=== PATIENT | female | born 1950 | race Caucasian/White ===

== ENCOUNTER 2020-10-10 10:11 | Outpatient (REF) | payer OTHER, SELFPAY ==
[2020-10-10 11:56] LABS: Glucose Urine UA NEG (NEG); Leukocyte Esterase Urine 2+ (NEG); Nitrite Urine NEG (NEG); PH 5.5 (5.0-8.0); Specific Gravity - Urine >= 1.030 (1.005-1.025); Urine Blood 3+ (NEG); Urine Ketones NEG (NEG); Urine Protein NEG (NEG-TRACE)
[2020-10-10 12:00] LABS: Appearance Urine CLOUDY; Color Urine YELLOW
[2020-10-10 12:15] LABS: Bacteria Urine 1+ /LPF; Squamous Epithelial Cell Urine 3+ /LPF; WBC Urine 30-49 /HPF (0-4)
== END 2020-10-10 10:12 | disposition home or self-care (01) ==
LOC: HO.LAB 10:11
PROVIDERS: PCP Internal Medicine; Visit Provider Internal Medicine
DX: R30.0 Dysuria (principal)
CPT/HCPCS: 81001; 87086

== ENCOUNTER 2020-11-06 07:54 | Outpatient (REF) | payer OTHER, SELFPAY ==
--- NOTE | 2020-11-06 07:58 | MM_ITS ---
EXAMINATION: MM SCREENING DIGITAL BREAST TOMOSYNTHESIS, BILATERAL CLINICAL INFORMATION: Screening. Asymptomatic. The lifetime risk of breast cancer based on the Tyrer-Cuzick Model is 6%. COMPARISON: Mammography: 05/07/2020, 11/07/2019, 10/27/2019, 09/08/2018 TECHNIQUE: Digital breast tomosynthesis is performed in both the craniocaudal and mediolateral oblique views along with computer-aided detection (CAD). Synthesized 2D images are generated from the tomosynthesis. Additional exaggerated right CC and right MLO views are provided. FINDINGS: The breasts are almost entirely fatty (ACR BI-RADS breast composition Category a). There are no significant masses, abnormal calcifications, or other abnormalities. Background stromal and fibroglandular densities are stable. The asymmetric density noted previously mid 9:00 right breast is no longer demonstrated. No significant changes from prior exams. MM/MM tomosynthesis screening BI IMPRESSION: No mammographic evidence of malignancy. ASSESSMENT: BI-RADS 1: Negative RECOMMENDATION: Routine annual mammography screening. This patient's information was entered into a reminder system with a target due date for their next mammogram.
== END 2020-11-06 07:55 | disposition home or self-care (01) ==
LOC: HO.MAMMO 07:54
PROVIDERS: PCP Internal Medicine; Visit Provider Internal Medicine
DX: Z12.31 Encounter for screening mammogram for malignant neoplasm of breast (principal)
CPT/HCPCS: 77063; 77067

== ENCOUNTER 2020-11-18 08:05 | Inpatient (IN) | payer OTHER, SELFPAY ==
[2020-11-18] VITALS (10 sets, daily range): BP systolic 138–155; BP diastolic 69–88; PULSE 89–112; RESP 16–22; TEMP 36.9–37.1; O2SAT 2–100; BMI 45.4
--- NOTE | 2020-11-18 08:15 | ED.ASTHMA ---
HPI - Asthma General Chief Complaint: Dyspnea Stated Complaint: ASTHMA Time Seen by Provider: 11/18/20 08:15 Source: patient Mode of arrival: ambulatory Limitations: no limitations History of Present Illness HPI Narrative: This is a 70-year-old female who reports history of hypertension, hyperlipidemia, hypothyroidism as well as history of asthma she is a nonsmoker she does have history of obesity who presents ambulatory via triage with complaint of states on 3 days ago she started with some nasal congestion had a episode of mild nose bleed in the setting of congestion that resolved spontaneously and since then has had a cough with worsening wheezing and unable to lay down flat. States she feels shortness of breath and she has had cough intensifying and with cough she gets spasm like pain in the right-sided chest. She denies recent travel or sick contacts. She does use Advair for her asthma. MD complaint: asthma attack and wheezing Onset (ago): day(s) (3) Severity: moderate Context: recent URI Associated symptoms: productive cough Asthma History: childhood onset Treatments Prior to Arrival: other (Advair) Related Data Allergies Allergy/AdvReac Type Severity Reaction Status Date / Time cephalexin [Keflex] Allergy Unknown CRAMPS Verified 11/18/20 08:48 erythromycin base AdvReac Severe NAUSEA & Verified 11/18/20 08:48 [Erythromycin Base] VOMITING Erythromycin Allergy Unknown CRAMPS Uncoded 11/18/20 08:48 From Keflex AdvReac Severe NAUSEA & Uncoded 07/19/20 15:17 VOMITING Review of Systems Review of Systems: Constitutional: No Weight loss, No Fever, No Chills, No Night Sweats, No Fatigue, No Malaise ENT/Mouth: No Hearing loss, No Ear Pain, + Nasal Congestion, No Sinus Pain, No Hoarseness, No sore throat, , No Swallowing Difficulty Eyes: No Eye Pain, No Swelling, No Redness, No Foreign Body, No Discharge, No Vision Changes Cardiovascular: No Edema, No Palpitations Respiratory: Positive shortness of breath, positive cough as noted HPI Gastrointestinal: No Nausea, No Vomiting, No Diarrhea, No Constipation, No abdominal Pain, No Hematochezia, No Melena Genitourinary: no irregular bleeding, No Dysuria, No Urinary Frequency, No Hematuria, No Urinary Incontinence, No Urgency, No Flank Pain, No Urinary Flow Changes, No Hesitancy Musculoskeletal: No joint pain, No Myalgias, No Joint Swelling Skin: No Skin Lesions, No rash Neuro: No Weakness, No Numbness, No Paresthesias, No Loss of Consciousness, No Dizziness, No Headache Psych: No Social Issues Heme/Lymph: No Bruising, No Bleeding,No Lymphadenopathy Endocrine: No Polyuria, No Polydipsia, No Temperature Intolerance Yes all other systems are reviewed and are negative [facility] Past Medical History Medical History (Updated 11/18/20 @ 08:20 by Ewa George) Asthma Eczema HTN (hypertension) Hypothyroid Rosacea Social History Social History Alcohol intake: never Smoking Status: Never smoker Use of substances other than those prescribed or required for medical reasons: No Advance Directives: No Advance Directives Information Provided: Yes Physical Exam Vital Signs: Vital Signs: Last Vital Signs Temp 98.8 F 11/18/20 08:18 Pulse 109 H 11/18/20 12:12 Resp 22 H 11/18/20 12:12 BP 149/74 H 11/18/20 12:12 Pulse Ox 97 11/18/20 12:12 Body Mass Index 45.4 Reviewed Const: General: cooperative and in distress mild and respiratory; No intoxicated appearing Nutritional Appearance: average body habitus Orientation/consciousness: patient oriented x3 HENMT: Head: Yes normal to inspection Ears: hearing grossly normal bilaterally Eyes: General: appearance normal, both eyes and all related structures Visual Yin: normal visual yin by confrontation Neck: Neck: Yes normal visual inspection, No positive Brudzinski's sign, No positive Kernig's sign and No tender Thyroid: Thyroid normal Chest: Chest palpation & inspection: normal inspection of the chest Resp: Effort & Inspection: normal respiratory effort Auscultation: wheezes scattered wheezes Cardio: Jugular venous distension: no JVD Rate: regular rate Rhythm: abnormal rhythm (Tachycardic) Heart sounds: S1 normal heart sound present and S2 normal heart sound present GI: Inspection: Yes normal to inspection Percussion: Yes normal to percussion Auscultation: normal bowel sounds : General: Yes no CVA tenderness Back/Spine/Pelvis: Back: no CVA tenderness Skin: General skin exam: no rashes or lesions noted Neuro: General: patient oriented x3 Extrem: General: Yes normal to inspection Course Course Course Narrative: No significant improvement with albuterol inhaler. COVID positive. Moved to room 7 RT at bedside for our long neb. feels short of breath with ambulation. Her O2 did drop to 89% with ambulation. Labs otherwise overall stable. No leukocytosis. D-dimer negative. BMP negative. Troponin negative. X-ray without acute disease. Plan for our long neb and re-evaluation. Reevaluation(s) Reevaluation #1: Wheezing has improved significantly after our long neb at rest 95-97% on 2 L of nasal cannula supplemental oxygen. Without supplemental oxygen she is down to 91 and drops to 88-89% ra. COVID positive, requiring oxygen with desaturation case discussed with hospitalist for admission. Consultations Consultation #1: [id number] Case discussed with hospitalist Millie, accepted to service. MDM - Asthma MDM Narrative Medical decision making narrative: 830 In review of 70-year-old female with history hypertension, hyperlipidemia, hypothyroidism as well as history of asthma nonsmoker on Advair has had cough with worsening weakness with associated wheezing and right-sided chest wall pain with cough only in the setting of recent URI feeling worse over the past 3 days upon arrival scattered wheezing pulse ox 91% on room air placed on 2 L improved to 95% at rest she reports she feels okay. Labs including COVID stratification labs, EKG chest x-ray and will treat with p.r.n. neb, steroids and gradual fluids. Differential Diagnosis Differential diagnosis: Likely Acute exacerbation, Acute asthmatic bronchitis and Pneumonia; Unlikely Status asthmaticus, PE, COPD exacerbation, Pulmonary edema systolic, Pulmonary edema dystolic, ARDS, Pneumothorax and Foreign body in trachea Medical Records Attestation: I reviewed the patient's medical records. Lab Data Attestation: I reviewed the patient's lab results. Result diagrams: 11/18/20 08:36 11/18/20 08:36 Labs: Lab Results 11/18/20 11/18/20 11/18/20 Range/Units 08:36 08:36 08:36 WBC 4.5 L (4.8-10.8) X10*3/uL RBC 4.32 (4.20-5.50) X10*6/uL Hgb 13.4 (12.0-16.0) g/dl Hct 41.7 (37-47) % MCV 96.5 (80-98) fL MCH 31.0 (27.0-33.0) pg MCHC 32.1 (31.0-35.0) g/dl RDW 13.5 (11.0-16.0) % Plt Count 260 (160-400) X10*3/uL MPV 9.0 L (9.4-12.3) fL Immature Gran % (Auto) 0.7 H (0.0-0.4) % Neut % (Auto) 67.9 (45-73) % Lymph % (Auto) 23.5 (20-40) % [place] % (Auto) 6.6 (2-11) % Eos % (Auto) 0.9 (0-4) % Baso % (Auto) 0.4 (0-2) % Lymph # (Auto) 1.1 L (1.2-4.9) X10*3/uL [place] # (Auto) 0.3 (0.1-1.2) X10*3/uL Eos # (Auto) 0.0 (0.0-0.4) X10*3/uL Baso # (Auto) 0.0 (0.0-0.2) X10*3/uL Abs Immat Gran (auto) 0.03 (0.00-0.03) X10*3/uL Absolute Neuts (auto) 3.1 (2.0-8.3) X10*3/uL Absolute Nucleated RBC 0.000 (0.0-0.012) X10*3/uL Nucleated RBC % (auto) 0.0 (0.0-0.2) /100WBC PT 13.1 H (10.8-13.0) SEC INR 1.1 (0.9-1.1) APTT 34.1 (24.1-38.0) SEC D-Dimer < 200 NG/ML Sodium 141 (135-145) mmol/L Potassium 4.1 (3.3-5.1) mmol/l Chloride 106 (96-108) mmol/L Carbon Dioxide 22 (22-29) mmol/L Anion Gap 17 (12-20) BUN 13 (9-16) mg/dL Creatinine 0.78 (0.5-1.4) mg/dL Estim Creat Clear Calc 97.6 Estimated GFR > 60 Random Glucose 218 H (60-115) mg/dL Lactic Acid (0.5-2.0) mmol/L Calcium 8.4 (8.4-10.2) mg/dL Ferritin 229 (10-250) ng/mL Total Bilirubin 0.3 (0.0-1.0) mg/dL AST 55 H (5-31) U/L ALT 56 H (0-31) U/L Alkaline Phosphatase 82 (39-117) U/L Lactate Dehydrogenase 257 H (122-220) U/L Troponin I High Sens (<3.5-17.0) ng/L C-Reactive Protein 0.88 H (< or = 0.50) mg/dL B-Natriuretic Peptide (<100) pg/mL Total Protein 6.8 (6.5-8.0) g/dL Albumin 4.0 (3.5-5.0) g/dL Procalcitonin ng/mL Urine Color Urine Appearance Urine pH (5.0-8.0) Ur Specific [place] (1.005-1.025) Urine Protein (NEG-TRACE) MG/DL Urine Glucose (UA) (NEG) MG/DL Urine Ketones (NEG) MG/DL Urine Blood (NEG) Urine Nitrite (NEG) Ur Leukocyte Esterase (NEG) Urine RBC (0) /HPF Urine WBC (0-4) /HPF Ur Squamous Epith Cells /LPF Urine Bacteria /LPF COVID-19 (FRANCA) (Negative) COVID-19 Clin Com 11/18/20 11/18/20 11/18/20 Range/Units 08:36 08:36 08:36 WBC (4.8-10.8) X10*3/uL RBC (4.20-5.50) X10*6/uL Hgb (12.0-16.0) g/dl Hct (37-47) % MCV (80-98) fL MCH (27.0-33.0) pg MCHC (31.0-35.0) g/dl RDW (11.0-16.0) % Plt Count (160-400) X10*3/uL MPV (9.4-12.3) fL Immature Gran % (Auto) (0.0-0.4) % Neut % (Auto) (45-73) % Lymph % (Auto) (20-40) % [place] % (Auto) (2-11) % Eos % (Auto) (0-4) % Baso % (Auto) (0-2) % Lymph # (Auto) (1.2-4.9) X10*3/uL [place] # (Auto) (0.1-1.2) X10*3/uL Eos # (Auto) (0.0-0.4) X10*3/uL Baso # (Auto) (0.0-0.2) X10*3/uL Abs Immat Gran (auto) (0.00-0.03) X10*3/uL Absolute Neuts (auto) (2.0-8.3) X10*3/uL Absolute Nucleated RBC (0.0-0.012) X10*3/uL Nucleated RBC % (auto) (0.0-0.2) /100WBC PT (10.8-13.0) SEC INR (0.9-1.1) APTT (24.1-38.0) SEC D-Dimer NG/ML Sodium (135-145) mmol/L Potassium (3.3-5.1) mmol/l Chloride (96-108) mmol/L Carbon Dioxide (22-29) mmol/L Anion Gap (12-20) BUN (9-16) mg/dL Creatinine (0.5-1.4) mg/dL Estim Creat Clear Calc Estimated GFR Random Glucose (60-115) mg/dL Lactic Acid 1.2 (0.5-2.0) mmol/L Calcium (8.4-10.2) mg/dL Ferritin (10-250) ng/mL Total Bilirubin (0.0-1.0) mg/dL AST (5-31) U/L ALT (0-31) U/L Alkaline Phosphatase (39-117) U/L Lactate Dehydrogenase (122-220) U/L Troponin I High Sens < 3.5 (<3.5-17.0) ng/L C-Reactive Protein (< or = 0.50) mg/dL B-Natriuretic Peptide < 10 (<100) pg/mL Total Protein (6.5-8.0) g/dL Albumin (3.5-5.0) g/dL Procalcitonin 0.07 ng/mL Urine Color Urine Appearance Urine pH (5.0-8.0) Ur Specific [place] (1.005-1.025) Urine Protein (NEG-TRACE) MG/DL Urine Glucose (UA) (NEG) MG/DL Urine Ketones (NEG) MG/DL Urine Blood (NEG) Urine Nitrite (NEG) Ur Leukocyte Esterase (NEG) Urine RBC (0) /HPF Urine WBC (0-4) /HPF Ur Squamous Epith Cells /LPF Urine Bacteria /LPF COVID-19 (FRANCA) (Negative) COVID-19 Clin Com 11/18/20 11/18/20 Range/Units 08:37 12:11 WBC (4.8-10.8) X10*3/uL RBC (4.20-5.50) X10*6/uL Hgb (12.0-16.0) g/dl Hct (37-47) % MCV (80-98) fL MCH (27.0-33.0) pg MCHC (31.0-35.0) g/dl RDW (11.0-16.0) % Plt Count (160-400) X10*3/uL MPV (9.4-12.3) fL Immature Gran % (Auto) (0.0-0.4) % Neut % (Auto) (45-73) % Lymph % (Auto) (20-40) % [place] % (Auto) (2-11) % Eos % (Auto) (0-4) % Baso % (Auto) (0-2) % Lymph # (Auto) (1.2-4.9) X10*3/uL [place] # (Auto) (0.1-1.2) X10*3/uL Eos # (Auto) (0.0-0.4) X10*3/uL Baso # (Auto) (0.0-0.2) X10*3/uL Abs Immat Gran (auto) (0.00-0.03) X10*3/uL Absolute Neuts (auto) (2.0-8.3) X10*3/uL Absolute Nucleated RBC (0.0-0.012) X10*3/uL Nucleated RBC % (auto) (0.0-0.2) /100WBC PT (10.8-13.0) SEC INR (0.9-1.1) APTT (24.1-38.0) SEC D-Dimer NG/ML Sodium (135-145) mmol/L Potassium (3.3-5.1) mmol/l Chloride (96-108) mmol/L Carbon Dioxide (22-29) mmol/L Anion Gap (12-20) BUN (9-16) mg/dL Creatinine (0.5-1.4) mg/dL Estim Creat Clear Calc Estimated GFR Random Glucose (60-115) mg/dL Lactic Acid (0.5-2.0) mmol/L Calcium (8.4-10.2) mg/dL Ferritin (10-250) ng/mL Total Bilirubin (0.0-1.0) mg/dL AST (5-31) U/L ALT (0-31) U/L Alkaline Phosphatase (39-117) U/L Lactate Dehydrogenase (122-220) U/L Troponin I High Sens (<3.5-17.0) ng/L C-Reactive Protein (< or = 0.50) mg/dL B-Natriuretic Peptide (<100) pg/mL Total Protein (6.5-8.0) g/dL Albumin (3.5-5.0) g/dL Procalcitonin ng/mL Urine Color YELLOW Urine Appearance CLEAR Urine pH 5.5 (5.0-8.0) Ur Specific [place] 1.020 (1.005-1.025) Urine Protein NEG (NEG-TRACE) MG/DL Urine Glucose (UA) 500 H (NEG) MG/DL Urine Ketones 15 (NEG) MG/DL Urine Blood 2+ H (NEG) Urine Nitrite NEG (NEG) Ur Leukocyte Esterase TRACE H (NEG) Urine RBC 5-9 H (0) /HPF Urine WBC 1-4 (0-4) /HPF Ur Squamous Epith Cells 1+ /LPF Urine Bacteria 1+ /LPF COVID-19 (FRANCA) Positive A (Negative) COVID-19 Clin Com See Note Imaging Data Chest x-ray: Radiologist's impression: [address] [address] XRay Report Signed Patient: Flores Agrawal#: [id number] : 2Acct:[id number] Age/Sex: 70 / FADM Date: 11/18/20 Loc: HO.ED Attending Dr: Ordering Physician: Franky Bautista NP Date of Service: 11/18/20 Procedure(s): XR chest 1V Accession Number(s): [id number] cc: Franky Bautista ROCK DUST SPRAYER~ EXAMINATION: XR CHEST CLINICAL INFORMATION: Shortness of breath COMPARISON: Previous chest x-ray December 2018 TECHNIQUE: Frontal view of the chest was obtained. FINDINGS: The cardiac and mediastinal contours are stable. The lungs are clear. There is no pleural effusion or pneumothorax. There are degenerative changes of the spine. XR/XR chest 1V IMPRESSION: No evidence for acute disease in the chest. Dictated By:FREDA PATEL MD Signed By:<Electronically signed by FREDA PATEL MD in OV>11/18/20832 DD/ 6 TD/TT: Toy Department Manager: MARTITA ECG Data Interpretation: Sinus tachycardia Otherwise normal ECG When compared with ECG of 08-MAR-2012 09:07, No significant change was found
--- NOTE | 2020-11-18 08:17 | ECG_ITS ---
Test Reason : SOB Blood Pressure : / mmHG Vent. Rate : 109 BPM Atrial Rate : 109 BPM P-R Int : 164 ms QRS Dur : 090 ms QT Int : 352 ms P-R-T Axes : 079 015 033 degrees QTc Int : 474 ms Sinus tachycardia Otherwise normal ECG When compared with ECG of 08-MAR-2012 09:07, No significant change was found Referred By: Franky Bautista Electronically Signed By:MARI FERNANDEZ
[2020-11-18 08:44] LABS: MANUAL DIFF FLAG NO
[2020-11-18 08:46] LABS: Basophils Percent Auto 0.4 % (0-2); Eosinophils Percent Auto 0.9 % (0-4); Hematocrit 41.7 % (37-47); Hemoglobin 13.4 g/dl (12.0-16.0); Imm Gran Abs Auto 0.03 X10*3/uL (0.00-0.03); Imm Gran Pct Auto 0.7 % (0.0-0.4); Lymphocytes Absolute Auto 1.1 X10*3/uL (1.2-4.9); Lymphocytes Percent Auto 23.5 % (20-40); Mean Corpuscular HGB Conc 32.1 g/dl (31.0-35.0); Mean Corpuscular Volume 96.5 fL (80-98); Monocytes Absolute Auto 0.3 X10*3/uL (0.1-1.2); Monocytes Percent Auto 6.6 % (2-11); Neutrophils Absolute Auto 3.1 X10*3/uL (2.0-8.3); Neutrophils Percent Auto 67.9 % (45-73); Platelet Count 260 X10*3/uL (160-400); Red Blood Count 4.32 X10*6/uL (4.20-5.50); Red Cell Distribution Width 13.5 % (11.0-16.0); White Blood Count 4.5 X10*3/uL (4.8-10.8)
[2020-11-18] MEDS: predniSONE 20 MG TABLET 60 MG PO (08:49)
[2020-11-18] MEDS: 0.9 % Sodium Chloride 500 ML IV (08:50)
[2020-11-18 08:52] LABS: INTERNATIONAL NORM RATIO 1.1 (0.9-1.1); Prothrombin Time 13.1 SEC (10.8-13.0)
[2020-11-18 08:55] LABS: Partial Thromboplastin Time 34.1 SEC (24.1-38.0)
[2020-11-18 08:56] LABS: IDNOW Serial# 9DD0AD1C
[2020-11-18 08:58] LABS: COVID-19 Test Positive (Negative)
[2020-11-18 08:58] LABS: D Dimer < 200 NG/ML
[2020-11-18 09:03] LABS: Lactic Acid 1.2 mmol/L (0.5-2.0)
[2020-11-18 09:10] LABS: Alanine Aminotransferase 56 U/L (0-31); Alkaline Phosphatase 82 U/L (39-117); Anion Gap 17 (12-20); Aspartate Amino Transferase 55 U/L (5-31); Bilirubin Total 0.3 mg/dL (0.0-1.0); Blood Urea Nitrogen 13 mg/dL (9-16); C Reactive Protein 0.88 mg/dL (< or = 0.50); Calcium 8.4 mg/dL (8.4-10.2); Carbon Dioxide 22 mmol/L (22-29); Chloride 106 mmol/L (96-108); Creatinine Clr Calc Pharmacy 97.6; Estimated Glomerular Filt Rate > 60; Glucose Random 218 mg/dL (60-115); Lactate Dehydrogenase 257 U/L (122-220); Potassium 4.1 mmol/l (3.3-5.1); Sodium 141 mmol/L (135-145); Total Protein 6.8 g/dL (6.5-8.0)
[2020-11-18 09:13] LABS: Troponin-I High Sensitivity < 3.5 ng/L (<3.5-17.0)
[2020-11-18 09:29] LABS: Procalcitonin 0.07 ng/mL
[2020-11-18] MEDS: Albuterol Sulfate (0.083%) 2.5 MG/3 ML VIAL.NEB 10 MG INHALE (09:52)
[2020-11-18 10:49] LABS: B Type Natriuretic Peptide < 10 pg/mL (<100)
[2020-11-18 11:04] LABS: Ferritin 229 ng/mL (10-250)
[2020-11-18 12:19] LABS: Glucose Urine UA 500 MG/DL (NEG); Leukocyte Esterase Urine TRACE (NEG); Nitrite Urine NEG (NEG); PH 5.5 (5.0-8.0); Urine Blood 2+ (NEG); Urine Ketones 15 MG/DL (NEG); Urine Protein NEG (NEG-TRACE)
[2020-11-18 12:20] LABS: Appearance Urine CLEAR; Color Urine YELLOW
[2020-11-18 12:37] LABS: Bacteria Urine 1+ /LPF; Squamous Epithelial Cell Urine 1+ /LPF
--- NOTE | 2020-11-18 12:40 | PC.NURSE ---
Pt ambulatory to bathroom in room, sat 89% on room air upon return to bed with increased work of breathing, Franky Bautista WIRELESS RETAIL MANAGER aware
--- NOTE | 2020-11-18 14:03 | P.HPHOSP_ITS ---
History of Present Illness Date of Service: 11/18/20 Chief Complaint: SOB and cough 70 year old women [facility] Medical History (Updated 11/18/20 @ 08:20 by Ewa George) Asthma Eczema HTN (hypertension) Hypothyroid Rosacea Social History Alcohol intake: never Smoking Status: Never smoker Use of substances other than those prescribed or required for medical reasons: No Advance Directives: No Advance Directives Information Provided: Yes Meds Allergies Allergy/AdvReac Type Severity Reaction Status Date / Time cephalexin [Keflex] Allergy Unknown CRAMPS Verified 11/18/20 08:48 erythromycin base AdvReac Severe NAUSEA & Verified 11/18/20 08:48 [Erythromycin Base] VOMITING Erythromycin Allergy Unknown CRAMPS Uncoded 11/18/20 08:48 From Keflex AdvReac Severe NAUSEA & Uncoded 07/19/20 15:17 VOMITING Physical Exam Vital Signs and Narrative: Vital Signs: Last Vital Signs Temp 98.8 F 11/18/20 08:18 Pulse 109 H 11/18/20 12:12 Resp 22 H 11/18/20 12:12 BP 149/74 H 11/18/20 12:12 Pulse Ox 97 11/18/20 12:12 Body Mass Index 45.4 Results Labs CBC and Chem 7: 11/18/20 08:36 11/18/20 08:36 Labs: Laboratory Results - last 24 hr 11/18/20 11/18/20 11/18/20 08:36 08:36 08:36 MCV 96.5 MCH 31.0 MCHC 32.1 RDW 13.5 Plt Count 260 MPV 9.0 L Immature Gran % (Auto) 0.7 H Neut % (Auto) 67.9 Lymph % (Auto) 23.5 [place] % (Auto) 6.6 Eos % (Auto) 0.9 Baso % (Auto) 0.4 Lymph # (Auto) 1.1 L [place] # (Auto) 0.3 Eos # (Auto) 0.0 Baso # (Auto) 0.0 Abs Immat Gran (auto) 0.03 Absolute Neuts (auto) 3.1 Absolute Nucleated RBC 0.000 Nucleated RBC % (auto) 0.0 PT 13.1 H INR 1.1 APTT 34.1 D-Dimer < 200 Anion Gap 17 Estim Creat Clear Calc 97.6 Estimated GFR > 60 Random Glucose 218 H Lactic Acid Calcium 8.4 Ferritin 229 Total Bilirubin 0.3 AST 55 H ALT 56 H Alkaline Phosphatase 82 Lactate Dehydrogenase 257 H Troponin I High Sens C-Reactive Protein 0.88 H B-Natriuretic Peptide Total Protein 6.8 Albumin 4.0 Procalcitonin Urine Color Urine Appearance Urine pH Ur Specific [place] Urine Protein Urine Glucose (UA) Urine Ketones Urine Blood Urine Nitrite Ur Leukocyte Esterase Urine RBC Urine WBC Ur Squamous Epith Cells Urine Bacteria COVID-19 (FRANCA) COVID-19 Clin Com 11/18/20 11/18/20 11/18/20 08:36 08:36 08:36 MCV MCH MCHC RDW Plt Count MPV Immature Gran % (Auto) Neut % (Auto) Lymph % (Auto) [place] % (Auto) Eos % (Auto) Baso % (Auto) Lymph # (Auto) [place] # (Auto) Eos # (Auto) Baso # (Auto) Abs Immat Gran (auto) Absolute Neuts (auto) Absolute Nucleated RBC Nucleated RBC % (auto) PT INR APTT D-Dimer Anion Gap Estim Creat Clear Calc Estimated GFR Random Glucose Lactic Acid 1.2 Calcium Ferritin Total Bilirubin AST ALT Alkaline Phosphatase Lactate Dehydrogenase Troponin I High Sens < 3.5 C-Reactive Protein B-Natriuretic Peptide < 10 Total Protein Albumin Procalcitonin 0.07 Urine Color Urine Appearance Urine pH Ur Specific [place] Urine Protein Urine Glucose (UA) Urine Ketones Urine Blood Urine Nitrite Ur Leukocyte Esterase Urine RBC Urine WBC Ur Squamous Epith Cells Urine Bacteria COVID-19 (FRANCA) COVID-19 Clin Com 11/18/20 11/18/20 08:37 12:11 MCV MCH MCHC RDW Plt Count MPV Immature Gran % (Auto) Neut % (Auto) Lymph % (Auto) [place] % (Auto) Eos % (Auto) Baso % (Auto) Lymph # (Auto) [place] # (Auto) Eos # (Auto) Baso # (Auto) Abs Immat Gran (auto) Absolute Neuts (auto) Absolute Nucleated RBC Nucleated RBC % (auto) PT INR APTT D-Dimer Anion Gap Estim Creat Clear Calc Estimated GFR Random Glucose Lactic Acid Calcium Ferritin Total Bilirubin AST ALT Alkaline Phosphatase Lactate Dehydrogenase Troponin I High Sens C-Reactive Protein B-Natriuretic Peptide Total Protein Albumin Procalcitonin Urine Color YELLOW Urine Appearance CLEAR Urine pH 5.5 Ur Specific [place] 1.020 Urine Protein NEG Urine Glucose (UA) 500 H Urine Ketones 15 Urine Blood 2+ H Urine Nitrite NEG Ur Leukocyte Esterase TRACE H Urine RBC 5-9 H Urine WBC 1-4 Ur Squamous Epith Cells 1+ Urine Bacteria 1+ COVID-19 (FRANCA) Positive A COVID-19 Clin Com See Note Imaging Radiologist's Impressions: Impressions Chest X-Ray 11/18/20 08:17 IMPRESSION: No evidence for acute disease in the chest.
[2020-11-18 15:45] LABS: Estimated Average Glucose 206 mg/dL; Hemoglobin A1c % 8.8 %
--- NOTE | 2020-11-18 15:51 | P.EN_ITS ---
Event Note Date of Service: 11/18/20 Event Note: Admission note the patient was seen and evaluated with Millie Qureshi NP. I agree with her note, assessment and plan with the following. In summary, a 70 years old lady with history of HTN, HLD, obesity who presents to the hospital complaining of 3 days history of nasal congestion, cough and shortness of breath. She denies any fever but reports some chest with right- sided chest pain and result of coughing. She was tested positive for COVID-19 in the emergency. COVID-19 infection CXR as reported Start dexamethasone IV for total of 10 days Oxygen supplement as needed Cough medication To get ID evaluation for possible remdesivir Rest of evaluations by MULLING MACHINE OPERATOR note.
[2020-11-18 16:30] LABS: Glucose, Whole Blood 261 mg/dL (60-115)
[2020-11-18] MEDS: Enoxaparin Sodium 40 MG/0.4 ML SYRINGE SUBCUT (16:42)
[2020-11-18] MEDS: 0.9 % Sodium Chloride Flush 3 ML SYRINGE IVFLUSH (16:43)
[2020-11-18] MEDS: Insulin Lispro 100 UNIT/ML 3 ML VIAL SUBCUT ×2 (16:43→23:06)
[2020-11-18] MEDS: Albuterol Sulfate (0.083%) 2.5 MG/3 ML VIAL.NEB INHALE (16:48)
[2020-11-18] MEDS: guaiFEN/Codeine SF 200/20/10ML 10 ML LIQUID 5 ML PO ×2 (18:02→22:54)
--- NOTE | 2020-11-18 18:31 | HP_ITS ---
DATE OF SERVICE: 11/18/2020 CHIEF COMPLAINT: Cough. HISTORY OF PRESENT ILLNESS: A 70-year-old woman presenting with complaints of worsening cough since Thursday. She reports that she has had a dry cough which has kept her up at night. She does have a history of asthma and reported some wheezing. She denies fever, chills, nausea, vomiting, diarrhea at home. No sputum production. She also mentioned that she did have some nasal congestion and pain to her right upper quadrant with coughing. In the ER, she was noted to be COVID positive. Chest x-ray showed no consolidation or effusion. She was not noted to be hypoxic in the ER or have a fever. She was given albuterol, prednisone and 500 mL of IV fluid in the ER. She will be admitted for further management and treatment of COVID-19 and asthma exacerbation. PAST MEDICAL HISTORY: 1. Hysterectomy. 2. Hypothyroidism. 3. Hypertension. 4. Obesity. 5. Arthritis. 6. Asthma. 7. Venous stasis. 8. Hiatal hernia. SOCIAL HISTORY: Denies any alcohol, tobacco, or illicit drugs. Lives with her brother. FAMILY HISTORY: Mother had hypertension. Father had hypertension. ALLERGIES: KEFLEX, ERYTHROMYCIN. MEDCATIONS: 1. Aspirin 81 mg p.o. daily . 2. Cholecalciferol 125 mcg daily. 3. Advair 1 inhalation b.i.d. 4. Soolantra topical. 5. Levothyroxine 50 mcg daily. 6. Lisinopril 20 mg p.o. daily. REVIEW OF SYSTEMS: CONSTITUTIONAL: Denies recent fever, chills, or decrease in appetite. RESPIRATORY: See HPI. CARDIOVASCULAR: Denies any chest pain, orthopnea, PND, or edema. GASTROINTESTINAL: Denies any abdominal pain, diarrhea, nausea, vomiting. GENITOURINARY: Denies any dysuria, frequency, or hematuria. MUSCULOSKELETAL: Denies any joint pain or swelling. NEUROPSYCH: Denies any weakness or seizures. All other systems are reviewed and are negative. PHYSICAL EXAMINATION: CONSTITUTIONAL: Resting in bed, appearing in no acute distress. VITAL SIGNS: 98.8, 109, 22, 149/74, 97% on room air. SKIN: Intact without rashes or open sores. HEENT: Head is normocephalic, atraumatic. Eyes, PERRLA. Sclerae anicteric. Mouth and throat: Mucous membranes are intact and moist. NECK: Supple. No lymphadenopathy. No JVD noted. CHEST: Expiratory wheezes with scattered rhonchi. HEART: Regular rate and rhythm. Clear S1, S2. No murmurs, rubs, or gallops. ABDOMEN: Obese. Positive bowel sounds. Soft, nontender. No hepatomegaly or splenomegaly noted. NEURO: The patient is alert and oriented x3. Cranial nerves II through XII grossly intact without focal deficits. LABORATORY DATA: WBC 4.5, hemoglobin 13.4, hematocrit 41.7, platelets 260. Sodium is 141, potassium is 4.1, chloride is 106, BUN is 13, creatinine is 0.78, glucose is 218. AST is 55, ALT is 56, LDH is 257. CRP is 0.88. ASSESSMENT AND PLAN: A 70-year-old woman who is being admitted with asthma exacerbation and new diagnosis of COVID-19. Symptoms seem more related to asthma as patient has not been hypoxic. 1. Asthma exacerbation. We will treat with albuterol inhaler, steroids, supplemental oxygen as needed. Continue Advair. 2. COVID-19. Steroids, hold off on antibiotics for now, ID consult, isolation. 3. Hypothyroidism. Continue levothyroxine. 4. Obesity. Discussed the importance of weight management and risk of worsening chronic medical problems. 5. Diabetes mellitus. Not on any home medications. Will use sliding scale, ADA diet. Add A1c for the morning. 6. Deep vein thrombosis prophylaxis with Lovenox. 7. Case discussed with Dr. Bourne. 8. Full code. ALEJANDRA Koo MD JR/KOLTON / [phone]
--- NOTE | 2020-11-18 19:41 | PC.NURSE ---
PT AWAKE AND ALERT, WATCHING TV IN ROOM. REPORT FROM ELISABET MADDOX.
[2020-11-18] MEDS: Albuterol Sulfate 90 MCG 8 GM INHALER 2 PUFF INHALE (22:17)
[2020-11-18 22:19] LABS: Glucose, Whole Blood 239 mg/dL (60-115)
[2020-11-19 06:18] VITALS: BP 150/80; PULSE 97; RESP 35; O2SAT 99
[2020-11-19] MEDS: guaiFEN/Codeine SF 200/20/10ML 10 ML LIQUID 5 ML PO ×3 (06:25→17:07)
[2020-11-19] MEDS: Albuterol Sulfate 90 MCG 8 GM INHALER 2 PUFF INHALE ×3 (06:26→12:36)
--- NOTE | 2020-11-19 06:44 | PC.NURSE ---
pt requested replacement pads, incontinent when coughing. pt able to stand, pads replaced.
[2020-11-19 06:46] LABS: MANUAL DIFF FLAG NO
[2020-11-19 06:52] LABS: Basophils Percent Auto 0.1 % (0-2); Eosinophils Percent Auto 0.1 % (0-4); Hemoglobin 13.2 g/dl (12.0-16.0); Imm Gran Abs Auto 0.06 X10*3/uL (0.00-0.03); Imm Gran Pct Auto 0.7 % (0.0-0.4); Lymphocytes Absolute Auto 1.6 X10*3/uL (1.2-4.9); Lymphocytes Percent Auto 18.9 % (20-40); Mean Corpuscular HGB Conc 32.2 g/dl (31.0-35.0); Mean Corpuscular Hemoglobin 30.9 pg (27.0-33.0); Mean Platelet Volume 9.2 fL (9.4-12.3); Monocytes Absolute Auto 0.5 X10*3/uL (0.1-1.2); Monocytes Percent Auto 5.4 % (2-11); Neutrophils Absolute Auto 6.2 X10*3/uL (2.0-8.3); Neutrophils Percent Auto 74.8 % (45-73); Platelet Count 260 X10*3/uL (160-400); Red Blood Count 4.27 X10*6/uL (4.20-5.50); Red Cell Distribution Width 13.4 % (11.0-16.0); White Blood Count 8.3 X10*3/uL (4.8-10.8)
[2020-11-19 07:21] LABS: Anion Gap 15 (12-20); Blood Urea Nitrogen 14 mg/dL (9-16); Calcium 8.8 mg/dL (8.4-10.2); Carbon Dioxide 23 mmol/L (22-29); Chloride 106 mmol/L (96-108); Creatinine Clr Calc Pharmacy 102.9; Estimated Glomerular Filt Rate > 60; Glucose Random 170 mg/dL (60-115); Sodium 140 mmol/L (135-145)
[2020-11-19 08:34] LABS: Glucose, Whole Blood 180 mg/dL (60-115)
[2020-11-19] MEDS: dexAMETHasone sod phosphate 4 MG/ML VIAL 6 MG IVPUSH (08:37)
[2020-11-19] MEDS: Levothyroxine Sodium 50 MCG TABLET PO (08:38)
[2020-11-19] MEDS: Cholecalciferol (Vitamin D3) 25 MCG TABLET 125 MCG PO (08:38)
[2020-11-19 08:39] VITALS: BP 152/82; PULSE 94
[2020-11-19] MEDS: Insulin Lispro 100 UNIT/ML 3 ML VIAL SUBCUT ×4 (08:47→22:36)
[2020-11-19] MEDS: 0.9 % Sodium Chloride Flush 3 ML SYRINGE IVFLUSH ×3 (08:48→17:08)
[2020-11-19] MEDS: Fluticasone/Vilanterol 100/25 BLST.W.DEV 1 PUFF INHALE (09:25)
[2020-11-19] MEDS: Aspirin 81 MG TAB.CHEW PO (10:32)
--- NOTE | 2020-11-19 11:00 | HO.PM.IMPN ---
Subjective Subjective Date of Service: 11/19/20 Interval History: the patient was seen and evaluated this morning Laying in bed, feels better overall but still complaining of significant bouts of cough Denies any fever, chills but has exertion and shortness of breath No reported other overnight events. Systemic review: No fever, chills or weakness No chest pain, palpitation Exertion shortness of breath with worse coughing episodes No abdominal pain, nausea or vomiting No urinary symptoms No any rash or wounds Physical Exam Vital Signs: Vital Signs: Last Vital Signs Temp 98.7 F 11/18/20 22:08 Pulse 94 11/19/20 08:39 Resp 35 H 11/19/20 06:18 BP 152/82 H 11/19/20 08:39 Pulse Ox 99 11/19/20 06:18 Body Mass Index 45.4 Const: Other: Constitutional : Alert, oriented, obese, not in distress Neck : Normal inspection, Supple Cardiovascular : RRR, S1 S2, no lower extremity edema Respiratory : Good bilateral air wall movement, not in respiratory distress, on nasal cannula Gastrointestinal: soft, lax, Normal bowel sounds, Non tender Skin : Warm/Dry, No rash Neurological : Alert & oriented x3, No focal deficit Objective Data Current Medications Generic Name Dose Route Start Last Admin Trade Name Freq PRN Reason Stop Dose Admin Acetaminophen 650 mg 11/18/20 15:07 Acetaminophen 325 Mg Tablet PO Q6H PRN Pain, Mild (Pain Scale 1-3) Albuterol Sulfate 2 puff 11/18/20 21:43 11/19/20 09:25 Albuterol Sulfate 90 Mcg 8 Gm Inhaler INHALE 2 puff RQ4H PRN Administration Wheezing Aspirin 81 mg 11/19/20 09:00 11/19/20 10:32 Aspirin 81 Mg Tab.Chew PO 81 mg DAILY ROLANDO Administration Benzonatate 200 mg 11/19/20 11:00 Benzonatate 100 Mg Capsule PO TID ROLANDO Dexamethasone Sodium Phosphate 6 mg 11/19/20 09:00 11/19/20 08:37 Dexamethasone Sod Phosphate 4 Mg/Ml Vial IVPUSH 11/28/20 09:01 6 mg DAILY ROLANDO Administration Enoxaparin Sodium 40 mg 11/18/20 15:15 11/18/20 16:42 Enoxaparin Sodium 40 Mg/0.4 Ml Syringe SUBCUT 40 mg Q24H ROLANDO Administration Fluticasone/Vilanterol 1 puff 11/19/20 08:00 11/19/20 09:25 Fluticasone/Vilanterol 100/25 Blst.W.Dev INHALE 1 puff RDAILY [facility] Administration Guaifenesin 600 mg 11/19/20 11:00 Guaifenesin La 600 Mg Tab.Er.12h PO BID ROLANDO Guaifenesin/Codeine Phosphate 5 ml 11/18/20 17:00 11/19/20 06:25 Guaifen/Codeine Sf 200/20/10ml 10 Ml Liquid PO 5 ml Q6H [facility] Administration Insulin Human Lispro 0 unit 11/18/20 16:30 11/19/20 08:47 Insulin Lispro 100 Unit/Ml 3 Ml Vial SUBCUT 2 unit QIDACHS [facility] Administration Protocol Levothyroxine Sodium 50 mcg 11/19/20 09:00 11/19/20 08:38 Levothyroxine Sodium 50 Mcg Tablet PO 50 mcg DAILY [facility] Administration Lisinopril 20 mg 11/19/20 09:00 11/19/20 08:39 Lisinopril 20 Mg Tablet PO 20 mg DAILY [facility] Administration Protocol Ondansetron HCl 4 mg 11/18/20 15:07 Ondansetron Hcl 4 Mg/2 Ml Vial IVPUSH Q8H PRN Nausea and Vomiting Sodium Chloride 3 ml 11/18/20 16:00 11/19/20 10:32 0.9 % Sodium Chloride Flush 3 Ml Syringe IVFLUSH 3 ml QSHIFT [facility] Administration Vitamin D 125 mcg 11/19/20 09:00 11/19/20 08:38 Cholecalciferol (Vitamin D3) 25 Mcg Tablet PO 125 mcg DAILY [facility] Administration Labs CBC & Chem 7: 11/19/20 06:38 11/19/20 06:38 Microbiology Microbiology Results: Microbiology 11/18/20 08:35 Blood - Venous Blood Culture - Preliminary No growth after 24 hours. Assessment and Plan (1) COVID-19 virus infection: Status: Acute (2) Asthma exacerbation: Status: Acute (3) Morbid obesity: Status: Acute (4) Hyperglycemia due to diabetes mellitus: Status: Acute Assessment and Plan: a 70 years old lady with history of HTN, HLD, obesity who presents to the hospital complaining of 3 days history of nasal congestion, cough and shortness of breath. COVID-19 infection Reports bouts of coughing, breathing better today IV dexamethasone hold off on antibiotics for now Wean oxygen down as tolerated ID consult Cough syrup with codeine Add Tessalon and Mucinex Asthma exacerbation Continue albuterol inhaler, IV steroids. supplemental oxygen as needed. Continue Advair Hypothyroidism Continue levothyroxine Morbid Obesity BMI of 45 Advised to lose weight as it does increase her risk of having more complications with current disease Hyperglycemia secondary to Diabetes mellitus Blood sugar elevated secondary to steroid usage Continue SSI ADA diet. HbA1c of 8.8 Deep vein thrombosis prophylaxis Lovenox.
[2020-11-19] MEDS: guaiFENesin LA 600 MG TAB.ER.12H PO ×2 (12:34→22:35)
[2020-11-19] MEDS: Benzonatate 100 MG CAPSULE 200 MG PO ×3 (12:34→22:34)
[2020-11-19 12:43] VITALS: PULSE 92; RESP 20; TEMP 37.1; O2SAT 99
[2020-11-19 12:50] LABS: Glucose, Whole Blood 208 mg/dL (60-115)
[2020-11-19 14:00] VITALS: BP 161/79; PULSE 101; RESP 18; TEMP 37.3; O2SAT 94
[2020-11-19 16:55] VITALS: BP 167/82; PULSE 89; RESP 18; TEMP 36.9; O2SAT 97
[2020-11-19 16:59] LABS: Glucose, Whole Blood 201 mg/dL (60-115)
[2020-11-19] MEDS: Enoxaparin Sodium 40 MG/0.4 ML SYRINGE SUBCUT (17:07)
[2020-11-19 19:28] VITALS: BP 128/59; PULSE 98; RESP 18; TEMP 36.8; O2SAT 86
[2020-11-19 22:06] LABS: Glucose, Whole Blood 157 mg/dL (60-115)
[2020-11-20] VITALS (12 sets, daily range): BP systolic 142–166; BP diastolic 70–78; PULSE 82–114; RESP 18–24; TEMP 36.7–37.3; O2SAT 94–99; BMI 45.4
[2020-11-20] MEDS: 0.9 % Sodium Chloride Flush 3 ML SYRINGE IVFLUSH ×3 (00:08→16:06)
[2020-11-20] MEDS: guaiFEN/Codeine SF 200/20/10ML 10 ML LIQUID 5 ML PO ×4 (00:08→22:27)
[2020-11-20 06:46] LABS: Anion Gap 16 (12-20); Blood Urea Nitrogen 20 mg/dL (9-16); C Reactive Protein 3.32 mg/dL (< or = 0.50); Calcium 8.5 mg/dL (8.4-10.2); Carbon Dioxide 21 mmol/L (22-29); Chloride 106 mmol/L (96-108); Creatinine Clr Calc Pharmacy 105.7; Estimated Glomerular Filt Rate > 60; Glucose Random 137 mg/dL (60-115); Lactate Dehydrogenase 276 U/L (122-220); Potassium 4.4 mmol/l (3.3-5.1); Sodium 139 mmol/L (135-145)
[2020-11-20] MEDS: Fluticasone/Vilanterol 100/25 BLST.W.DEV 1 PUFF INHALE (07:31)
[2020-11-20 08:17] LABS: Glucose, Whole Blood 156 mg/dL (60-115)
[2020-11-20] MEDS: Insulin Lispro 100 UNIT/ML 3 ML VIAL SUBCUT ×4 (08:43→21:04)
[2020-11-20] MEDS: Cholecalciferol (Vitamin D3) 25 MCG TABLET 125 MCG PO (08:44)
[2020-11-20] MEDS: dexAMETHasone sod phosphate 4 MG/ML VIAL 6 MG IVPUSH (08:44)
[2020-11-20] MEDS: guaiFENesin LA 600 MG TAB.ER.12H PO ×2 (08:44→21:05)
[2020-11-20] MEDS: Benzonatate 100 MG CAPSULE 200 MG PO ×3 (08:44→21:04)
[2020-11-20] MEDS: Levothyroxine Sodium 50 MCG TABLET PO (08:44)
[2020-11-20] MEDS: Aspirin 81 MG TAB.CHEW PO (08:44)
--- NOTE | 2020-11-20 11:35 | PC.NURSE ---
Pt O2 sats 88%-90% with ambulation on R/A . MD made aware.
--- NOTE | 2020-11-20 11:53 | MHC.CM.PN ---
CM spoke with patient by phone since she is COVID +. Patient reports she is independent and her brother lives with her. Patient does have a HCP/friend Marj [phone], copy requested. Discussed discharge plan, home no services. patient's brother will provide transportation. CM will continue to follow patient for discharge needs.
[2020-11-20 12:16] LABS: Glucose, Whole Blood 204 mg/dL (60-115)
--- NOTE | 2020-11-20 13:13 | P.PNIM_ITS ---
Subjective Subjective Date of Service: 11/20/20 Interval History: Patient being followed for COVID-19 infection, feels cough is better slept well last night, walks unassisted at home noted to have drop in oxygenation to 88% with ambulation. Review of Systems General no headache , no dizziness, no fever chills. CVS no chest pain, no palpitation. Respiratory dry cough, no shortness of breath . Gastrointestinal no nausea, no vomiting, no abdominal pain Physical Exam Vital Signs: Vital Signs: Last Vital Signs Temp 98.8 F 11/20/20 12:00 Pulse 99 11/20/20 12:00 Resp 20 11/20/20 12:00 BP 147/74 H 11/20/20 12:00 Pulse Ox 98 11/20/20 12:00 Body Mass Index 45.4 Const: Other: General patient resting comfortably in no acute distress. Neck supple no JVD. CVS regular rate rhythm, Respiratory bilateral expiratory wheeze, no respiratory distress, Gastrointestinal abdomen soft, nontender, bowel sounds audible Extremities no clubbing, cyanosis or edema. Neuro nonfocal Skin no rash Objective Data Current Medications Generic Name Dose Route Start Last Admin Trade Name Freq PRN Reason Stop Dose Admin Acetaminophen 650 mg 11/18/20 15:07 Acetaminophen 325 Mg Tablet PO Q6H PRN Pain, Mild (Pain Scale 1-3) Albuterol Sulfate 2 puff 11/18/20 21:43 11/19/20 12:36 Albuterol Sulfate 90 Mcg 8 Gm Inhaler INHALE 2 puff RQ4H PRN Administration Wheezing Aspirin 81 mg 11/19/20 09:00 11/20/20 08:44 Aspirin 81 Mg Tab.Chew PO 81 mg DAILY ROLANDO Administration Benzonatate 200 mg 11/19/20 11:00 11/20/20 08:44 Benzonatate 100 Mg Capsule PO 200 mg TID ROLANDO Administration Dexamethasone Sodium Phosphate 6 mg 11/19/20 09:00 11/20/20 08:44 Dexamethasone Sod Phosphate 4 Mg/Ml Vial IVPUSH 11/28/20 09:01 6 mg DAILY ROLANDO Administration Enoxaparin Sodium 40 mg 11/18/20 15:15 11/19/20 17:07 Enoxaparin Sodium 40 Mg/0.4 Ml Syringe SUBCUT 40 mg Q24H [facility]OL[facility]O Administration Fluticasone/Vilanterol 1 puff 11/19/20 08:00 11/20/20 07:31 Fluticasone/Vilanterol 100/25 Blst.W.Dev INHALE 1 puff RDAILY [facility] Administration Guaifenesin 600 mg 11/19/20 11:00 11/20/20 08:44 Guaifenesin La 600 Mg Tab.Er.12h PO 600 mg BID ROLANDO Administration Guaifenesin/Codeine Phosphate 5 ml 11/18/20 17:00 11/20/20 12:48 Guaifen/Codeine Sf 200/20/10ml 10 Ml Liquid PO 5 ml Q6H [facility]OL[facility] Administration Insulin Human Lispro 0 unit 11/18/20 16:30 11/20/20 12:48 Insulin Lispro 100 Unit/Ml 3 Ml Vial SUBCUT 4 unit QIDACHS [facility] Administration Protocol Levothyroxine Sodium 50 mcg 11/19/20 09:00 11/20/20 08:44 Levothyroxine Sodium 50 Mcg Tablet PO 50 mcg DAILY [facility] Administration Lisinopril 20 mg 11/19/20 09:00 11/20/20 08:45 Lisinopril 20 Mg Tablet PO 20 mg DAILY [facility] Administration Protocol Ondansetron HCl 4 mg 11/18/20 15:07 Ondansetron Hcl 4 Mg/2 Ml Vial IVPUSH Q8H PRN Nausea and Vomiting Sodium Chloride 3 ml 11/18/20 16:00 11/20/20 08:45 0.9 % Sodium Chloride Flush 3 Ml Syringe IVFLUSH 3 ml QSHIFT [facility] Administration Vitamin D 125 mcg 11/19/20 09:00 11/20/20 08:44 Cholecalciferol (Vitamin D3) 25 Mcg Tablet PO 125 mcg DAILY [facility] Administration Labs CBC & Chem 7: 11/19/20 06:38 11/20/20 05:25 Microbiology Microbiology Results: Microbiology 11/18/20 08:51 Blood - Venous Blood Culture - Preliminary No growth after 48 hours. 11/18/20 08:35 Blood - Venous Blood Culture - Preliminary No growth after 48 hours. 11/18/20 00:00 Urine clean catch - Clean Catch Midstream Urine Culture - Final Assessment and Plan (1) COVID-19 virus infection: Status: Acute (2) Asthma exacerbation: Status: Acute (3) Morbid obesity: Status: Acute (4) Hyperglycemia due to diabetes mellitus: Status: Acute Assessment and Plan: a 70 years old lady with history of HTN, HLD, obesity who presents to the hospital complaining of 3 days history of nasal congestion, cough and shortness of breath. COVID-19 infection with underlying history of asthma, with acute hypoxic respiratory failure Cough is improving, mild hypoxia with ambulation Continue IV dexamethasone day 2/10, no antibiotics with normal chest x-ray Continue Cough syrup with codeine, Tessalon and Mucinex, will encourage out of bed and incentive spirometery, will obtain home O2 eval prior to discharge if oxygenation continued to drop with ambulation. Asthma exacerbation Bilateral expiratory wheeze will schedule albuterol inhaler, continue Breo and IV steroids. At home patient only use Advair. Hypothyroidism Continue levothyroxine Morbid Obesity BMI of 45 Advised to lose weight as it does increase her risk of having more complications with current disease Hyperglycemia secondary to Diabetes mellitus Blood sugar elevated around 200, secondary to steroid usage, patient not on home medication Continue SSI, ADA diet,HbA1c of 8.8 Deep vein thrombosis prophylaxis Lovenox.
[2020-11-20] MEDS: Albuterol Sulfate 90 MCG 8 GM INHALER 4 PUFF INHALE ×2 (15:43→19:52)
[2020-11-20] MEDS: Enoxaparin Sodium 40 MG/0.4 ML SYRINGE SUBCUT (16:06)
[2020-11-20 16:48] LABS: Glucose, Whole Blood 215 mg/dL (60-115)
[2020-11-20 20:34] LABS: Glucose, Whole Blood 211 mg/dL (60-115)
[2020-11-21] VITALS: PULSE 82
[2020-11-21] MEDS: 0.9 % Sodium Chloride Flush 3 ML SYRINGE IVFLUSH ×2 (00:04→07:45)
[2020-11-21 03:36] VITALS: BP 122/76; PULSE 76; RESP 18; TEMP 36.8; O2SAT 98
[2020-11-21] MEDS: Albuterol Sulfate 90 MCG 8 GM INHALER 4 PUFF INHALE ×2 (07:46→14:58)
[2020-11-21] MEDS: Fluticasone/Vilanterol 100/25 BLST.W.DEV 1 PUFF INHALE (07:47)
[2020-11-21 07:55] VITALS: BP 141/82; PULSE 92; RESP 18; TEMP 37.1; O2SAT 94
[2020-11-21 08:02] LABS: Glucose, Whole Blood 132 mg/dL (60-115)
[2020-11-21] MEDS: Benzonatate 100 MG CAPSULE 200 MG PO ×2 (09:42→15:11)
[2020-11-21] MEDS: Cholecalciferol (Vitamin D3) 25 MCG TABLET 125 MCG PO (09:42)
[2020-11-21 09:43] VITALS: BP 141/82; PULSE 92
[2020-11-21] MEDS: dexAMETHasone sod phosphate 4 MG/ML VIAL 6 MG IVPUSH (09:43)
[2020-11-21] MEDS: Levothyroxine Sodium 50 MCG TABLET PO (09:43)
[2020-11-21] MEDS: Aspirin 81 MG TAB.CHEW PO (09:43)
[2020-11-21] MEDS: guaiFENesin LA 600 MG TAB.ER.12H PO (09:43)
[2020-11-21] MEDS: guaiFEN/Codeine SF 200/20/10ML 10 ML LIQUID 5 ML PO (11:07)
[2020-11-21 11:17] LABS: Glucose, Whole Blood 156 mg/dL (60-115)
[2020-11-21] MEDS: Insulin Lispro 100 UNIT/ML 3 ML VIAL SUBCUT (11:23)
[2020-11-21 11:24] VITALS: BP 146/70; PULSE 86; RESP 18; TEMP 36.8; O2SAT 97
--- NOTE | 2020-11-21 13:19 | MHC.CM.PN ---
Patient is COVID + on room air. Also on IV Dexamethasone day 01/09. Discharge plan is home no services. patient's brother will provide transport. CM will continue to follow for discharge needs.
--- NOTE | 2020-11-21 15:04 | MHC.CM.PN ---
Patient will be discharged home today no services. patient's brother will provide transport. Patient and nurse aware.
[2020-11-21] MEDS: Enoxaparin Sodium 40 MG/0.4 ML SYRINGE SUBCUT (15:10)
--- NOTE | 2020-11-21 15:21 | PC.NURSE ---
ambulated pt in hallway, she maintained oxygen saturation of 96-97% while ambulating. HR increased to 1100-110, pt states she is not short of breath. MD aware and pt ready for discharge per
--- NOTE | 2020-11-21 16:44 | P.DS_ITS ---
DS: Providers Provider Date of Service: 11/21/20 Date of admission: 11/18/20 15:07 Primary care physician: Milton Webb MD Consults: 11/18/20 09:18 Consult Respiratory Therapy Routine Reason for consultation: Exertional pulse ox Has provider been notified: No 11/18/20 17:02 Consult to Infectious Diseases Routine Consulting Provider: Jennifer Cat Reason for consultation: COVID-19 infection for evaluation DS: Diagnosis Discharge Diagnosis (1) COVID-19 virus infection: Status: Acute (2) Asthma exacerbation: Status: Acute (3) Morbid obesity: Status: Acute (4) Hyperglycemia due to diabetes mellitus: Status: Acute DS: Medications Discharge Medications Home Medications: Home Medications Medication Instructions Recorded Confirmed aspirin 81 mg PO DAILY 11/18/20 11/18/20 cholecalciferol (vitamin D3) 125 mcg PO DAILY 11/18/20 11/18/20 [Vitamin D3] fluticasone propion-salmeterol 1 inh INHALATION BID 11/18/20 11/18/20 [Advair Diskus] ivermectin [Soolantra] appl TOPICAL 11/18/20 levothyroxine 50 mcg PO DAILY 11/18/20 11/18/20 lisinopril 20 mg PO DAILY 11/18/20 11/18/20 Previous Rx's Medication Instructions Recorded albuterol sulfate [Ventolin HFA] 2 puff INHALATION RQ4H PRN #8.5 g 11/21/20 albuterol sulfate [Ventolin HFA] 2 puff INHALATION RQ6H WHILE AWAKE 11/21/20 #8.5 g benzonatate 200 mg PO TID #30 cap 11/21/20 dexamethasone 6 mg PO DAILY #7 tab 11/21/20 DS: Summary Hospital Course Hospital Course: History of presenting illness CHIEF COMPLAINT: Cough. HISTORY OF PRESENT ILLNESS: A 70-year-old woman presenting with complaints of worsening cough since Thursday. She reports that she has had a dry cough which has kept her up at night. She does have a history of asthma and reported some wheezing. She denies fever, chills, nausea, vomiting, diarrhea at home. No sputum production. She also mentioned that she did have some nasal congestion and pain to her right upper quadrant with coughing. In the ER, she was noted to be COVID positive. Chest x-ray showed no consolidation or effusion. She was not noted to be hypoxic in the ER or have a fever. She was given albuterol, prednisone and 500 mL of IV fluid in the ER. She will be admitted for further management and treatment of COVID-19 and asthma exacerbation. Hospital course COVID-19 infection with underlying history of asthma, with acute hypoxic respiratory failure Patient feels better, Cough is improving, hypoxia resolved patient received IV dexamethasone now being discharged home on 5 more days of dexamethasone chest x- ray showed no acute abnormality, patient has been recommended to wear mask in public to use cough medication, Advair and albuterol MDI is scheduled and as needed Asthma exacerbation Lungs clear to auscultation patient is being discharged home on albuterol inhaler, Advair and by mouth Decadron Hypothyroidism Continue levothyroxine Morbid Obesity strongly recommend to follow low-calorie diet Hyperglycemia secondary to Diabetes mellitus Blood sugar elevated around 200 likely due to steroid usage, patient not on home medication, recommend diabetic diet and outpatient follow-up with PCP HbA1c of 8.8 will need oral hypoglycemic as per PCP. Time Spent with Patient Time attestation: Total time spent providing and/or coordinating discharge services: Discharge coordination time: Greater than 30 minutes Physical Exam Vital Signs: Vital Signs: Last Vital Signs Temp 98.2 F 11/21/20 11:24 Pulse 86 11/21/20 11:24 Resp 18 11/21/20 11:24 BP 146/70 H 11/21/20 11:24 Pulse Ox 97 11/21/20 11:24 Body Mass Index 45.4 General patient resting comfortably in no acute distress. Neck supple no JVD. CVS regular rate rhythm, Respiratory lungs clear to auscultation, no respiratory distress Gastrointestinal abdomen soft, nontender, bowel sounds audible Extremities no clubbing, cyanosis or edema. Neuro nonfocal Skin no rash DS: Data Data Completed and Pending Labs on day of discharge: Laboratory Tests 11/18/20 11/18/20 11/18/20 08:36 08:36 08:36 WBC 4.5 L RBC 4.32 Hgb 13.4 Hct 41.7 MCV 96.5 MCH 31.0 MCHC 32.1 RDW 13.5 Plt Count 260 MPV 9.0 L Immature Gran % (Auto) 0.7 H Neut % (Auto) 67.9 Lymph % (Auto) 23.5 [place] % (Auto) 6.6 Eos % (Auto) 0.9 Baso % (Auto) 0.4 Lymph # (Auto) 1.1 L [place] # (Auto) 0.3 Eos # (Auto) 0.0 Baso # (Auto) 0.0 Abs Immat Gran (auto) 0.03 Absolute Neuts (auto) 3.1 Absolute Nucleated RBC 0.000 Nucleated RBC % (auto) 0.0 PT 13.1 H INR 1.1 APTT 34.1 D-Dimer < 200 Sodium 141 Potassium 4.1 Chloride 106 Carbon Dioxide 22 Anion Gap 17 BUN 13 Creatinine 0.78 Estim Creat Clear Calc 97.6 Estimated GFR > 60 POC Glucose Random Glucose 218 H Estimat Average Glucose Hemoglobin A1c % Lactic Acid Calcium 8.4 Ferritin 229 Total Bilirubin 0.3 AST 55 H ALT 56 H Alkaline Phosphatase 82 Lactate Dehydrogenase 257 H Troponin I High Sens C-Reactive Protein 0.88 H B-Natriuretic Peptide Total Protein 6.8 Albumin 4.0 Procalcitonin Urine Color Urine Appearance Urine pH Ur Specific Williams Urine Protein Urine Glucose (UA) Urine Ketones Urine Blood Urine Nitrite Ur Leukocyte Esterase Urine RBC Urine WBC Ur Squamous Epith Cells Urine Bacteria COVID-19 ([facility]) COVID-19 [employer] 11/18/20 11/18/20 11/18/20 08:36 08:36 08:36 WBC RBC Hgb Hct MCV MCH MCHC RDW Plt Count MPV Immature Gran % (Auto) Neut % (Auto) Lymph % (Auto) [place] % (Auto) Eos % (Auto) Baso % (Auto) Lymph # (Auto) [place] # (Auto) Eos # (Auto) Baso # (Auto) Abs Immat Gran (auto) Absolute Neuts (auto) Absolute Nucleated RBC Nucleated RBC % (auto) PT INR APTT D-Dimer Sodium Potassium Chloride Carbon Dioxide Anion Gap BUN Creatinine Estim Creat Clear Calc Estimated GFR POC Glucose Random Glucose Estimat Average Glucose Hemoglobin A1c % Lactic Acid 1.2 Calcium Ferritin Total Bilirubin AST ALT Alkaline Phosphatase Lactate Dehydrogenase Troponin I High Sens < 3.5 C-Reactive Protein B-Natriuretic Peptide < 10 Total Protein Albumin Procalcitonin 0.07 Urine Color Urine Appearance Urine pH Ur Specific [place] Urine Protein Urine Glucose (UA) Urine Ketones Urine Blood Urine Nitrite Ur Leukocyte Esterase Urine RBC Urine WBC Ur Squamous Epith Cells Urine Bacteria COVID-19 ([facility]) COVID-19 [employer] 11/18/20 11/18/20 11/18/20 08:36 08:37 12:11 WBC RBC Hgb Hct MCV MCH MCHC RDW Plt Count MPV Immature Gran % (Auto) Neut % (Auto) Lymph % (Auto) [place] % (Auto) Eos % (Auto) Baso % (Auto) Lymph # (Auto) [place] # (Auto) Eos # (Auto) Baso # (Auto) Abs Immat Gran (auto) Absolute Neuts (auto) Absolute Nucleated RBC Nucleated RBC % (auto) PT INR APTT D-Dimer Sodium Potassium Chloride Carbon Dioxide Anion Gap BUN Creatinine Estim Creat Clear Calc Estimated GFR POC Glucose Random Glucose Estimat Average Glucose 206 Hemoglobin A1c % 8.8 Lactic Acid Calcium Ferritin Total Bilirubin AST ALT Alkaline Phosphatase Lactate Dehydrogenase Troponin I High Sens C-Reactive Protein B-Natriuretic Peptide Total Protein Albumin Procalcitonin Urine Color YELLOW Urine Appearance CLEAR Urine pH 5.5 Ur Specific [place] 1.020 Urine Protein NEG Urine Glucose (UA) 500 H Urine Ketones 15 Urine Blood 2+ H Urine Nitrite NEG Ur Leukocyte Esterase TRACE H Urine RBC 5-9 H Urine WBC 1-4 Ur Squamous Epith Cells 1+ Urine Bacteria 1+ COVID-19 ([facility]) Positive A COVID-19 [employer] See Note 11/18/20 11/18/20 11/19/20 16:23 22:04 06:38 WBC 8.3 RBC 4.27 Hgb 13.2 Hct 41.0 MCV 96.0 MCH 30.9 MCHC 32.2 RDW 13.4 Plt Count 260 MPV 9.2 L Immature Gran % (Auto) 0.7 H Neut % (Auto) 74.8 H Lymph % (Auto) 18.9 L [place] % (Auto) 5.4 Eos % (Auto) 0.1 Baso % (Auto) 0.1 Lymph # (Auto) 1.6 [place] # (Auto) 0.5 Eos # (Auto) 0.0 Baso # (Auto) 0.0 Abs Immat Gran (auto) 0.06 H Absolute Neuts (auto) 6.2 Absolute Nucleated RBC 0.000 Nucleated RBC % (auto) 0.0 PT INR APTT D-Dimer Sodium Potassium Chloride Carbon Dioxide Anion Gap BUN Creatinine Estim Creat Clear Calc Estimated GFR POC Glucose 261 H 239 H Random Glucose Estimat Average Glucose Hemoglobin A1c % Lactic Acid Calcium Ferritin Total Bilirubin AST ALT Alkaline Phosphatase Lactate Dehydrogenase Troponin I High Sens C-Reactive Protein B-Natriuretic Peptide Total Protein Albumin Procalcitonin Urine Color Urine Appearance Urine pH Ur Specific Williams Urine Protein Urine Glucose (UA) Urine Ketones Urine Blood Urine Nitrite Ur Leukocyte Esterase Urine RBC Urine WBC Ur Squamous Epith Cells Urine Bacteria COVID-19 ([facility]) COVID-19 Clin Com 11/19/20 11/19/20 11/19/20 06:38 08:30 12:32 WBC RBC Hgb Hct MCV MCH MCHC RDW Plt Count MPV Immature Gran % (Auto) Neut % (Auto) Lymph % (Auto) [place] % (Auto) Eos % (Auto) Baso % (Auto) Lymph # (Auto) [place] # (Auto) Eos # (Auto) Baso # (Auto) Abs Immat Gran (auto) Absolute Neuts (auto) Absolute Nucleated RBC Nucleated RBC % (auto) PT INR APTT D-Dimer Sodium 140 Potassium 4.0 Chloride 106 Carbon Dioxide 23 Anion Gap 15 BUN 14 Creatinine 0.74 Estim Creat Clear Calc 102.9 Estimated GFR > 60 POC Glucose 180 H 208 H Random Glucose 170 H Estimat Average Glucose Hemoglobin A1c % Lactic Acid Calcium 8.8 Ferritin Total Bilirubin AST ALT Alkaline Phosphatase Lactate Dehydrogenase Troponin I High Sens C-Reactive Protein B-Natriuretic Peptide Total Protein Albumin Procalcitonin Urine Color Urine Appearance Urine pH Ur Specific [place] Urine Protein Urine Glucose (UA) Urine Ketones Urine Blood Urine Nitrite Ur Leukocyte Esterase Urine RBC Urine WBC Ur Squamous Epith Cells Urine Bacteria COVID-19 ([facility]) COVID-19 Clin Com 11/19/20 11/19/20 11/20/20 16:55 21:48 05:25 WBC RBC Hgb Hct MCV MCH MCHC RDW Plt Count MPV Immature Gran % (Auto) Neut % (Auto) Lymph % (Auto) [place] % (Auto) Eos % (Auto) Baso % (Auto) Lymph # (Auto) [place] # (Auto) Eos # (Auto) Baso # (Auto) Abs Immat Gran (auto) Absolute Neuts (auto) Absolute Nucleated RBC Nucleated RBC % (auto) PT INR APTT D-Dimer Sodium 139 Potassium 4.4 Chloride 106 Carbon Dioxide 21 L Anion Gap 16 BUN 20 H Creatinine 0.72 Estim Creat Clear Calc 105.7 Estimated GFR > 60 POC Glucose 201 H 157 H Random Glucose 137 H Estimat Average Glucose Hemoglobin A1c % Lactic Acid Calcium 8.5 Ferritin Total Bilirubin AST ALT Alkaline Phosphatase Lactate Dehydrogenase 276 H Troponin I High Sens C-Reactive Protein 3.32 H B-Natriuretic Peptide Total Protein Albumin Procalcitonin Urine Color Urine Appearance Urine pH Ur Specific [place] Urine Protein Urine Glucose (UA) Urine Ketones Urine Blood Urine Nitrite Ur Leukocyte Esterase Urine RBC Urine WBC Ur Squamous Epith Cells Urine Bacteria COVID-19 ([facility]) COVID-19 Clin Com 11/20/20 11/20/20 11/20/20 08:11 12:13 16:36 WBC RBC Hgb Hct MCV MCH MCHC RDW Plt Count MPV Immature Gran % (Auto) Neut % (Auto) Lymph % (Auto) [place] % (Auto) Eos % (Auto) Baso % (Auto) Lymph # (Auto) [place] # (Auto) Eos # (Auto) Baso # (Auto) Abs Immat Gran (auto) Absolute Neuts (auto) Absolute Nucleated RBC Nucleated RBC % (auto) PT INR APTT D-Dimer Sodium Potassium Chloride Carbon Dioxide Anion Gap BUN Creatinine Estim Creat Clear Calc Estimated GFR POC Glucose 156 H 204 H 215 H Random Glucose Estimat Average Glucose Hemoglobin A1c % Lactic Acid Calcium Ferritin Total Bilirubin AST ALT Alkaline Phosphatase Lactate Dehydrogenase Troponin I High Sens C-Reactive Protein B-Natriuretic Peptide Total Protein Albumin Procalcitonin Urine Color Urine Appearance Urine pH Ur Specific [place] Urine Protein Urine Glucose (UA) Urine Ketones Urine Blood Urine Nitrite Ur Leukocyte Esterase Urine RBC Urine WBC Ur Squamous Epith Cells Urine Bacteria COVID-19 ([facility]) COVID-19 Clin Com 11/20/20 11/21/20 11/21/20 20:27 07:53 11:07 WBC RBC Hgb Hct MCV MCH MCHC RDW Plt Count MPV Immature Gran % (Auto) Neut % (Auto) Lymph % (Auto) [place] % (Auto) Eos % (Auto) Baso % (Auto) Lymph # (Auto) [place] # (Auto) Eos # (Auto) Baso # (Auto) Abs Immat Gran (auto) Absolute Neuts (auto) Absolute Nucleated RBC Nucleated RBC % (auto) PT INR APTT D-Dimer Sodium Potassium Chloride Carbon Dioxide Anion Gap BUN Creatinine Estim Creat Clear Calc Estimated GFR POC Glucose 211 H 132 H 156 H Random Glucose Estimat Average Glucose Hemoglobin A1c % Lactic Acid Calcium Ferritin Total Bilirubin AST ALT Alkaline Phosphatase Lactate Dehydrogenase Troponin I High Sens C-Reactive Protein B-Natriuretic Peptide Total Protein Albumin Procalcitonin Urine Color Urine Appearance Urine pH Ur Specific [place] Urine Protein Urine Glucose (UA) Urine Ketones Urine Blood Urine Nitrite Ur Leukocyte Esterase Urine RBC Urine WBC Ur Squamous Epith Cells Urine Bacteria COVID-19 ([facility]) COVID-19 Clin Com Preliminary micro results at discharge 11/18/20 08:51 Blood Culture - Preliminary Blood - Venous No growth after 48 hours. 11/18/20 08:35 Blood Culture - Preliminary Blood - Venous No growth after 48 hours. Discharge Plan Discharge Patient Disposition: Home, Self-Care Referrals: Milton Webb MD [Primary Care Provider] - Discharge Medications: New benzonatate 100 mg Capsule 200 mg PO TID Qty: 30 RF: 0 albuterol sulfate [Ventolin HFA] 90 mcg/actuation Hfa Aerosol Inhaler 2 puff inhalation RQ4H PRN (Reason: Wheezing) Qty: 8.5 RF: 0 albuterol sulfate [Ventolin HFA] 90 mcg/actuation Hfa Aerosol Inhaler 2 puff inhalation RQ6H WHILE AWAKE Qty: 8.5 RF: 0 dexamethasone 6 mg tablet 6 mg PO DAILY Qty: 7 RF: 0 Continued lisinopril 20 mg Tablet 20 mg PO DAILY RF: 0 levothyroxine 50 mcg Tablet 50 mcg PO DAILY RF: 0 fluticasone propion-salmeterol [Advair Diskus] 100-50 mcg/dose Blister With Device 1 inh INHALATION BID RF: 0 cholecalciferol (vitamin D3) [Vitamin D3] 125 mcg (5,000 unit) Tablet 125 mcg PO DAILY RF: 0 ivermectin [Soolantra] 1 % Cream TOPICAL RF: 0 aspirin 81 mg Tablet,Delayed Release (Dr/Ec) 81 mg PO DAILY RF: 0 Discharge Orders: Discharge Order (Routine); Ordered 11/21/20 Ordered By: Jesus Floyd Diet: diabetic diet Activity on Discharge: As tolerated Stand Alone Forms: Patient Portal Discharge page Discharge Date/Time: 11/21/20 16:04 Visit Report Forms: Patient Portal Discharge page Care Plan Goals: TAKE ALBUTEROL MDI 4 TIMES A DAY SCHEDULED FOR NEXT FEW DAYS AND Q.4 HOURS NEEDED FOR SHORTNESS OF BREATH Health Concerns: CONTINUE ISOLATION FOR 7 MORE DAYS AND USE MASK IN PUBLIC Plan of Treatment: CLOSE OUTPATIENT FOLLOW-UP WITH PCP IN 1 WEEK
== END 2020-11-21 16:04 | disposition home or self-care (01) | DRG 178 ==
LOC: HO.ED 14:14 → HO.EDOVER 15:15 → HO.IMC 11-19 11:40
PROVIDERS: Nurse Practitioner Acute Care; Nurse Practitioner Primary Care; Admitting Provider Student in an Organized Health Care Education/Training Program; Emergency Provider Emergency Medicine Emergency Medical Services; PCP Internal Medicine; Visit Provider Hospitalist
DX: U07.1 COVID-19 (principal); Z68.42 Body mass index [BMI] 45.0-49.9, adult; J45.901 Unspecified asthma with (acute) exacerbation; E03.9 Hypothyroidism, unspecified; E66.01 Morbid (severe) obesity due to excess calories; E11.65 Type 2 diabetes mellitus with hyperglycemia; E78.5 Hyperlipidemia, unspecified; I10 Essential (primary) hypertension; Z79.51 Long term (current) use of inhaled steroids; Z79.82 Long term (current) use of aspirin; Z79.890 Hormone replacement therapy; Z79.899 Other long term (current) drug therapy
CPT/HCPCS: 36415; 71045; 80048; 80053; 81001; 82728; 82947; 83036; 83605; 83615; 83880; 84145; 84484; 85025; 85379; 85610; 85730; 86140; 87040; 87086; 87635; 93005; 94640; 94644; 94645; 96360; 99285; J1100; J1650

== ENCOUNTER 2020-11-30 18:50 | Inpatient (IN) | payer OTHER, SELFPAY ==
[2020-11-30 18:54] VITALS: BP 142/70; PULSE 56; RESP 18; TEMP 36.9; O2SAT 100; BMI 45.4
[2020-11-30 21:32] LABS: Glucose Urine UA NEG (NEG); Leukocyte Esterase Urine 1+ (NEG); Nitrite Urine NEG (NEG); Specific Gravity - Urine >= 1.030 (1.005-1.025); UACC Culture Trigger YES; Urine Blood 3+ (NEG); Urine Ketones 15 MG/DL (NEG); Urine Protein NEG (NEG-TRACE)
[2020-11-30 21:38] LABS: Appearance Urine HAZY; Color Urine YELLOW
[2020-11-30 21:40] VITALS: BP 182/76; PULSE 61; RESP 18; TEMP 36.8; O2SAT 98
--- NOTE | 2020-11-30 21:42 | ED_ITS ---
HPI - Abdominal Pain General Chief Complaint: Abdominal Pain Stated Complaint: back and abdominal pain Time Seen by Provider: 11/30/20 23:34 Source: patient Mode of arrival: ambulatory Limitations: no limitations History of Present Illness HPI narrative: 70-year-old female with past medical history of asthma, eczema, hypertension, hypothyroidism, positive COVID-19, and diabetes presents with sudden onset of right flank pain radiating to the umbilicus and epigastric area. She has had this pain for approximately 1 day and reports loss of appetite, subjective fevers and chills, and fatigue. She does not report any chest pain or pressure, palpitations, shortness of breath, abdominal distention, edema, or weakness. Related Data Home Medications Medication Instructions Recorded Confirmed aspirin 81 mg PO DAILY 11/18/20 12/01/20 cholecalciferol (vitamin D3) 125 mcg PO DAILY 11/18/20 12/01/20 [Vitamin D3] fluticasone propion-salmeterol 1 inh INHALATION BID 11/18/20 12/01/20 [Advair Diskus] ivermectin [Soolantra] 1 appl TOPICAL DAILY 11/18/20 12/01/20 levothyroxine 50 mcg PO DAILY 11/18/20 12/01/20 lisinopril 20 mg PO DAILY 11/18/20 12/01/20 Previous Rx's Medication Instructions Recorded albuterol sulfate [Ventolin HFA] 2 puff INHALATION RQ4H PRN #8.5 g 11/21/20 albuterol sulfate [Ventolin HFA] 2 puff INHALATION RQ6H WHILE AWAKE 11/21/20 #8.5 g benzonatate 200 mg PO TID #30 cap 11/21/20 dexamethasone 6 mg PO DAILY #7 tab 11/21/20 Allergies Allergy/AdvReac Type Severity Reaction Status Date / Time cephalexin [Keflex] Allergy Unknown CRAMPS Verified 11/30/20 18:53 erythromycin base AdvReac Severe NAUSEA & Verified 11/30/20 18:53 [Erythromycin Base] VOMITING Erythromycin Allergy Unknown CRAMPS Uncoded 11/30/20 18:53 From Keflex AdvReac Severe NAUSEA & Uncoded 11/30/20 18:53 VOMITING Review of Systems Review of Systems Constitutional: No Weight loss, positive Fever, positive Chills, No Night Sweats, positive Fatigue, No Malaise ENT/Mouth: No Hearing loss, No Ear Pain, No Nasal Congestion, No Sinus Pain, No Hoarseness, No sore throat, No Rhinorrhea, No Swallowing Difficulty Eyes: No Eye Pain, No Swelling, No Redness, No Foreign Body, No Discharge, No Vision Changes Cardiovascular: No Chest Pain, No SOB, No Dyspnea on Exertion, No Orthopnea, No Edema, No Palpitations Respiratory: No Cough, No Sputum, No Wheezing, No Smoke Exposure, No Dyspnea Gastrointestinal: Positive Nausea, no Vomiting, no Diarrhea, positive abdominal Pain, No Hematochezia, No Melena Genitourinary: no irregular bleeding, No Dysuria, No Urinary Frequency, No Hematuria, No Urinary Incontinence, No Urgency, No Flank Pain, No Urinary Flow Changes, No Hesitancy Musculoskeletal: No joint pain, No Myalgias, No Joint Swelling Skin: No Skin Lesions, No rash Neuro: No Weakness, No Numbness, No Paresthesias, No Loss of Consciousness, No Dizziness, No Headache Psych: No Anxiety/Panic, No Depression, No SI/HI/AH/VH, No Social Issues Heme/Lymph: No Bruising, No Bleeding,No Lymphadenopathy Endocrine: No Polyuria, No Polydipsia, No Temperature Intolerance Yes all other systems are reviewed and are negative Physical Exam Vital Signs: Vital Signs: Last Vital Signs Temp 98.2 F 12/01/20 01:49 Pulse 60 12/01/20 01:49 Resp 18 12/01/20 01:49 BP 115/73 12/01/20 01:49 Pulse Ox 97 12/01/20 01:49 Body Mass Index 45.4 Appearance: Alert. Oriented X3. Moderate distress. Eyes: Pupils equal, round and reactive to light. EOMI ENT: Pharynx normal. Cranial nerves 2-12 intact Neck: Normal inspection. Neck supple. CVS: Normal heart rate and rhythm. Pulses normal. Respiratory: No respiratory distress. Breath sounds normal. Abdomen: Soft and tender to palpation at the epigastric and right lower quadrant, positive CVA tenderness Skin: Skin warm and dry. Normal skin color. Normal skin turgor. Extremities: No lower extremity edema. Neuro: No motor deficit. No sensory deficit. Course Course Course Narrative: 70-year-old female past medical history of asthma, eczema, hypertension, hypothyroidism, morbid obesity, diabetes and positive COVID-19 presents with right flank pain radiating to the umbilicus and epigastric area with subjective fevers, chills, and malaise. Plan of care is for CBC, Chem 7, lactic, cultures, urinalysis and CT scan of the abdomen. White count is 16, BUN 20, troponin negative, EKG sinus Geovanni. Patient given 2 L normal saline, order for Levaquin [address] scan is positive for multiple renal calculi with hydroureteronephrosis and stranding consistent with pyelo, urine positive for UTI, chest x-ray positive for distant with COVID-19. Discussion with hospitalist regarding admission. Consultations Consultation #1: David Matute Time: 23:52 MDM - Abdominal Pain Differential Diagnosis Differential diagnosis: Likely abdominal pain, acute appendicitis, bowel perforation, calculus of kidney, constipation, diverticulitis, gastritis, ovarian cyst, pancreatitis, renal colic and small bowel obstruction Medical Records Attestation: I reviewed the patient's medical records. Lab Data Attestation: I reviewed the patient's lab results. Result diagrams: 11/30/20 22:23 11/30/20 23:24 Labs: Lab Results 11/30/20 11/30/20 11/30/20 Range/Units 20:32 22:23 22:23 WBC 16.4 H (4.8-10.8) X10*3/uL RBC 4.63 (4.20-5.50) X10*6/uL Hgb 14.2 (12.0-16.0) g/dl Hct 43.6 (37-47) % MCV 94.2 (80-98) fL MCH 30.7 (27.0-33.0) pg MCHC 32.6 (31.0-35.0) g/dl RDW 13.1 (11.0-16.0) % Plt Count 462 H D (160-400) X10*3/uL MPV 9.4 (9.4-12.3) fL Immature Gran % (Auto) 2.2 H (0.0-0.4) % Neut % (Auto) 81.3 H (45-73) % Lymph % (Auto) 10.6 L (20-40) % [place] % (Auto) 5.0 (2-11) % Eos % (Auto) 0.5 (0-4) % Baso % (Auto) 0.4 (0-2) % Lymph # (Auto) 1.7 (1.2-4.9) X10*3/uL [place] # (Auto) 0.8 (0.1-1.2) X10*3/uL Eos # (Auto) 0.1 (0.0-0.4) X10*3/uL Baso # (Auto) 0.1 (0.0-0.2) X10*3/uL Abs Immat Gran (auto) 0.36 H (0.00-0.03) X10*3/uL Absolute Neuts (auto) 13.3 H (2.0-8.3) X10*3/uL Absolute Nucleated RBC 0.000 (0.0-0.012) X10*3/uL Nucleated RBC % (auto) 0.0 (0.0-0.2) /100WBC PT (10.8-13.0) SEC INR (0.9-1.1) APTT (24.1-38.0) SEC Sodium (135-145) mmol/L Potassium (3.3-5.1) mmol/L Chloride (96-108) mmol/L Carbon Dioxide (22-29) mmol/L Anion Gap (12-20) BUN (9-16) mg/dL Creatinine (0.5-1.4) mg/dL Estim Creat Clear Calc Estimated GFR Random Glucose (60-115) mg/dL Lactic Acid (0.5-2.0) mmol/L Calcium (8.4-10.2) mg/dL Magnesium (1.6-2.6) mg/dL Total Bilirubin (0.0-1.0) mg/dL Direct Bilirubin (0.0-0.5) mg/dL AST (5-31) U/L ALT (0-31) U/L Alkaline Phosphatase (39-117) U/L Troponin I High Sens 3.7 (<3.5-17.0) ng/L Total Protein (6.5-8.0) g/dL Albumin (3.5-5.0) g/dL Lipase (8-78) U/L Urine Color YELLOW Urine Appearance HAZY Urine pH 6.0 (5.0-8.0) Ur Specific [place] >= 1.030 H (1.005-1.025) Urine Protein NEG (NEG-TRACE) MG/DL Urine Glucose (UA) NEG (NEG) MG/DL Urine Ketones 15 (NEG) MG/DL Urine Blood 3+ H (NEG) Urine Nitrite NEG (NEG) Ur Leukocyte Esterase 1+ H (NEG) Urine RBC 0-2 (0) /HPF Urine WBC 5-9 H (0-4) /HPF Ur Squamous Epith Cells TRACE /LPF Urine Bacteria 1+ /LPF Urine Test NEGATIVE (NEGATIVE) COVID-19 (FRANCA) (Negative) COVID-19 Clin Com 11/30/20 11/30/20 12/01/20 Range/Units 23:24 23:24 00:17 WBC (4.8-10.8) X10*3/uL RBC (4.20-5.50) X10*6/uL Hgb (12.0-16.0) g/dl Hct (37-47) % MCV (80-98) fL MCH (27.0-33.0) pg MCHC (31.0-35.0) g/dl RDW (11.0-16.0) % Plt Count (160-400) X10*3/uL MPV (9.4-12.3) fL Immature Gran % (Auto) (0.0-0.4) % Neut % (Auto) (45-73) % Lymph % (Auto) (20-40) % [place] % (Auto) (2-11) % Eos % (Auto) (0-4) % Baso % (Auto) (0-2) % Lymph # (Auto) (1.2-4.9) X10*3/uL [place] # (Auto) (0.1-1.2) X10*3/uL Eos # (Auto) (0.0-0.4) X10*3/uL Baso # (Auto) (0.0-0.2) X10*3/uL Abs Immat Gran (auto) (0.00-0.03) X10*3/uL Absolute Neuts (auto) (2.0-8.3) X10*3/uL Absolute Nucleated RBC (0.0-0.012) X10*3/uL Nucleated RBC % (auto) (0.0-0.2) /100WBC PT 14.2 H (10.8-13.0) SEC INR 1.2 H (0.9-1.1) APTT 31.6 (24.1-38.0) SEC Sodium 139 (135-145) mmol/L Potassium 4.6 (3.3-5.1) mmol/L Chloride 107 (96-108) mmol/L Carbon Dioxide 22 (22-29) mmol/L Anion Gap 15 (12-20) BUN 20 H (9-16) mg/dL Creatinine 1.00 (0.5-1.4) mg/dL Estim Creat Clear Calc 76.1 Estimated GFR 55 Random Glucose 179 H (60-115) mg/dL Lactic Acid 1.3 (0.5-2.0) mmol/L Calcium 8.4 (8.4-10.2) mg/dL Magnesium 1.9 (1.6-2.6) mg/dL Total Bilirubin 1.0 (0.0-1.0) mg/dL Direct Bilirubin 0.4 (0.0-0.5) mg/dL AST 40 H (5-31) U/L ALT 58 H (0-31) U/L Alkaline Phosphatase 67 (39-117) U/L Troponin I High Sens (<3.5-17.0) ng/L Total Protein 5.6 L (6.5-8.0) g/dL Albumin 3.5 (3.5-5.0) g/dL Lipase 26 (8-78) U/L Urine Color Urine Appearance Urine pH (5.0-8.0) Ur Specific [place] (1.005-1.025) Urine Protein (NEG-TRACE) MG/DL Urine Glucose (UA) (NEG) MG/DL Urine Ketones (NEG) MG/DL Urine Blood (NEG) Urine Nitrite (NEG) Ur Leukocyte Esterase (NEG) Urine RBC (0) /HPF Urine WBC (0-4) /HPF Ur Squamous Epith Cells /LPF Urine Bacteria /LPF Urine Test (NEGATIVE) COVID-19 (FRANCA) (Negative) COVID-19 Clin Com 12/01/20 Range/Units 00:53 WBC (4.8-10.8) X10*3/uL RBC (4.20-5.50) X10*6/uL Hgb (12.0-16.0) g/dl Hct (37-47) % MCV (80-98) fL MCH (27.0-33.0) pg MCHC (31.0-35.0) g/dl RDW (11.0-16.0) % Plt Count (160-400) X10*3/uL MPV (9.4-12.3) fL Immature Gran % (Auto) (0.0-0.4) % Neut % (Auto) (45-73) % Lymph % (Auto) (20-40) % [place] % (Auto) (2-11) % Eos % (Auto) (0-4) % Baso % (Auto) (0-2) % Lymph # (Auto) (1.2-4.9) X10*3/uL [place] # (Auto) (0.1-1.2) X10*3/uL Eos # (Auto) (0.0-0.4) X10*3/uL Baso # (Auto) (0.0-0.2) X10*3/uL Abs Immat Gran (auto) (0.00-0.03) X10*3/uL Absolute Neuts (auto) (2.0-8.3) X10*3/uL Absolute Nucleated RBC (0.0-0.012) X10*3/uL Nucleated RBC % (auto) (0.0-0.2) /100WBC PT (10.8-13.0) SEC INR (0.9-1.1) APTT (24.1-38.0) SEC Sodium (135-145) mmol/L Potassium (3.3-5.1) mmol/L Chloride (96-108) mmol/L Carbon Dioxide (22-29) mmol/L Anion Gap (12-20) BUN (9-16) mg/dL Creatinine (0.5-1.4) mg/dL Estim Creat Clear Calc Estimated GFR Random Glucose (60-115) mg/dL Lactic Acid (0.5-2.0) mmol/L Calcium (8.4-10.2) mg/dL Magnesium (1.6-2.6) mg/dL Total Bilirubin (0.0-1.0) mg/dL Direct Bilirubin (0.0-0.5) mg/dL AST (5-31) U/L ALT (0-31) U/L Alkaline Phosphatase (39-117) U/L Troponin I High Sens (<3.5-17.0) ng/L Total Protein (6.5-8.0) g/dL Albumin (3.5-5.0) g/dL Lipase (8-78) U/L Urine Color Urine Appearance Urine pH (5.0-8.0) Ur Specific [place] (1.005-1.025) Urine Protein (NEG-TRACE) MG/DL Urine Glucose (UA) (NEG) MG/DL Urine Ketones (NEG) MG/DL Urine Blood (NEG) Urine Nitrite (NEG) Ur Leukocyte Esterase (NEG) Urine RBC (0) /HPF Urine WBC (0-4) /HPF Ur Squamous Epith Cells /LPF Urine Bacteria /LPF Urine Test (NEGATIVE) COVID-19 (FRANCA) Positive A (Negative) COVID-19 Clin Com See Note Imaging Data Chest x-ray: Attestation: I personally reviewed and interpreted this imaging study as follows: Radiologist's impression: EXAMINATION: XR CHEST CLINICAL INFORMATION: Abdominal pain. COMPARISON: 11/18/2020 TECHNIQUE: Frontal view of the chest was obtained. FINDINGS: The lungs are well expanded. Patchy opacities are seen bilaterally at the mid to lower lungs. No pleural effusion or pneumothorax. The cardiomediastinal silhouette is within normal limits. Degenerative changes in the spine. XR/XR chest 1V IMPRESSION: Patchy opacities of the bilateral mid to lower lungs. This could be infectious or inflammatory. Consider viral pneumonia. CT scan - abdomen: Attestation: I personally reviewed and interpreted this imaging study as follows: Radiologist's impression: EXAMINATION: CT ABDOMEN AND PELVIS WITHOUT CONTRAST CLINICAL INFORMATION: Right flank and abdominal pain COMPARISON: 01/02/2012 TECHNIQUE: Multidetector volumetric imaging was performed from the superior aspect of the liver through the pubic symphysis. Sagittal and coronal reformatted images were obtained on the technologist's workstation. This CT examination was performed using dose optimization techniques as appropriate, variously including the following: *Automated exposure control *Adjustment of mA and/or kV according to patient size (this includes techniques or standardized protocols for targeted exams where dose is matched to indication/reason for exam; i.e. extremities or head) *Use of iterative reconstruction technique DLP: 1296 mGy-cm FINDINGS: LUNG BASES: The visualized lung bases are unremarkable. LIVER, GALLBLADDER, AND BILIARY TREE: The liver is normal in size, shape, and attenuation. No focal hepatic lesion or biliary ductal dilatation is present. Cholecystectomy. PANCREAS: Unremarkable. SPLEEN: Unremarkable. ADRENAL GLANDS: Unremarkable. KIDNEYS AND URETERS: There is a 4 mm stone within the distal right ureter at the ureterovesical junction, and tiny dependent calculi within the distal right ureter. The former results in mild hydroureter and hydronephrosis with perinephric stranding. In addition, there are multiple nonobstructive calculi within the right kidney which measure up to 1.3 cm and approximately 1000 Hounsfield units. No urinary calculi within the left kidney. 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 There are couple subcentimeter angiomyolipomas within the right kidney as well. There is a 1.4 cm mildly hyperdense lesion within the upper pole of the right kidney. BLADDER: Unremarkable. GASTROINTESTINAL TRACT: The small and large bowel are unremarkable. The appendix is unremarkable. ABDOMINAL WALL: Prior ventral herniorrhaphy. Omental fat-containing left paraumbilical/infraumbilical hernia without inflammation. LYMPH NODES: Normal. VASCULAR: Unremarkable. PELVIC VISCERA: Hysterectomy and bilateral oophorectomy. OSSEOUS STRUCTURES: No acute or suspicious osseous abnormalities. CT/CT abdomen pelvis wo con IMPRESSION: * There is a 4 mm calculus within the distal RIGHT ureter with upstream tiny ureteral calculi. The former results in mild hydroureteronephrosis. * Multiple nonobstructive RIGHT intrarenal calculi. 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 * There are couple subcentimeter angiomyolipomata within the RIGHT kidney, and a 1.4 cm hyperdense lesion within the upper pole of the RIGHT kidney, likely a hyperdense cyst, however technically indeterminate based on its attenuation of 50 Hounsfield units. ECG Data Attestation: I personally reviewed and interpreted this ECG as follows: ECG interpretation date: 11/30/20 ECG interpretation time: 22:00 Interpretation: Ventricular rate 56, [place] 120, QRS 86, QTC 416, QTC 401, sinus Geovanni otherwise normal EKG Critical Care Time Critical Care Time Critical Care Time: Yes Total Critical Care Time: 45 Attestation: I have personally provided critical care time exclusive of time spent on separately billable procedures. Time includes review of laboratory data, radiology results, discussion with consultants, and monitoring for potential decompensation. Interventions were performed as documented. Discharge Plan Discharge Clinical Impression: Pyelonephritis, Acute UTI, Kidney stone, COVID-19 Patient Disposition: Admitted As Inpatient [facility] Past Medical History Attestation statement: The following information was validated with the patient. Source: old records reviewed Medical History (Updated 12/01/20 @ 02:35 by Paulette Arango NP) Asthma Eczema HTN (hypertension) Hypothyroid Rosacea Social History Social History Household Members: Family Housing: House Alcohol intake: never Smoking Status: Never smoker Use of substances other than those prescribed or required for medical reasons: No Advance Directives: No Advance Directives Information Provided: Yes service: No Current occupational status: retired
--- NOTE | 2020-11-30 21:42 | ECG_ITS ---
Test Reason : ABDOMNIAL PAIN Blood Pressure : / mmHG Vent. Rate : 056 BPM Atrial Rate : 056 BPM P-R Int : 120 ms QRS Dur : 086 ms QT Int : 416 ms P-R-T Axes : 017 012 016 degrees QTc Int : 401 ms Sinus bradycardia Otherwise normal ECG When compared with ECG of 18-NOV-2020 11:15, Vent. rate has decreased BY 53 BPM QT has shortened Referred By: Paulette Arango Electronically Signed By:Chase Alexander
[2020-11-30 21:45] LABS: Bacteria Urine 1+ /LPF; RBC Urine 0-2 /HPF (0); Squamous Epithelial Cell Urine TRACE /LPF; UPreg QC Valid YES; Urine Pregnancy NEGATIVE (NEGATIVE)
[2020-11-30 22:34] LABS: MANUAL DIFF FLAG NO
[2020-11-30] MEDS: ondansetron HCL 4 MG/2 ML VIAL IVPUSH (22:36)
[2020-11-30] MEDS: Morphine Sulfate 4 MG/ML CARTRIDGE IVPUSH (22:36)
[2020-11-30] MEDS: Ketorolac Tromethamine 30 MG/ML VIAL IVPUSH (22:36)
[2020-11-30 22:37] LABS: Basophils Absolute Auto 0.1 X10*3/uL (0.0-0.2); Basophils Percent Auto 0.4 % (0-2); Eosinophils Absolute Auto 0.1 X10*3/uL (0.0-0.4); Eosinophils Percent Auto 0.5 % (0-4); Hematocrit 43.6 % (37-47); Hemoglobin 14.2 g/dl (12.0-16.0); Imm Gran Abs Auto 0.36 X10*3/uL (0.00-0.03); Imm Gran Pct Auto 2.2 % (0.0-0.4); Lymphocytes Absolute Auto 1.7 X10*3/uL (1.2-4.9); Lymphocytes Percent Auto 10.6 % (20-40); Mean Corpuscular HGB Conc 32.6 g/dl (31.0-35.0); Mean Corpuscular Hemoglobin 30.7 pg (27.0-33.0); Mean Corpuscular Volume 94.2 fL (80-98); Mean Platelet Volume 9.4 fL (9.4-12.3); Monocytes Absolute Auto 0.8 X10*3/uL (0.1-1.2); Neutrophils Absolute Auto 13.3 X10*3/uL (2.0-8.3); Neutrophils Percent Auto 81.3 % (45-73); Platelet Count 462 X10*3/uL (160-400); Red Blood Count 4.63 X10*6/uL (4.20-5.50); Red Cell Distribution Width 13.1 % (11.0-16.0); White Blood Count 16.4 X10*3/uL (4.8-10.8)
[2020-11-30] MEDS: 0.9 % Sodium Chloride 1,000 ML 999 ML IVCONT (22:37)
[2020-11-30 23:03] LABS: Troponin-I High Sensitivity 3.7 ng/L (<3.5-17.0)
[2020-11-30 23:40] LABS: INTERNATIONAL NORM RATIO 1.2 (0.9-1.1); Prothrombin Time 14.2 SEC (10.8-13.0)
[2020-11-30 23:43] LABS: Partial Thromboplastin Time 31.6 SEC (24.1-38.0)
[2020-12-01] VITALS (10 sets, daily range): BP systolic 115–170; BP diastolic 64–79; PULSE 60–118; RESP 16–20; TEMP 36.7–37.2; O2SAT 95–100
[2020-12-01 00:10] LABS: Alanine Aminotransferase 58 U/L (0-31); Albumin Level 3.5 g/dL (3.5-5.0); Alkaline Phosphatase 67 U/L (39-117); Anion Gap 15 (12-20); Aspartate Amino Transferase 40 U/L (5-31); Bilirubin Direct 0.4 mg/dL (0.0-0.5); Blood Urea Nitrogen 20 mg/dL (9-16); Calcium 8.4 mg/dL (8.4-10.2); Carbon Dioxide 22 mmol/L (22-29); Chloride 107 mmol/L (96-108); Creatinine Clr Calc Pharmacy 76.1; Estimated Glomerular Filt Rate 55; Glucose Random 179 mg/dL (60-115); Lipase 26 U/L (8-78); Magnesium 1.9 mg/dL (1.6-2.6); Potassium 4.6 mmol/L (3.3-5.1); Sodium 139 mmol/L (135-145); Total Protein 5.6 g/dL (6.5-8.0)
[2020-12-01 00:49] LABS: Lactic Acid 1.3 mmol/L (0.5-2.0)
[2020-12-01] MEDS: 0.9 % Sodium Chloride 1,000 ML 999 ML IVCONT (00:50)
[2020-12-01] MEDS: levoFLOXacin/D5W 750 MG/150 ML PIGGYBACK 100 MG IV (00:50)
[2020-12-01] MEDS: Morphine Sulfate 4 MG/ML CARTRIDGE IVPUSH (01:15)
[2020-12-01 01:18] LABS: COVID-19 Test Positive (Negative)
--- NOTE | 2020-12-01 04:18 | PC.NURSE ---
per hospitalist: Plan for am hospitalist to do admission due to workload.
--- NOTE | 2020-12-01 07:43 | PC.NURSE ---
pt alert and oriented, skin pwd, respirations even and unlabored, pt reports that the pain is slowly starting to come on her right flank area pain at 2/10 denies nausea at this time. pt awaiting hospitalist admission
--- NOTE | 2020-12-01 11:38 | PM.IMHP ---
History of Present Illness Date of Service: 12/01/20 <JANET Moser - Last Filed: 12/01/20 11:50> Chief Complaint: Abdominal pain <JANET Moser - Last Filed: 12/01/20 11:50> This is a 70-year-old female with recent admission for COVID-19 pneumonia who presents to the emergency department with abdominal pain. Patient was admitted from November 18 to November 21 a for management pneumonia secondary to COVID-19. She was discharged with dexamethasone which she completed. Last evening she began having right sided flank pain which radiated around her side to the front of her abdomen. This was associated with nausea, vomiting, chills. She has history of kidney stones in the past however this pain was more severe than previous. In the emergency department lab work revealed leukocytosis of 16.4, no other evidence of sepsis. CT scan of the abdomen showed right-sided 4 mm stone with mild hydroureteronephrosis and perinephric stranding. She was started on IV antibiotics and required multiple doses of IV narcotics for adequate pain control. She again test positive for coronavirus although her respiratory symptoms have improved. <JANET Moser - Last Filed: 12/01/20 11:50> Review of Systems Review of Systems: Yes all other systems are reviewed and are negative <JANET Moser - Last Filed: 12/01/20 11:50> Constitutional: Constitutional: Reports chills and Denies fever(s) <JANET Moser - Last Filed: 12/01/20 11:50> Cardiovascular: Cardiovascular: Denies chest pain <JANET Moser Last Filed: 12/01/20 11:50> Respiratory: Respiratory: Denies cough <JANET Moser Last Filed: 12/01/20 11:50> Gastrointestinal: Gastrointestinal: Reports abdominal pain, Reports nausea and Reports vomiting <JANTE Moser Last Filed: 12/01/20 11:50> [facility] Medical History: Medical History (Updated 12/01/20 @ 11:45 by JANET Moser) Asthma Eczema HTN (hypertension) Hyperglycemia due to diabetes mellitus Hypothyroid Rosacea <JANET Moser - Last Filed: 12/01/20 11:50> Functional capacity: independent ambulation <JANET Moser - Last Filed: 12/01/20 11:50> Pertinent family history: no history of CAD, CVA, cancer <JANET Moser - Last Filed: 12/01/20 11:50> Family history: reviewed and not pertinent <JANET Moser - Last Filed: 12/01/20 11:50> Social History: Social History Household Members: Family Housing: House Do you presently have visiting nurse or other home services: No Alcohol intake: never Smoking Status: Never smoker Use of substances other than those prescribed or required for medical reasons: No Currently Displaying Signs/Symptoms of Drug Intoxication Withdrawal: No Have you been hit, kicked, punched, or otherwise hurt by someone within the past year? If so, by whom?: No Do you feel safe in your current relationship?: No Current Relationship Is there a partner from a previous relationship who is making you feel unsafe now?: No Are you made to feel afraid or neglected: No Spiritual Healthcare Practices: jainism Advance Directives: No Advance Directives Information Provided: Yes Do you have thoughts of harming others: None Do you have a plan to hurt others: No Plan Recently lost weight without trying: No service: No Current occupational status: retired <JANET Moser - Last Filed: 12/01/20 11:50> Meds Allergies/Adverse reactions: Allergies Allergy/AdvReac Type Severity Reaction Status Date / Time cephalexin [Keflex] Allergy Unknown CRAMPS Verified 11/30/20 18:53 erythromycin base AdvReac Severe NAUSEA & Verified 11/30/20 18:53 [Erythromycin Base] VOMITING Erythromycin Allergy Unknown CRAMPS Uncoded 11/30/20 18:53 From Keflex AdvReac Severe NAUSEA & Uncoded 11/30/20 18:53 VOMITING <JANET Moser - Last Filed: 12/01/20 11:50> Home medications: Home Medications Medication Instructions Recorded Confirmed Type aspirin 81 mg PO DAILY 11/18/20 12/01/20 History cholecalciferol (vitamin D3) 125 mcg PO DAILY 11/18/20 12/01/20 History [Vitamin D3] fluticasone propion-salmeterol 1 inh INHALATION BID 11/18/20 12/01/20 History [Advair Diskus] ivermectin [Soolantra] 1 appl TOPICAL DAILY 11/18/20 12/01/20 History levothyroxine 50 mcg PO DAILY 11/18/20 12/01/20 History lisinopril 20 mg PO DAILY 11/18/20 12/01/20 History <JANET Moser - Last Filed: 12/01/20 11:50> Physical Exam Vital Signs and Narrative: Vital Signs: Last Vital Signs Temp 98.1 F 12/01/20 07:51 Pulse 83 12/01/20 07:51 Resp 20 12/01/20 07:51 BP 165/76 H 12/01/20 07:51 Pulse Ox 100 12/01/20 07:51 Body Mass Index 45.4 <JANET Moser - Last Filed: 12/01/20 11:50> Const: General: no acute distress, alert and awake <JANET Moser - Last Filed: 12/01/20 11:50> Nutritional Appearance: obese <JANET Moser - Last Filed: 12/01/20 11:50> Orientation/consciousness: patient oriented x3 <JANET Moser - Last Filed: 12/01/20 11:50> HENMT: Head: Yes normocephalic and Yes atraumatic <JANET Moser - Last Filed: 12/01/20 11:50> Eyes: Sclerae: sclerae normal <JANET Moser - Last Filed: 12/01/20 11:50> Chest: Chest palpation & inspection: normal inspection of the chest <JANET Moser Last Filed: 12/01/20 11:50> Resp: Effort & Inspection: normal respiratory effort and no respiratory distress <JANET Moser Last Filed: 12/01/20 11:50> Auscultation: clear to auscultation bilaterally <JANET Moser Last Filed: 12/01/20 11:50> Cardio: Rate: regular rate <JANET Moser - Last Filed: 12/01/20 11:50> Rhythm: regular rhythm <JANET Moser - Last Filed: 12/01/20 11:50> GI: Palpation (GI): Soft to palpation and nontender <JANET Moser - Last Filed: 12/01/20 11:50> : General: Yes CVA tenderness on the right <JANET Moser - Last Filed: 12/01/20 11:50> Skin: General skin exam: no rashes or lesions noted <JANET Moser - Last Filed: 12/01/20 11:50> Neuro: General: patient oriented x3 <JANET Moser - Last Filed: 12/01/20 11:50> Cranial nerves: Yes CN's II-XII intact bilaterally and Yes Bilaterally intact EOM present <JANET Moser - Last Filed: 12/01/20 11:50> Extrem: General: Yes normal to inspection <JANET Moser - Last Filed: 12/01/20 11:50> Results Labs CBC and Chem 7: : 12/02/20 05:40 12/02/20 05:40 <JANET Moser - Last Filed: 12/01/20 11:50> Labs: Laboratory Results - last 24 hr 11/30/20 11/30/20 11/30/20 20:32 22:23 22:23 MCV 94.2 MCH 30.7 MCHC 32.6 RDW 13.1 Plt Count 462 H D MPV 9.4 Immature Gran % (Auto) 2.2 H Neut % (Auto) 81.3 H Lymph % (Auto) 10.6 L [place] % (Auto) 5.0 Eos % (Auto) 0.5 Baso % (Auto) 0.4 Lymph # (Auto) 1.7 [place] # (Auto) 0.8 Eos # (Auto) 0.1 Baso # (Auto) 0.1 Abs Immat Gran (auto) 0.36 H Absolute Neuts (auto) 13.3 H Absolute Nucleated RBC 0.000 Nucleated RBC % (auto) 0.0 PT INR APTT Anion Gap Estim Creat Clear Calc Estimated GFR Random Glucose Lactic Acid Calcium Magnesium Total Bilirubin Direct Bilirubin AST ALT Alkaline Phosphatase Troponin I High Sens 3.7 Total Protein Albumin Lipase Urine Color YELLOW Urine Appearance HAZY Urine pH 6.0 Ur Specific [place] >= 1.030 H Urine Protein NEG Urine Glucose (UA) NEG Urine Ketones 15 Urine Blood 3+ H Urine Nitrite NEG Ur Leukocyte Esterase 1+ H Urine RBC 0-2 Urine WBC 5-9 H Ur Squamous Epith Cells TRACE Urine Bacteria 1+ Urine Test NEGATIVE COVID-19 ([facility]ANCA) COVID-19 Clin Com 11/30/20 11/30/20 12/01/20 23:24 23:24 00:17 MCV MCH MCHC RDW Plt Count MPV Immature Gran % (Auto) Neut % (Auto) Lymph % (Auto) [place] % (Auto) Eos % (Auto) Baso % (Auto) Lymph # (Auto) [place] # (Auto) Eos # (Auto) Baso # (Auto) Abs Immat Gran (auto) Absolute Neuts (auto) Absolute Nucleated RBC Nucleated RBC % (auto) PT 14.2 H INR 1.2 H APTT 31.6 Anion Gap 15 Estim Creat Clear Calc 76.1 Estimated GFR 55 Random Glucose 179 H Lactic Acid 1.3 Calcium 8.4 Magnesium 1.9 Total Bilirubin 1.0 Direct Bilirubin 0.4 AST 40 H ALT 58 H Alkaline Phosphatase 67 Troponin I High Sens Total Protein 5.6 L Albumin 3.5 Lipase 26 Urine Color Urine Appearance Urine pH Ur Specific [place] Urine Protein Urine Glucose (UA) Urine Ketones Urine Blood Urine Nitrite Ur Leukocyte Esterase Urine RBC Urine WBC Ur Squamous Epith Cells Urine Bacteria Urine Test COVID-19 (FRANCA) COVID-19 Clin Com 12/01/20 00:53 MCV MCH MCHC RDW Plt Count MPV Immature Gran % (Auto) Neut % (Auto) Lymph % (Auto) [place] % (Auto) Eos % (Auto) Baso % (Auto) Lymph # (Auto) [place] # (Auto) Eos # (Auto) Baso # (Auto) Abs Immat Gran (auto) Absolute Neuts (auto) Absolute Nucleated RBC Nucleated RBC % (auto) PT INR APTT Anion Gap Estim Creat Clear Calc Estimated GFR Random Glucose Lactic Acid Calcium Magnesium Total Bilirubin Direct Bilirubin AST ALT Alkaline Phosphatase Troponin I High Sens Total Protein Albumin Lipase Urine Color Urine Appearance Urine pH Ur Specific [place] Urine Protein Urine Glucose (UA) Urine Ketones Urine Blood Urine Nitrite Ur Leukocyte Esterase Urine RBC Urine WBC Ur Squamous Epith Cells Urine Bacteria Urine Test COVID-19 (FRANCA) Positive A COVID-19 Clin Com See Note <JANET Moser - Last Filed: 12/01/20 11:50> Imaging Radiologist's Impressions: Impressions Abdomen/Pelvis CT 11/30/20 21:42 IMPRESSION: * There is a 4 mm calculus within the distal RIGHT ureter with upstream tiny ureteral calculi. The former results in mild hydroureteronephrosis. * Multiple nonobstructive RIGHT intrarenal calculi. 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 * There are couple subcentimeter angiomyolipomata within the RIGHT kidney, and a 1.4 cm hyperdense lesion within the upper pole of the RIGHT kidney, likely a hyperdense cyst, however technically indeterminate based on its attenuation of 50 Hounsfield units. Chest X-Ray 11/30/20 21:42 IMPRESSION: Patchy opacities of the bilateral mid to lower lungs. This could be infectious or inflammatory. Consider viral pneumonia. <JANET Moser - Last Filed: 12/01/20 11:50> Assessment and Plan (1) COVID-19 virus infection: Status: Acute <JANET Moser Last Filed: 12/01/20 11:50> (2) Morbid obesity: Status: Acute <JANET Moser - Last Filed: 12/01/20 11:50> (3) Pyelonephritis: Status: Acute <JANET Moser Last Filed: 12/01/20 11:50> (4) Kidney stone: Status: Acute <JANET Moser - Last Filed: 12/01/20 11:50> This is a 70-year-old female with history hypothyroidism, morbid obesity, recent admission for COVID-19 pneumonia and hyperglycemia who presents to the emergency department with abdominal pain found to have kidney stone Acute pyelonephritis In the setting of right-sided ureteral stone No sepsis Leukocytosis likely in part related to recent steroids -IV ceftriaxone -FU Ucx, Bcx -Flomax, 4mm stone does will not likely require urology intervention -pain control Hypothyroidism Continue levothyroxine Asthma No acute exacerbation Continue inhalers Elevated blood sugars Noted on last admission, HGB A1c of 8.8 But to be related at least in part to steroid use -SSI, POC, ADA diet Morbid obesity BMI 42.4 REcent covid19 infection s/p treatment with dexamethasone no respiratory sx at this time, not requiring supplemental o2 contact precautions DVT prophylaxis-Lovenox Code status-full code This case was discussed with Dr. Elias <JANET Moser - Last Filed: 12/01/20 11:50>
[2020-12-01] MEDS: cefTRIAXone sodium 1 GM in 0.9 % Sodium Chloride 50 ML IV (13:38)
[2020-12-01] MEDS: Tamsulosin HCL 0.4 MG CAPSULE PO (13:39)
[2020-12-01] MEDS: Levothyroxine Sodium 50 MCG TABLET PO (13:39)
[2020-12-01 13:46] LABS: Glucose, Whole Blood 117 mg/dL (60-115)
--- NOTE | 2020-12-01 14:46 | PM.EVENT ---
Event Note Date of Service: 12/02/20 Event Note: This patient is seen and examined with APC. 70-year-old female with history hypothyroidism, morbid obesity, recent admission for COVID-19 pneumonia and hyperglycemia who presents to the emergency department with abdominal pain found to have kidney stone. Patient's was recently discharged because of COVID infection on dexamethasone at home was doing relatively fine denies any acute respiratory symptoms are she says that she was having some right-sided lower back pain iron nausea and came to the hospital -was told by ED that she has renal stone and question of infection subsequently getting admitted for that. Currently saying that pain is significantly better denies any nausea or or urinary complaints. Lab imaging, EKG reviewed. On imaging patient has multiple right-sided renal calculi and also a 4 mm calculi in the distal right ureter -probably the cause of the pain. Physical exam: constitutional:not in acute distress. Cvs: rrr, [id number] , no murmur res: Fair air entry ,no rhonchii or wheezing abd: no rebound or guarding ,nt, bs present. ext pulses present , no cyanosis neuro: axo3 , nonfocal. assessment and plan coordinated in APCs note, Agree with the plan in addition: renal colic ,? pyelo Continue pain management with morphine, added tamsulosin, given IV antibiotic Await cultures-in testing her urine culture preliminary seems negative. blood cultures pending Her chest x-ray abnormal/; probably related to her recent COVID infection, did not endorse any respiratory symptoms Most likely post COVID sequela-may need to repeat imaging in 3-4 weeks to see resolution of the findings.
[2020-12-01] MEDS: Albuterol Sulfate 90 MCG 8 GM INHALER 2 PUFF INHALE ×2 (15:43→19:52)
[2020-12-01] MEDS: Benzonatate 100 MG CAPSULE 200 MG PO ×2 (16:20→20:49)
[2020-12-01] MEDS: 0.9 % Sodium Chloride Flush 3 ML SYRINGE IVFLUSH ×2 (16:21→20:53)
[2020-12-01] MEDS: Enoxaparin Sodium 40 MG/0.4 ML SYRINGE SUBCUT (18:43)
--- NOTE | 2020-12-01 18:46 | PC.NURSE ---
pt ate about 50% of her dinner pt ambulated to the bathroom got a little sob after ambulating
[2020-12-01 20:49] LABS: Glucose, Whole Blood 159 mg/dL (60-115)
[2020-12-01] MEDS: Insulin Lispro 100 UNIT/ML 3 ML VIAL SUBCUT (20:49)
[2020-12-02] VITALS (7 sets, daily range): BP systolic 136–159; BP diastolic 68–84; PULSE 69–104; RESP 18; TEMP 35.9–36.9; O2SAT 94–99
[2020-12-02 05:19] LABS: Glucose, Whole Blood 134 mg/dL (60-115)
[2020-12-02 06:42] LABS: MANUAL DIFF FLAG NO
[2020-12-02 07:03] LABS: Basophils Percent Auto 0.4 % (0-2); Eosinophils Absolute Auto 0.2 X10*3/uL (0.0-0.4); Eosinophils Percent Auto 2.7 % (0-4); Hematocrit 39.5 % (37-47); Hemoglobin 12.2 g/dl (12.0-16.0); Imm Gran Abs Auto 0.12 X10*3/uL (0.00-0.03); Imm Gran Pct Auto 1.5 % (0.0-0.4); Lymphocytes Absolute Auto 1.9 X10*3/uL (1.2-4.9); Lymphocytes Percent Auto 23.7 % (20-40); Mean Corpuscular HGB Conc 30.9 g/dl (31.0-35.0); Mean Corpuscular Volume 97.3 fL (80-98); Mean Platelet Volume 9.7 fL (9.4-12.3); Monocytes Absolute Auto 0.6 X10*3/uL (0.1-1.2); Monocytes Percent Auto 7.7 % (2-11); Neutrophils Absolute Auto 5.1 X10*3/uL (2.0-8.3); Platelet Count 375 X10*3/uL (160-400); Red Blood Count 4.06 X10*6/uL (4.20-5.50); Red Cell Distribution Width 13.2 % (11.0-16.0)
[2020-12-02 07:14] LABS: Anion Gap 15 (12-20); Blood Urea Nitrogen 18 mg/dL (9-16); Calcium 8.4 mg/dL (8.4-10.2); Carbon Dioxide 23 mmol/L (22-29); Chloride 108 mmol/L (96-108); Creatinine Clr Calc Pharmacy 75.3; Estimated Glomerular Filt Rate 55; Glucose Random 133 mg/dL (60-115); Potassium 4.4 mmol/L (3.3-5.1); Sodium 142 mmol/L (135-145)
[2020-12-02 07:17] LABS: Glucose, Whole Blood 120 mg/dL (60-115)
[2020-12-02] MEDS: Albuterol Sulfate 90 MCG 8 GM INHALER 2 PUFF INHALE ×2 (07:29→14:53)
[2020-12-02] MEDS: Fluticasone/Vilanterol 100/25 BLST.W.DEV 1 PUFF INHALE (07:29)
[2020-12-02] MEDS: Cholecalciferol (Vitamin D3) 25 MCG TABLET 125 MCG PO (10:30)
[2020-12-02] MEDS: Tamsulosin HCL 0.4 MG CAPSULE PO (10:31)
[2020-12-02] MEDS: cefTRIAXone sodium 1 GM in 0.9 % Sodium Chloride 50 ML IV (10:31)
[2020-12-02] MEDS: Benzonatate 100 MG CAPSULE 200 MG PO ×3 (10:31→20:33)
[2020-12-02] MEDS: Aspirin Enteric Coated 81 MG TABLET.DR PO (10:31)
[2020-12-02] MEDS: 0.9 % Sodium Chloride Flush 3 ML SYRINGE IVFLUSH ×2 (10:32→16:00)
[2020-12-02] MEDS: Levothyroxine Sodium 50 MCG TABLET PO (10:32)
[2020-12-02 11:06] LABS: Glucose, Whole Blood 144 mg/dL (60-115)
--- NOTE | 2020-12-02 15:06 | MHC.CM.PN ---
pt on isolation unit, BARBARA contacted her on her cell phone [phone]. Pt reports sharing her home with her brother and being independent with all care and mobility. Pt denies the use of any DME or having any in home services. Pt reports she has a HCP naming her friend Marj ([phone]) as her agent and confirms Milton Webb as her primary care physician. Pt is being discharged home today with no services pts brother will provide transportation
[2020-12-02 15:57] LABS: Glucose, Whole Blood 137 mg/dL (60-115)
--- NOTE | 2020-12-02 17:45 | P.DS_ITS ---
DS: Providers Provider Date of Service: 12/02/20 Date of admission: 12/01/20 11:37 Primary care physician: Milton Webb MD Consults: 12/02/20 11:49 Consult to Urology Routine Consulting Provider: Elia Handley Reason for consultation: renal stone ?uti Has provider been notified: No DS: Diagnosis Discharge Diagnosis (1) COVID-19 virus infection: Status: Acute (2) Morbid obesity: Status: Acute (3) Pyelonephritis: Status: Acute (4) Kidney stone: Status: Acute DS: Medications Discharge Medications Home Medications: Home Medications Medication Instructions Recorded Confirmed aspirin 81 mg PO DAILY 11/18/20 12/01/20 cholecalciferol (vitamin D3) 125 mcg PO DAILY 11/18/20 12/01/20 [Vitamin D3] fluticasone propion-salmeterol 1 inh INHALATION BID 11/18/20 12/01/20 [Advair Diskus] ivermectin [Soolantra] 1 appl TOPICAL DAILY 11/18/20 12/01/20 levothyroxine 50 mcg PO DAILY 11/18/20 12/01/20 lisinopril 20 mg PO DAILY 11/18/20 12/01/20 Previous Rx's Medication Instructions Recorded albuterol sulfate [Ventolin HFA] 2 puff INHALATION RQ4H PRN #8.5 g 11/21/20 albuterol sulfate [Ventolin HFA] 2 puff INHALATION RQ6H WHILE AWAKE 11/21/20 #8.5 g benzonatate 200 mg PO TID #30 cap 11/21/20 DS: Summary Hospital Course Hospital Course: 70-year-old female with recent admission for COVID-19 pneumonia who presents to the emergency department with abdominal pain. Patient was admitted from November 18 to November 21 a for management pneumonia secondary to COVID-19. She was discharged with dexamethasone which she completed. Last evening she began having right sided flank pain which radiated around her side to the front of her abdomen. This was associated with nausea, vomiting, chills. She has history of kidney stones in the past however this pain was more severe than previous. In the emergency department lab work revealed leukocytosis of 16.4, no other evidence of sepsis. CT scan of the abdomen showed right-sided 4 mm stone with mild hydroureteronephrosis and perinephric stranding. She was started on IV antibiotics and required multiple doses of IV narcotics for adequate pain control. She again test positive for coronavirus although her respiratory symptoms have improved. Hospital Course problem [place] section: Patient came right-sided abdominal pain found to have renal stone ureter area: Subsequently patient was started on Flomax, also received pre questioning antibiotics initially. Subsequently her pain is improved any urine culture <100.000 calonies. Patient passed 2 stones as per the patient, right-sided pain improved. Time Spent with Patient Time attestation: Total time spent providing and/or coordinating discharge services: Physical Exam Vital Signs: Vital Signs: Last Vital Signs Temp 98.5 F 12/02/20 15:51 Pulse 104 H 12/02/20 15:51 Resp 104 H 12/02/20 15:51 BP 144/83 H 12/02/20 15:51 Pulse Ox 99 12/02/20 15:51 Body Mass Index 45.4 DS: Data Data Completed and Pending Labs on day of discharge: Laboratory Tests 11/30/20 11/30/20 11/30/20 20:32 22:23 22:23 WBC 16.4 H RBC 4.63 Hgb 14.2 Hct 43.6 MCV 94.2 MCH 30.7 MCHC 32.6 RDW 13.1 Plt Count 462 H D MPV 9.4 Immature Gran % (Auto) 2.2 H Neut % (Auto) 81.3 H Lymph % (Auto) 10.6 L [place] % (Auto) 5.0 Eos % (Auto) 0.5 Baso % (Auto) 0.4 Lymph # (Auto) 1.7 [place] # (Auto) 0.8 Eos # (Auto) 0.1 Baso # (Auto) 0.1 Abs Immat Gran (auto) 0.36 H Absolute Neuts (auto) 13.3 H Absolute Nucleated RBC 0.000 Nucleated RBC % (auto) 0.0 PT INR APTT Sodium Potassium Chloride Carbon Dioxide Anion Gap BUN Creatinine Estim Creat Clear Calc Estimated GFR POC Glucose Random Glucose Lactic Acid Calcium Magnesium Total Bilirubin Direct Bilirubin AST ALT Alkaline Phosphatase Troponin I High Sens 3.7 Total Protein Albumin Lipase Urine Color YELLOW Urine Appearance HAZY Urine pH 6.0 Ur Specific [place] >= 1.030 H Urine Protein NEG Urine Glucose (UA) NEG Urine Ketones 15 Urine Blood 3+ H Urine Nitrite NEG Ur Leukocyte Esterase 1+ H Urine RBC 0-2 Urine WBC 5-9 H Ur Squamous Epith Cells TRACE Urine Bacteria 1+ Urine Test NEGATIVE COVID-19 ([facility]) COVID-19 Clin Com 11/30/20 11/30/20 12/01/20 23:24 23:24 00:17 WBC RBC Hgb Hct MCV MCH MCHC RDW Plt Count MPV Immature Gran % (Auto) Neut % (Auto) Lymph % (Auto) [place] % (Auto) Eos % (Auto) Baso % (Auto) Lymph # (Auto) [place] # (Auto) Eos # (Auto) Baso # (Auto) Abs Immat Gran (auto) Absolute Neuts (auto) Absolute Nucleated RBC Nucleated RBC % (auto) PT 14.2 H INR 1.2 H APTT 31.6 Sodium 139 Potassium 4.6 Chloride 107 Carbon Dioxide 22 Anion Gap 15 BUN 20 H Creatinine 1.00 Estim Creat Clear Calc 76.1 Estimated GFR 55 POC Glucose Random Glucose 179 H Lactic Acid 1.3 Calcium 8.4 Magnesium 1.9 Total Bilirubin 1.0 Direct Bilirubin 0.4 AST 40 H ALT 58 H Alkaline Phosphatase 67 Troponin I High Sens Total Protein 5.6 L Albumin 3.5 Lipase 26 Urine Color Urine Appearance Urine pH Ur Specific [place] Urine Protein Urine Glucose (UA) Urine Ketones Urine Blood Urine Nitrite Ur Leukocyte Esterase Urine RBC Urine WBC Ur Squamous Epith Cells Urine Bacteria Urine Test COVID-19 ([facility]) COVID-19 Clin Com 12/01/20 12/01/20 12/01/20 00:53 13:42 16:26 WBC RBC Hgb Hct MCV MCH MCHC RDW Plt Count MPV Immature Gran % (Auto) Neut % (Auto) Lymph % (Auto) [place] % (Auto) Eos % (Auto) Baso % (Auto) Lymph # (Auto) [place] # (Auto) Eos # (Auto) Baso # (Auto) Abs Immat Gran (auto) Absolute Neuts (auto) Absolute Nucleated RBC Nucleated RBC % (auto) PT INR APTT Sodium Potassium Chloride Carbon Dioxide Anion Gap BUN Creatinine Estim Creat Clear Calc Estimated GFR POC Glucose 117 H 134 H Random Glucose Lactic Acid Calcium Magnesium Total Bilirubin Direct Bilirubin AST ALT Alkaline Phosphatase Troponin I High Sens Total Protein Albumin Lipase Urine Color Urine Appearance Urine pH Ur Specific [place] Urine Protein Urine Glucose (UA) Urine Ketones Urine Blood Urine Nitrite Ur Leukocyte Esterase Urine RBC Urine WBC Ur Squamous Epith Cells Urine Bacteria Urine Test COVID-19 ([facility]) Positive A COVID-19 Clin Com See Note 12/01/20 12/02/20 12/02/20 20:33 05:40 05:40 WBC 8.0 RBC 4.06 L Hgb 12.2 Hct 39.5 MCV 97.3 MCH 30.0 MCHC 30.9 L RDW 13.2 Plt Count 375 MPV 9.7 Immature Gran % (Auto) 1.5 H Neut % (Auto) 64.0 Lymph % (Auto) 23.7 [place] % (Auto) 7.7 Eos % (Auto) 2.7 Baso % (Auto) 0.4 Lymph # (Auto) 1.9 [place] # (Auto) 0.6 Eos # (Auto) 0.2 Baso # (Auto) 0.0 Abs Immat Gran (auto) 0.12 H Absolute Neuts (auto) 5.1 Absolute Nucleated RBC 0.000 Nucleated RBC % (auto) 0.0 PT INR APTT Sodium 142 Potassium 4.4 Chloride 108 Carbon Dioxide 23 Anion Gap 15 BUN 18 H Creatinine 1.01 Estim Creat Clear Calc 75.3 Estimated GFR 55 POC Glucose 159 H Random Glucose 133 H Lactic Acid Calcium 8.4 Magnesium Total Bilirubin Direct Bilirubin AST ALT Alkaline Phosphatase Troponin I High Sens Total Protein Albumin Lipase Urine Color Urine Appearance Urine pH Ur Specific [place] Urine Protein Urine Glucose (UA) Urine Ketones Urine Blood Urine Nitrite Ur Leukocyte Esterase Urine RBC Urine WBC Ur Squamous Epith Cells Urine Bacteria Urine Test COVID-19 ([facility]) COVID-19 Clin Com 12/02/20 12/02/20 12/02/20 07:12 11:01 15:52 WBC RBC Hgb Hct MCV MCH MCHC RDW Plt Count MPV Immature Gran % (Auto) Neut % (Auto) Lymph % (Auto) [place] % (Auto) Eos % (Auto) Baso % (Auto) Lymph # (Auto) [place] # (Auto) Eos # (Auto) Baso # (Auto) Abs Immat Gran (auto) Absolute Neuts (auto) Absolute Nucleated RBC Nucleated RBC % (auto) PT INR APTT Sodium Potassium Chloride Carbon Dioxide Anion Gap BUN Creatinine Estim Creat Clear Calc Estimated GFR POC Glucose 120 H 144 H 137 H Random Glucose Lactic Acid Calcium Magnesium Total Bilirubin Direct Bilirubin AST ALT Alkaline Phosphatase Troponin I High Sens Total Protein Albumin Lipase Urine Color Urine Appearance Urine pH Ur Specific [place] Urine Protein Urine Glucose (UA) Urine Ketones Urine Blood Urine Nitrite Ur Leukocyte Esterase Urine RBC Urine WBC Ur Squamous Epith Cells Urine Bacteria Urine Test COVID-19 ([facility]) COVID-19 Clin Com Preliminary micro results at discharge 12/01/20 00:16 Blood Culture - Preliminary Blood - Venous No growth after 24 hours. 12/01/20 00:17 Blood Culture - Preliminary Blood - Venous No growth after 24 hours. Discharge Plan Discharge Patient Disposition: Home, Self-Care Referrals: Elia Handley MD [Physician] - (follow up 2 weeks ) Milton Webb MD [Primary Care Provider] - Discharge Medications: New tamsulosin [Flomax] 0.4 mg capsule 0.4 mg PO BEDTIME Qty: 7 RF: 0 cefuroxime axetil 250 mg tablet 250 mg PO Q12H Qty: 10 RF: 0 Continued lisinopril 20 mg Tablet 20 mg PO DAILY RF: 0 levothyroxine 50 mcg Tablet 50 mcg PO DAILY RF: 0 fluticasone propion-salmeterol [Advair Diskus] 100-50 mcg/dose Blister With Device 1 inh INHALATION BID RF: 0 cholecalciferol (vitamin D3) [Vitamin D3] 125 mcg (5,000 unit) Tablet 125 mcg PO DAILY RF: 0 ivermectin [Soolantra] 1 % Cream 1 appl TOPICAL DAILY RF: 0 aspirin 81 mg Tablet,Delayed Release (Dr/Ec) 81 mg PO DAILY RF: 0 benzonatate 100 mg Capsule 200 mg PO TID Qty: 30 RF: 0 albuterol sulfate [Ventolin HFA] 90 mcg/actuation Hfa Aerosol Inhaler 2 puff inhalation RQ4H PRN (Reason: Wheezing) Qty: 8.5 RF: 0 albuterol sulfate [Ventolin HFA] 90 mcg/actuation Hfa Aerosol Inhaler 2 puff inhalation RQ6H WHILE AWAKE Qty: 8.5 RF: 0 Discharge Orders: Discharge Order (Routine); Ordered 12/02/20 Ordered By: Catrachita Elias Diet: advance to usual diet, diabetic diet and low fat, low cholesterol Activity on Discharge: As tolerated Stand Alone Forms: Patient Portal Discharge page Visit Report Forms: Patient Portal Discharge page Care Plan Goals: Patient came right-sided abdominal pain found to have renal stone ureter area: Subsequently patient was started on Flomax, also received pre questioning antibiotics initially. Subsequently her pain is improved any urine culture <100.000 calonies. Patient passed 2 stones as per the patient, right-sided pain improved. Health Concerns: As above. Plan of Treatment: As above..
[2020-12-02] MEDS: Enoxaparin Sodium 40 MG/0.4 ML SYRINGE SUBCUT (17:49)
--- NOTE | 2020-12-02 17:52 | P.PNIM_ITS ---
Subjective Subjective Date of Service: 12/02/20 Interval History: Renal colic, question of UTI Review of Systems Patient said abdominal pain and right flank pain is improved Denies any nausea vomiting or any fever or chills. Physical Exam Vital Signs: Vital Signs: Last Vital Signs Temp 98.5 F 12/02/20 15:51 Pulse 104 H 12/02/20 15:51 Resp 104 H 12/02/20 15:51 BP 144/83 H 12/02/20 15:51 Pulse Ox 99 12/02/20 15:51 Body Mass Index 45.4 Physical exam: Cvs: rrr, [id number] , no murmur res: clear to auscultation ,no rhonchii or wheezing abd: no rebound or guarding ,nt, bs present. ext pulses present , no cyanosis neuro: axo3 , nonfocal. Objective Data Current Medications Generic Name Dose Route Start Last Admin Trade Name Freq PRN Reason Stop Dose Admin Acetaminophen 650 mg 12/01/20 11:37 Acetaminophen 325 Mg Tablet PO Q6H PRN Pain, Mild (Pain Scale 1-3) Albuterol Sulfate 2 puff 12/01/20 15:31 Albuterol Sulfate 90 Mcg 8 Gm Inhaler INHALE RQ4H PRN Wheezing Albuterol Sulfate 2 puff 12/01/20 15:31 12/02/20 14:53 Albuterol Sulfate 90 Mcg 8 Gm Inhaler INHALE 2 puff RQ6H WHILE AWAKE ROLANDO Administration Aspirin 81 mg 12/02/20 09:00 12/02/20 10:31 Aspirin Enteric Coated 81 Mg Tablet.Dr PO 81 mg DAILY ROLANDO Administration Benzonatate 200 mg 12/01/20 15:31 12/02/20 15:56 Benzonatate 100 Mg Capsule PO 200 mg TID ROLANDO Administration Docusate Sodium 100 mg 12/01/20 11:37 Docusate Sodium 100 Mg Capsule PO DAILY PRN Constipation Enoxaparin Sodium 40 mg 12/01/20 18:00 12/02/20 17:49 Enoxaparin Sodium 40 Mg/0.4 Ml Syringe SUBCUT 40 mg Q24H ROLANDO Administration Fluticasone/Vilanterol 1 puff 12/02/20 08:00 12/02/20 07:29 Fluticasone/Vilanterol 100/25 Blst.W.Dev INHALE 1 puff RDAILY ROLANDO Administration Hydromorphone HCl 0.5 mg 12/01/20 05:00 Hydromorphone Hcl 0.5 Mg/0.5 Ml Syringe IVPUSH ONCE PRN pain Ceftriaxone Sodium 1 gm/ 50 mls @ 100 mls/hr 12/01/20 11:45 12/02/20 11:26 Sodium Chloride IV Infused Q24H [facility] Infusion Insulin Human Lispro 0 unit 12/01/20 16:30 12/02/20 16:00 Insulin Lispro 100 Unit/Ml 3 Ml Vial SUBCUT Not Given QIDACHS [facility] Protocol Levothyroxine Sodium 50 mcg 12/01/20 11:45 12/02/20 10:32 Levothyroxine Sodium 50 Mcg Tablet PO 50 mcg DAILY [facility] Administration Lisinopril 20 mg 12/01/20 12:00 12/02/20 10:31 Lisinopril 20 Mg Tablet PO 20 mg DAILY [facility] Administration Protocol Morphine Sulfate 4 mg 12/01/20 11:37 Morphine Sulfate 4 Mg/Ml Cartridge IVPUSH Q4H PRN Pain, Severe (Pain Scale 7-10) Ondansetron HCl 4 mg 12/01/20 11:37 Ondansetron Hcl 4 Mg/2 Ml Vial IVPUSH Q8H PRN Nausea and Vomiting Sodium Chloride 3 ml 12/01/20 16:00 12/02/20 16:00 0.9 % Sodium Chloride Flush 3 Ml Syringe IVFLUSH 3 ml QSHIFT [facility] Administration Tamsulosin HCl 0.4 mg 12/01/20 11:40 12/02/20 10:31 Tamsulosin Hcl 0.4 Mg Capsule PO 0.4 mg DAILY [facility] Administration Vitamin D 125 mcg 12/02/20 09:00 12/02/20 10:30 Cholecalciferol (Vitamin D3) 25 Mcg Tablet PO 125 mcg DAILY [facility] Administration Labs CBC & Chem 7: 12/02/20 05:40 12/02/20 05:40 Microbiology Microbiology Results: Microbiology 11/30/20 21:45 Urine clean catch - Clean Catch Midstream Urine Culture - Final 12/01/20 00:16 Blood - Venous Blood Culture - Preliminary No growth after 24 hours. 12/01/20 00:17 Blood - Venous Blood Culture - Preliminary No growth after 24 hours. Assessment and Plan (1) Acute UTI: Status: Acute (2) Kidney stone: Status: Acute (3) COVID-19 virus infection: Status: Acute (4) Asthma exacerbation: Status: Acute (5) Morbid obesity: Status: Acute (6) Hyperglycemia due to diabetes mellitus: Status: Inactive Assessment and Plan: 70-year-old female with history hypothyroidism, morbid obesity, recent admission for COVID-19 pneumonia and hyperglycemia who presents to the emergency department with abdominal pain found to have kidney stone 1.proabale Acute pyelonephritis In the setting of right-sided ureteral stone No sepsis Leukocytosis likely in part related to recent steroids -IV ceftriax day 2one FU Ucx<100,000 calonies,Bcxneg@24hrs Flomax, 4mm stone , mild hydronephrosis pain control urology eval-npo for possible urological intervention in the morning. 2.Hypothyroidism Continue levothyroxine 3.Asthma No acute exacerbation Continue inhalers 4.Elevated blood sugars Noted on last admission, HGB A1c of 8.8 But to be related at least in part to steroid use -SSI, POC, ADA diet 5.Morbid obesity BMI 42.4 6.REcent covid19 infection s/p treatment with dexamethasone no respiratory sx at this time, not requiring supplemental o2 contact precautions
[2020-12-02 19:46] LABS: Glucose, Whole Blood 141 mg/dL (60-115)
[2020-12-03] VITALS (13 sets, daily range): BP systolic 118–163; BP diastolic 60–82; PULSE 68–92; RESP 16–20; TEMP 36.2–36.9; O2SAT 91–98; BMI 45.4
[2020-12-03] MEDS: 0.9 % Sodium Chloride Flush 3 ML SYRINGE IVFLUSH ×3 (00:25→16:35)
[2020-12-03 06:44] LABS: Anion Gap 11 (12-20); Blood Urea Nitrogen 16 mg/dL (9-16); Carbon Dioxide 29 mmol/L (22-29); Chloride 107 mmol/L (96-108); Creatinine Clr Calc Pharmacy 93.9; Estimated Glomerular Filt Rate > 60; Glucose Random 115 mg/dL (60-115); Sodium 143 mmol/L (135-145)
[2020-12-03 07:14] LABS: Glucose, Whole Blood 122 mg/dL (60-115)
[2020-12-03] MEDS: Fluticasone/Vilanterol 100/25 BLST.W.DEV 1 PUFF INHALE (07:51)
[2020-12-03] MEDS: Albuterol Sulfate 90 MCG 8 GM INHALER 2 PUFF INHALE ×2 (07:51→19:40)
[2020-12-03] MEDS: Cholecalciferol (Vitamin D3) 25 MCG TABLET 125 MCG PO (07:59)
[2020-12-03] MEDS: Benzonatate 100 MG CAPSULE 200 MG PO ×3 (07:59→22:38)
[2020-12-03] MEDS: Tamsulosin HCL 0.4 MG CAPSULE PO (08:00)
[2020-12-03] MEDS: Aspirin Enteric Coated 81 MG TABLET.DR PO (08:00)
[2020-12-03] MEDS: Levothyroxine Sodium 50 MCG TABLET PO (08:00)
[2020-12-03] MEDS: cefTRIAXone sodium 1 GM in 0.9 % Sodium Chloride 50 ML IV (10:25)
--- NOTE | 2020-12-03 10:28 | P.CNUR_ITS ---
History of Present Illness Consult details Consult date: 12/03/20 Narrative: 70 yr female admit from distal left ureteric stone had uti given IV abx passed distal stones has stones in right kidney recommend ureteroscopy and laser lithotripsy with stent placement Review of Systems Review of Systems: Yes all other systems are reviewed and are negative [facility] Past Medical History Medical History (Updated 12/03/20 @ 10:30 by Elia Handley MD) Asthma Eczema HTN (hypertension) Hyperglycemia due to diabetes mellitus Hypothyroid Rosacea Functional capacity: independent ambulation Family History Family history: reviewed and not pertinent Social History Social History Household Members: Family Housing: House Do you presently have visiting nurse or other home services: No Alcohol intake: never Smoking Status: Never smoker Use of substances other than those prescribed or required for medical reasons: No Currently Displaying Signs/Symptoms of Drug Intoxication Withdrawal: No Have you been hit, kicked, punched, or otherwise hurt by someone within the past year? If so, by whom?: No Do you feel safe in your current relationship?: No Current Relationship Is there a partner from a previous relationship who is making you feel unsafe now?: No Are you made to feel afraid or neglected: No Spiritual Healthcare Practices: mandaeism Advance Directives: No Advance Directives Information Provided: Yes Do you have thoughts of harming others: None Do you have a plan to hurt others: No Plan Recently lost weight without trying: No service: No Current occupational status: retired Meds Allergies Allergy/AdvReac Type Severity Reaction Status Date / Time cephalexin [Keflex] Allergy Unknown CRAMPS Verified 11/30/20 18:53 erythromycin base AdvReac Severe NAUSEA & Verified 11/30/20 18:53 [Erythromycin Base] VOMITING Erythromycin Allergy Unknown CRAMPS Uncoded 11/30/20 18:53 From Keflex AdvReac Severe NAUSEA & Uncoded 11/30/20 18:53 VOMITING Home Medications Medication Instructions Recorded Confirmed Type aspirin 81 mg PO DAILY 11/18/20 12/01/20 History cholecalciferol (vitamin D3) 125 mcg PO DAILY 11/18/20 12/01/20 History [Vitamin D3] fluticasone propion-salmeterol 1 inh INHALATION BID 11/18/20 12/01/20 History [Advair Diskus] ivermectin [Soolantra] 1 appl TOPICAL DAILY 11/18/20 12/01/20 History levothyroxine 50 mcg PO DAILY 11/18/20 12/01/20 History lisinopril 20 mg PO DAILY 11/18/20 12/01/20 History Physical Exam Vital Signs: Vital Signs: Last Vital Signs Temp 97.8 F 12/03/20 07:49 Pulse 82 12/03/20 07:54 Resp 18 12/03/20 07:49 BP 144/74 H 12/03/20 07:49 Pulse Ox 97 12/03/20 07:49 Body Mass Index 45.4 Const: General: cooperative, healthy appearing, comfortable and no acute distress Nutritional Appearance: average body habitus Orientation/consciousness: oriented to person, oriented to place and oriented to time Eyes: General: appearance normal, both eyes and all related structures Chest: Chest palpation & inspection: normal inspection of the chest Resp: Effort & Inspection: normal respiratory effort Cardio: Rate: regular rate GI: Inspection: Yes normal to inspection Skin: Hair: normal Neuro: General: oriented to person, oriented to place and oriented to time Extrem: General: Yes normal to inspection Results Labs Result diagrams: 12/02/20 05:40 12/03/20 05:24 Labs: Abnormal lab results 12/02/20 12/02/20 12/02/20 Range/Units 11:01 15:52 19:39 Anion Gap (12-20) POC Glucose 144 H 137 H 141 H (60-115) mg/dL 12/03/20 12/03/20 Range/Units 05:24 07:02 Anion Gap 11 L (12-20) POC Glucose 122 H (60-115) mg/dL BMP 12/03/20 05:24 Sodium 143 Potassium 4.0 Chloride 107 Carbon Dioxide 29 BUN 16 Creatinine 0.81 Calcium 9.0 D Urine 11/30/20 Range/Units 20:32 Urine Color YELLOW Urine Appearance HAZY Urine pH 6.0 (5.0-8.0) Ur Specific [place] >= 1.030 H (1.005-1.025) Urine Protein NEG (NEG-TRACE) MG/DL Urine Glucose (UA) NEG (NEG) MG/DL Urine Test NEGATIVE (NEGATIVE) All other labs normal. KIDNEYS AND URETERS: There is a 4 mm stone within the distal right ureter at the ureterovesical junction, and tiny dependent calculi within the distal right ureter. The former results in mild hydroureter and hydronephrosis with perinephric stranding. In addition, there are multiple nonobstructive calculi within the right kidney which measure up to 1.3 cm and approximately 1000 Hounsfield units. No urinary calculi within the left kidney. 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 There are couple subcentimeter angiomyolipomas within the right kidney as well. There is a 1.4 cm mildly hyperdense lesion within the upper pole of the right kidney. Assessment and Plan (1) Renal and ureteric calculus: Status: Acute (2) Acute UTI: Status: Acute Right retrograde, ureteroscopy, laser lithotripsy Ureteroscopy We discussed the nature of the decision and reasonable alternatives for performing the above surgery. Interventions include chemical dissolution, ESWL, ureteroscopy with laser lithotripsy and stent placement, PCNL. Options such as medical therapy were discussed. The relative uncertainties and benefits related to each alternate procedure were adequately discussed. General surgical risks including, but not limited to, pain, bleeding, infection, myocardial infarction, pulmonary embolus, deep vein thrombosis and cerebrovascular accident which may result in further hospitalization were discussed. Full disclosure of the procedure as well as all major risks, benefits and complications were discussed including but not limited to damage to the urethra, bladder and kidney infection, damage to the ureter, stent migration or malposition, scarring to the renal pelvis, remnant stone fragments, subsequent stone passage with need for secondary procedures. The overall secondary procedu re rate is approximately 10-15%. The success rate of the procedure was discussed. Success of the procedure in the short-term does not necessarily guarantee that long-term success will be maintained. Suitable follow up will need to be maintained. The patient showed understanding of discussion and wishes to proceed with - cystoscopy, retrograde, ureteroscopy, possible lithotripsy/stone basketing and stent on the right left side
--- NOTE | 2020-12-03 10:49 | HO.ANESPROP2 ---
FORM[facility]LY [facility], [facility] Past Medical History Medical History (Updated 12/03/20 @ 10:30 by Elia Handley MD) Asthma Eczema HTN (hypertension) Hyperglycemia due to diabetes mellitus Hypothyroid Rosacea Functional capacity: independent ambulation Social History Social History Household Members: Family Housing: House Do you presently have visiting nurse or other home services: No Alcohol intake: never Smoking Status: Never smoker Use of substances other than those prescribed or required for medical reasons: No Currently Displaying Signs/Symptoms of Drug Intoxication Withdrawal: No Have you been hit, kicked, punched, or otherwise hurt by someone within the past year? If so, by whom?: No Do you feel safe in your current relationship?: No Current Relationship Is there a partner from a previous relationship who is making you feel unsafe now?: No Are you made to feel afraid or neglected: No Spiritual Healthcare Practices: samaritan Advance Directives: No Advance Directives Information Provided: Yes Do you have thoughts of harming others: None Do you have a plan to hurt others: No Plan Recently lost weight without trying: No service: No Current occupational status: retired [employer] Allergies Allergy/AdvReac Type Severity Reaction Status Date / Time cephalexin [Keflex] Allergy Unknown CRAMPS Verified 11/30/20 18:53 erythromycin base AdvReac Severe NAUSEA & Verified 11/30/20 18:53 [Erythromycin Base] VOMITING Erythromycin Allergy Unknown CRAMPS Uncoded 11/30/20 18:53 From Keflex AdvReac Severe NAUSEA & Uncoded 11/30/20 18:53 VOMITING Home Medications Medication Instructions Recorded Confirmed Type aspirin 81 mg PO DAILY 11/18/20 12/01/20 History cholecalciferol (vitamin D3) 125 mcg PO DAILY 11/18/20 12/01/20 History [Vitamin D3] fluticasone propion-salmeterol 1 inh INHALATION BID 11/18/20 12/01/20 History [Advair Diskus] ivermectin [Soolantra] 1 appl TOPICAL DAILY 11/18/20 12/01/20 History levothyroxine 50 mcg PO DAILY 11/18/20 12/01/20 History lisinopril 20 mg PO DAILY 11/18/20 12/01/20 History Exam Exam Date and Time: December 03, 2020 1049 Height,Weight and Vital Signs: Height 5 ft 7 in Weight 131.542 kg Last Vital Signs Temp 97.8 F 12/03/20 07:49 Pulse 82 12/03/20 07:54 Resp 18 12/03/20 07:49 BP 144/74 H 12/03/20 07:49 Pulse Ox 97 12/03/20 07:49 Pertinent Lab Results Pertinent Lab Results: Laboratory Tests 11/30/20 11/30/20 11/30/20 20:32 22:23 22:23 WBC 16.4 H RBC 4.63 Hgb 14.2 Hct 43.6 MCV 94.2 MCH 30.7 MCHC 32.6 RDW 13.1 Plt Count 462 H D MPV 9.4 Immature Gran % (Auto) 2.2 H Neut % (Auto) 81.3 H Lymph % (Auto) 10.6 L Stevens % (Auto) 5.0 Eos % (Auto) 0.5 Baso % (Auto) 0.4 Lymph # (Auto) 1.7 Stevens # (Auto) 0.8 Eos # (Auto) 0.1 Baso # (Auto) 0.1 Abs Immat Gran (auto) 0.36 H Absolute Neuts (auto) 13.3 H Absolute Nucleated RBC 0.000 Nucleated RBC % (auto) 0.0 PT INR APTT Sodium Potassium Chloride Carbon Dioxide Anion Gap BUN Creatinine Estim Creat Clear Calc Estimated GFR POC Glucose Random Glucose Lactic Acid Calcium Magnesium Total Bilirubin Direct Bilirubin AST ALT Alkaline Phosphatase Troponin I High Sens 3.7 Total Protein Albumin Lipase Urine Color YELLOW Urine Appearance HAZY Urine pH 6.0 Ur Specific [place] >= 1.030 H Urine Protein NEG Urine Glucose (UA) NEG Urine Ketones 15 Urine Blood 3+ H Urine Nitrite NEG Ur Leukocyte Esterase 1+ H Urine RBC 0-2 Urine WBC 5-9 H Ur Squamous Epith Cells TRACE Urine Bacteria 1+ Urine Test NEGATIVE COVID-19 ([facility]) COVID-19 Clin Com 11/30/20 11/30/20 12/01/20 23:24 23:24 00:17 WBC RBC Hgb Hct MCV MCH MCHC RDW Plt Count MPV Immature Gran % (Auto) Neut % (Auto) Lymph % (Auto) Stevens % (Auto) Eos % (Auto) Baso % (Auto) Lymph # (Auto) Stevens # (Auto) Eos # (Auto) Baso # (Auto) Abs Immat Gran (auto) Absolute Neuts (auto) Absolute Nucleated RBC Nucleated RBC % (auto) PT 14.2 H INR 1.2 H APTT 31.6 Sodium 139 Potassium 4.6 Chloride 107 Carbon Dioxide 22 Anion Gap 15 BUN 20 H Creatinine 1.00 Estim Creat Clear Calc 76.1 Estimated GFR 55 POC Glucose Random Glucose 179 H Lactic Acid 1.3 Calcium 8.4 Magnesium 1.9 Total Bilirubin 1.0 Direct Bilirubin 0.4 AST 40 H ALT 58 H Alkaline Phosphatase 67 Troponin I High Sens Total Protein 5.6 L Albumin 3.5 Lipase 26 Urine Color Urine Appearance Urine pH Ur Specific [place] Urine Protein Urine Glucose (UA) Urine Ketones Urine Blood Urine Nitrite Ur Leukocyte Esterase Urine RBC Urine WBC Ur Squamous Epith Cells Urine Bacteria Urine Test COVID-19 ([facility]) COVID-[employer] 12/01/20 12/01/20 12/01/20 00:53 13:42 16:26 WBC RBC Hgb Hct MCV MCH MCHC RDW Plt Count MPV Immature Gran % (Auto) Neut % (Auto) Lymph % (Auto) Stevens % (Auto) Eos % (Auto) Baso % (Auto) Lymph # (Auto) Stevens # (Auto) Eos # (Auto) Baso # (Auto) Abs Immat Gran (auto) Absolute Neuts (auto) Absolute Nucleated RBC Nucleated RBC % (auto) PT INR APTT Sodium Potassium Chloride Carbon Dioxide Anion Gap BUN Creatinine Estim Creat Clear Calc Estimated GFR POC Glucose 117 H 134 H Random Glucose Lactic Acid Calcium Magnesium Total Bilirubin Direct Bilirubin AST ALT Alkaline Phosphatase Troponin I High Sens Total Protein Albumin Lipase Urine Color Urine Appearance Urine pH Ur Specific [place] Urine Protein Urine Glucose (UA) Urine Ketones Urine Blood Urine Nitrite Ur Leukocyte Esterase Urine RBC Urine WBC Ur Squamous Epith Cells Urine Bacteria Urine Test COVID-19 ([facility]) Positive A COVID-19 [facility] See Note 12/01/20 12/02/20 12/02/20 20:33 05:40 05:40 WBC 8.0 RBC 4.06 L Hgb 12.2 Hct 39.5 MCV 97.3 MCH 30.0 MCHC 30.9 L RDW 13.2 Plt Count 375 MPV 9.7 Immature Gran % (Auto) 1.5 H Neut % (Auto) 64.0 Lymph % (Auto) 23.7 Stevens % (Auto) 7.7 Eos % (Auto) 2.7 Baso % (Auto) 0.4 Lymph # (Auto) 1.9 Stevens # (Auto) 0.6 Eos # (Auto) 0.2 Baso # (Auto) 0.0 Abs Immat Gran (auto) 0.12 H Absolute Neuts (auto) 5.1 Absolute Nucleated RBC 0.000 Nucleated RBC % (auto) 0.0 PT INR APTT Sodium 142 Potassium 4.4 Chloride 108 Carbon Dioxide 23 Anion Gap 15 BUN 18 H Creatinine 1.01 Estim Creat Clear Calc 75.3 Estimated GFR 55 POC Glucose 159 H Random Glucose 133 H Lactic Acid Calcium 8.4 Magnesium Total Bilirubin Direct Bilirubin AST ALT Alkaline Phosphatase Troponin I High Sens Total Protein Albumin Lipase Urine Color Urine Appearance Urine pH Ur Specific [place] Urine Protein Urine Glucose (UA) Urine Ketones Urine Blood Urine Nitrite Ur Leukocyte Esterase Urine RBC Urine WBC Ur Squamous Epith Cells Urine Bacteria Urine Test COVID-19 ([facility]) COVID-19 [facility] 12/02/20 12/02/20 12/02/20 07:12 11:01 15:52 WBC RBC Hgb Hct MCV MCH MCHC RDW Plt Count MPV Immature Gran % (Auto) Neut % (Auto) Lymph % (Auto) Stevens % (Auto) Eos % (Auto) Baso % (Auto) Lymph # (Auto) [place] # (Auto) Eos # (Auto) Baso # (Auto) Abs Immat Gran (auto) Absolute Neuts (auto) Absolute Nucleated RBC Nucleated RBC % (auto) PT INR APTT Sodium Potassium Chloride Carbon Dioxide Anion Gap BUN Creatinine Estim Creat Clear Calc Estimated GFR POC Glucose 120 H 144 H 137 H Random Glucose Lactic Acid Calcium Magnesium Total Bilirubin Direct Bilirubin AST ALT Alkaline Phosphatase Troponin I High Sens Total Protein Albumin Lipase Urine Color Urine Appearance Urine pH Ur Specific [place] Urine Protein Urine Glucose (UA) Urine Ketones Urine Blood Urine Nitrite Ur Leukocyte Esterase Urine RBC Urine WBC Ur Squamous Epith Cells Urine Bacteria Urine Test COVID-19 ([facility]) COVID-19 [facility] 12/02/20 12/03/20 12/03/20 19:39 05:24 07:02 WBC RBC Hgb Hct MCV MCH MCHC RDW Plt Count MPV Immature Gran % (Auto) Neut % (Auto) Lymph % (Auto) [place] % (Auto) Eos % (Auto) Baso % (Auto) Lymph # (Auto) [place] # (Auto) Eos # (Auto) Baso # (Auto) Abs Immat Gran (auto) Absolute Neuts (auto) Absolute Nucleated RBC Nucleated RBC % (auto) PT INR APTT Sodium 143 Potassium 4.0 Chloride 107 Carbon Dioxide 29 Anion Gap 11 L BUN 16 Creatinine 0.81 Estim Creat Clear Calc 93.9 Estimated GFR > 60 POC Glucose 141 H 122 H Random Glucose 115 Lactic Acid Calcium 9.0 D Magnesium Total Bilirubin Direct Bilirubin AST ALT Alkaline Phosphatase Troponin I High Sens Total Protein Albumin Lipase Urine Color Urine Appearance Urine pH Ur Specific [place] Urine Protein Urine Glucose (UA) Urine Ketones Urine Blood Urine Nitrite Ur Leukocyte Esterase Urine RBC Urine WBC Ur Squamous Epith Cells Urine Bacteria Urine Test COVID-19 ([facility]) COVID-19 Clin Com Airway Mallampati Class: II TM Dist: >3cm Neck ROM: Full Assessment and Plan Assessment Anesthesia Assessment: Anesthesia Plan Discussed and Chart Reviewed Final Anesthetic Review NPO: Yes ASA Class: III Final Preanesthetic Review: No Changes in Pt Med Stat, Meds/Allgs Chart Reviewed and Consent Obtained/Reviewed Patient Risk: Intermediate Procedure Risk: Low Assessment/Block/Sedation in SS: Assess/Block/Sedation-SS Anesthetic Plan Anesthetic Plan: GA Disposition: Standard PACU
[2020-12-03 10:57] LABS: Glucose, Whole Blood 127 mg/dL (60-115)
--- NOTE | 2020-12-03 11:18 | FL_ITS ---
EXAMINATION: XR FLUOROSCOPY WITH IMAGES CLINICAL INFORMATION: Cystoscopy, ureteroscopy. Retrograde laser flex scope. COMPARISON: CT abdomen pelvis 11/30/2020 TECHNIQUE: Fluoroscopy performed by Dr. Suero. Fluoroscopy time: 67.2 seconds DAP: 42.5 mGy Images: 3 FINDINGS: Spot view 1: Obtained over the kidney and mid abdomen. Contrast opacifying the right renal collecting system and bladder. No filling defect. Spot view 2: Spot view over the bladder. Contrast opacifies distal ureter and bladder. Ureteral stent catheter in place. Spot view 3: Obtained over the kidney. Stent catheter over renal pelvis and in the ureter. FL/FL guidance in OR IMPRESSION: Placement of stent catheter in kidney.
--- NOTE | 2020-12-03 11:32 | MHC.CM.PN ---
Patient will be going to surgery tomorrow for a cystoscopy for kidney stones. Patient is on IV Ceftriaxone, IV Dilaudid and IV MS. Discharge plan continues to be home no services, patient is independent. Patient's brother will provide transport. CM will continue to follow patient for discharge needs.
--- NOTE | 2020-12-03 12:44 | P.CONAN_ITS ---
[facility] Past Medical History Medical History Asthma Eczema HTN (hypertension) Hyperglycemia due to diabetes mellitus Hypothyroid Rosacea Functional capacity: independent ambulation Social History Social History Household Members: Family Housing: House Do you presently have visiting nurse or other home services: No Alcohol intake: never Smoking Status: Never smoker Use of substances other than those prescribed or required for medical reasons: No Currently Displaying Signs/Symptoms of Drug Intoxication Withdrawal: No Have you been hit, kicked, punched, or otherwise hurt by someone within the past year? If so, by whom?: No Do you feel safe in your current relationship?: No Current Relationship Is there a partner from a previous relationship who is making you feel unsafe now?: No Are you made to feel afraid or neglected: No Spiritual Healthcare Practices: pentecostal Advance Directives: No Advance Directives Information Provided: Yes Do you have thoughts of harming others: None Do you have a plan to hurt others: No Plan Recently lost weight without trying: No service: No Current occupational status: retired [employer] Allergies Allergy/AdvReac Type Severity Reaction Status Date / Time cephalexin [Keflex] Allergy Unknown CRAMPS Verified 11/30/20 18:53 erythromycin base AdvReac Severe NAUSEA & Verified 11/30/20 18:53 [Erythromycin Base] VOMITING Erythromycin Allergy Unknown CRAMPS Uncoded 11/30/20 18:53 From Keflex AdvReac Severe NAUSEA & Uncoded 11/30/20 18:53 VOMITING Home Medications Medication Instructions Recorded Confirmed Type aspirin 81 mg PO DAILY 11/18/20 12/01/20 History cholecalciferol (vitamin D3) 125 mcg PO DAILY 11/18/20 12/01/20 History [Vitamin D3] fluticasone propion-salmeterol 1 inh INHALATION BID 11/18/20 12/01/20 History [Advair Diskus] ivermectin [Soolantra] 1 appl TOPICAL DAILY 11/18/20 12/01/20 History levothyroxine 50 mcg PO DAILY 11/18/20 12/01/20 History lisinopril 20 mg PO DAILY 11/18/20 12/01/20 History Exam Exam Date and Time: December 03, 2020 1244 Height,Weight and Vital Signs: Height 5 ft 7 in Weight 131.542 kg Last Vital Signs Temp 98.4 F 12/03/20 11:10 Pulse 82 12/03/20 11:10 Resp 18 12/03/20 11:10 BP 140/82 H 12/03/20 11:10 Pulse Ox 96 12/03/20 11:10 Pertinent Lab Results Pertinent Lab Results: Laboratory Tests 11/30/20 11/30/20 11/30/20 20:32 22:23 22:23 WBC 16.4 H RBC 4.63 Hgb 14.2 Hct 43.6 MCV 94.2 MCH 30.7 MCHC 32.6 RDW 13.1 Plt Count 462 H D MPV 9.4 Immature Gran % (Auto) 2.2 H Neut % (Auto) 81.3 H Lymph % (Auto) 10.6 L [place] % (Auto) 5.0 Eos % (Auto) 0.5 Baso % (Auto) 0.4 Lymph # (Auto) 1.7 [place] # (Auto) 0.8 Eos # (Auto) 0.1 Baso # (Auto) 0.1 Abs Immat Gran (auto) 0.36 H Absolute Neuts (auto) 13.3 H Absolute Nucleated RBC 0.000 Nucleated RBC % (auto) 0.0 PT INR APTT Sodium Potassium Chloride Carbon Dioxide Anion Gap BUN Creatinine Estim Creat Clear Calc Estimated GFR POC Glucose Random Glucose Lactic Acid Calcium Magnesium Total Bilirubin Direct Bilirubin AST ALT Alkaline Phosphatase Troponin I High Sens 3.7 Total Protein Albumin Lipase Urine Color YELLOW Urine Appearance HAZY Urine pH 6.0 Ur Specific War >= 1.030 H Urine Protein NEG Urine Glucose (UA) NEG Urine Ketones 15 Urine Blood 3+ H Urine Nitrite NEG Ur Leukocyte Esterase 1+ H Urine RBC 0-2 Urine WBC 5-9 H Ur Squamous Epith Cells TRACE Urine Bacteria 1+ Urine Test NEGATIVE COVID-19 ([facility]) COVID-19 Clin Com 11/30/20 11/30/20 12/01/20 23:24 23:24 00:17 WBC RBC Hgb Hct MCV MCH MCHC RDW Plt Count MPV Immature Gran % (Auto) Neut % (Auto) Lymph % (Auto) [place] % (Auto) Eos % (Auto) Baso % (Auto) Lymph # (Auto) [place] # (Auto) Eos # (Auto) Baso # (Auto) Abs Immat Gran (auto) Absolute Neuts (auto) Absolute Nucleated RBC Nucleated RBC % (auto) PT 14.2 H INR 1.2 H APTT 31.6 Sodium 139 Potassium 4.6 Chloride 107 Carbon Dioxide 22 Anion Gap 15 BUN 20 H Creatinine 1.00 Estim Creat Clear Calc 76.1 Estimated GFR 55 POC Glucose Random Glucose 179 H Lactic Acid 1.3 Calcium 8.4 Magnesium 1.9 Total Bilirubin 1.0 Direct Bilirubin 0.4 AST 40 H ALT 58 H Alkaline Phosphatase 67 Troponin I High Sens Total Protein 5.6 L Albumin 3.5 Lipase 26 Urine Color Urine Appearance Urine pH Ur Specific War Urine Protein Urine Glucose (UA) Urine Ketones Urine Blood Urine Nitrite Ur Leukocyte Esterase Urine RBC Urine WBC Ur Squamous Epith Cells Urine Bacteria Urine Test COVID-19 ([facility]) COVID-[employer] 12/01/20 12/01/20 12/01/20 00:53 13:42 16:26 WBC RBC Hgb Hct MCV MCH MCHC RDW Plt Count MPV Immature Gran % (Auto) Neut % (Auto) Lymph % (Auto) [place] % (Auto) Eos % (Auto) Baso % (Auto) Lymph # (Auto) [place] # (Auto) Eos # (Auto) Baso # (Auto) Abs Immat Gran (auto) Absolute Neuts (auto) Absolute Nucleated RBC Nucleated RBC % (auto) PT INR APTT Sodium Potassium Chloride Carbon Dioxide Anion Gap BUN Creatinine Estim Creat Clear Calc Estimated GFR POC Glucose 117 H 134 H Random Glucose Lactic Acid Calcium Magnesium Total Bilirubin Direct Bilirubin AST ALT Alkaline Phosphatase Troponin I High Sens Total Protein Albumin Lipase Urine Color Urine Appearance Urine pH Ur Specific War Urine Protein Urine Glucose (UA) Urine Ketones Urine Blood Urine Nitrite Ur Leukocyte Esterase Urine RBC Urine WBC Ur Squamous Epith Cells Urine Bacteria Urine Test COVID-19 ([facility]) Positive A COVID-19 [employer] See Note 12/01/20 12/02/20 12/02/20 20:33 05:40 05:40 WBC 8.0 RBC 4.06 L Hgb 12.2 Hct 39.5 MCV 97.3 MCH 30.0 MCHC 30.9 L RDW 13.2 Plt Count 375 MPV 9.7 Immature Gran % (Auto) 1.5 H Neut % (Auto) 64.0 Lymph % (Auto) 23.7 [place] % (Auto) 7.7 Eos % (Auto) 2.7 Baso % (Auto) 0.4 Lymph # (Auto) 1.9 [place] # (Auto) 0.6 Eos # (Auto) 0.2 Baso # (Auto) 0.0 Abs Immat Gran (auto) 0.12 H Absolute Neuts (auto) 5.1 Absolute Nucleated RBC 0.000 Nucleated RBC % (auto) 0.0 PT INR APTT Sodium 142 Potassium 4.4 Chloride 108 Carbon Dioxide 23 Anion Gap 15 BUN 18 H Creatinine 1.01 Estim Creat Clear Calc 75.3 Estimated GFR 55 POC Glucose 159 H Random Glucose 133 H Lactic Acid Calcium 8.4 Magnesium Total Bilirubin Direct Bilirubin AST ALT Alkaline Phosphatase Troponin I High Sens Total Protein Albumin Lipase Urine Color Urine Appearance Urine pH Ur Specific War Urine Protein Urine Glucose (UA) Urine Ketones Urine Blood Urine Nitrite Ur Leukocyte Esterase Urine RBC Urine WBC Ur Squamous Epith Cells Urine Bacteria Urine Test COVID-19 ([facility]) COVID-19 [employer] 12/02/20 12/02/20 12/02/20 07:12 11:01 15:52 WBC RBC Hgb Hct MCV MCH MCHC RDW Plt Count MPV Immature Gran % (Auto) Neut % (Auto) Lymph % (Auto) [place] % (Auto) Eos % (Auto) Baso % (Auto) Lymph # (Auto) [place] # (Auto) Eos # (Auto) Baso # (Auto) Abs Immat Gran (auto) Absolute Neuts (auto) Absolute Nucleated RBC Nucleated RBC % (auto) PT INR APTT Sodium Potassium Chloride Carbon Dioxide Anion Gap BUN Creatinine Estim Creat Clear Calc Estimated GFR POC Glucose 120 H 144 H 137 H Random Glucose Lactic Acid Calcium Magnesium Total Bilirubin Direct Bilirubin AST ALT Alkaline Phosphatase Troponin I High Sens Total Protein Albumin Lipase Urine Color Urine Appearance Urine pH Ur Specific War Urine Protein Urine Glucose (UA) Urine Ketones Urine Blood Urine Nitrite Ur Leukocyte Esterase Urine RBC Urine WBC Ur Squamous Epith Cells Urine Bacteria Urine Test COVID-19 ([facility]) COVID-19 [employer] 12/02/20 12/03/20 12/03/20 19:39 05:24 07:02 WBC RBC Hgb Hct MCV MCH MCHC RDW Plt Count MPV Immature Gran % (Auto) Neut % (Auto) Lymph % (Auto) [place] % (Auto) Eos % (Auto) Baso % (Auto) Lymph # (Auto) [place] # (Auto) Eos # (Auto) Baso # (Auto) Abs Immat Gran (auto) Absolute Neuts (auto) Absolute Nucleated RBC Nucleated RBC % (auto) PT INR APTT Sodium 143 Potassium 4.0 Chloride 107 Carbon Dioxide 29 Anion Gap 11 L BUN 16 Creatinine 0.81 Estim Creat Clear Calc 93.9 Estimated GFR > 60 POC Glucose 141 H 122 H Random Glucose 115 Lactic Acid Calcium 9.0 D Magnesium Total Bilirubin Direct Bilirubin AST ALT Alkaline Phosphatase Troponin I High Sens Total Protein Albumin Lipase Urine Color Urine Appearance Urine pH Ur Specific War Urine Protein Urine Glucose (UA) Urine Ketones Urine Blood Urine Nitrite Ur Leukocyte Esterase Urine RBC Urine WBC Ur Squamous Epith Cells Urine Bacteria Urine Test COVID-19 ([facility]) COVID-19 [employer] 12/03/20 10:53 WBC RBC Hgb Hct MCV MCH MCHC RDW Plt Count MPV Immature Gran % (Auto) Neut % (Auto) Lymph % (Auto) [place] % (Auto) Eos % (Auto) Baso % (Auto) Lymph # (Auto) [place] # (Auto) Eos # (Auto) Baso # (Auto) Abs Immat Gran (auto) Absolute Neuts (auto) Absolute Nucleated RBC Nucleated RBC % (auto) PT INR APTT Sodium Potassium Chloride Carbon Dioxide Anion Gap BUN Creatinine Estim Creat Clear Calc Estimated GFR POC Glucose 127 H Random Glucose Lactic Acid Calcium Magnesium Total Bilirubin Direct Bilirubin AST ALT Alkaline Phosphatase Troponin I High Sens Total Protein Albumin Lipase Urine Color Urine Appearance Urine pH Ur Specific War Urine Protein Urine Glucose (UA) Urine Ketones Urine Blood Urine Nitrite Ur Leukocyte Esterase Urine RBC Urine WBC Ur Squamous Epith Cells Urine Bacteria Urine Test COVID-19 ([facility]AN[facility]) COVID-19 [employer] Com
--- NOTE | 2020-12-03 13:19 | P.PNIM_ITS ---
Subjective Subjective Date of Service: 12/03/20 Interval History: No complaints Cardiovascular Cardiovascular: Reports no additional cardiovascular complaints Respiratory Respiratory: Reports no additional respiratory complaints Physical Exam Vital Signs: Vital Signs: Last Vital Signs Temp 98.4 F 12/03/20 11:10 Pulse 82 12/03/20 11:10 Resp 18 12/03/20 11:10 BP 140/82 H 12/03/20 11:10 Pulse Ox 96 12/03/20 11:10 Body Mass Index 45.4 General: AO X 3, no acute distress Resp: CTA bilateral CVS: S1,S2,RRR GI: soft, non tender, non distended Neuro: motor grossly intact Psych: appropriate affect Objective Data Current Medications Generic Name Dose Route Start Last Admin Trade Name Freq PRN Reason Stop Dose Admin Acetaminophen 650 mg 12/01/20 11:37 Acetaminophen 325 Mg Tablet PO Q6H PRN Pain, Mild (Pain Scale 1-3) Acetaminophen 650 mg 12/03/20 12:15 Acetaminophen 325 Mg Tablet PO ONCE PRN Pain, Mild (Pain Scale 1-3) Albuterol Sulfate 2 puff 12/01/20 15:31 Albuterol Sulfate 90 Mcg 8 Gm Inhaler INHALE RQ4H PRN Wheezing Albuterol Sulfate 2 puff 12/01/20 15:31 12/03/20 13:16 Albuterol Sulfate 90 Mcg 8 Gm Inhaler INHALE Not Given RQ6H WHILE AWAKE [facility] Aspirin 81 mg 12/02/20 09:00 12/03/20 08:00 Aspirin Enteric Coated 81 Mg Tablet.Dr PO 81 mg DAILY ROLANDO Administration Benzonatate 200 mg 12/01/20 15:31 12/03/20 07:59 Benzonatate 100 Mg Capsule PO 200 mg TID ROLANDO Administration Docusate Sodium 100 mg 12/01/20 11:37 Docusate Sodium 100 Mg Capsule PO DAILY PRN Constipation Enoxaparin Sodium 40 mg 12/01/20 18:00 12/02/20 17:49 Enoxaparin Sodium 40 Mg/0.4 Ml Syringe SUBCUT 40 mg Q24H ROLANDO Administration Fentanyl 50 mcg 12/03/20 12:15 Fentanyl Citrate/Pf 100 Mcg/2 Ml Vial IVPUSH Q5M PRN Pain, Severe (Pain Scale 7-10) Fluticasone/Vilanterol 1 puff 12/02/20 08:00 12/03/20 07:51 Fluticasone/Vilanterol 100/25 Blst.W.Dev INHALE 1 puff RDAILY [facility] Administration Hydromorphone HCl 0.5 mg 12/01/20 05:00 Hydromorphone Hcl 0.5 Mg/0.5 Ml Syringe IVPUSH ONCE PRN pain Ceftriaxone Sodium 1 gm/ 50 mls @ 100 mls/hr 12/01/20 11:45 12/03/20 10:57 Sodium Chloride IV Infused Q24H [facility] Infusion Insulin Human Lispro 0 unit 12/01/20 16:30 12/03/20 10:58 Insulin Lispro 100 Unit/Ml 3 Ml Vial SUBCUT Not Given QIDACHS [facility] Protocol Levothyroxine Sodium 50 mcg 12/01/20 11:45 12/03/20 08:00 Levothyroxine Sodium 50 Mcg Tablet PO 50 mcg DAILY [facility] Administration Lisinopril 20 mg 12/01/20 12:00 12/03/20 08:00 Lisinopril 20 Mg Tablet PO 20 mg DAILY [facility] Administration Protocol Morphine Sulfate 4 mg 12/01/20 11:37 Morphine Sulfate 4 Mg/Ml Cartridge IVPUSH Q4H PRN Pain, Severe (Pain Scale 7-10) Ondansetron HCl 4 mg 12/01/20 11:37 Ondansetron Hcl 4 Mg/2 Ml Vial IVPUSH Q8H PRN Nausea and Vomiting Ondansetron HCl 4 mg 12/03/20 12:15 Ondansetron Hcl 4 Mg/2 Ml Vial IVPUSH ONCE PRN Nausea and Vomiting Oxycodone HCl 5 mg 12/03/20 12:15 Oxycodone Hcl Immed Release 5 Mg Tablet PO ONCE PRN Pain, Severe (Pain Scale 7-10) Sodium Chloride 3 ml 12/01/20 16:00 12/03/20 07:57 0.9 % Sodium Chloride Flush 3 Ml Syringe IVFLUSH 3 ml QSHIFT [facility] Administration Tamsulosin HCl 0.4 mg 12/01/20 11:40 12/03/20 08:00 Tamsulosin Hcl 0.4 Mg Capsule PO 0.4 mg DAILY [facility] Administration Vitamin D 125 mcg 12/02/20 09:00 12/03/20 07:59 Cholecalciferol (Vitamin D3) 25 Mcg Tablet PO 125 mcg DAILY [facility] Administration Labs CBC & Chem 7: 12/02/20 05:40 12/03/20 05:24 Microbiology Microbiology Results: Microbiology 12/01/20 00:16 Blood - Venous Blood Culture - Preliminary No growth after 48 hours. 12/01/20 00:17 Blood - Venous Blood Culture - Preliminary No growth after 48 hours. 11/30/20 21:45 Urine clean catch - Clean Catch Midstream Urine Culture - Final Assessment and Plan (1) Acute UTI: Status: Acute (2) Kidney stone: Status: Acute (3) COVID-19 virus infection: Status: Acute (4) Asthma exacerbation: Status: Acute (5) Morbid obesity: Status: Acute (6) Hyperglycemia due to diabetes mellitus: Status: Inactive Assessment and Plan: 70-year-old female with history hypothyroidism, morbid obesity, recent admission for COVID-19 pneumonia and hyperglycemia who presented to the emergency department with abdominal pain found to have kidney stone right uretal ston didnt pass, plan for cysto today Flomax, 4mm stone , mild hydronephrosis pain control empiric ceftriaxone, cultures negative Hypothyroidism Continue levothyroxine Asthma No acute exacerbation Continue inhalers DM -usually diet controlled -SSI, POC, ADA diet ? metformin on dc 5.Morbid obesity BMI 42.4 REcent covid19 infection s/p treatment with dexamethasone no respiratory sx at this time, not requiring supplemental o2
[2020-12-03 13:48] LABS: SARS COV2 IgG Positive (Negative)
[2020-12-03] MEDS: oxyCODONE HCl Immed Release 5 MG TABLET PO (14:08)
--- NOTE | 2020-12-03 14:16 | PM.OP ---
Brief Operative Note Date of Service: 12/03/20 Pre-op diagnosis: Right renal stones = multiple Post-op diagnosis: same Procedure: 1. Cystoscopy right retrograde 2. Dilatation right ureteric orifice under fluoroscopy 3. Right flexible ureteroscopy with laser lithotripsy and stone basketing of multiple ureteric stones in multiple renal calices 4. Right stent placement Implants: Right 6 [place] by 22 cm double-J ureteric catheter Surgeon: Elia Handley MD Anesthesia: GLMA Estimated blood loss (mL): 0 Pathology: other (stones) Condition: stable Disposition: floor
--- NOTE | 2020-12-03 14:18 | P.OP_ITS ---
Operative Note Operative Note Date of Service: 12/03/20 Narrative: PreOperative Diagnosis: Right renal stone Post Operative Diagnosis: Right renal stones Procedure: - cystoscopy, retrograde - dilatation of ureteric orifice under fluoroscopy - ureteroscopy, laser lithotripsy, stone basketing, - stent placement Surgeon: Dr Elia Handley Anesthesia: General Indications for procedure: This is a 70-year-old female. Presented through the emergency room with a distal right ureteric stone. On imaging had a collection greater than 1/2 cm in her right kidney. She had also had some degree of UTI which resolved with antibiotics. Recommended for stone intervention since she did not want to pass any more stones. Discussed ureteroscopy versus ESWL. Would like surgical intervention. Procedure: After informed consent was verified patient was brought to the operating placed in supine position. Anesthesia was administered per protocol. Patient was placed in modified dorsal lithotomy position and prepped and draped in a sterile fashion. Safety pause time-out and side of surgery confirmed. Antibiotics confirmed. Twenty-two Israeli cystoscope inserted per urethra. No abnormality noted the of the urethra. The right ureteric orifice was in normal position. This was cannulated and retrograde examination performed. Filling defects seen in the lower pole kidney. Sensor guidewire placed. The ureteric orifice was cannulated with the inner sheath from the ureteric access sheath. Once this was completed the access sheath was placed. Flexible ureteroscope was then placed. There was stones encountered in the lower pole. Using a holmium laser broken to small pieces. We then looked around the kidney and in a midpole calyx encountered numerous stones. The 2 largest were at least 1 cm each. We spent 45 minutes performing a popcorn and hammer technique. We then spent prolonged amount of time basketing different fragments. This cycle was repeated. This time when on more the sore that there was a small mucosal flap in the upper part of the ureter. Eventually as this slowly expanded we decided a stent should be placed. We had not been out remove all the stones. A sensor guidewire was placed. A 6 [place] by 22 cm madrigal was placed which was in good position under fluoroscopy. Patient was extubated in operating room transferred in stable condition recovery area. Pathology: Stones Drains: 6 [place] by 22 cm double-J ureteric stent
[2020-12-03] MEDS: Phenazopyridine HCL 100 MG TABLET PO (14:25)
[2020-12-03] MEDS: Insulin Lispro 100 UNIT/ML 3 ML VIAL SUBCUT ×2 (16:34→22:39)
[2020-12-03 16:52] LABS: Glucose, Whole Blood 184 mg/dL (60-115)
[2020-12-03] MEDS: Enoxaparin Sodium 40 MG/0.4 ML SYRINGE SUBCUT (18:21)
[2020-12-03] MEDS: traMADoL HCL 50 MG TABLET PO (18:22)
[2020-12-03 20:44] LABS: Glucose, Whole Blood 232 mg/dL (60-115)
[2020-12-04] VITALS (7 sets, daily range): BP systolic 140–149; BP diastolic 65–70; PULSE 70–82; RESP 18–20; TEMP 36.3–36.9; O2SAT 94–98
[2020-12-04] MEDS: 0.9 % Sodium Chloride Flush 3 ML SYRINGE IVFLUSH ×2 (00:38→09:03)
[2020-12-04 06:21] LABS: MANUAL DIFF FLAG NO
[2020-12-04 06:26] LABS: Basophils Percent Auto 0.1 % (0-2); Hematocrit 39.4 % (37-47); Hemoglobin 12.4 g/dl (12.0-16.0); Imm Gran Abs Auto 0.07 X10*3/uL (0.00-0.03); Imm Gran Pct Auto 0.8 % (0.0-0.4); Lymphocytes Absolute Auto 1.1 X10*3/uL (1.2-4.9); Lymphocytes Percent Auto 12.5 % (20-40); Mean Corpuscular HGB Conc 31.5 g/dl (31.0-35.0); Mean Corpuscular Hemoglobin 30.7 pg (27.0-33.0); Mean Corpuscular Volume 97.5 fL (80-98); Mean Platelet Volume 9.7 fL (9.4-12.3); Monocytes Absolute Auto 0.4 X10*3/uL (0.1-1.2); Monocytes Percent Auto 4.8 % (2-11); Neutrophils Absolute Auto 6.9 X10*3/uL (2.0-8.3); Neutrophils Percent Auto 81.8 % (45-73); Platelet Count 373 X10*3/uL (160-400); Red Blood Count 4.04 X10*6/uL (4.20-5.50); Red Cell Distribution Width 13.2 % (11.0-16.0); White Blood Count 8.5 X10*3/uL (4.8-10.8)
[2020-12-04 07:10] LABS: Anion Gap 14 (12-20); Blood Urea Nitrogen 17 mg/dL (9-16); Calcium 8.7 mg/dL (8.4-10.2); Carbon Dioxide 26 mmol/L (22-29); Chloride 105 mmol/L (96-108); Creatinine Clr Calc Pharmacy 92.8; Estimated Glomerular Filt Rate > 60; Glucose Fasting 165 mg/dL (60-99); Potassium 4.6 mmol/L (3.3-5.1); Sodium 140 mmol/L (135-145)
[2020-12-04] MEDS: Fluticasone/Vilanterol 100/25 BLST.W.DEV 1 PUFF INHALE (07:32)
[2020-12-04] MEDS: Albuterol Sulfate 90 MCG 8 GM INHALER 2 PUFF INHALE (07:33)
[2020-12-04 08:30] LABS: Glucose, Whole Blood 162 mg/dL (60-115)
[2020-12-04] MEDS: Insulin Lispro 100 UNIT/ML 3 ML VIAL SUBCUT ×2 (09:03→12:42)
[2020-12-04] MEDS: Aspirin Enteric Coated 81 MG TABLET.DR PO (09:03)
[2020-12-04] MEDS: Cholecalciferol (Vitamin D3) 25 MCG TABLET 125 MCG PO (09:04)
[2020-12-04] MEDS: Tamsulosin HCL 0.4 MG CAPSULE PO (09:04)
[2020-12-04] MEDS: Levothyroxine Sodium 50 MCG TABLET PO (09:04)
[2020-12-04] MEDS: Benzonatate 100 MG CAPSULE 200 MG PO (09:04)
--- NOTE | 2020-12-04 10:28 | HO.POSTANES ---
Post Anesthesia Evaluation Post Anesthesia Evaluation Vital Signs: Vital Signs Temp Pulse Resp BP Pulse Ox 12/04/20 09:03 76 149/70 H 12/04/20 08:00 97.6 F 76 18 149/70 H 98 12/04/20 07:37 70 12/04/20 03:13 98.4 F 70 18 140/65 H 95 12/04/20 00:19 98.5 F 81 20 141/66 H 94 Anesthesia: General Mental Status: Awake Pain Control: Satisfactory Nausea/Vomiting: None Hydration: Adequate Anesthesia-Related Issues: No Anes. Related Issues
[2020-12-04 11:34] LABS: Glucose, Whole Blood 180 mg/dL (60-115)
--- NOTE | 2020-12-04 12:30 | PM.DS ---
DS: Providers Provider Date of Service: 12/04/20 Date of admission: 12/01/20 11:37 Primary care physician: Milton Webb MD Consults: 12/02/20 11:49 Consult to Urology Routine Consulting Provider: Elia Handley Reason for consultation: renal stone ?uti Has provider been notified: No DS: Diagnosis Discharge Diagnosis (1) Acute UTI: Status: Acute (2) Kidney stone: Status: Acute (3) COVID-19 virus infection: Status: Acute (4) Asthma exacerbation: Status: Acute (5) Morbid obesity: Status: Acute (6) Hyperglycemia due to diabetes mellitus: Status: Inactive DS: Medications Discharge Medications Home Medications: Home Medications Medication Instructions Recorded Confirmed aspirin 81 mg PO DAILY 11/18/20 12/01/20 cholecalciferol (vitamin D3) 125 mcg PO DAILY 11/18/20 12/01/20 [Vitamin D3] fluticasone propion-salmeterol 1 inh INHALATION BID 11/18/20 12/01/20 [Advair Diskus] ivermectin [Soolantra] 1 appl TOPICAL DAILY 11/18/20 12/01/20 levothyroxine 50 mcg PO DAILY 11/18/20 12/01/20 lisinopril 20 mg PO DAILY 11/18/20 12/01/20 Previous Rx's Medication Instructions Recorded albuterol sulfate [Ventolin HFA] 2 puff INHALATION RQ4H PRN #8.5 g 11/21/20 albuterol sulfate [Ventolin HFA] 2 puff INHALATION RQ6H WHILE AWAKE 11/21/20 #8.5 g benzonatate 200 mg PO TID #30 cap 11/21/20 cefuroxime axetil 250 mg PO Q12H #10 tab 12/02/20 tamsulosin [Flomax] 0.4 mg PO BEDTIME #7 cap 12/02/20 oxycodone 5 mg PO Q6H PRN #5 cap 12/04/20 DS: Summary Hospital Course Hospital Course: patient was admitted for uti and nephrolithiasis with hydronephrosis, she was given iv abx will be transitioned to po ceftin, cultures were negative. patient undwerwent cystoscopy with lithotripsy and stent placement. of note, patients sugars have been on the higher side, her A1c was >8, she has no formal diagnosis of Diabetes mellitus, but does likely have it. she is not interested in starting medications at this time, but should follow up with PCP. patient is feeling better and will be discharged home. Time Spent with Patient Time attestation: Total time spent providing and/or coordinating discharge services: Discharge coordination time: Greater than 30 minutes Physical Exam Vital Signs: Vital Signs: Last Vital Signs Temp 97.4 F 12/04/20 11:32 Pulse 82 12/04/20 11:32 Resp 20 12/04/20 11:32 BP 147/66 H 12/04/20 11:32 Pulse Ox 97 12/04/20 11:32 Body Mass Index 45.4 General: AO X 3, no acute distress Resp: CTA bilateral CVS: S1,S2,RRR GI: soft, non tender, non distended Neuro: motor grossly intact Psych: appropriate affect DS: Data Data Completed and Pending Pending studies at discharge: Pending at discharge 12/03/20 13:20 Surgical [PTH] Routine Labs on day of discharge: Laboratory Tests 11/30/20 11/30/20 11/30/20 20:32 22:23 22:23 WBC 16.4 H RBC 4.63 Hgb 14.2 Hct 43.6 MCV 94.2 MCH 30.7 MCHC 32.6 RDW 13.1 Plt Count 462 H D MPV 9.4 Immature Gran % (Auto) 2.2 H Neut % (Auto) 81.3 H Lymph % (Auto) 10.6 L [place] % (Auto) 5.0 Eos % (Auto) 0.5 Baso % (Auto) 0.4 Lymph # (Auto) 1.7 [place] # (Auto) 0.8 Eos # (Auto) 0.1 Baso # (Auto) 0.1 Abs Immat Gran (auto) 0.36 H Absolute Neuts (auto) 13.3 H Absolute Nucleated RBC 0.000 Nucleated RBC % (auto) 0.0 PT INR APTT Sodium Potassium Chloride Carbon Dioxide Anion Gap BUN Creatinine Estim Creat Clear Calc Estimated GFR POC Glucose Random Glucose Fasting Glucose Lactic Acid Calcium Magnesium Total Bilirubin Direct Bilirubin AST ALT Alkaline Phosphatase Troponin I High Sens 3.7 Total Protein Albumin Lipase Urine Color YELLOW Urine Appearance HAZY Urine pH 6.0 Ur Specific [place] >= 1.030 H Urine Protein NEG Urine Glucose (UA) NEG Urine Ketones 15 Urine Blood 3+ H Urine Nitrite NEG Ur Leukocyte Esterase 1+ H Urine RBC 0-2 Urine WBC 5-9 H Ur Squamous Epith Cells TRACE Urine Bacteria 1+ Urine Test NEGATIVE COVID-19 ([facility]) COVID-19 Clin Com SARS-CoV-2 IgG Ab 11/30/20 11/30/20 12/01/20 23:24 23:24 00:17 WBC RBC Hgb Hct MCV MCH MCHC RDW Plt Count MPV Immature Gran % (Auto) Neut % (Auto) Lymph % (Auto) [place] % (Auto) Eos % (Auto) Baso % (Auto) Lymph # (Auto) [place] # (Auto) Eos # (Auto) Baso # (Auto) Abs Immat Gran (auto) Absolute Neuts (auto) Absolute Nucleated RBC Nucleated RBC % (auto) PT 14.2 H INR 1.2 H APTT 31.6 Sodium 139 Potassium 4.6 Chloride 107 Carbon Dioxide 22 Anion Gap 15 BUN 20 H Creatinine 1.00 Estim Creat Clear Calc 76.1 Estimated GFR 55 POC Glucose Random Glucose 179 H Fasting Glucose Lactic Acid 1.3 Calcium 8.4 Magnesium 1.9 Total Bilirubin 1.0 Direct Bilirubin 0.4 AST 40 H ALT 58 H Alkaline Phosphatase 67 Troponin I High Sens Total Protein 5.6 L Albumin 3.5 Lipase 26 Urine Color Urine Appearance Urine pH Ur Specific [place] Urine Protein Urine Glucose (UA) Urine Ketones Urine Blood Urine Nitrite Ur Leukocyte Esterase Urine RBC Urine WBC Ur Squamous Epith Cells Urine Bacteria Urine Test COVID-19 ([facility]) COVID-19 Clin Com SARS-CoV-2 IgG Ab 12/01/20 12/01/20 12/01/20 00:53 13:42 16:26 WBC RBC Hgb Hct MCV MCH MCHC RDW Plt Count MPV Immature Gran % (Auto) Neut % (Auto) Lymph % (Auto) [place] % (Auto) Eos % (Auto) Baso % (Auto) Lymph # (Auto) [place] # (Auto) Eos # (Auto) Baso # (Auto) Abs Immat Gran (auto) Absolute Neuts (auto) Absolute Nucleated RBC Nucleated RBC % (auto) PT INR APTT Sodium Potassium Chloride Carbon Dioxide Anion Gap BUN Creatinine Estim Creat Clear Calc Estimated GFR POC Glucose 117 H 134 H Random Glucose Fasting Glucose Lactic Acid Calcium Magnesium Total Bilirubin Direct Bilirubin AST ALT Alkaline Phosphatase Troponin I High Sens Total Protein Albumin Lipase Urine Color Urine Appearance Urine pH Ur Specific [place] Urine Protein Urine Glucose (UA) Urine Ketones Urine Blood Urine Nitrite Ur Leukocyte Esterase Urine RBC Urine WBC Ur Squamous Epith Cells Urine Bacteria Urine Test COVID-19 ([facility]) Positive A COVID-19 Clin Com See Note SARS-CoV-2 IgG Ab 12/01/20 12/02/20 12/02/20 20:33 05:40 05:40 WBC 8.0 RBC 4.06 L Hgb 12.2 Hct 39.5 MCV 97.3 MCH 30.0 MCHC 30.9 L RDW 13.2 Plt Count 375 MPV 9.7 Immature Gran % (Auto) 1.5 H Neut % (Auto) 64.0 Lymph % (Auto) 23.7 [place] % (Auto) 7.7 Eos % (Auto) 2.7 Baso % (Auto) 0.4 Lymph # (Auto) 1.9 [place] # (Auto) 0.6 Eos # (Auto) 0.2 Baso # (Auto) 0.0 Abs Immat Gran (auto) 0.12 H Absolute Neuts (auto) 5.1 Absolute Nucleated RBC 0.000 Nucleated RBC % (auto) 0.0 PT INR APTT Sodium 142 Potassium 4.4 Chloride 108 Carbon Dioxide 23 Anion Gap 15 BUN 18 H Creatinine 1.01 Estim Creat Clear Calc 75.3 Estimated GFR 55 POC Glucose 159 H Random Glucose 133 H Fasting Glucose Lactic Acid Calcium 8.4 Magnesium Total Bilirubin Direct Bilirubin AST ALT Alkaline Phosphatase Troponin I High Sens Total Protein Albumin Lipase Urine Color Urine Appearance Urine pH Ur Specific [place] Urine Protein Urine Glucose (UA) Urine Ketones Urine Blood Urine Nitrite Ur Leukocyte Esterase Urine RBC Urine WBC Ur Squamous Epith Cells Urine Bacteria Urine Test COVID-19 ([facility]) COVID-19 Clin Com SARS-CoV-2 IgG Ab 12/02/20 12/02/20 12/02/20 05:40 07:12 11:01 WBC RBC Hgb Hct MCV MCH MCHC RDW Plt Count MPV Immature Gran % (Auto) Neut % (Auto) Lymph % (Auto) [place] % (Auto) Eos % (Auto) Baso % (Auto) Lymph # (Auto) [place] # (Auto) Eos # (Auto) Baso # (Auto) Abs Immat Gran (auto) Absolute Neuts (auto) Absolute Nucleated RBC Nucleated RBC % (auto) PT INR APTT Sodium Potassium Chloride Carbon Dioxide Anion Gap BUN Creatinine Estim Creat Clear Calc Estimated GFR POC Glucose 120 H 144 H Random Glucose Fasting Glucose Lactic Acid Calcium Magnesium Total Bilirubin Direct Bilirubin AST ALT Alkaline Phosphatase Troponin I High Sens Total Protein Albumin Lipase Urine Color Urine Appearance Urine pH Ur Specific [place] Urine Protein Urine Glucose (UA) Urine Ketones Urine Blood Urine Nitrite Ur Leukocyte Esterase Urine RBC Urine WBC Ur Squamous Epith Cells Urine Bacteria Urine Test COVID-19 ([facility]) COVID-19 Clin Com SARS-CoV-2 IgG Ab Positive 12/02/20 12/02/20 12/03/20 15:52 19:39 05:24 WBC RBC Hgb Hct MCV MCH MCHC RDW Plt Count MPV Immature Gran % (Auto) Neut % (Auto) Lymph % (Auto) [place] % (Auto) Eos % (Auto) Baso % (Auto) Lymph # (Auto) [place] # (Auto) Eos # (Auto) Baso # (Auto) Abs Immat Gran (auto) Absolute Neuts (auto) Absolute Nucleated RBC Nucleated RBC % (auto) PT INR APTT Sodium 143 Potassium 4.0 Chloride 107 Carbon Dioxide 29 Anion Gap 11 L BUN 16 Creatinine 0.81 Estim Creat Clear Calc 93.9 Estimated GFR > 60 POC Glucose 137 H 141 H Random Glucose 115 Fasting Glucose Lactic Acid Calcium 9.0 D Magnesium Total Bilirubin Direct Bilirubin AST ALT Alkaline Phosphatase Troponin I High Sens Total Protein Albumin Lipase Urine Color Urine Appearance Urine pH Ur Specific [place] Urine Protein Urine Glucose (UA) Urine Ketones Urine Blood Urine Nitrite Ur Leukocyte Esterase Urine RBC Urine WBC Ur Squamous Epith Cells Urine Bacteria Urine Test COVID-19 ([facility]) COVID-19 Clin Com SARS-CoV-2 IgG Ab 12/03/20 12/03/20 12/03/20 07:02 10:53 16:22 WBC RBC Hgb Hct MCV MCH MCHC RDW Plt Count MPV Immature Gran % (Auto) Neut % (Auto) Lymph % (Auto) [place] % (Auto) Eos % (Auto) Baso % (Auto) Lymph # (Auto) [place] # (Auto) Eos # (Auto) Baso # (Auto) Abs Immat Gran (auto) Absolute Neuts (auto) Absolute Nucleated RBC Nucleated RBC % (auto) PT INR APTT Sodium Potassium Chloride Carbon Dioxide Anion Gap BUN Creatinine Estim Creat Clear Calc Estimated GFR POC Glucose 122 H 127 H 184 H Random Glucose Fasting Glucose Lactic Acid Calcium Magnesium Total Bilirubin Direct Bilirubin AST ALT Alkaline Phosphatase Troponin I High Sens Total Protein Albumin Lipase Urine Color Urine Appearance Urine pH Ur Specific [place] Urine Protein Urine Glucose (UA) Urine Ketones Urine Blood Urine Nitrite Ur Leukocyte Esterase Urine RBC Urine WBC Ur Squamous Epith Cells Urine Bacteria Urine Test COVID-19 ([facility]) COVID-19 Clin Com SARS-CoV-2 IgG Ab 12/03/20 12/04/20 12/04/20 20:34 05:19 05:19 WBC 8.5 RBC 4.04 L Hgb 12.4 Hct 39.4 MCV 97.5 MCH 30.7 MCHC 31.5 RDW 13.2 Plt Count 373 MPV 9.7 Immature Gran % (Auto) 0.8 H Neut % (Auto) 81.8 H Lymph % (Auto) 12.5 L [place] % (Auto) 4.8 Eos % (Auto) 0.0 Baso % (Auto) 0.1 Lymph # (Auto) 1.1 L [place] # (Auto) 0.4 Eos # (Auto) 0.0 Baso # (Auto) 0.0 Abs Immat Gran (auto) 0.07 H Absolute Neuts (auto) 6.9 Absolute Nucleated RBC 0.000 Nucleated RBC % (auto) 0.0 PT INR APTT Sodium 140 Potassium 4.6 Chloride 105 Carbon Dioxide 26 Anion Gap 14 BUN 17 H Creatinine 0.82 Estim Creat Clear Calc 92.8 Estimated GFR > 60 POC Glucose 232 H Random Glucose Fasting Glucose 165 H Lactic Acid Calcium 8.7 Magnesium Total Bilirubin Direct Bilirubin AST ALT Alkaline Phosphatase Troponin I High Sens Total Protein Albumin Lipase Urine Color Urine Appearance Urine pH Ur Specific [place] Urine Protein Urine Glucose (UA) Urine Ketones Urine Blood Urine Nitrite Ur Leukocyte Esterase Urine RBC Urine WBC Ur Squamous Epith Cells Urine Bacteria Urine Test COVID-19 ([facility]) COVID-19 Clin Com SARS-CoV-2 IgG Ab 12/04/20 12/04/20 08:13 11:28 WBC RBC Hgb Hct MCV MCH MCHC RDW Plt Count MPV Immature Gran % (Auto) Neut % (Auto) Lymph % (Auto) [place] % (Auto) Eos % (Auto) Baso % (Auto) Lymph # (Auto) [place] # (Auto) Eos # (Auto) Baso # (Auto) Abs Immat Gran (auto) Absolute Neuts (auto) Absolute Nucleated RBC Nucleated RBC % (auto) PT INR APTT Sodium Potassium Chloride Carbon Dioxide Anion Gap BUN Creatinine Estim Creat Clear Calc Estimated GFR POC Glucose 162 H 180 H Random Glucose Fasting Glucose Lactic Acid Calcium Magnesium Total Bilirubin Direct Bilirubin AST ALT Alkaline Phosphatase Troponin I High Sens Total Protein Albumin Lipase Urine Color Urine Appearance Urine pH Ur Specific [place] Urine Protein Urine Glucose (UA) Urine Ketones Urine Blood Urine Nitrite Ur Leukocyte Esterase Urine RBC Urine WBC Ur Squamous Epith Cells Urine Bacteria Urine Test COVID-19 ([facility]) COVID-19 Clin Com SARS-CoV-2 IgG Ab Preliminary micro results at discharge 12/01/20 00:16 Blood Culture - Preliminary Blood - Venous No growth after 48 hours. 12/01/20 00:17 Blood Culture - Preliminary Blood - Venous No growth after 48 hours. Discharge Plan Discharge Patient Disposition: Home, Self-Care Referrals: Elia Handley MD [Physician] - (follow up 2 weeks ) Milton Webb MD [Primary Care Provider] - 1 Week (Please call and schedule a follow up appointment within 1 week.) Discharge Medications: New tamsulosin [Flomax] 0.4 mg capsule 0.4 mg PO BEDTIME Qty: 7 RF: 0 cefuroxime axetil 250 mg tablet 250 mg PO Q12H Qty: 10 RF: 0 oxycodone 5 mg capsule 5 mg PO Q6H PRN (Reason: pain) Qty: 5 RF: 0 Continued lisinopril 20 mg Tablet 20 mg PO DAILY RF: 0 levothyroxine 50 mcg Tablet 50 mcg PO DAILY RF: 0 fluticasone propion-salmeterol [Advair Diskus] 100-50 mcg/dose Blister With Device 1 inh INHALATION BID RF: 0 cholecalciferol (vitamin D3) [Vitamin D3] 125 mcg (5,000 unit) Tablet 125 mcg PO DAILY RF: 0 ivermectin [Soolantra] 1 % Cream 1 appl TOPICAL DAILY RF: 0 aspirin 81 mg Tablet,Delayed Release (Dr/Ec) 81 mg PO DAILY RF: 0 benzonatate 100 mg Capsule 200 mg PO TID Qty: 30 RF: 0 albuterol sulfate [Ventolin HFA] 90 mcg/actuation Hfa Aerosol Inhaler 2 puff inhalation RQ4H PRN (Reason: Wheezing) Qty: 8.5 RF: 0 albuterol sulfate [Ventolin HFA] 90 mcg/actuation Hfa Aerosol Inhaler 2 puff inhalation RQ6H WHILE AWAKE Qty: 8.5 RF: 0 Discharge Orders: Discharge Order (Routine); Ordered 12/02/20 Ordered By: Catrachita Elias Diet: advance to usual diet, diabetic diet and low fat, low cholesterol Activity on Discharge: As tolerated Stand Alone Forms: Patient Portal Discharge page Visit Report Forms: Patient Portal Discharge page Care Plan Goals: Patient came right-sided abdominal pain found to have renal stone ureter area: Subsequently patient was started on Flomax, also received pre questioning antibiotics initially. Subsequently her pain is improved any urine culture <100.000 calonies. Patient passed 2 stones as per the patient, right-sided pain improved. Health Concerns: As above. Plan of Treatment: As above..
[2020-12-04] MEDS: cefTRIAXone sodium 1 GM in 0.9 % Sodium Chloride 50 ML IV (12:43)
--- NOTE | 2020-12-04 12:44 | MHC.CM.PN ---
Patient is being discharged home today no services. Patient's brother will provide transport. Nurse made aware.
--- NOTE | 2020-12-04 13:09 | PM.UROPN ---
Subjective Subjective Date of Service: 12/04/20 Interval history: Seen Improving Would continue antibiotics Scheduled for next week to have stent removed Physical Exam Vital Signs: Vital Signs: Last Vital Signs Temp 97.4 F 12/04/20 11:32 Pulse 82 12/04/20 11:32 Resp 20 12/04/20 11:32 BP 147/66 H 12/04/20 11:32 Pulse Ox 97 12/04/20 11:32 Body Mass Index 45.4 Const: General: cooperative, healthy appearing, comfortable and no acute distress Nutritional Appearance: average body habitus Orientation/consciousness: oriented to person, oriented to place and oriented to time Eyes: General: appearance normal, both eyes and all related structures Chest: Chest palpation & inspection: normal inspection of the chest Resp: Effort & Inspection: normal respiratory effort Cardio: Rate: regular rate GI: Inspection: Yes normal to inspection Skin: Hair: normal Neuro: General: oriented to person, oriented to place and oriented to time Extrem: General: Yes normal to inspection Urology Results Labs CBC & Chem 7: 12/04/20 05:19 12/04/20 05:19 Labs: Laboratory Results - last 24 hr 12/02/20 12/03/20 12/03/20 05:40 16:22 20:34 WBC RBC Hgb Hct MCV MCH MCHC RDW Plt Count MPV Immature Gran % (Auto) Neut % (Auto) Lymph % (Auto) [place] % (Auto) Eos % (Auto) Baso % (Auto) Lymph # (Auto) [place] # (Auto) Eos # (Auto) Baso # (Auto) Abs Immat Gran (auto) Absolute Neuts (auto) Absolute Nucleated RBC Nucleated RBC % (auto) Sodium Potassium Chloride Carbon Dioxide Anion Gap BUN Creatinine Estim Creat Clear Calc Estimated GFR POC Glucose 184 H 232 H Fasting Glucose Calcium SARS-CoV-2 IgG Ab Positive 12/04/20 12/04/20 12/04/20 05:19 05:19 08:13 WBC 8.5 RBC 4.04 L Hgb 12.4 Hct 39.4 MCV 97.5 MCH 30.7 MCHC 31.5 RDW 13.2 Plt Count 373 MPV 9.7 Immature Gran % (Auto) 0.8 H Neut % (Auto) 81.8 H Lymph % (Auto) 12.5 L [place] % (Auto) 4.8 Eos % (Auto) 0.0 Baso % (Auto) 0.1 Lymph # (Auto) 1.1 L [place] # (Auto) 0.4 Eos # (Auto) 0.0 Baso # (Auto) 0.0 Abs Immat Gran (auto) 0.07 H Absolute Neuts (auto) 6.9 Absolute Nucleated RBC 0.000 Nucleated RBC % (auto) 0.0 Sodium 140 Potassium 4.6 Chloride 105 Carbon Dioxide 26 Anion Gap 14 BUN 17 H Creatinine 0.82 Estim Creat Clear Calc 92.8 Estimated GFR > 60 POC Glucose 162 H Fasting Glucose 165 H Calcium 8.7 SARS-CoV-2 IgG Ab 12/04/20 11:28 WBC RBC Hgb Hct MCV MCH MCHC RDW Plt Count MPV Immature Gran % (Auto) Neut % (Auto) Lymph % (Auto) [place] % (Auto) Eos % (Auto) Baso % (Auto) Lymph # (Auto) [place] # (Auto) Eos # (Auto) Baso # (Auto) Abs Immat Gran (auto) Absolute Neuts (auto) Absolute Nucleated RBC Nucleated RBC % (auto) Sodium Potassium Chloride Carbon Dioxide Anion Gap BUN Creatinine Estim Creat Clear Calc Estimated GFR POC Glucose 180 H Fasting Glucose Calcium SARS-CoV-2 IgG Ab Progress Note: A&P Assessment and plan (1) Renal and ureteric calculus: Status: Acute Assessment and Plan: Completed antibiotics for 7 days See in a week removal of stent Fall Risk Details Current Medications: Current Medications Generic Name Dose Route Start Last Admin Trade Name Freq PRN Reason Stop Dose Admin Acetaminophen 650 mg 12/01/20 11:37 Acetaminophen 325 Mg Tablet PO Q6H PRN Pain, Mild (Pain Scale 1-3) Acetaminophen 650 mg 12/03/20 12:15 Acetaminophen 325 Mg Tablet PO ONCE PRN Pain, Mild (Pain Scale 1-3) Albuterol Sulfate 2 puff 12/01/20 15:31 Albuterol Sulfate 90 Mcg 8 Gm Inhaler INHALE RQ4H PRN Wheezing Albuterol Sulfate 2 puff 12/01/20 15:31 12/04/20 07:33 Albuterol Sulfate 90 Mcg 8 Gm Inhaler INHALE 2 puff RQ6H WHILE AWAKE ROLANDO Administration Aspirin 81 mg 12/02/20 09:00 12/04/20 09:03 Aspirin Enteric Coated 81 Mg Tablet. PO 81 mg DAILY ROLANDO Administration Benzonatate 200 mg 12/01/20 15:31 12/04/20 09:04 Benzonatate 100 Mg Capsule PO 200 mg TID ROLANDO Administration Docusate Sodium 100 mg 12/01/20 11:37 Docusate Sodium 100 Mg Capsule PO DAILY PRN Constipation Enoxaparin Sodium 40 mg 12/01/20 18:00 12/03/20 18:21 Enoxaparin Sodium 40 Mg/0.4 Ml Syringe SUBCUT 40 mg Q24H ROLANDO Administration Fentanyl 50 mcg 12/03/20 12:15 Fentanyl Citrate/Pf 100 Mcg/2 Ml Vial IVPUSH Q5M PRN Pain, Severe (Pain Scale 7-10) Fluticasone/Vilanterol 1 puff 12/02/20 08:00 12/04/20 07:32 Fluticasone/Vilanterol 100/25 Blst.W.Dev INHALE 1 puff RDAILY [facility] Administration Hydromorphone HCl 0.5 mg 12/01/20 05:00 Hydromorphone Hcl 0.5 Mg/0.5 Ml Syringe IVPUSH ONCE PRN pain Ceftriaxone Sodium 1 gm/ 50 mls @ 100 mls/hr 12/01/20 11:45 12/04/20 12:43 Sodium Chloride IV 100 mls/hr Q24H [facility] Administration Insulin Human Lispro 0 unit 12/01/20 16:30 12/04/20 12:42 Insulin Lispro 100 Unit/Ml 3 Ml Vial SUBCUT 2 unit QIDACHS [facility] Administration Protocol Levothyroxine Sodium 50 mcg 12/01/20 11:45 12/04/20 09:04 Levothyroxine Sodium 50 Mcg Tablet PO 50 mcg DAILY [facility] Administration Lisinopril 20 mg 12/01/20 12:00 12/04/20 09:03 Lisinopril 20 Mg Tablet PO 20 mg DAILY [facility] Administration Protocol Morphine Sulfate 4 mg 12/01/20 11:37 Morphine Sulfate 4 Mg/Ml Cartridge IVPUSH Q4H PRN Pain, Severe (Pain Scale 7-10) Ondansetron HCl 4 mg 12/01/20 11:37 Ondansetron Hcl 4 Mg/2 Ml Vial IVPUSH Q8H PRN Nausea and Vomiting Ondansetron HCl 4 mg 12/03/20 12:15 Ondansetron Hcl 4 Mg/2 Ml Vial IVPUSH ONCE PRN Nausea and Vomiting Sodium Chloride 3 ml 12/01/20 16:00 12/04/20 09:03 0.9 % Sodium Chloride Flush 3 Ml Syringe IVFLUSH 3 ml QSHIFT [facility]OL[facility]O Administration Tamsulosin HCl 0.4 mg 12/01/20 11:40 12/04/20 09:04 Tamsulosin Hcl 0.4 Mg Capsule PO 0.4 mg DAILY [facility]OL[facility]O Administration Tramadol HCl 50 mg 12/03/20 14:15 12/03/20 18:22 Tramadol Hcl 50 Mg Tablet PO 50 mg Q6H PRN Administration Pain, Moderate (Pain Scale 4-6 Vitamin D 125 mcg 12/02/20 09:00 12/04/20 09:04 Cholecalciferol (Vitamin D3) 25 Mcg Tablet PO 125 mcg DAILY ROLANDO Administration Time Spent With Patient Time: Total time spent is greater than 50% in coordination of care (as documented) at patient's floor/unit and/or counseling patient: Time with patient: less than 15 minutes
[2020-12-07 19:32] LABS: Stone Source STONE
== END 2020-12-04 15:09 | disposition home or self-care (01) | DRG 659 ==
LOC: HO.ED 12-01 05:32 → HO.EDOVER 12-01 11:41 → HO.IMC 12-01 19:27
PROVIDERS: Nurse Practitioner Family; Physician Assistant Medical; Urology; Admitting Provider Internal Medicine; Emergency Provider Student in an Organized Health Care Education/Training Program; PCP Internal Medicine; Visit Provider Internal Medicine
PROC: 0TC08ZZ Extirpation of Matter from Right Kidney, Via Natural or Artificial Opening Endoscopic (ICD-10-PCS; principal; 2020-12-03 13:40)
DX: N13.6 Pyonephrosis (principal); U07.1 COVID-19; Z68.42 Body mass index [BMI] 45.0-49.9, adult; J45.909 Unspecified asthma, uncomplicated; E11.65 Type 2 diabetes mellitus with hyperglycemia; E66.01 Morbid (severe) obesity due to excess calories; E03.9 Hypothyroidism, unspecified; Z87.442 Personal history of urinary calculi; Z79.51 Long term (current) use of inhaled steroids; Z79.82 Long term (current) use of aspirin; Z79.890 Hormone replacement therapy; Z79.899 Other long term (current) drug therapy
CPT/HCPCS: 36415; 71045; 74176; 80048; 80053; 80076; 81001; 81003; 81025; 82365; 82947; 83605; 83690; 83735; 84484; 85025; 85610; 85730; 86769; 87040; 87086; 87635; 88300; 93005; 94640; 96361; 96365; 96366; 96375; 99285; 99291; C1769; C1894; C2617; J0696; J1100; J1650; J1885; J1956; J2270; J2370; J2405; J3010; Q9967

== ENCOUNTER 2020-12-06 12:38 | Outpatient (REF) | payer OTHER, SELFPAY ==
[2020-12-06 13:56] LABS: MANUAL DIFF FLAG NO
[2020-12-06 14:09] LABS: Basophils Percent Auto 0.4 % (0-2); Eosinophils Absolute Auto 0.1 X10*3/uL (0.0-0.4); Eosinophils Percent Auto 1.3 % (0-4); Hematocrit 40.5 % (37-47); Imm Gran Abs Auto 0.06 X10*3/uL (0.00-0.03); Imm Gran Pct Auto 0.5 % (0.0-0.4); Lymphocytes Absolute Auto 1.8 X10*3/uL (1.2-4.9); Lymphocytes Percent Auto 15.9 % (20-40); Mean Corpuscular HGB Conc 32.1 g/dl (31.0-35.0); Mean Corpuscular Hemoglobin 30.6 pg (27.0-33.0); Mean Corpuscular Volume 95.3 fL (80-98); Mean Platelet Volume 9.4 fL (9.4-12.3); Monocytes Absolute Auto 0.7 X10*3/uL (0.1-1.2); Neutrophils Absolute Auto 8.5 X10*3/uL (2.0-8.3); Neutrophils Percent Auto 75.9 % (45-73); Platelet Count 373 X10*3/uL (160-400); Red Blood Count 4.25 X10*6/uL (4.20-5.50); Red Cell Distribution Width 13.2 % (11.0-16.0); White Blood Count 11.2 X10*3/uL (4.8-10.8)
[2020-12-06 14:18] LABS: Estimated Average Glucose 197 mg/dL; Hemoglobin A1c % 8.5 %
[2020-12-06 14:34] LABS: Alanine Aminotransferase 54 U/L (0-31); Albumin Level 3.8 g/dL (3.5-5.0); Alkaline Phosphatase 72 U/L (39-117); Anion Gap 15 (12-20); Aspartate Amino Transferase 23 U/L (5-31); Bilirubin Total 0.6 mg/dL (0.0-1.0); Blood Urea Nitrogen 16 mg/dL (9-16); Calcium 8.9 mg/dL (8.4-10.2); Carbon Dioxide 22 mmol/L (22-29); Chloride 107 mmol/L (96-108); Estimated Glomerular Filt Rate > 60; Glucose Random 188 mg/dL (60-115); Potassium 3.6 mmol/L (3.3-5.1); Sodium 140 mmol/L (135-145); Total Protein 6.2 g/dL (6.5-8.0)
[2020-12-06 14:56] LABS: Free T4 (Free Thyroxine) 1.13 ng/dL (0.71-1.85); Thyroid Stimulating Hormone 3.38 uIU/mL (0.32-4.0); Vitamin D 25-OH Total 29.3 ng/mL (>30)
== END 2020-12-06 12:39 | disposition home or self-care (01) ==
LOC: HO.10HDL 12:38
PROVIDERS: Visit Provider Internal Medicine
DX: I10 Essential (primary) hypertension (principal); R73.03 Prediabetes; E55.9 Vitamin D deficiency, unspecified; E03.9 Hypothyroidism, unspecified; Z86.16 Personal history of COVID-19
CPT/HCPCS: 36415; 80053; 82306; 83036; 84439; 84443; 85025

== ENCOUNTER → 2020-12-14 12:50 | Outpatient (BNVA) | payer OTHER, SELFPAY | PROVIDERS: PCP Internal Medicine; Visit Provider Urology | DX: N20.2 Calculus of kidney with calculus of ureter (principal); N12 Tubulo-interstitial nephritis, not specified as acute or chronic | CPT/HCPCS: 52310; 81002 ==

== ENCOUNTER 2020-12-31 08:53 | Day surgery (SDC) | payer OTHER, SELFPAY ==
[2020-12-25 11:20] VITALS: BMI 44.6
--- NOTE | 2020-12-28 12:51 | P.CONAN_ITS ---
Documented by User: Tri Stover 12/28/20 13:04 HPI - Anesthesia Eval Consult details Narrative: 70yo F for Cystoscopy, Ureteroroscopy, Retro, Laser, with Stent Removal PMFSH Active Problems Active Problems: All Active Problems (Updated 12/25/20 @ 11:09 by Iman Willard) COVID-19 virus infection (Acute) Asthma exacerbation (Acute) Morbid obesity (Acute) Pyelonephritis (Acute) Acute UTI (Acute) Kidney stone (Acute) COVID-19 (Acute) Renal and ureteric calculus (Acute) Past Medical History Medical History Arthritis Asthma Diabetes mellitus Eczema History of COVID-19 HTN (hypertension) Hypothyroid Rosacea Surgical History Surgical History History of lithotripsy History of right oophorectomy Hx of cholecystectomy Hx of dilation and curettage Hx of hysterectomy Social History Social History Household Members: Family Housing: House Are you a primary career information specialist to a significant other at home: No Do you presently have visiting nurse or other home services: No Alcohol intake: never Smoking Status: Never smoker Use of substances other than those prescribed or required for medical reasons: No Have you been hit, kicked, punched, or otherwise hurt by someone within the past year? If so, by whom?: No Advance Directives: No Advance Directives Information Provided: No Advance Directives on File: No Recently lost weight without trying: No service: No Current occupational status: retired Meds Allergies Allergy/AdvReac Type Severity Reaction Status Date / Time cephalexin [Keflex] Allergy Severe CRAMPS, N&V Verified 12/31/20 09:14 erythromycin base AdvReac Severe NAUSEA & Verified 12/31/20 09:14 [Erythromycin Base] VOMITING Erythromycin Allergy Severe CRAMPS Uncoded 12/31/20 09:14 Home Medications Medication Instructions Recorded Confirmed Last Taken Type aspirin 81 mg PO DAILY 11/18/20 12/25/20 12/28/20 21:00 History cholecalciferol (vitamin D3) 125 mcg PO DAILY 11/18/20 12/25/20 11/30/20 History [Vitamin D3] fluticasone propion-salmeterol 1 inh INHALATION BID 11/18/20 12/25/20 11/30/20 History [Advair Diskus] ivermectin [Soolantra] 1 appl TOPICAL DAILY 11/18/20 12/25/20 11/30/20 History levothyroxine 50 mcg PO DAILY 11/18/20 12/25/20 12/31/20 06:00 History lisinopril 20 mg PO DAILY 11/18/20 12/25/20 11/30/20 History metformin 500 mg PO QPM 12/25/20 12/25/20 Unknown History Exam Exam Date and Time: December 28, 2020 1251 Height,Weight and Vital Signs: Height 5 ft 7 in Weight 129.274 kg Pertinent Lab Results Pertinent Lab Results: Laboratory Tests 12/06/20 12/06/20 12:48 12:48 WBC 11.2 H Hgb 13.0 Hct 40.5 Plt Count 373 Sodium 140 Potassium 3.6 D Chloride 107 Carbon Dioxide 22 BUN 16 Creatinine 0.83 Assessment and Plan Assessment Anesthesia Assessment: Chart Reviewed Documented by User: Rosa Maria Murry 12/31/20 10:02 [facility] Past Medical History Medical History Arthritis Asthma Diabetes mellitus Eczema History of COVID-19 HTN (hypertension) Hypothyroid Rosacea Surgical History Surgical History History of lithotripsy History of right oophorectomy Hx of cholecystectomy Hx of dilation and curettage Hx of hysterectomy Social History Social History Household Members: Family Housing: House Are you a primary career information specialist to a significant other at home: No Do you presently have visiting nurse or other home services: No Alcohol intake: never Smoking Status: Never smoker Use of substances other than those prescribed or required for medical reasons: No Have you been hit, kicked, punched, or otherwise hurt by someone within the past year? If so, by whom?: No Advance Directives: No Advance Directives Information Provided: No Advance Directives on File: No Recently lost weight without trying: No service: No Current occupational status: retired Meds Allergies Allergy/AdvReac Type Severity Reaction Status Date / Time cephalexin [Keflex] Allergy Severe CRAMPS, N&V Verified 12/31/20 09:14 erythromycin base AdvReac Severe NAUSEA & Verified 12/31/20 09:14 [Erythromycin Base] VOMITING Erythromycin Allergy Severe CRAMPS Uncoded 12/31/20 09:14 Home Medications Medication Instructions Recorded Confirmed Last Taken Type aspirin 81 mg PO DAILY 11/18/20 12/25/20 12/28/20 21:00 History cholecalciferol (vitamin D3) 125 mcg PO DAILY 11/18/20 12/25/20 11/30/20 History [Vitamin D3] fluticasone propion-salmeterol 1 inh INHALATION BID 11/18/20 12/25/20 11/30/20 History [Advair Diskus] ivermectin [Soolantra] 1 appl TOPICAL DAILY 11/18/20 12/25/20 11/30/20 History levothyroxine 50 mcg PO DAILY 11/18/20 12/25/20 12/31/20 06:00 History lisinopril 20 mg PO DAILY 11/18/20 12/25/20 11/30/20 History metformin 500 mg PO QPM 12/25/20 12/25/20 Unknown History Exam Airway Mallampati Class: III (Small mouth) TM Dist: >3cm Neck ROM: Full Loose/Missing/Broken Teeth: No Heart: RRR Lungs: CTA Assessment and Plan Assessment Anesthesia Assessment: Anesthesia Plan Discussed and Chart Reviewed Final Anesthetic Review NPO: Yes ASA Class: III Final Preanesthetic Review: Meds/Allgs Chart Reviewed, Consent Obtained/Reviewed and Anes Risks/Benef Reviewed Patient Risk: Intermediate Procedure Risk: Low Anesthetic Plan Anesthetic Plan: GA Disposition: Standard PACU
[2020-12-31] VITALS (7 sets, daily range): BP systolic 116–160; BP diastolic 64–86; PULSE 75–114; RESP 16–20; TEMP 36.1–36.5; O2SAT 94–99
[2020-12-31 09:11] LABS: Glucose, Whole Blood 119 mg/dL (60-115)
[2020-12-31] MEDS: Lactated Ringers 1,000 ML 100 ML IVCONT (09:28)
[2020-12-31] MEDS: levoFLOXacin 500 MG TABLET PO (09:29)
--- NOTE | 2020-12-31 09:43 | MHC.SHP ---
Pre-Procedural Eval Section A The patient is an INPATIENT: No Changes since office visit: No Cold of Flu in the past 2 weeks, No New Medical Problems, No Changes in Medication and No Patient answered all questions The History & Physical has been completed within 30 days and I have reviewed it.: Yes Section B Chief Complaint: calculus of ureter Allergies: Allergies Allergy/AdvReac Type Severity Reaction Status Date / Time cephalexin [Keflex] Allergy Severe CRAMPS, N&V Verified 12/31/20 09:14 erythromycin base AdvReac Severe NAUSEA & Verified 12/31/20 09:14 [Erythromycin Base] VOMITING Erythromycin Allergy Severe CRAMPS Uncoded 12/31/20 09:14 Plan Diagnosis/Plan: Unchanged I have reviewed the history and physical and performed a pertinent physical examination on my patient. No changes have occurred unless specified. Cystoscpy, right stent removal, ureteroscopy, laser lithotripsy and stent placement
--- NOTE | 2020-12-31 10:58 | PM.OP ---
Brief Operative Note Date of Service: 12/31/20 Pre-op diagnosis: Multiple right renal stones Post-op diagnosis: same Procedure: Cystoscopy, stent removal, retrograde, ureteroscopy with laser lithotripsy and stone basketing modified 22 Surgeon: Elia Handley MD Anesthesia: GLMA Estimated blood loss (mL): 0 Pathology: other (Stones) Condition: stable Disposition: same day
--- NOTE | 2020-12-31 10:59 | W.PM.OPN ---
Operative Note Operative Note Date of Service: 12/31/20 Narrative: PreOperative Diagnosis: Right renal stones multiple Post Operative Diagnosis: Right renal stones multiple Procedure: - cystoscopy, right stent removal, retrograde - dilatation of ureteric orifice under fluoroscopy - ureteroscopy, laser lithotripsy, stone basketing Surgeon: Dr Elia Handley Anesthesia: General Indications for procedure: This is a 70-year-old female. Had initially been admitted to hospital approximately 6 weeks ago. At that point in time had had ureteroscopy performed. Had a large number of stones in right kidney. Was found to have residual stones during imaging. Is back care for a 2nd procedure. Understands we may not be able to clear [place] stones remaining kidney. Procedure: After informed consent was verified patient was brought to the operating placed in supine position. Anesthesia was administered per protocol. Patient was placed in modified dorsal lithotomy position and prepped and draped in a sterile fashion. Safety pause time-out and side of surgery confirmed. Antibiotics confirmed. Twenty-two Czech cystoscopy was inserted per urethra. Bladder was seen. Indwelling stent was seen and it had already started to encrust in the distal curl. The stent was removed. A retrograde examination performed. Sensor guidewire placed. Ureteric access sheath placed under fluoroscopy. A flexible urea scope was placed up to the renal pelvis. There were many stones. Using a basket removed many of these. They were in the upper mid and lower pole calices. She had had 3 different 1 cm stones originally. We then had to use the laser to break up another stone in the midpole. We were able to use a combination of dust and hammer settings. Residual fragments were then washed out on an intermittent basis. We re-examined the kidney a number of times and once we were down to very few fragments this is been completed. This was 100% longer than dealing with a single stone there were multiple stones in multiple calices. At the completion the procedure we decided not to leave a drain. The flexible ureteral scope was removed. The access sheath was removed. The bladder was emptied. She tolerated procedure well was extubated in the operating room and transferred in stable condition to the recovery area Pathology: stones Drains: none
[2020-12-31] MEDS: Phenazopyridine HCL 100 MG TABLET PO (11:30)
[2020-12-31] MEDS: Acetaminophen 325 MG TABLET 650 MG PO (11:31)
[2020-12-31] MEDS: NaPROXEN 500 MG TABLET PO (11:41)
== END 2020-12-31 12:50 | disposition home or self-care (01) ==
PROVIDERS: Urology; PCP Internal Medicine; Visit Provider Registered Nurse
PROC: (CPT 52353; principal; 2020-12-31 10:30)
DX: N20.0 Calculus of kidney (principal); Z87.442 Personal history of urinary calculi; J45.909 Unspecified asthma, uncomplicated; I10 Essential (primary) hypertension; E11.9 Type 2 diabetes mellitus without complications; Z86.16 Personal history of COVID-19; Z90.49 Acquired absence of other specified parts of digestive tract; Z79.51 Long term (current) use of inhaled steroids; Z79.84 Long term (current) use of oral hypoglycemic drugs; Z79.82 Long term (current) use of aspirin; Z79.899 Other long term (current) drug therapy; Z88.1 Allergy status to other antibiotic agents
CPT/HCPCS: 52353; 52352; 82365; 82947; 88300; C1769; C1894; J1100; J2405; J3010

== ENCOUNTER 2021-01-04 08:24 | Outpatient (REF) | payer OTHER, SELFPAY ==
[2021-01-04 09:26] LABS: Appearance Urine HAZY; Color Urine YELLOW; Glucose Urine UA NEG (NEG); Leukocyte Esterase Urine 2+ (NEG); Nitrite Urine NEG (NEG); Urine Blood 3+ (NEG); Urine Ketones NEG (NEG); Urine Protein TRACE MG/DL (NEG-TRACE)
[2021-01-04 09:32] LABS: Bacteria Urine TRACE /LPF; RBC Urine 30-49 /HPF (0); Squamous Epithelial Cell Urine 1+ /LPF
== END 2021-01-04 08:25 | disposition home or self-care (01) ==
LOC: HO.LAB 08:24
PROVIDERS: PCP Internal Medicine; Visit Provider Urology
DX: N20.2 Calculus of kidney with calculus of ureter (principal)
CPT/HCPCS: 81001; 87086

== ENCOUNTER 2021-01-29 08:24 | Outpatient (REF) | payer OTHER, SELFPAY ==
[2021-01-29 09:35] LABS: MANUAL DIFF FLAG NO
[2021-01-29 09:47] LABS: Basophils Absolute Auto 0.1 X10*3/uL (0.0-0.2); Basophils Percent Auto 1.1 % (0-2); Eosinophils Absolute Auto 0.4 X10*3/uL (0.0-0.4); Eosinophils Percent Auto 5.6 % (0-4); Hematocrit 38.1 % (37-47); Hemoglobin 11.7 g/dl (12.0-16.0); Imm Gran Abs Auto 0.02 X10*3/uL (0.00-0.03); Imm Gran Pct Auto 0.3 % (0.0-0.4); Lymphocytes Absolute Auto 1.7 X10*3/uL (1.2-4.9); Lymphocytes Percent Auto 26.5 % (20-40); Mean Corpuscular HGB Conc 30.7 g/dl (31.0-35.0); Mean Corpuscular Hemoglobin 30.6 pg (27.0-33.0); Mean Corpuscular Volume 99.7 fL (80-98); Mean Platelet Volume 9.6 fL (9.4-12.3); Monocytes Absolute Auto 0.3 X10*3/uL (0.1-1.2); Monocytes Percent Auto 5.1 % (2-11); Neutrophils Absolute Auto 3.9 X10*3/uL (2.0-8.3); Neutrophils Percent Auto 61.4 % (45-73); Platelet Count 318 X10*3/uL (160-400); Red Blood Count 3.82 X10*6/uL (4.20-5.50); Red Cell Distribution Width 14.7 % (11.0-16.0); White Blood Count 6.3 X10*3/uL (4.8-10.8)
[2021-01-29 10:13] LABS: Alanine Aminotransferase 23 U/L (0-31); Albumin Level 3.8 g/dL (3.5-5.0); Alkaline Phosphatase 61 U/L (39-117); Anion Gap 16 (12-20); Aspartate Amino Transferase 30 U/L (5-31); Bilirubin Total 0.7 mg/dL (0.0-1.0); Blood Urea Nitrogen 19 mg/dL (9-16); Calcium 8.9 mg/dL (8.4-10.2); Carbon Dioxide 18 mmol/L (22-29); Chloride 111 mmol/L (96-108); Estimated Glomerular Filt Rate > 60; Glucose Random 101 mg/dL (60-115); Potassium 4.2 mmol/L (3.3-5.1); Sodium 141 mmol/L (135-145); Total Protein 7.1 g/dL (6.5-8.0)
[2021-01-29 10:28] LABS: Estimated Average Glucose 123 mg/dL; Hemoglobin A1c % 5.9 %
[2021-01-29 11:05] LABS: Creatinine Urine 77.86 mg/dL; Microalbum/Creatinine Ratio Ur 138.7 ug/mg cr
== END 2021-01-29 08:25 | disposition home or self-care (01) ==
LOC: HO.LAB 08:24
PROVIDERS: PCP Internal Medicine; Visit Provider Internal Medicine
DX: E11.9 Type 2 diabetes mellitus without complications (principal); I10 Essential (primary) hypertension; I87.8 Other specified disorders of veins
CPT/HCPCS: 36415; 80053; 82043; 83036; 85025

== ENCOUNTER 2021-02-07 08:21 | Outpatient (REF) | payer OTHER, SELFPAY ==
--- NOTE | ~2021-02-07 | US_ITS ---
EXAMINATION: US RETROPERITONEAL LIMITED (RENAL ONLY) CLINICAL INFORMATION: Calculus of kidney. COMPARISON: CT abdomen and pelvis 04/30/2021. TECHNIQUE: Real-time imaging of the kidneys. FINDINGS: RIGHT KIDNEY: 12.4 x 4.8 x 5.9 cm (SAG x AP x TRV). The kidney is normal in size, contour, and echogenicity. The previously seen right-sided hydronephrosis has resolved. Again noted is an intrarenal nonobstructing calculus measuring 4 x 5 x 7 mm in the mid pole. Also again seen is a 1.2 x 0.8 x 0.8 cm angiomyolipoma at the lower pole. 2 cysts are present, one at the lower pole measuring 1.2 x 0.9 x 1.2 cm in one at the upper pole measuring 1.3 x 1.4 x 1.6 cm. The upper pole lesion correlates with a hyperattenuating cyst seen on the prior CT scan. Renal cortical thickness is normal. No hydronephrosis. LEFT KIDNEY: 12.9 x 6.1 x 4.9 cm (SAG x AP x TRV). The kidney is normal in size, contour, and echogenicity. Renal cortical thickness is normal. No hydronephrosis. A 0.6 x 0.4 x 0.7 cm echogenic focus is present in the left lower pole but no corresponding calcification was seen on the recent CT scan. In the upper pole of the left kidney there is an echogenic mass present measuring 2.8 x 2.2 x 1.9 cm that has been shown on the prior CT scan to be a benign angiomyolipoma. Incidental note made of hyperechoic liver consistent with hepatic steatosis. US/US renal BI IMPRESSION: 1. Resolved right-sided hydronephrosis. 2. Continued presence of nonobstructing right-sided intrarenal calculi. Echogenic focus seen in the left kidney has no correlate on recent CT scan to suggest a stone. 3. Bilateral benign renal angiomyolipomas.
== END 2021-02-07 08:22 | disposition home or self-care (01) ==
LOC: HO.US 08:21
PROVIDERS: Visit Provider Urology
DX: N20.0 Calculus of kidney (principal)
CPT/HCPCS: 76775

== ENCOUNTER → 2021-02-13 09:48 | Outpatient (BNVA) | payer OTHER, SELFPAY | PROVIDERS: PCP Internal Medicine; Visit Provider Urology | DX: N20.0 Calculus of kidney (principal) | CPT/HCPCS: 81002 ==

== ENCOUNTER 2021-05-14 08:19 | Outpatient (REF) | payer OTHER, SELFPAY ==
[2021-05-14 09:02] LABS: MANUAL DIFF FLAG NO
[2021-05-14 09:04] LABS: Basophils Absolute Auto 0.1 X10*3/uL (0.0-0.2); Basophils Percent Auto 0.5 % (0-2); Eosinophils Absolute Auto 0.3 X10*3/uL (0.0-0.4); Eosinophils Percent Auto 3.4 % (0-4); Hematocrit 43.2 % (37-47); Hemoglobin 13.8 g/dl (12.0-16.0); Imm Gran Abs Auto 0.04 X10*3/uL (0.00-0.03); Imm Gran Pct Auto 0.4 % (0.0-0.4); Lymphocytes Absolute Auto 1.8 X10*3/uL (1.2-4.9); Lymphocytes Percent Auto 18.3 % (20-40); Mean Corpuscular HGB Conc 31.9 g/dl (31.0-35.0); Mean Corpuscular Hemoglobin 30.7 pg (27.0-33.0); Mean Corpuscular Volume 96.2 fL (80-98); Mean Platelet Volume 9.2 fL (9.4-12.3); Monocytes Absolute Auto 0.4 X10*3/uL (0.1-1.2); Monocytes Percent Auto 3.7 % (2-11); Neutrophils Absolute Auto 7.3 X10*3/uL (2.0-8.3); Neutrophils Percent Auto 73.7 % (45-73); Platelet Count 368 X10*3/uL (160-400); Red Blood Count 4.49 X10*6/uL (4.20-5.50); Red Cell Distribution Width 13.4 % (11.0-16.0); White Blood Count 9.9 X10*3/uL (4.8-10.8)
[2021-05-14 09:24] LABS: Estimated Average Glucose 114 mg/dL; Hemoglobin A1c % 5.6 %
[2021-05-14 09:27] LABS: Anion Gap 18 (12-20); Blood Urea Nitrogen 17 mg/dL (9-16); Calcium 9.9 mg/dL (8.4-10.2); Carbon Dioxide 20 mmol/L (22-29); Chloride 108 mmol/L (96-108); Estimated Glomerular Filt Rate > 60; Glucose Random 114 mg/dL (60-115); Potassium 4.9 mmol/L (3.3-5.1); Sodium 141 mmol/L (135-145)
[2021-05-14 09:53] LABS: Free T4 (Free Thyroxine) 0.95 ng/dL (0.71-1.85); Thyroid Stimulating Hormone 3.75 uIU/mL (0.32-4.0)
[2021-05-14 10:24] LABS: Creatinine Urine 73.09 mg/dL
== END 2021-05-14 08:20 | disposition home or self-care (01) ==
LOC: HO.LAB 08:19
PROVIDERS: PCP Internal Medicine; Visit Provider Internal Medicine
DX: I10 Essential (primary) hypertension (principal); E11.9 Type 2 diabetes mellitus without complications; E03.9 Hypothyroidism, unspecified; E55.9 Vitamin D deficiency, unspecified
CPT/HCPCS: 36415; 80048; 82043; 82306; 83036; 84439; 84443; 85025

== ENCOUNTER 2021-08-05 13:16 | Outpatient (REF) | payer OTHER, SELFPAY ==
--- NOTE | ~2021-08-05 | US_ITS ---
EXAMINATION: US RETROPERITONEAL LIMITED (RENAL ONLY) CLINICAL INFORMATION: Calculus of kidney. COMPARISON: Bilateral renal ultrasound dated 02/07/2021. CT abdomen and pelvis without contrast dated 11/30/2020. TECHNIQUE: Real-time imaging of the kidneys. FINDINGS: RIGHT KIDNEY: 12.3 x 4.9 x 5.6 cm (SAG x AP x TRV). The kidney is normal in size, contour, and echogenicity. Renal cortical thickness is normal. No hydronephrosis. Simple midpole 0.4 cm nonobstructing stone. Simple upper and lower pole cysts measuring 1.3 and 1.9 cm, respectively. Upper and lower pole echogenic foci which could represent angiomyolipomas measuring 0.6 and 1.1 cm, respectively. Findings are unchanged. LEFT KIDNEY: 12.6 x 6.5 x 4.1 cm (SAG x AP x TRV). The kidney is normal in size, contour, and echogenicity. Renal cortical thickness is normal. No hydronephrosis. Left mid and lower pole stones measuring 0.8 and 0.5 cm. Stable upper pole angiomyolipoma measuring up to 2.4 cm. US/US renal BI IMPRESSION: 1. Nonobstructing bilateral renal stones appear to 0.4 cm on the right and 0.8 cm on the left. No hydronephrosis. 2. Stable bilateral renal angiomyolipomas and cysts.
== END 2021-08-05 13:17 | disposition home or self-care (01) ==
LOC: HO.US 13:16
PROVIDERS: PCP Internal Medicine; Visit Provider Urology
DX: N20.0 Calculus of kidney (principal)
CPT/HCPCS: 76775

== ENCOUNTER → 2021-08-16 09:23 | Outpatient (BNVA) | payer OTHER, SELFPAY | PROVIDERS: Visit Provider Urology ==

== ENCOUNTER 2021-08-21 08:30 | Outpatient (REF) | payer OTHER, SELFPAY ==
[2021-08-21 09:59] LABS: Cholesterol 194 mg/dL; HDL Cholesterol 37 mg/dL; LDL Cholesterol Calculated 98 mg/dl; Triglycerides 296 mg/dL
[2021-08-21 10:23] LABS: Free T4 (Free Thyroxine) 0.81 ng/dL (0.71-1.85); Thyroid Stimulating Hormone 3.81 uIU/mL (0.32-4.0)
== END 2021-08-21 08:31 | disposition home or self-care (01) ==
LOC: HO.LAB 08:30
PROVIDERS: PCP Internal Medicine; Visit Provider Internal Medicine
DX: E11.9 Type 2 diabetes mellitus without complications (principal); E78.00 Pure hypercholesterolemia, unspecified; E03.9 Hypothyroidism, unspecified
CPT/HCPCS: 36415; 80061; 84439; 84443

== ENCOUNTER 2021-08-28 21:59 | Inpatient (IN) | payer OTHER, SELFPAY ==
--- NOTE | ~2021-08-28 | CT_ITS ---
EXAMINATION: CT HEAD WITHOUT CONTRAST CLINICAL INFORMATION: Dizziness COMPARISON: 03/08/2012 TECHNIQUE: Contiguous axial imaging was performed from the skull base to vertex without intravenous administration of contrast. This CT examination was performed using dose optimization techniques as appropriate, variously including the following: *Automated exposure control *Adjustment of mA and/or kV according to patient size (this includes techniques or standardized protocols for targeted exams where dose is matched to indication/reason for exam; i.e. extremities or head) *Use of iterative reconstruction technique DLP: 771 mGy-cm FINDINGS: There is no evidence of acute intracranial hemorrhage or territorial infarction. No abnormal mass effect or midline shift is seen. Tran to white matter differentiation is well preserved. No extra-axial fluid collections are identified. The ventricles are normal in size. There is no abnormal attenuation within the brain parenchyma. The osseous structures and soft tissues are normal. The mastoid air cells and visualized portions of the paranasal sinuses are well aerated. CT/CT head/brain wo con IMPRESSION: No acute intracranial pathology.
--- NOTE | ~2021-08-28 | XR_ITS ---
EXAMINATION: XR CHEST CLINICAL INFORMATION: Dizziness COMPARISON: 11/30/2020 TECHNIQUE: Frontal view of the chest was obtained. FINDINGS: Mild atelectasis the right base. Lung blanchard are otherwise grossly clear. No failure or effusion. The medial central contours are felt to be comparable to previous. The hilar regions do not appear pathologically enlarged. XR/XR chest 1V IMPRESSION: Mild right basilar atelectasis
[2021-08-28 22:10] VITALS: BP 136/66; PULSE 79; RESP 16; TEMP 36.6; O2SAT 98
[2021-08-28 22:13] VITALS: BP 136/66; PULSE 76; RESP 18; TEMP 36.6; O2SAT 98; BMI 45.8
[2021-08-28 22:19] VITALS: BP 125/69; PULSE 73; O2SAT 100
--- NOTE | 2021-08-28 22:23 | ED.DIZZY ---
HPI - Dizziness General Chief Complaint: Dizziness Stated Complaint: DIZZINESS/N/V S/P VACCINE Time Seen by Provider: 08/28/21 22:22 Source: patient and EMS Mode of arrival: EMS Limitations: no limitations History of Present Illness MD elicited complaint: dizziness (n/v facial flushing and rash) Pertinent past history: other (had moderna vaccine yesterday at 2pm) Onset (ago): day(s) (today at 8am) Timing: sudden onset Severity: severe Description: sense of movement, room spinning , lightheadedness and difficulty walking Context: change in body position and other (n/v chills after her booster shot) History of similar symptoms: No Exacerbating factors: movement/ambulation, change in body position and standing Relieving factors: remaining still Associated symptoms: nausea, vomiting, malaise, weakness and chills Related Data Home Medications Medication Instructions Recorded Confirmed aspirin 81 mg tablet,delayed 81 mg PO DAILY 11/18/20 12/25/20 release cholecalciferol (vitamin D3) 125 125 mcg PO DAILY 11/18/20 12/25/20 mcg (5,000 unit) tablet (Vitamin D3) fluticasone 100 mcg-salmeterol 50 1 inh INHALATION BID 11/18/20 12/25/20 mcg/dose blistr powdr for inhalation (Advair Diskus) ivermectin 1 % topical cream 1 appl TOPICAL DAILY 11/18/20 12/25/20 (Soolantra) levothyroxine 50 mcg tablet 50 mcg PO DAILY 11/18/20 12/25/20 lisinopril 20 mg tablet 20 mg PO DAILY 11/18/20 12/25/20 metformin 500 mg tablet,extended 500 mg PO QPM 12/25/20 12/25/20 release 24 hr Previous Rx's Medication Instructions Recorded albuterol sulfate 90 mcg/actuation 2 puff INHALATION RQ4H PRN #8.5 g 11/21/20 aerosol inhaler (Ventolin HFA) phenazopyridine 100 mg tablet 100 mg PO TID PRN 4 Days #12 tab 12/31/20 (Pyridium) tamsulosin 0.4 mg capsule 0.4 mg PO BEDTIME #14 cap 12/31/20 tramadol 50 mg tablet 50 mg PO Q6H PRN #14 tab 12/31/20 trimethoprim 100 mg tablet 100 mg PO Q12H 10 Days #20 tab 12/31/20 pyridoxine (vitamin B6) 100 mg 100 mg PO DAILY 90 Days #90 tab 06/17/21 tablet (Vitamin B-6) allopurinol 100 mg tablet 100 mg PO DAILY 90 Days #90 tab 06/27/21 Allergies Allergy/AdvReac Type Severity Reaction Status Date / Time cephalexin [Keflex] Allergy Severe CRAMPS, N&V Verified 08/16/21 09:24 erythromycin base AdvReac Severe NAUSEA & Verified 08/16/21 09:24 [Erythromycin Base] VOMITING Erythromycin Allergy Severe CRAMPS Uncoded 12/31/20 09:14 Review of Systems Review of Systems: Constitutional : No Weight loss, No Fever, pos Chills ENT/Mouth : No sore throat, No Rhinorrhea Eyes: No Swelling, No Redness Cardiovascular : No Chest Pain, No SOB, NoEdema Respiratory : No Cough, No Sputum, No Wheezing Gastrointestinal : Positive Nausea, Positive Vomiting, no Diarrhea, no abdominal Pain, No Hematochezia, No Melena Genitourinary : No Dysuria, No Urinary Frequency, No Hematuria, No Urgency Musculoskeletal : No joint pain, pos Myalgias, No Joint Swelling Skin : No Skin Lesions, No rash Neuro : pos Weakness, No Numbness, pos Dizziness, No Headache Psych : No Anxiety/Panic, No Depression Heme/Lymph: No Bruising, No Lymphadenopathy Endocrine : No Polyuria, No Polydipsia All other systems reviewed and are negative. [facility] Past Medical History Attestation statement: The following information was validated with the patient. Medical History Arthritis Asthma Diabetes mellitus Eczema History of COVID-19 HTN (hypertension) Hypothyroid Rosacea Surgical History History of lithotripsy History of right oophorectomy Hx of cholecystectomy Hx of dilation and curettage Hx of hysterectomy Social History Social History (Updated 08/28/21 @ 22:24 by Kenzie Wagner DO) Household Members: Family Household Members Other:: Brother Housing: House Are you a primary medical care manager to a significant other at home: No Do you presently have visiting nurse or other home services: No Alcohol intake: never Patient Tobacco Use Status: Never used Tobacco Advance Directives: No Advance Directives Information Provided: No service: No Current occupational status: retired Physical Exam Vital Signs: Vital Signs: Last Vital Signs Temp 97.8 F 08/28/21 22:13 Pulse 76 08/28/21 22:13 Resp 18 08/28/21 22:13 BP 136/66 08/28/21 22:13 Pulse Ox 98 08/28/21 22:13 Body Mass Index 45.8 Appearance: Alert. Oriented X3. No acute distress. Eyes: Pupils equal, round and reactive to light. ENT: Pharynx normal. bright red punctate areas and flushing almost entire half of lower face including below chin (in mask area) Neck: Normal inspection. Neck supple. CVS: Normal heart rate and rhythm. Pulses normal. Respiratory: No respiratory distress. Breath sounds normal. Abdomen: Soft and nontender. Skin: Skin warm and dry. Normal skin color. Normal skin turgor. Extremities: non pitting bilateral lower extremity edema. No calf ttp Neuro: Oriented X 3. No motor deficit. No sensory deficit. Course Course Course Narrative: patient desaturates to 77% while sleeping comes right up to 95% when woken up will sit more upright and place on 2L NC + UA - WBC clumps noted, will treat with levofloxacin anticipate she will need admission MDM - Dizziness MDM Narrative Medical decision making narrative: 70 yo female with hx of asthma, COVID, kidney stones had her moderna booster yesterday at 2pm comes in today wtih c/o chills n/v then became dizzy at 8am worse with moving head standing up - PCP called in meclizine but she couldn't tolerate it and continued to vomit. At this time she has chills n/v and still feels dizzy when standing - will obtain basic labs, EKG, give IVF, zofran/ativan/tylenol for likely fever. CXR/UA. Her rosacea also seems to be fully flared at this time as well. Lab Data Result diagrams: 08/28/21 23:03 08/28/21 23:28 Labs: Lab Results 08/28/21 08/28/21 08/28/21 Range/Units 22:56 23:03 23:03 WBC 11.5 H (4.8-10.8) X10*3/uL RBC 4.09 L (4.20-5.50) X10*6/uL Hgb 12.7 (12.0-16.0) g/dl Hct 38.6 (37-47) % MCV 94.4 (80-98) fL MCH 31.1 (27.0-33.0) pg MCHC 32.9 (31.0-35.0) g/dl RDW 13.2 (11.0-16.0) % Plt Count 375 (160-400) X10*3/uL MPV 9.1 L (9.4-12.3) fL Immature Gran % (Auto) 0.4 (0.0-0.4) % Neut % (Auto) 81.1 H (45-73) % Lymph % (Auto) 12.9 L (20-40) % Monroe % (Auto) 4.9 (2-11) % Eos % (Auto) 0.4 (0-4) % Baso % (Auto) 0.3 (0-2) % Lymph # (Auto) 1.5 (1.2-4.9) X10*3/uL Monroe # (Auto) 0.6 (0.1-1.2) X10*3/uL Eos # (Auto) 0.1 (0.0-0.4) X10*3/uL Baso # (Auto) 0.0 (0.0-0.2) X10*3/uL Abs Immat Gran (auto) 0.05 H (0.00-0.03) X10*3/uL Absolute Neuts (auto) 9.3 H (2.0-8.3) X10*3/uL Absolute Nucleated RBC 0.000 (0.0-0.012) X10*3/uL Nucleated RBC % (auto) 0.0 (0.0-0.2) /100WBC Sodium (135-145) mmol/L Potassium (3.3-5.1) mmol/L Chloride (96-108) mmol/L Carbon Dioxide (22-29) mmol/L Anion Gap (12-20) BUN (9-16) mg/dL Creatinine (0.5-1.4) mg/dL Estim Creat Clear Calc Estimated GFR Random Glucose (60-115) mg/dL Lactic Acid 2.0 (0.5-2.0) mmol/L Calcium (8.4-10.2) mg/dL Magnesium (1.6-2.6) mg/dL Total Bilirubin (0.0-1.0) mg/dL Direct Bilirubin (0.0-0.5) mg/dL AST (5-31) U/L ALT (0-31) U/L Alkaline Phosphatase (39-117) U/L Troponin I High Sens (<3.5-17.0) ng/L Total Protein (6.5-8.0) g/dL Albumin (3.5-5.0) g/dL Lipase (8-78) U/L Urine Color Urine Appearance Urine pH (5.0-8.0) Ur Specific [place] (1.005-1.025) Urine Protein (NEG-TRACE) MG/DL Urine Glucose (UA) (NEG) MG/DL Urine Ketones (NEG) MG/DL Urine Blood (NEG) Urine Nitrite (NEG) Ur Leukocyte Esterase (NEG) Urine RBC (0) /HPF Urine WBC (0-4) /HPF Urine WBC Clumps Ur Squamous Epith Cells /LPF Urine Bacteria /LPF COVID-19 (FRANCA) Negative (Negative) COVID-19 Clin Com See Note 08/28/21 08/28/21 08/28/21 Range/Units 23:03 23:28 23:42 WBC (4.8-10.8) X10*3/uL RBC (4.20-5.50) X10*6/uL Hgb (12.0-16.0) g/dl Hct (37-47) % MCV (80-98) fL MCH (27.0-33.0) pg MCHC (31.0-35.0) g/dl RDW (11.0-16.0) % Plt Count (160-400) X10*3/uL MPV (9.4-12.3) fL Immature Gran % (Auto) (0.0-0.4) % Neut % (Auto) (45-73) % Lymph % (Auto) (20-40) % Monroe % (Auto) (2-11) % Eos % (Auto) (0-4) % Baso % (Auto) (0-2) % Lymph # (Auto) (1.2-4.9) X10*3/uL Monroe # (Auto) (0.1-1.2) X10*3/uL Eos # (Auto) (0.0-0.4) X10*3/uL Baso # (Auto) (0.0-0.2) X10*3/uL Abs Immat Gran (auto) (0.00-0.03) X10*3/uL Absolute Neuts (auto) (2.0-8.3) X10*3/uL Absolute Nucleated RBC (0.0-0.012) X10*3/uL Nucleated RBC % (auto) (0.0-0.2) /100WBC Sodium 140 (135-145) mmol/L Potassium 3.7 D (3.3-5.1) mmol/L Chloride 107 (96-108) mmol/L Carbon Dioxide 22 (22-29) mmol/L Anion Gap 15 (12-20) BUN 20 H (9-16) mg/dL Creatinine 0.78 (0.5-1.4) mg/dL Estim Creat Clear Calc 91.7 Estimated GFR > 60 Random Glucose 121 H (60-115) mg/dL Lactic Acid (0.5-2.0) mmol/L Calcium 9.1 D (8.4-10.2) mg/dL Magnesium 1.9 (1.6-2.6) mg/dL Total Bilirubin 0.6 (0.0-1.0) mg/dL Direct Bilirubin 0.2 (0.0-0.5) mg/dL AST 17 D (5-31) U/L ALT 16 (0-31) U/L Alkaline Phosphatase 79 D (39-117) U/L Troponin I High Sens < 3.5 (<3.5-17.0) ng/L Total Protein 6.3 L (6.5-8.0) g/dL Albumin 3.9 (3.5-5.0) g/dL Lipase 28 (8-78) U/L Urine Color STRAW Urine Appearance HAZY Urine pH 7.0 (5.0-8.0) Ur Specific [place] <= 1.005 (1.005-1.025) Urine Protein NEG (NEG-TRACE) MG/DL Urine Glucose (UA) NEG (NEG) MG/DL Urine Ketones 5 (NEG) MG/DL Urine Blood 2+ H (NEG) Urine Nitrite NEG (NEG) Ur Leukocyte Esterase 3+ H (NEG) Urine RBC 1-4 (0) /HPF Urine WBC 15-29 H (0-4) /HPF Urine WBC Clumps NOTED Ur Squamous Epith Cells 2+ /LPF Urine Bacteria 1+ /LPF COVID-19 (FRANCA) (Negative) COVID-19 Clin Com ECG Data Attestation: I personally reviewed and interpreted this ECG as follows: ECG interpretation date: 08/28/21 ECG interpretation time: 22:53 Interpretation: Rate: 68 Rhythm: NSR [place]: normal Normal P waves. Normal KATLIN. Normal QRS complex. ST T wave : normal no SIRISHA qTC: normal prior studies: no acute ischemia The study has been interpreted contemporaneously by me. . Discharge Plan Discharge Clinical Impression: Dizziness, Vomiting, Dermatitis of face, Acute UTI Patient Disposition: Admitted As Inpatient Prescriptions: No Action pyridoxine (vitamin B6) [Vitamin B-6] 100 mg tablet 100 mg PO DAILY 90 Days Qty: 90 RF: 1 allopurinol 100 mg tablet 100 mg PO DAILY 90 Days Qty: 90 RF: 1 lisinopril 20 mg Tablet 20 mg PO DAILY RF: 0 levothyroxine 50 mcg Tablet 50 mcg PO DAILY RF: 0 fluticasone propion-salmeterol [Advair Diskus] 100-50 mcg/dose Blister With Device 1 inh INHALATION BID RF: 0 cholecalciferol (vitamin D3) [Vitamin D3] 125 mcg (5,000 unit) Tablet 125 mcg PO DAILY RF: 0 ivermectin [Soolantra] 1 % Cream 1 appl TOPICAL DAILY RF: 0 aspirin 81 mg Tablet,Delayed Release (Dr/Ec) 81 mg PO DAILY RF: 0 albuterol sulfate [Ventolin HFA] 90 mcg/actuation Hfa Aerosol Inhaler 2 puff inhalation RQ4H PRN (Reason: Wheezing) Qty: 8.5 RF: 0 metformin 500 mg Tablet Extended Release 24 Hr 500 mg PO QPM RF: 0 phenazopyridine [Pyridium] 100 mg tablet 100 mg PO TID PRN (Reason: spasm) 4 Days Qty: 12 RF: 0 tramadol 50 mg tablet 50 mg PO Q6H PRN (Reason: pain (scale score 4-6)) Qty: 14 RF: 0 tamsulosin 0.4 mg capsule 0.4 mg PO BEDTIME Qty: 14 RF: 0 trimethoprim 100 mg tablet 100 mg PO Q12H 10 Days Qty: 20 RF: 0
--- NOTE | 2021-08-28 22:30 | ECG_ITS ---
Test Reason : DIZZINESS Blood Pressure : / mmHG Vent. Rate : 068 BPM Atrial Rate : 068 BPM P-R Int : 162 ms QRS Dur : 092 ms QT Int : 408 ms P-R-T Axes : 077 019 021 degrees QTc Int : 433 ms Normal sinus rhythm Normal ECG No significant changes seen Referred By: Kenzie Wagner Electronically Signed By:MARIBEL TRISTAN MD
[2021-08-28 23:00] VITALS: BP 123/58; PULSE 78; RESP 16; O2SAT 100
[2021-08-28 23:12] LABS: MANUAL DIFF FLAG NO
[2021-08-28] MEDS: LORazepam 2 MG/ML VIAL 0.5 MG IVPUSH (23:12)
[2021-08-28] MEDS: ondansetron HCL 4 MG/2 ML VIAL IVPUSH (23:12)
[2021-08-28] MEDS: Acetaminophen 325 MG TABLET 650 MG PO (23:13)
[2021-08-28] MEDS: 0.9 % Sodium Chloride 1,000 ML 999 ML IVCONT (23:13)
[2021-08-28 23:14] LABS: Basophils Percent Auto 0.3 % (0-2); Eosinophils Absolute Auto 0.1 X10*3/uL (0.0-0.4); Eosinophils Percent Auto 0.4 % (0-4); Hematocrit 38.6 % (37-47); Hemoglobin 12.7 g/dl (12.0-16.0); Imm Gran Abs Auto 0.05 X10*3/uL (0.00-0.03); Imm Gran Pct Auto 0.4 % (0.0-0.4); Lymphocytes Absolute Auto 1.5 X10*3/uL (1.2-4.9); Lymphocytes Percent Auto 12.9 % (20-40); Mean Corpuscular HGB Conc 32.9 g/dl (31.0-35.0); Mean Corpuscular Hemoglobin 31.1 pg (27.0-33.0); Mean Corpuscular Volume 94.4 fL (80-98); Mean Platelet Volume 9.1 fL (9.4-12.3); Monocytes Absolute Auto 0.6 X10*3/uL (0.1-1.2); Monocytes Percent Auto 4.9 % (2-11); Neutrophils Absolute Auto 9.3 X10*3/uL (2.0-8.3); Neutrophils Percent Auto 81.1 % (45-73); Platelet Count 375 X10*3/uL (160-400); Red Blood Count 4.09 X10*6/uL (4.20-5.50); Red Cell Distribution Width 13.2 % (11.0-16.0); White Blood Count 11.5 X10*3/uL (4.8-10.8)
[2021-08-28 23:23] LABS: COVID-19 Test Negative (Negative); IDNOW Serial# 9DD0AD1C
[2021-08-28 23:30] VITALS: BP 120/61; PULSE 75; RESP 18; O2SAT 100
[2021-08-28 23:34] LABS: Troponin-I High Sensitivity < 3.5 ng/L (<3.5-17.0)
--- NOTE | 2021-08-28 23:42 | PC.NURSE ---
pt up to commode with assistance. UA collected and to lab. pt awake and watching TV in NAD. respirations easy, n/l. skin warm, dry, pale. pt has a bright red rash to marybeth cheeks on face. pt denies sob or difficulty breathing at this time. pt is not actively vomiting at this time. will continue to monitor pt.
--- NOTE | 2021-08-28 23:45 | PC.NURSE ---
PT ABLE TO STAND AND PIVOT TO BEDSIDE COMMODE WITH TWO ASSISTS. URINE SAMPLE OBTAINED AND SENT TO LAB. PT ASSISTED BACK TO BED, RESTING COMFORTABLY AT THIS TIME. CALL CORLEY PLACED WITHIN REACH.
--- NOTE | 2021-08-28 23:51 | PC.NURSE ---
labs re-drawn to lab.
[2021-08-28 23:52] LABS: Alanine Aminotransferase 16 U/L (0-31); Albumin Level 3.9 g/dL (3.5-5.0); Alkaline Phosphatase 79 U/L (39-117); Anion Gap 15 (12-20); Aspartate Amino Transferase 17 U/L (5-31); Bilirubin Direct 0.2 mg/dL (0.0-0.5); Bilirubin Total 0.6 mg/dL (0.0-1.0); Blood Urea Nitrogen 20 mg/dL (9-16); Calcium 9.1 mg/dL (8.4-10.2); Carbon Dioxide 22 mmol/L (22-29); Chloride 107 mmol/L (96-108); Creatinine Clr Calc Pharmacy 91.7; Estimated Glomerular Filt Rate > 60; Glucose Random 121 mg/dL (60-115); Lipase 28 U/L (8-78); Magnesium 1.9 mg/dL (1.6-2.6); Potassium 3.7 mmol/L (3.3-5.1); Sodium 140 mmol/L (135-145); Total Protein 6.3 g/dL (6.5-8.0)
[2021-08-28 23:54] LABS: Appearance Urine HAZY; Color Urine STRAW; Glucose Urine UA NEG (NEG); Leukocyte Esterase Urine 3+ (NEG); Nitrite Urine NEG (NEG); Specific Gravity - Urine <= 1.005 (1.005-1.025); UACC Culture Trigger YES; Urine Blood 2+ (NEG); Urine Ketones 5 MG/DL (NEG); Urine Protein NEG (NEG-TRACE)
[2021-08-29] VITALS (8 sets, daily range): BP systolic 118–158; BP diastolic 52–80; PULSE 61–79; RESP 13–18; TEMP 36.4–37; O2SAT 98–100
[2021-08-29 00:07] LABS: Bacteria Urine 1+ /LPF; Squamous Epithelial Cell Urine 2+ /LPF; WBC Clumps Urine NOTED
--- NOTE | 2021-08-29 00:26 | PM.IMHP ---
History of Present Illness Date of Service: 08/29/21 Chief Complaint: Dizziness 70-year-old female with a past medical history of hypertension, diabetes, hypothyroidism, eczema, history of COVID-19 infection, rosacea presented to the hospital with a chief complaint of dizziness. Patient reported that she had her booster dose for melena vaccination yesterday and since then she has been having chills and body aches associated nausea and vomiting. And today she felt dizzy like room spinning whenever she turns her head; denies any falls or trauma. Denies any loss of consciousness. Mentioned that she was unsteady on gait. Denies any chest pain palpitations lightheadedness or dizziness. Patient said she had multiple episodes of vomiting; denies any vomitus; he had felt increased dizziness and vomiting episodes after she took the meclizine. Followed by she noticed rash on her face which is not similar to the prior rosacea she had in the past. Reports non itchy. Patient reports that her bilateral legs are chronically erythematous in the distal part; unchanged from prior. She has prior history of cellulitis she reports. Not on any antibiotics recently. Denies any numbness tingling or focal weakness. Review of all other systems is negative except mentioned above ER course: Per ER team patient's exam was nonfocal; CT head showed no acute findings; EKG was nonischemic; troponin negative; urinalysis was abnormal consistent with UTI-given levofloxacin; also noted to have rash on her face-unclear if it is her rosacea versus contact dermatitis from mask. Admitted to the hospital for further management. [facility] Medical History Arthritis Asthma Diabetes mellitus Eczema History of COVID-19 HTN (hypertension) Hypothyroid Rosacea Pertinent family history: Reviewed Surgical History History of lithotripsy History of right oophorectomy Hx of cholecystectomy Hx of dilation and curettage Hx of hysterectomy Social History (Updated 08/28/21 @ 22:24 by Kenzie Wagner DO) Household Members: Family Household Members Other:: Brother Housing: House Are you a primary home health care coordinator to a significant other at home: No Do you presently have visiting nurse or other home services: No Alcohol intake: never Patient Tobacco Use Status: Never used Tobacco Advance Directives: No Advance Directives Information Provided: No service: No Current occupational status: retired Meds Allergies Allergy/AdvReac Type Severity Reaction Status Date / Time cephalexin [Keflex] Allergy Severe CRAMPS, N&V Verified 08/16/21 09:24 erythromycin base AdvReac Severe NAUSEA & Verified 08/16/21 09:24 [Erythromycin Base] VOMITING Erythromycin Allergy Severe CRAMPS Uncoded 12/31/20 09:14 Active Medications: Current Medications Acetaminophen (Acetaminophen 325 Mg Tablet) 650 mg PO Q6H PRN PRN Reason: Pain, Mild (Pain Scale 1-3) Levofloxacin (Levaquin) 500 mg in 100 mls @ 100 mls/hr IV ONCE ONE Stop: 08/29/21 01:10 Levofloxacin (Levaquin) 500 mg in 100 mls @ 100 mls/hr IV Q24H REPLACED BY [facility] Sodium Chloride (Ns) 1,000 mls @ 75 mls/hr IVCONT .[id number] REPLACED BY [facility] Pharmacy Consult (Consult Rx Perform Med Rec) 1 each MISCELLANE ONCE PRN PRN Reason: Consult order Sodium Chloride (0.9 % Sodium Chloride Flush 3 Ml Syringe) 3 ml IVFLUSH QSHIFT REPLACED BY [facility] Home Medications Medication Instructions Recorded Confirmed Last Taken Type aspirin 81 mg tablet,delayed 81 mg PO DAILY 11/18/20 08/29/21 12/28/20 21:00 History release cholecalciferol (vitamin D3) 125 1,000 unit PO DAILY 11/18/20 08/29/21 11/30/20 History mcg (5,000 unit) tablet (Vitamin D3) levothyroxine 50 mcg tablet 50 mcg PO DAILY 11/18/20 08/29/21 12/31/20 06:00 History lisinopril 20 mg tablet 20 mg PO DAILY 11/18/20 08/29/21 11/30/20 History metformin 500 mg tablet,extended 500 mg PO QPM 12/25/20 08/29/21 Unknown History release 24 hr Physical Exam Vital Signs and Narrative: Vital Signs: Last Vital Signs Temp 97.8 F 08/28/21 22:13 Pulse 76 08/28/21 22:13 Resp 18 08/28/21 22:13 BP 136/66 08/28/21 22:13 Pulse Ox 98 08/28/21 22:13 Body Mass Index 45.8 Gen: Appears be in no acute distress HEENT: NCAT, Moist mucosa. HEMANT a; no nystagmus Pulmonary: Vesicular breath sounds, fair air entry CVS: Normal S1-S2 Abdomen: BS+, Soft, Nontender Extremities: Warm well perfused; noted distal erythema on bilateral legs, circumferential-patient reports chronic and unchanged. Neuro: Alert and awake. Strength equal bilaterally; sensations intact. Integumentary: Noted facial rash, distinctly demarcated, erythematous, nonblanching, no scales, no papules or vesicles. Results Labs CBC and Chem 7: 08/28/21 23:03 08/28/21 23:28 Labs: Laboratory Results - last 24 hr 08/28/21 08/28/21 08/28/21 22:56 23:03 23:03 MCV 94.4 MCH 31.1 MCHC 32.9 RDW 13.2 Plt Count 375 MPV 9.1 L Immature Gran % (Auto) 0.4 Neut % (Auto) 81.1 H Lymph % (Auto) 12.9 L [place] % (Auto) 4.9 Eos % (Auto) 0.4 Baso % (Auto) 0.3 Lymph # (Auto) 1.5 [place] # (Auto) 0.6 Eos # (Auto) 0.1 Baso # (Auto) 0.0 Abs Immat Gran (auto) 0.05 H Absolute Neuts (auto) 9.3 H Absolute Nucleated RBC 0.000 Nucleated RBC % (auto) 0.0 Anion Gap Estim Creat Clear Calc Estimated GFR Random Glucose Lactic Acid 2.0 Calcium Magnesium Total Bilirubin Direct Bilirubin AST ALT Alkaline Phosphatase Troponin I High Sens Total Protein Albumin Lipase Urine Color Urine Appearance Urine pH Ur Specific [place] Urine Protein Urine Glucose (UA) Urine Ketones Urine Blood Urine Nitrite Ur Leukocyte Esterase Urine RBC Urine WBC Urine WBC Clumps Ur Squamous Epith Cells Urine Bacteria COVID-19 (FRANCA) Negative COVID-19 Clin Com See Note 08/28/21 08/28/21 08/28/21 23:03 23:28 23:42 MCV MCH MCHC RDW Plt Count MPV Immature Gran % (Auto) Neut % (Auto) Lymph % (Auto) [place] % (Auto) Eos % (Auto) Baso % (Auto) Lymph # (Auto) [place] # (Auto) Eos # (Auto) Baso # (Auto) Abs Immat Gran (auto) Absolute Neuts (auto) Absolute Nucleated RBC Nucleated RBC % (auto) Anion Gap 15 Estim Creat Clear Calc 91.7 Estimated GFR > 60 Random Glucose 121 H Lactic Acid Calcium 9.1 D Magnesium 1.9 Total Bilirubin 0.6 Direct Bilirubin 0.2 AST 17 D ALT 16 Alkaline Phosphatase 79 D Troponin I High Sens < 3.5 Total Protein 6.3 L Albumin 3.9 Lipase 28 Urine Color STRAW Urine Appearance HAZY Urine pH 7.0 Ur Specific [place] <= 1.005 Urine Protein NEG Urine Glucose (UA) NEG Urine Ketones 5 Urine Blood 2+ H Urine Nitrite NEG Ur Leukocyte Esterase 3+ H Urine RBC 1-4 Urine WBC 15-29 H Urine WBC Clumps NOTED Ur Squamous Epith Cells 2+ Urine Bacteria 1+ COVID-19 (FRANCA) COVID-19 Clin Com Imaging Radiologist's Impressions: Impressions Head CT 08/28/21 22:30 IMPRESSION: No acute intracranial pathology. Chest X-Ray 08/28/21 22:31 IMPRESSION: Mild right basilar atelectasis Assessment and Plan (1) Dizziness: Status: Acute (2) Dermatitis of face: Status: Acute (3) Acute UTI: Status: Acute 70-year-old female with a past medical history of hypertension, diabetes, hypothyroidism, eczema, history of COVID-19 infection, rosacea presented to the hospital with a chief complaint of dizziness. Dizziness: EKG nonischemic. Troponins negative. CT head showed no acute findings. Fall precautions. Telemetry. Neurology consult Orthostatic vitals Patient reports he is improving symptomatically. Supportive care. UTI: Continue levofloxacin. Follow up cultures. Facial rash: Likely rosacea versus contact dermatitis. Id consulted. Patient is on allopurinol at home; will hold for now. Unclear if it is related to the meclizine; Patient follows with synthetic department supervisor; recommended close follow-up. DM: ISS; f/u FSGs. Hold metformin Hypothyroidism: Continue levothyroxine Hypertension: Hold lisinopril for now DVT prophylaxis: SCD boots Code status: Full code Off note: Things to follow up with the Day hospitalist once resumed care on 08/29/21 at 7:00 a.m. Id consult recommendations Clinical monitoring of the rash Neurology recommendations PT/OT Quality Stroke Does the patient have a stroke diagnosis?: No VTE Prior VTE?: No VTE Risk Level:: Medical - low VTE Device Contraindication: N/A - Device Ordered VTE Drug Contraindication: Treatment Not Indicated
[2021-08-29] MEDS: levoFLOXacin/D5W 500 MG/100 ML PIGGYBACK 100 MG IV ×2 (00:30→22:09)
--- NOTE | 2021-08-29 00:31 | PC.NURSE ---
med rec done
[2021-08-29] MEDS: 0.9 % Sodium Chloride 1,000 ML 75 ML IVCONT ×2 (01:18→13:20)
--- NOTE | 2021-08-29 01:30 | PC.NURSE ---
pt resting in NAD. No chg in pt's condition. will continue to monitor pt.
--- NOTE | 2021-08-29 03:03 | PC.NURSE ---
pt sleeping, wakes to voice. Respirations easy, n/l. skin w/d. pt on monitor with hr 76. Pt in Nad. PT awaiting for room assignment. will continue to monitor pt.
[2021-08-29] MEDS: 0.9 % Sodium Chloride Flush 3 ML SYRINGE IVFLUSH (06:31)
[2021-08-29] MEDS: Levothyroxine Sodium 50 MCG TABLET PO (06:31)
[2021-08-29 07:32] LABS: MANUAL DIFF FLAG NO
[2021-08-29 07:33] LABS: Basophils Percent Auto 0.3 % (0-2); Eosinophils Absolute Auto 0.2 X10*3/uL (0.0-0.4); Eosinophils Percent Auto 2.2 % (0-4); Hematocrit 37.6 % (37-47); Hemoglobin 12.2 g/dl (12.0-16.0); Imm Gran Abs Auto 0.03 X10*3/uL (0.00-0.03); Imm Gran Pct Auto 0.3 % (0.0-0.4); Lymphocytes Absolute Auto 1.9 X10*3/uL (1.2-4.9); Lymphocytes Percent Auto 21.5 % (20-40); Mean Corpuscular HGB Conc 32.4 g/dl (31.0-35.0); Mean Corpuscular Volume 95.7 fL (80-98); Mean Platelet Volume 9.1 fL (9.4-12.3); Monocytes Absolute Auto 0.7 X10*3/uL (0.1-1.2); Monocytes Percent Auto 7.8 % (2-11); Neutrophils Absolute Auto 5.9 X10*3/uL (2.0-8.3); Neutrophils Percent Auto 67.9 % (45-73); Platelet Count 337 X10*3/uL (160-400); Red Blood Count 3.93 X10*6/uL (4.20-5.50); Red Cell Distribution Width 13.1 % (11.0-16.0); White Blood Count 8.7 X10*3/uL (4.8-10.8)
[2021-08-29 07:53] LABS: Anion Gap 12 (12-20); Blood Urea Nitrogen 19 mg/dL (9-16); Calcium 8.9 mg/dL (8.4-10.2); Carbon Dioxide 26 mmol/L (22-29); Chloride 108 mmol/L (96-108); Creatinine Clr Calc Pharmacy 89.4; Estimated Glomerular Filt Rate > 60; Glucose Random 102 mg/dL (60-115); Potassium 4.4 mmol/L (3.3-5.1); Sodium 142 mmol/L (135-145)
--- NOTE | 2021-08-29 08:39 | PHA.MEDREC ---
Pharmacy Consult ? Medication Reconciliation Pharmacy has completed the medication reconciliation. Patient states that she took her medications last on 08/27 due to the vomiting yesterday. The patient was prescribed Meclizine 25 mg TID PRN by her PCP on Thursday for her nausea and was only able to take one dose before projectile vomiting. The patient is also on Fluconazole 150 mg weekly until she gets a date for her surgery.
[2021-08-29] MEDS: Cholecalciferol (Vitamin D3) 25 MCG TABLET PO (09:43)
[2021-08-29] MEDS: Aspirin Enteric Coated 81 MG TABLET.DR PO (09:43)
--- NOTE | 2021-08-29 09:47 | PC.NURSE ---
pt alert and orientated, vss. pt c/o dizziness and headache with movements, she denies symptoms when laying still. pt denies sob/chest pain. no n/v/d. meds given as documented. pt given breakfast but did not eat it. no other complaints. pt awaiting bed assignment.
--- NOTE | 2021-08-29 13:26 | PM.NEUROCN ---
History of Present Illness Data of Consult Service Date: 08/29/21 Primary Care Provider: Milton Webb MD [facility] Reason for consult: Dizziness 70 years old woman with underlying history of obesity and hypertension who was in hospital with complaints of dizziness. She said that this started couple of days after she took a dose of Moderna vaccine. She was complaining of chills dizziness nausea but denied that she had fever. She also said that facial rashes appeared recently but she was known to have rosacea. There was no double vision. Review of Systems Review of Systems: As in HPI [facility] Past Medical History Medical History Arthritis Asthma Diabetes mellitus Eczema History of COVID-19 HTN (hypertension) Hypothyroid Rosacea Surgical History Surgical History History of lithotripsy History of right oophorectomy Hx of cholecystectomy Hx of dilation and curettage Hx of hysterectomy Social History Social History (Updated 08/28/21 @ 22:24 by Kenzie Wagner DO) Household Members: Family Household Members Other:: Brother Housing: House Are you a primary care professionals to a significant other at home: No Do you presently have visiting nurse or other home services: No Alcohol intake: never Patient Tobacco Use Status: Never used Tobacco Advance Directives: No Advance Directives Information Provided: No service: No Current occupational status: retired Meds Allergies Allergy/AdvReac Type Severity Reaction Status Date / Time cephalexin [Keflex] Allergy Severe CRAMPS, N&V Verified 08/16/21 09:24 erythromycin base AdvReac Severe NAUSEA & Verified 08/16/21 09:24 [Erythromycin Base] VOMITING Erythromycin Allergy Severe CRAMPS Uncoded 12/31/20 09:14 Active Medications: Current Medications Acetaminophen (Acetaminophen 325 Mg Tablet) 650 mg PO Q6H PRN PRN Reason: Pain, Mild (Pain Scale 1-3) Aspirin (Aspirin Enteric Coated 81 Mg Tablet.) 81 mg PO DAILY [facility] Last Admin: 08/29/21 09:43 Dose: 81 mg Documented by: Levofloxacin (Levaquin) 500 mg in 100 mls @ 100 mls/hr IV Q24H [facility] Sodium Chloride (Ns) 1,000 mls @ 75 mls/hr IVCONT .[id number] [facility] Last Admin: 08/29/21 13:20 Dose: 75 mls/hr Documented by: Levothyroxine Sodium (Levothyroxine Sodium 50 Mcg Tablet) 50 mcg PO 0600 [facility] Last Admin: 08/29/21 06:31 Dose: 50 mcg Documented by: Melatonin (Melatonin 3 Mg Tablet) 6 mg PO BEDTIME PRN PRN Reason: Insomnia Pharmacy Consult (Consult Rx Perform Med Rec) 1 each MISCELLANE ONCE PRN PRN Reason: Consult order Senna (Sennosides 8.6 Mg Tablet) 17.2 mg PO BEDTIME PRN PRN Reason: Constipation Sodium Chloride (0.9 % Sodium Chloride Flush 3 Ml Syringe) 3 ml IVFLUSH QSHIFT [facility] Last Admin: 08/29/21 06:31 Dose: 3 ml Documented by: Vitamin D (Cholecalciferol (Vitamin D3) 25 Mcg Tablet) 25 mcg PO DAILY [facility] Last Admin: 08/29/21 09:43 Dose: 25 mcg Documented by: Home Medications Medication Instructions Recorded Confirmed Last Taken Type aspirin 81 mg tablet,delayed 81 mg PO DAILY 11/18/20 08/29/21 08/27/21 History release cholecalciferol (vitamin D3) 125 1,000 unit PO DAILY 11/18/20 08/29/21 08/27/21 History mcg (5,000 unit) tablet (Vitamin D3) levothyroxine 50 mcg tablet 50 mcg PO DAILY 11/18/20 08/29/21 08/27/21 History lisinopril 20 mg tablet 20 mg PO DAILY 11/18/20 08/29/21 08/27/21 History metformin 500 mg tablet,extended 500 mg PO QPM 12/25/20 08/29/21 08/27/21 History release 24 hr ascorbic acid (vitamin C) 500 mg 500 mg PO DAILY 08/29/21 08/29/21 08/27/21 History tablet (Vitamin C) fluconazole 150 mg tablet 150 mg PO QWEEK 08/29/21 08/29/21 08/26/21 History fluticasone 100 mcg-salmeterol 50 1 inh INHALATION BID 08/29/21 08/29/21 08/27/21 History mcg/dose blistr powdr for inhalation (Advair Diskus) meclizine 25 mg tablet 25 mg PO TID PRN 10/08/29/21 08/28/21 History Physical Exam Vital Signs: Vital Signs: Last Vital Signs Temp 97.8 F 08/28/21 22:13 Pulse 75 08/29/21 09:46 Resp 13 08/29/21 09:46 BP 137/80 08/29/21 09:46 Pulse Ox 100 08/29/21 09:46 Body Mass Index 45.8 Neuro: Other: She was alert and awake with normal spontaneity of speech fluency comprehension and affect. Pupils were equal and reactive to light and extraocular muscles were intact. Visual blanchard are full to confrontation. Face was symmetrical. Hyperemic facial rash was noted bilaterally. Deep tendon reflexes were absent with flexor plantars. Speech was normal. Results Labs CBC & Chem 7: 08/29/21 07:18 08/29/21 07:18 Labs: Short CBC 08/28/21 08/29/21 Range/Units 23:03 07:18 WBC 11.5 H 8.7 (4.8-10.8) X10*3/uL Hgb 12.7 12.2 (12.0-16.0) g/dl Hct 38.6 37.6 (37-47) % Plt Count 375 337 (160-400) X10*3/uL BMP 08/28/21 08/29/21 23:28 07:18 Sodium 140 142 Potassium 3.7 D 4.4 Chloride 107 108 Carbon Dioxide 22 26 BUN 20 H 19 H Creatinine 0.78 0.80 Calcium 9.1 D 8.9 Liver Function 08/28/21 Range/Units 23:28 Total Bilirubin 0.6 (0.0-1.0) mg/dL Direct Bilirubin 0.2 (0.0-0.5) mg/dL AST 17 D (5-31) U/L ALT 16 (0-31) U/L Alkaline Phosphatase 79 D (39-117) U/L Albumin 3.9 (3.5-5.0) g/dL Urine 08/28/21 Range/Units 23:42 Urine Color STRAW Urine Appearance HAZY Urine pH 7.0 (5.0-8.0) Ur Specific [place] <= 1.005 (1.005-1.025) Urine Protein NEG (NEG-TRACE) MG/DL Urine Glucose (UA) NEG (NEG) MG/DL Her head CT did not reveal any significant abnormality per Assessment and Plan (1) Dizziness: Status: Acute Probably an underlying infection or inflammation causing symptoms of dizziness nausea and chills. If no cause is found and she continues to have similar symptoms an MRI of brain without contrast might be helpful. Procedures Date of Service Date of Service: 08/29/21
--- NOTE | 2021-08-29 14:32 | PC.NURSE ---
report given to med/animal surgeon
--- NOTE | 2021-08-29 14:57 | P.EN_ITS ---
Event Note Date of Service: 08/29/21 Event Note: Patient seen examined in emergency room, complaining of persistent dizziness with change in position, patient admitted to [facility] due to symptoms of nausea vomiting chills that started since yesterday, patient received Moderna booster the day before on Thursday, due to above symptoms patient's primary care physician called in meclizine she took 1 dose of start but developed projectile vomiting associated with significant vertigo chills vomiting therefore came to the emergency room, she denies any associated fevers denies any cough or sputum production denies any urinary symptoms of urgency and frequency denies any sick contacts at home she is retired mostly at home. On examination Awake alert no distress Lower face with petechial rash involving both cheeks and chin, sparing the forehead. Lungs clear to auscultation Abdomen soft nontender Extremities no edema 70-year-old female with a past medical history of hypertension, diabetes, hypothyroidism, eczema, history of COVID-19 infection, rosacea presented to the hospital with a chief complaint of dizziness. Dizziness/fever chills likely related to side effect of COVID vaccine Workup including CT head, EKG troponin unremarkable Will obtain orthostatic studies, continue IV fluids follow clinical course UTI:? Patient asymptomatic, urinalysis positive for 15-29 WBC, 1+ bacteria, 3+ leukocyte Estrace, Continue levofloxacin.? Follow urine cultures. Facial rash:? Petechial rash, not related to underlying rosacea or dermatitis, question related to nausea /vomiting follow clinical course and ID input DM: ISS; f/u FSGs.? Hold metformin Hypothyroidism:? Continue levothyroxine Hypertension:? Soft BP, Hold lisinopril for now DVT prophylaxis:? SCD boots Code status:? Full code
[2021-08-30 03:58] VITALS: BP 136/62; PULSE 74; RESP 18; TEMP 36.2; O2SAT 97
[2021-08-30] MEDS: 0.9 % Sodium Chloride 1,000 ML 75 ML IVCONT (04:02)
[2021-08-30] MEDS: Levothyroxine Sodium 50 MCG TABLET PO (05:51)
[2021-08-30 07:39] VITALS: BP 144/68; PULSE 77; RESP 18; TEMP 36.7; O2SAT 99
[2021-08-30] MEDS: Fluticasone/Vilanterol 100/25 BLST.W.DEV 1 PUFF INHALE (07:44)
[2021-08-30 07:46] VITALS: O2SAT 98
[2021-08-30] MEDS: Cholecalciferol (Vitamin D3) 25 MCG TABLET PO (08:15)
[2021-08-30] MEDS: Ascorbic Acid 500 MG TABLET PO (08:15)
[2021-08-30] MEDS: Aspirin Enteric Coated 81 MG TABLET.DR PO (08:15)
[2021-08-30] MEDS: allopurinoL 100 MG TABLET PO (08:15)
--- NOTE | 2021-08-30 10:01 | P.CDIC_ITS ---
CDI Concurrent Query Documentation Clarification: PHYSICIAN'S DOCUMENTATION REQUEST Date of Query: 08/30/21 1001 Patient Name: Flores Agrawal Admit Date: 08/29/21 Dear Doctor, A review of the medical record indicates additional documentation may be needed. Please review below and update the documentation accordingly. Risk Factors/Clinical Indicators/Treatments BMI 45.8 On therapeutic diet. If possible, please provide an associated diagnosis related to the abnormal BMI, such as: For a BMI >= 40: * Overweight * Obesity * Due to excess calories * Drug induced * Due to other cause * Severe or Morbid Obesity Or: * BMI is not significant * Other (please specify) * Unable to determine Use of terms such as suspected, likely, concern for, or probable (associated with a specific diagnosis that is being evaluated, monitored, or treated as if it exists) are acceptable and can be coded in the inpatient setting, when documented at the time of discharge. Thank you, Shweta Esquivel [facility], CDIS Extension: [phone] Please use your independent medical judgment in providing your response. THIS QUERY IS PART OF THE PERMANENT MEDICAL RECORD Provider Response: Other Other Diagnosis: morbid obesity
--- NOTE | 2021-08-30 10:01 | MHC.CDI.CONC ---
CDI Concurrent Query Documentation Clarification: PHYSICIAN'S DOCUMENTATION REQUEST Date of Query: 08/30/21 1001 Patient Name: Flores Agrawal Admit Date: 08/29/21 Dear Doctor, A review of the medical record indicates additional documentation may be needed. Please review below and update the documentation accordingly. Risk Factors/Clinical Indicators/Treatments BMI 45.8 On therapeutic diet. If possible, please provide an associated diagnosis related to the abnormal BMI, such as: For a BMI >= 40: Overweight Obesity Due to excess calories Drug induced Due to other cause Severe or Morbid Obesity Or: BMI is not significant Other (please specify) Unable to determine Use of terms such as suspected, likely, concern for, or probable (associated with a specific diagnosis that is being evaluated, monitored, or treated as if it exists) are acceptable and can be coded in the inpatient setting, when documented at the time of discharge. Thank you, Shweta Esquivel [facility], CDIS Extension: [phone] Please use your independent medical judgment in providing your response. THIS QUERY IS PART OF THE PERMANENT MEDICAL RECORD Provider Response: Other Other Diagnosis: morbid obesity
--- NOTE | 2021-08-30 10:03 | MHC.CM.PN ---
EMR REVIEWED, PT ADMITTED W/DIZZINESS AND ACUTE UTI, CM MET W/PT WHO IS A&OX4, PT REPORTS SHE LIVES W/ HER BROTHER, IS INDEPENDENT W/ALL CARE, NO DME AND NO HOME SERVICES, PT REPORTS SHE HAS AN APPT THURSDAY MORNING W/PLASTIC SURGEON D/T VULVAR CA AND NEEDING RECONSTRUCTION, PT ALSO REPORT HER GYNO ONCOLOGIST GEOVANNA SILVA IS SCHEDULING HER FOR A PET SCAN, PT REPORTS BEING VERY HAPPY W/CARE SHE IS RECEIVING FROM DR SILVA. PT VERIFIES PCP IS RANDELL TRISTAN AND HCP IS ON FILE IN EXPANSE FROM PREVIOUS VISIT. PT DECLINES NEED FOR HOME SERVICES AT THIS TIME AND WOULD LIKE TO D/C BEFORE HER APPT ON THURSDAY. D/C PLAN: HOME NO SERVICES, FAMILY FOR TRANSPORT
[2021-08-30 11:50] VITALS: BP 149/65; PULSE 71; RESP 14; TEMP 36.4; O2SAT 100
--- NOTE | 2021-08-30 14:02 | P.CNID_ITS ---
History of Present Illness Data of Consult Service Date: 08/30/21 Requesting physician: Jesus Floyd Primary Care Provider: Milton Webb MD HPI Reason for consult: facial erythema,possible UTI She presents to ER with vomiting and dizziness for a day. She had third Moderna shot and day after felt ill She has no fever or chills or dysuria. Review of Systems Review of Systems: Yes all other systems are reviewed and are negative PMFSH Past Medical History Medical History Arthritis Asthma Diabetes mellitus Eczema History of COVID-19 HTN (hypertension) Hypothyroid Rosacea Family History Family history: reviewed and not pertinent Surgical History Surgical History History of lithotripsy History of right oophorectomy Hx of cholecystectomy Hx of dilation and curettage Hx of hysterectomy Social History Social History Household Members: Family Household Members Other:: Brother Housing: House Are you a primary care management coordinator to a significant other at home: No Do you presently have visiting nurse or other home services: No Alcohol intake: never Patient Tobacco Use Status: Never used Tobacco Use of substances other than those prescribed or required for medical reasons: No Currently Displaying Signs/Symptoms of Drug Intoxication Withdrawal: No Have you been hit, kicked, punched, or otherwise hurt by someone within the past year? If so, by whom?: No Do you feel safe in your current relationship?: No Is there a partner from a previous relationship who is making you feel unsafe now?: No Advance Directives: No Advance Directives Information Provided: No Do you have thoughts of harming others: None Do you have a plan to hurt others: No Plan Recently lost weight without trying: No Nutrition Risks: No Nutritional Risk Patient : No : No Poor oral hygiene: No service: No Current occupational status: retired Meds Allergies Allergy/AdvReac Type Severity Reaction Status Date / Time cephalexin [Keflex] Allergy Severe CRAMPS, N&V Verified 08/16/21 09:24 erythromycin base AdvReac Severe NAUSEA & Verified 08/16/21 09:24 [Erythromycin Base] VOMITING Erythromycin Allergy Severe CRAMPS Uncoded 12/31/20 09:14 Active Medications: Current Medications Acetaminophen (Acetaminophen 325 Mg Tablet) 650 mg PO Q6H PRN PRN Reason: Pain, Mild (Pain Scale 1-3) Allopurinol (Allopurinol 100 Mg Tablet) 100 mg PO DAILY REPLACED BY [facility] Last Admin: 08/30/21 08:15 Dose: 100 mg Documented by: Ascorbic Acid (Ascorbic Acid 500 Mg Tablet) 500 mg PO DAILY REPLACED BY [facility] Last Admin: 08/30/21 08:15 Dose: 500 mg Documented by: Aspirin (Aspirin Enteric Coated 81 Mg Tablet.) 81 mg PO DAILY REPLACED BY [facility] Last Admin: 08/30/21 08:15 Dose: 81 mg Documented by: Fluticasone/Vilanterol (Fluticasone/Vilanterol 100/25 Blst.W.Dev) 1 puff INHALE RDAILY REPLACED BY [facility] Last Admin: 08/30/21 07:44 Dose: 1 puff Documented by: Levofloxacin (Levaquin) 500 mg in 100 mls @ 100 mls/hr IV Q24H REPLACED BY [facility] Last Infusion: 08/29/21 23:09 Dose: Infused Documented by: Sodium Chloride (Ns) 1,000 mls @ 75 mls/hr IVCONT .[id number] REPLACED BY [facility] Last Admin: 08/30/21 04:02 Dose: 75 mls/hr Documented by: Levothyroxine Sodium (Levothyroxine Sodium 50 Mcg Tablet) 50 mcg PO 0600 REPLACED BY [facility] Last Admin: 08/30/21 05:51 Dose: 50 mcg Documented by: Melatonin (Melatonin 3 Mg Tablet) 6 mg PO BEDTIME PRN PRN Reason: Insomnia Pharmacy Consult (Consult Rx Perform Med Rec) 1 each MISCELLANE ONCE PRN PRN Reason: Consult order Senna (Sennosides 8.6 Mg Tablet) 17.2 mg PO BEDTIME PRN PRN Reason: Constipation Sodium Chloride (0.9 % Sodium Chloride Flush 3 Ml Syringe) 3 ml IVFLUSH QSHIFT REPLACED BY [facility] Last Admin: 08/30/21 08:15 Dose: Not Given Documented by: Vitamin D (Cholecalciferol (Vitamin D3) 25 Mcg Tablet) 25 mcg PO DAILY REPLACED BY [facility] Last Admin: 08/30/21 08:15 Dose: 25 mcg Documented by: Home Medications Medication Instructions Recorded Confirmed Last Taken Type aspirin 81 mg tablet,delayed 81 mg PO DAILY 11/18/20 08/29/21 08/27/21 History release cholecalciferol (vitamin D3) 125 1,000 unit PO DAILY 11/18/20 08/29/21 08/27/21 History mcg (5,000 unit) tablet (Vitamin D3) levothyroxine 50 mcg tablet 50 mcg PO DAILY 11/18/20 08/29/21 08/27/21 History lisinopril 20 mg tablet 20 mg PO DAILY 11/18/20 08/29/21 08/27/21 History metformin 500 mg tablet,extended 500 mg PO QPM 12/25/20 08/29/21 08/27/21 History release 24 hr ascorbic acid (vitamin C) 500 mg 500 mg PO DAILY 08/29/21 08/29/21 08/27/21 History tablet (Vitamin C) fluconazole 150 mg tablet 150 mg PO QWEEK 08/29/21 08/29/21 08/26/21 History fluticasone 100 mcg-salmeterol 50 1 inh INHALATION BID 08/29/21 08/29/21 08/27/21 History mcg/dose blistr powdr for inhalation (Advair Diskus) meclizine 25 mg tablet 25 mg PO TID PRN 08/29/21 08/29/21 08/28/21 History Physical Exam Vital Signs: Vital Signs: Last Vital Signs Temp 97.6 F 08/30/21 11:50 Pulse 71 08/30/21 11:50 Resp 14 08/30/21 11:50 BP 149/65 H 08/30/21 11:50 Pulse Ox 100 08/30/21 11:50 Body Mass Index 45.8 Const: General: cooperative HENMT: Head: Yes normal to inspection Face and sinus: Yes other (redness face and under chin,ecchymoses) Mouth: Normal oral and palatal mucosa present Eyes: General: appearance normal, both eyes and all related structures Resp: Effort & Inspection: normal respiratory effort Cardio: Rate: regular rate Rhythm: regular rhythm GI: Palpation (GI): Soft to palpation and nontender Extrem: General: Yes normal to inspection Results Labs CBC & Chem 7: 08/29/21 07:18 08/29/21 07:18 Microbiology Microbiology Results: Microbiology 08/28/21 Unknown Urine clean catch - Urine berger top Urine Culture - Final 08/28/21 23:02 Blood - Venous Blood Culture - Preliminary No growth after 24 hours. 10/27/21 23:02 Blood - Venous Blood Culture - Preliminary No growth after 24 hours. Assessment and Plan (1) Dizziness: Status: Acute (2) Vomiting: Qualifiers: Nausea presence: with nausea Vomiting Intractability: non-intractable Vomiting type: unspecified Qualified Code(s): R11.2 - Nausea with vomiting, unspecified Status: Acute She has no symptoms or signs of UTI She has bruising post vomiting as side effect of Moderna Stop antibiotics No UTI and no facial infection. (3) Dermatitis of face: Status: Acute
--- NOTE | 2021-08-30 15:34 | PM.DS ---
DS: Providers Provider Date of Service: 08/30/21 Date of admission: 08/29/21 00:23 Primary care physician: Milton Webb MD Consults: 08/29/21 00:21 Consult to Infectious Diseases Routine Consulting Provider: Jennifer Cat Reason for consultation: uti; facial rash DS: Diagnosis Discharge Diagnosis (1) Dizziness: Status: Acute (2) Vomiting: Status: Acute (3) Dermatitis of face: Status: Acute DS: Summary Hospital Course Hospital Course: Chief Complaint: Dizziness 70-year-old female with a past medical history of hypertension, diabetes, hypothyroidism, eczema, history of COVID-19 infection, rosacea presented to the hospital with a chief complaint of dizziness. Patient reported that she had her booster dose for melena vaccination yesterday and since then she has been having chills and body aches associated nausea and vomiting.? And today she felt dizzy like room spinning whenever she turns her head; denies any falls or trauma.? Denies any loss of consciousness.? Mentioned that she was unsteady on gait. Denies any chest pain palpitations lightheadedness or dizziness. Patient said she had multiple episodes of vomiting; felt increased dizziness and vomiting episodes after she took the meclizine.? Followed by rash on her face which is not similar to the prior rosacea she had in the past.? Reports non itchy. Patient reports that her bilateral legs are chronically erythematous in the distal part; unchanged from prior.? She has prior history of cellulitis she reports.? Not on any antibiotics recently. Denies any numbness tingling or focal weakness. Hospital course 70-year-old female with a past medical history of hypertension, diabetes, hypothyroidism, eczema, history of COVID-19 infection, rosacea presented to the hospital with a chief complaint of dizziness, nausea vomiting and lower facial rash, symptoms started after receiving moderna vaccine, initially started with dizziness followed by nausea vomiting and then rash, workup in the emergency room essentially unremarkable with normal CT head, normal EKG and troponins, urinalysis was positive , patient denied any symptoms of dysuria or urgency, however patient empirically treated with IV Levaquin subsequently urine culture came back negative, therefore antibiotic discontinued patient treated with IV fluids and analgesics she was also seen by Physical therapy and underwent canalith repositioning maneuver post positioning right posterior canalith test was negative , at present Patient is hemodynamically stable tolerating diet with no further nausea vomiting, facial rash has improved significantly therefore being discharged home and recommended to continue all home medication meclizine has been discontinued, rash mostly red is petechial due to excessive force with nausea vomiting and not related to COVID but other symptoms of dizziness chills most likely related to vaccine. Morbid obesity weight reduction recommended. Time Spent with Patient Time attestation: Total time spent providing and/or coordinating discharge services: Discharge coordination time: Greater than 30 minutes Quality: Stroke Does the patient have a stroke diagnosis?: No Physical Exam Vital Signs: Vital Signs: Last Vital Signs Temp 97.6 F 08/30/21 11:50 Pulse 71 08/30/21 11:50 Resp 14 08/30/21 11:50 BP 149/65 H 08/30/21 11:50 Pulse Ox 100 08/30/21 11:50 Body Mass Index 45.8 General awake alert x3 HEENT pupil equal reactive to light and accommodation Lower face with petechial rash involving both cheeks and chin, sparing the forehead. Lungs clear to auscultation, no wheeze, no crackles no respiratory distress Abdomen soft nontender, bowel sounds audible Extremities no edema Neuro nonfocal Psych appropriate affect DS: Data Data Completed and Pending Completed studies during hospitalization [Text1]: Procedures Dilation of Right Ureter with Intraluminal Device, Via Natural or Artificial Opening Endoscopic (12/01/20) Extirpation of Matter from Right Kidney, Via Natural or Artificial Opening Endoscopic (12/01/20) Fluoroscopy of Right Kidney, Ureter and Bladder (12/01/20) Labs on day of discharge: Preliminary micro results at discharge 08/28/21 23:02 Blood Culture - Preliminary Blood - Venous No growth after 24 hours. 08/28/21 23:02 Blood Culture - Preliminary Blood - Venous No growth after 24 hours. Discharge Plan Discharge Patient Disposition: Home, Self-Care Discharge Diagnosis: Benign positional vertigo Facial rash Referrals: Milton Webb MD [Primary Care Provider] - 1 Week Discharge Medications: Continued pyridoxine (vitamin B6) [Vitamin B-6] 100 mg tablet 100 mg PO DAILY 90 Days Qty: 90 RF: 1 allopurinol 100 mg tablet 100 mg PO DAILY 90 Days Qty: 90 RF: 1 lisinopril 20 mg Tablet 20 mg PO DAILY RF: 0 levothyroxine 50 mcg Tablet 50 mcg PO DAILY RF: 0 cholecalciferol (vitamin D3) [Vitamin D3] 125 mcg (5,000 unit) Tablet 1,000 unit PO DAILY RF: 0 aspirin 81 mg Tablet,Delayed Release (Dr/Ec) 81 mg PO DAILY RF: 0 metformin 500 mg Tablet Extended Release 24 Hr 500 mg PO QPM RF: 0 fluconazole 150 mg Tablet 150 mg PO QWEEK RF: 0 ascorbic acid (vitamin C) [Vitamin C] 500 mg Tablet 500 mg PO DAILY RF: 0 fluticasone propion-salmeterol [Advair Diskus] 100-50 mcg/dose Blister With Device 1 inh INHALATION BID RF: 0 Discontinued meclizine 25 mg Tablet 25 mg PO TID PRN (Reason: Nausea) RF: 0 Discharge Orders: Discharge Order (Routine); Ordered 08/30/21 Ordered By: Jesus Floyd Diet: advance to usual diet Activity on Discharge: As tolerated Stand Alone Forms: Patient Portal Discharge page Care Plan Goals: Get up slowly from lying position, sit at the edge of the bed before standing and ambulation, return to check with worsening symptoms of dizziness, drink plenty of fluids. Health Concerns: Take all medications as before Plan of Treatment: Follow-up as outpatient for skilled PT to address BPPV call [facility] physical therapy next week for appointment. Outpatient follow-up with primary care physician 1-2 weeks Assessment: as above
[2021-08-30 15:52] VITALS: BP 138/65; PULSE 67; RESP 18; TEMP 36.3; O2SAT 99
== END 2021-08-30 16:58 | disposition home or self-care (01) | DRG 149 ==
LOC: HO.ED 08-29 00:13 → HO.EDOVER 08-29 00:29 → HO.S3 08-29 13:20
PROVIDERS: Admitting Provider Hospitalist; Emergency Provider Emergency Medicine; PCP Internal Medicine; Visit Provider Hospitalist
DX: H81.10 Benign paroxysmal vertigo, unspecified ear (principal); Z68.42 Body mass index [BMI] 45.0-49.9, adult; E11.9 Type 2 diabetes mellitus without complications; L71.9 Rosacea, unspecified; E03.9 Hypothyroidism, unspecified; I10 Essential (primary) hypertension; E66.01 Morbid (severe) obesity due to excess calories; Z20.822 Contact with and (suspected) exposure to COVID-19; R23.3 Spontaneous ecchymoses; Z86.16 Personal history of COVID-19; Z79.51 Long term (current) use of inhaled steroids; Z79.82 Long term (current) use of aspirin; Z79.84 Long term (current) use of oral hypoglycemic drugs; Z79.890 Hormone replacement therapy; Z79.899 Other long term (current) drug therapy
CPT/HCPCS: 36415; 70450; 71045; 80048; 80076; 81001; 83605; 83690; 83735; 84484; 85025; 87040; 87086; 87635; 93005; 96361; 96365; 96375; 97162; 99285; J1956; J2060; J2405

== ENCOUNTER 2021-09-04 09:46 | Outpatient (REF) | payer OTHER, SELFPAY ==
[2021-09-04 11:00] LABS: Cholesterol 185 mg/dL; HDL Cholesterol 40 mg/dL; LDL Cholesterol Calculated 103 mg/dl; Triglycerides 212 mg/dL
== END 2021-09-04 09:47 | disposition home or self-care (01) ==
LOC: HO.LAB 09:46
PROVIDERS: PCP Internal Medicine; Visit Provider Internal Medicine
DX: E78.00 Pure hypercholesterolemia, unspecified (principal)
CPT/HCPCS: 36415; 80061

== ENCOUNTER 2021-09-17 09:38 | Outpatient (REF) | payer OTHER, SELFPAY ==
[2021-09-17 13:09] LABS: Anion Gap 15 (12-20); Blood Urea Nitrogen 26 mg/dL (9-16); Calcium 9.7 mg/dL (8.4-10.2); Carbon Dioxide 21 mmol/L (22-29); Chloride 107 mmol/L (96-108); Estimated Glomerular Filt Rate > 60; Glucose Random 87 mg/dL (60-115); Potassium 4.4 mmol/L (3.3-5.1); Sodium 139 mmol/L (135-145)
== END 2021-09-17 09:39 | disposition home or self-care (01) ==
LOC: HO.LAB 09:38
PROVIDERS: PCP Internal Medicine; Visit Provider Internal Medicine
DX: I10 Essential (primary) hypertension (principal); R60.0 Localized edema
CPT/HCPCS: 36415; 80048

== ENCOUNTER 2021-09-19 10:00 | Outpatient (RCR) | payer OTHER, SELFPAY ==
[2021-09-04 07:57] VITALS: BP 157/72; PULSE 66
== END 2021-09-19 11:41 | disposition home or self-care (01) ==
LOC: HO.PT 10:00
PROVIDERS: PCP Internal Medicine; Visit Provider Internal Medicine
DX: R42 Dizziness and giddiness (principal)
CPT/HCPCS: 95992; 97112; 97162

== ENCOUNTER 2021-11-11 11:26 | Outpatient (REF) | payer OTHER, SELFPAY ==
[2021-11-11 14:16] LABS: Estimated Average Glucose 111 mg/dL; Hemoglobin A1c % 5.5 %
[2021-11-11 14:32] LABS: Alanine Aminotransferase 15 U/L (0-31); Albumin Level 4.3 g/dL (3.5-5.0); Alkaline Phosphatase 75 U/L (39-117); Anion Gap 15 (12-20); Aspartate Amino Transferase 18 U/L (5-31); Bilirubin Total 0.4 mg/dL (0.0-1.0); Blood Urea Nitrogen 32 mg/dL (9-16); Calcium 10.1 mg/dL (8.4-10.2); Carbon Dioxide 24 mmol/L (22-29); Chloride 106 mmol/L (96-108); Estimated Glomerular Filt Rate > 60; Glucose Random 79 mg/dL (60-115); Potassium 4.5 mmol/L (3.3-5.1); Sodium 140 mmol/L (135-145); Total Protein 7.3 g/dL (6.5-8.0)
[2021-11-11 14:57] LABS: Free T4 (Free Thyroxine) 1.01 ng/dL (0.71-1.85); Thyroid Stimulating Hormone 3.01 uIU/mL (0.32-4.0)
== END 2021-11-11 11:27 | disposition home or self-care (01) ==
LOC: HO.10HDL 11:26
PROVIDERS: Visit Provider Internal Medicine
DX: E11.9 Type 2 diabetes mellitus without complications (principal); E03.9 Hypothyroidism, unspecified; I10 Essential (primary) hypertension
CPT/HCPCS: 36415; 80053; 83036; 84439; 84443

== ENCOUNTER 2021-11-21 09:48 | Outpatient (REF) | payer OTHER, SELFPAY ==
--- NOTE | ~2021-11-21 | MM_ITS ---
EXAMINATION: MM SCREENING DIGITAL BREAST TOMOSYNTHESIS, BILATERAL CLINICAL INFORMATION: Screening. Asymptomatic. The lifetime risk of breast cancer based on the Tyrer-Cuzick Model is 4%. COMPARISON: Mammography: 11/06/2020, 05/07/2020, 11/07/2019, 10/27/2019, 09/08/2018 TECHNIQUE: Digital breast tomosynthesis is performed in both the craniocaudal and mediolateral oblique views along with computer-aided detection (CAD). Synthesized 2D images are generated from the tomosynthesis. FINDINGS: The breasts are almost entirely fatty (ACR BI-RADS breast composition Category a). There are no significant masses, abnormal calcifications, or other abnormalities. Background stromal markings are similar to prior study. No developing density. There are no significant changes. MM/MM tomosynthesis screening BI IMPRESSION: No mammographic evidence of malignancy. ASSESSMENT: BI-RADS 1: Negative RECOMMENDATION: Routine annual mammography screening. This patient's information was entered into a reminder system with a target due date for their next mammogram.
== END 2021-11-21 09:49 | disposition home or self-care (01) ==
LOC: HO.MAMMO 09:48
PROVIDERS: Visit Provider Internal Medicine
DX: Z12.31 Encounter for screening mammogram for malignant neoplasm of breast (principal)
CPT/HCPCS: 77063; 77067

== ENCOUNTER 2022-02-13 07:53 | Outpatient (REF) | payer OTHER, SELFPAY ==
--- NOTE | ~2022-02-13 | US_ITS ---
EXAMINATION: US RETROPERITONEAL LIMITED (RENAL ONLY) CLINICAL INFORMATION: Calculus of kidney. COMPARISON: Renal ultrasound 08/05/2021 and 02/07/2021. CT abdomen and pelvis 11/30/2020. TECHNIQUE: Real-time imaging of the kidneys. FINDINGS: RIGHT KIDNEY: 11.4 x 5.5 x 5.6 cm (SAG x AP x TRV). The kidney is normal in size and shows parenchyma of normal thickness and echogenicity. There is no hydronephrosis or caliectasis. Nonobstructing calculus with twinkling artifact on color Doppler is present interpolar region measuring only 0.2 cm. There are 2 incidental simple cysts not requiring additional follow-up, upper pole 1.3 x 0.9 x 1.1 cm and lower pole measuring 1.3 x 1.2 x 1.2 cm. Uniformly hyperechoic solid masses are present consistent with an angiomyolipoma, interpolar to lower pole measuring 1.1 x 0.8 cm, and upper pole 0.6 x 0.5 cm, both stable from prior ultrasound 08/05/2021. LEFT KIDNEY: 12.6 x 5.1 x 5.4 cm (SAG x AP x TRV). The kidney is normal in size and shows parenchymal or abnormal thickness and echogenicity. There is no hydronephrosis or caliectasis. Nonobstructing calculus x4 with twinkling artifact on color Doppler are present, largest central lower pole measuring only 0.8 x 0.5 cm. There are 3 tiny simple cysts not requiring additional follow-up imaging, largest only 0.8 cm interpolar region. Uniformly hyperechoic solid mass consistent with angiomyolipoma resides upper pole and measures 2.8 x 1.9 x 2.7 cm. Prior measurements on ultrasound 08/05/2021 are 2.4 x 2.3 x 2.4 cm. US/US renal BI IMPRESSION: Right: -No hydronephrosis or caliectasis. -Nonobstructing 2 mm calculus interpolar. -Small angiomyolipomas x2 are stable, larger interpolar/lower pole 1.1 cm. Left: -No hydronephrosis or caliectasis. -Nonobstructing calculi x4, largest lower pole 0.8 x 0.5 cm. -Angiomyolipoma upper pole 2.8 cm, prior measurement 2.4 cm. Suggest follow-up ultrasound in 1 year.
[2022-02-13 09:03] LABS: MANUAL DIFF FLAG NO
[2022-02-13 09:22] LABS: Basophils Absolute Auto 0.1 X10*3/uL (0.0-0.2); Basophils Percent Auto 0.7 % (0-2); Eosinophils Absolute Auto 0.2 X10*3/uL (0.0-0.4); Eosinophils Percent Auto 2.2 % (0-4); Hematocrit 37.6 % (37.0-47.0); Hemoglobin 11.8 g/dl (12.0-16.0); Imm Gran Abs Auto 0.06 X10*3/uL (0.00-0.03); Imm Gran Pct Auto 0.6 % (0.0-0.4); Lymphocytes Absolute Auto 1.8 X10*3/uL (1.2-4.9); Mean Corpuscular HGB Conc 31.4 g/dl (31.0-35.0); Mean Corpuscular Hemoglobin 30.3 pg (27.0-33.0); Mean Corpuscular Volume 96.7 fL (80.0-98.0); Monocytes Absolute Auto 0.5 X10*3/uL (0.1-1.2); Neutrophils Absolute Auto 7.5 x10*3/uL (2.0-8.3); Neutrophils Percent Auto 73.5 % (45-73); Platelet Count 401 X10*3/uL (160-400); Red Blood Count 3.89 X10*6/uL (4.20-5.50); Red Cell Distribution Width 12.8 % (11.0-16.0); White Blood Count 10.1 X10*3/uL (4.8-10.8)
[2022-02-13 09:33] LABS: Estimated Average Glucose 105 mg/dL; Hemoglobin A1C 112.5765 umol/L; Hemoglobin A1c % 5.3 %
[2022-02-13 09:57] LABS: Alanine Aminotransferase 11 U/L (0-31); Albumin Level 4.2 g/dL (3.5-5.0); Alkaline Phosphatase 76 U/L (39-117); Anion Gap 16 (12-20); Aspartate Amino Transferase 14 U/L (5-31); Bilirubin Total 0.5 mg/dL (0.0-1.0); Blood Urea Nitrogen 41 mg/dL (9-16); Calcium 9.8 mg/dL (8.4-10.2); Carbon Dioxide 22 mmol/L (22-29); Chloride 106 mmol/L (96-108); Estimated Glomerular Filt Rate 58; Glucose Random 102 mg/dL (60-115); Potassium 4.8 mmol/L (3.3-5.1); Sodium 139 mmol/L (135-145); Total Protein 7.1 g/dL (6.5-8.0)
[2022-02-13 10:11] LABS: Free T4 (Free Thyroxine) 1.01 ng/dL (0.71-1.85); Thyroid Stimulating Hormone 5.79 uIU/mL (0.32-4.0)
== END 2022-02-13 07:54 | disposition home or self-care (01) ==
LOC: HO.US 07:53
PROVIDERS: Absent Provider Internal Medicine; PCP Internal Medicine; Visit Provider Urology
DX: N20.0 Calculus of kidney (principal); E11.9 Type 2 diabetes mellitus without complications; I10 Essential (primary) hypertension; R60.0 Localized edema; E03.9 Hypothyroidism, unspecified
CPT/HCPCS: 36415; 76775; 80053; 83036; 84439; 84443; 85025

== ENCOUNTER → 2022-02-19 10:16 | Outpatient (BNVA) | payer OTHER, SELFPAY | PROVIDERS: PCP Internal Medicine; Referring Provider Internal Medicine; Visit Provider Physician Assistant | DX: Z13.89 Encounter for screening for other disorder (principal) ==

== ENCOUNTER → 2022-02-20 10:35 | Outpatient (BNVA) | payer OTHER, SELFPAY | PROVIDERS: PCP Internal Medicine; Visit Provider Urology | DX: Z13.89 Encounter for screening for other disorder (principal) ==

== ENCOUNTER 2022-05-27 13:37 | Outpatient (REF) | payer OTHER, SELFPAY ==
[2022-05-27 15:43] LABS: Estimated Average Glucose 108 mg/dL; Hemoglobin A1c % 5.4 %
[2022-05-27 16:08] LABS: Alanine Aminotransferase 13 U/L (0-31); Albumin Level 3.9 g/dL (3.5-5.0); Alkaline Phosphatase 65 U/L (39-117); Anion Gap 13 (12-20); Aspartate Amino Transferase 17 U/L (5-31); Bilirubin Total 0.4 mg/dL (0.0-1.0); Blood Urea Nitrogen 21 mg/dL (9-16); Calcium 9.2 mg/dL (8.4-10.2); Carbon Dioxide 19 mmol/L (22-29); Chloride 113 mmol/L (96-108); Estimated Glomerular Filt Rate 54; Glucose Random 99 mg/dL (60-115); Potassium 4.2 mmol/L (3.3-5.1); Sodium 141 mmol/L (135-145); Total Protein 7.1 g/dL (6.5-8.0)
== END 2022-05-27 13:38 | disposition home or self-care (01) ==
LOC: HO.LAB 13:37
PROVIDERS: PCP Internal Medicine; Visit Provider Internal Medicine
DX: I12.9 Hypertensive chronic kidney disease with stage 1 through stage 4 chronic kidney disease, or unspecified chronic kidney disease (principal); N18.9 Chronic kidney disease, unspecified; E11.22 Type 2 diabetes mellitus with diabetic chronic kidney disease
CPT/HCPCS: 36415; 80053; 83036

== ENCOUNTER 2022-05-30 14:23 | Outpatient (REF) | payer OTHER, SELFPAY ==
[2022-05-30 14:50] LABS: Appearance Urine CLEAR; Color Urine YELLOW; Glucose Urine UA NEG (NEG); Leukocyte Esterase Urine 1+ (NEG); Nitrite Urine NEG (NEG); PH 5.5 (5.0-8.0); Specific Gravity - Urine <= 1.005 (1.005-1.025); UACC Culture Trigger YES; Urine Blood 2+ (NEG); Urine Ketones NEG (NEG); Urine Protein NEG (NEG-TRACE)
[2022-05-30 15:16] LABS: Bacteria Urine 1+ /LPF; Squamous Epithelial Cell Urine 1+ /LPF; Urine Talc Crystals TRACE /LPF
== END 2022-05-30 14:24 | disposition home or self-care (01) ==
LOC: HO.LAB 14:23
PROVIDERS: PCP Internal Medicine; Visit Provider Internal Medicine
DX: R30.0 Dysuria (principal)
CPT/HCPCS: 81001; 81003; 87086; 87088; 87186

== ENCOUNTER 2022-09-29 08:26 | Outpatient (REF) | payer OTHER, SELFPAY ==
[2022-09-29 08:55] LABS: MANUAL DIFF FLAG NO
[2022-09-29 09:04] LABS: Basophils Percent Auto 0.6 % (0-2); Eosinophils Absolute Auto 0.3 X10*3/uL (0.0-0.4); Eosinophils Percent Auto 4.4 % (0-4); Hematocrit 37.4 % (37.0-47.0); Hemoglobin 11.9 g/dl (12.0-16.0); Imm Gran Abs Auto 0.03 X10*3/uL (0.00-0.03); Imm Gran Pct Auto 0.5 % (0.0-0.4); Lymphocytes Absolute Auto 1.7 X10*3/uL (1.2-4.9); Lymphocytes Percent Auto 27.1 % (20-40); Mean Corpuscular HGB Conc 31.8 g/dl (31.0-35.0); Mean Corpuscular Hemoglobin 30.2 pg (27.0-33.0); Mean Corpuscular Volume 94.9 fL (80.0-98.0); Mean Platelet Volume 9.2 fL (9.4-12.3); Monocytes Absolute Auto 0.3 X10*3/uL (0.1-1.2); Neutrophils Percent Auto 62.4 % (45-73); Platelet Count 317 X10*3/uL (160-400); Red Blood Count 3.94 X10*6/uL (4.20-5.50); Red Cell Distribution Width 12.3 % (11.0-16.0); White Blood Count 6.4 X10*3/uL (4.8-10.8)
[2022-09-29 09:07] LABS: Estimated Average Glucose 117 mg/dL; Hemoglobin A1c % 5.7 %
[2022-09-29 10:10] LABS: Alanine Aminotransferase 14 U/L (0-31); Albumin Level 4.2 g/dL (3.5-5.0); Alkaline Phosphatase 68 U/L (39-117); Anion Gap 12 (12-20); Aspartate Amino Transferase 15 U/L (5-31); Bilirubin Total 0.4 mg/dL (0.0-1.0); Blood Urea Nitrogen 20 mg/dL (9-16); Calcium 9.3 mg/dL (8.4-10.2); Carbon Dioxide 24 mmol/L (22-29); Chloride 107 mmol/L (96-108); Cholesterol 182 mg/dL; Estimated Glomerular Filt Rate > 60; Free T4 (Free Thyroxine) 1.02 ng/dL (0.71-1.85); Glucose Random 114 mg/dL (60-115); HDL Cholesterol 38 mg/dL; LDL Cholesterol Calculated 95 mg/dl; Potassium 4.2 mmol/L (3.3-5.1); Sodium 139 mmol/L (135-145); Thyroid Stimulating Hormone 3.72 uIU/mL (0.32-4.0); Total Protein 6.8 g/dL (6.5-8.0); Triglycerides 246 mg/dL
[2022-09-29 10:13] LABS: Appearance Urine Clear; Color Urine Yellow; Glucose Urine UA Negative (Negative); Leukocyte Esterase Urine Negative (Negative); Nitrite Urine Negative (Negative); PH 5.5 (5.0-9.0); Specific Gravity - Urine 1.015 (1.005-1.025); UMIC TRIGGER UA YES; Urine Blood Trace (Negative); Urine Ketones Negative (Negative); Urine Protein Negative (Neg-Trace)
[2022-09-29 10:19] LABS: Bacteria Urine None Seen (None Seen); Hyaline Casts Urine 0-2 /LPF (0-2); Squamous Epithelial Cell Urine 0-2 /HPF (0-2); WBC Urine 0-5 /HPF (0-5)
[2022-09-29 11:05] LABS: Creatinine Urine 62.16 mg/dL; Microalbum/Creatinine Ratio Ur 12.8 ug/mg cr
== END 2022-09-29 08:27 | disposition home or self-care (01) ==
LOC: HO.LAB 08:26
PROVIDERS: PCP Internal Medicine; Visit Provider Internal Medicine
DX: Z00.00 Encounter for general adult medical examination without abnormal findings (principal); E03.9 Hypothyroidism, unspecified
CPT/HCPCS: 36415; 80053; 80061; 81001; 81003; 82043; 83036; 84439; 84443; 85025

== ENCOUNTER 2022-11-27 09:58 | Outpatient (REF) | payer OTHER, SELFPAY ==
--- NOTE | ~2022-11-27 | MM_ITS ---
EXAMINATION: MM SCREENING DIGITAL BREAST TOMOSYNTHESIS, BILATERAL CLINICAL INFORMATION: Screening. Asymptomatic. The lifetime risk of breast cancer based on the Tyrer-Cuzick Model is 5%. COMPARISON: Mammography: 11/21/2021, 11/06/2020, 05/07/2020, 11/07/2019, 10/27/2019; ultrasound right breast 11/07/2019 TECHNIQUE: Digital breast tomosynthesis is performed in both the craniocaudal and mediolateral oblique views along with computer-aided detection (CAD). Synthesized 2D images are generated from the tomosynthesis. Additional left CC and left MLO views are provided. FINDINGS: The breasts are almost entirely fatty (ACR BI-RADS breast composition Category a). Background stromal and fibroglandular markings are similar to prior studies. There is no significant mass or architectural abnormality or developing density. No abnormal calcifications. The axilla are unremarkable. Skin contours are smooth. No significant changes. MM/MM tomosynthesis screening BI IMPRESSION: No mammographic evidence of malignancy. ASSESSMENT: BI-RADS 1: Negative RECOMMENDATION: Routine annual mammography screening. This patient's information was entered into a reminder system with a target due date for their next mammogram.
== END 2022-11-27 09:59 | disposition home or self-care (01) ==
LOC: HO.MAMMO 09:58
PROVIDERS: PCP Internal Medicine; Visit Provider Internal Medicine
DX: Z12.31 Encounter for screening mammogram for malignant neoplasm of breast (principal)
CPT/HCPCS: 77063; 77067

== ENCOUNTER 2023-01-15 08:49 | Outpatient (REF) | payer OTHER, SELFPAY ==
--- NOTE | ~2023-01-15 | US_ITS ---
EXAMINATION: US RETROPERITONEAL LIMITED (RENAL ONLY) CLINICAL INFORMATION: Calculus of kidney. COMPARISON: Renal ultrasound 02/13/2022 and 08/05/2021. CT abdomen and pelvis 11/30/2020. TECHNIQUE: Real-time imaging of the kidneys. Technically difficult study secondary to body habitus. FINDINGS: RIGHT KIDNEY: 12.0 x 5.9 x 5.4 cm (SAG x AP x TRV). The kidney is normal in size, contour, and echogenicity. Renal cortical thickness is normal. No renal calculi or hydronephrosis. Previously noted right renal calculi no longer present. A benign 1.1 cm Bosniak class I cyst is present which needs no additional imaging or followup. Previously 2 angiomyolipomas had been seen but only one is seen on the current study measuring 1.1 cm. No solid renal masses. LEFT KIDNEY: 11.8 x 5.6 x 5.3 cm (SAG x AP x TRV). The kidney is normal in size, contour, and echogenicity. Renal cortical thickness is normal. No hydronephrosis. Two benign Bosniak class I cysts present, the largest 1.2 cm. No additional imaging or followup is needed. There is a brightly echogenic mass in the upper pole medially measuring 1.8 x 2.5 x 1.8 cm consistent with an angiomyolipoma which has been proven at the time of the 11/30/2020 CT. Incidental note made of an echogenic liver consistent with hepatic steatosis. US/US renal BI IMPRESSION: 1. Benign bilateral renal angiomyolipomas. 2. Incidentally noted hepatic steatosis.
== END 2023-01-15 08:50 | disposition home or self-care (01) ==
LOC: HO.US 08:49
PROVIDERS: PCP Internal Medicine; Visit Provider Urology
DX: N20.0 Calculus of kidney (principal)
CPT/HCPCS: 76775

== ENCOUNTER → 2023-02-20 08:40 | Outpatient (BNVA) | payer OTHER, SELFPAY | PROVIDERS: PCP Internal Medicine; Visit Provider Nurse Practitioner Family | DX: Z13.89 Encounter for screening for other disorder (principal) ==

== ENCOUNTER 2023-05-01 09:23 | Outpatient (REF) | payer OTHER, SELFPAY ==
[2023-05-01 10:35] LABS: Estimated Average Glucose 128 mg/dL; Hemoglobin A1c % 6.1 %
[2023-05-01 10:50] LABS: Anion Gap 17 (12-20); Blood Urea Nitrogen 21 mg/dL (9-16); Calcium 9.8 mg/dL (8.4-10.2); Carbon Dioxide 21 mmol/L (22-29); Chloride 107 mmol/L (96-108); Estimated Glomerular Filt Rate 60; Glucose Random 146 mg/dL (60-115); Potassium 4.2 mmol/L (3.3-5.1); Sodium 141 mmol/L (135-145)
== END 2023-05-01 09:24 | disposition home or self-care (01) ==
LOC: HO.LAB 09:23
PROVIDERS: PCP Internal Medicine; Visit Provider Internal Medicine
DX: I10 Essential (primary) hypertension (principal); R60.0 Localized edema; E11.9 Type 2 diabetes mellitus without complications; L30.9 Dermatitis, unspecified
CPT/HCPCS: 36415; 80048; 83036

== ENCOUNTER 2023-12-07 07:20 | Outpatient (REF) | payer OTHER, SELFPAY ==
[2023-12-07 09:14] LABS: MANUAL DIFF FLAG NO
[2023-12-07 10:17] LABS: Basophils Absolute Auto 0.1 X10*3/uL (0.0-0.2); Basophils Percent Auto 0.9 % (0-2); Eosinophils Absolute Auto 0.2 X10*3/uL (0.0-0.4); Eosinophils Percent Auto 2.3 % (0-4); Hematocrit 39.8 % (37.0-47.0); Hemoglobin 12.4 g/dl (12.0-16.0); Imm Gran Abs Auto 0.03 X10*3/uL (0.00-0.03); Imm Gran Pct Auto 0.4 % (0.0-0.4); Lymphocytes Absolute Auto 1.9 X10*3/uL (1.2-4.9); Lymphocytes Percent Auto 23.3 % (20-40); Mean Corpuscular HGB Conc 31.2 g/dl (31.0-35.0); Mean Corpuscular Hemoglobin 29.8 pg (27.0-33.0); Mean Corpuscular Volume 95.7 fL (80.0-98.0); Mean Platelet Volume 9.3 fL (9.4-12.3); Monocytes Absolute Auto 0.4 X10*3/uL (0.1-1.2); Monocytes Percent Auto 4.7 % (2-11); Neutrophils Absolute Auto 5.6 x10*3/uL (2.0-8.3); Neutrophils Percent Auto 68.4 % (45-73); Platelet Count 355 X10*3/uL (160-400); Red Blood Count 4.16 X10*6/uL (4.20-5.50); Red Cell Distribution Width 14.4 % (11.0-16.0); White Blood Count 8.1 X10*3/uL (4.8-10.8)
[2023-12-07 10:22] LABS: Estimated Average Glucose 120 mg/dL; Hemoglobin A1c % 5.8 % (<6.0)
[2023-12-07 10:57] LABS: Alanine Aminotransferase 22 U/L (0-31); Albumin Level 4.2 g/dL (3.5-5.0); Alkaline Phosphatase 78 U/L (39-117); Anion Gap 15 (12-20); Aspartate Amino Transferase 20 U/L (5-31); Bilirubin Total 0.4 mg/dL (0.0-1.0); Blood Urea Nitrogen 18 mg/dL (9-16); Calcium 9.9 mg/dL (8.4-10.2); Carbon Dioxide 24 mmol/L (22-29); Chloride 107 mmol/L (96-108); Cholesterol 185 mg/dL (<200); Estimated Glomerular Filt Rate > 60; Glucose Fasting 105 mg/dL (60-99); HDL Cholesterol 49 mg/dL (>40); LDL Cholesterol Calculated 99 mg/dL (<100); Potassium 4.1 mmol/L (3.3-5.1); Sodium 142 mmol/L (135-145); Total Protein 7.3 g/dL (6.5-8.0); Triglycerides 187 mg/dL (<150)
[2023-12-07 11:01] LABS: Free T4 (Free Thyroxine) 1.11 ng/dL (0.71-1.85); Thyroid Stimulating Hormone 4.49 uIU/mL (0.32-4.0)
[2023-12-07 11:16] LABS: Creatinine Urine 76.84 mg/dL; Microalbum/Creatinine Ratio Ur 45.5 ug/mg cr (<30)
== END 2023-12-07 07:21 | disposition home or self-care (01) ==
LOC: HO.MAMMO 07:20
PROVIDERS: PCP Internal Medicine; Visit Provider Internal Medicine
DX: Z12.31 Encounter for screening mammogram for malignant neoplasm of breast (principal); R60.0 Localized edema; E03.9 Hypothyroidism, unspecified; I12.9 Hypertensive chronic kidney disease with stage 1 through stage 4 chronic kidney disease, or unspecified chronic kidney disease; E11.22 Type 2 diabetes mellitus with diabetic chronic kidney disease; N18.9 Chronic kidney disease, unspecified
CPT/HCPCS: 36415; 77063; 77067; 80053; 80061; 82043; 82570; 83036; 84439; 84443; 85025

== ENCOUNTER → 2023-12-07 07:30 | Outpatient (BNV) | payer OTHER, SELFPAY | PROVIDERS: PCP Internal Medicine; Visit Provider Radiology Diagnostic Radiology | DX: Z12.31 Encounter for screening mammogram for malignant neoplasm of breast (principal) | CPT/HCPCS: 77063; 77067 ==

== ENCOUNTER 2023-12-24 11:33 | Emergency (ER) | payer OTHER, SELFPAY ==
--- NOTE | ~2023-12-24 | XR_ITS ---
EXAMINATION: XR WRIST, RIGHT CLINICAL INFORMATION: Fall, pain COMPARISON: None available. TECHNIQUE: PA, lateral, and oblique views of the right wrist. FINDINGS: Soft tissue swelling is seen adjacent to the distal radius. There is question of a nondisplaced oblique fracture of the distal radius without extension to the articular surfaces. Alignment is anatomic with normal joint spaces. XR/XR wrist RT 2V IMPRESSION: Question of a nondisplaced oblique fracture of the distal radius without extension to the articular surfaces.
--- NOTE | 2023-12-24 12:10 | ED.UPPEXIN ---
HPI - Extremity Injury (Upper) General Chief Complaint: Extremity Injury, Upper Stated Complaint: R wrist injury/ fall 12/24 Time Seen by Provider: 12/24/23 14:23 Source: patient Mode of arrival: ambulatory Limitations: no limitations History of Present Illness HPI narrative: 73 yo female with hand dominant here with right wrist pain after mechanical fall today. No head strike or loc. C/o right wrist pain. No radiation of pain. No associated weakness, numbness, tingling. No chest pain, abdominal pain, shortness of breath, headache, neck pain or back pain. No AC therapy use Related Data Home Medications Medication Instructions Recorded Confirmed cholecalciferol (vitamin D3) 125 1,000 unit PO DAILY 11/18/20 06/06/22 mcg (5,000 unit) tablet (Vitamin D3) levothyroxine 50 mcg tablet 50 mcg PO DAILY 11/18/20 06/06/22 lisinopril 20 mg tablet 20 mg PO DAILY 11/18/20 06/06/22 metformin 500 mg tablet,extended 500 mg PO QPM 12/25/20 06/06/22 release 24 hr ascorbic acid (vitamin C) 500 mg 500 mg PO DAILY 08/29/21 06/06/22 tablet (Vitamin C) fluticasone 100 mcg-salmeterol 50 1 inh inhalation BID 08/29/21 06/06/22 mcg/dose blistr powdr for inhalation (Advair Diskus) amoxicillin 500 mg capsule 500 mg PO BID 02/20/23 metronidazole 0.75 % topical gel topical BID 02/20/23 mupirocin 2 % topical ointment topical BID 02/20/23 Previous Rx's Medication Instructions Recorded pyridoxine (vitamin B6) 100 mg 100 mg PO DAILY 90 days #90 tabs 06/17/21 tablet (Vitamin B-6) allopurinol 100 mg tablet 100 mg PO DAILY 90 days #90 tabs 03/23/23 oxycodone 5 mg tablet 5 mg PO Q8H PRN pain #9 tabs 12/24/23 Allergies Allergy/AdvReac Type Severity Reaction Status Date / Time cephalexin [Keflex] Allergy Severe CRAMPS, N&V Verified 02/21/23 15:39 vancomycin Allergy Anaphylaxis Verified 12/24/23 12:10 erythromycin base AdvReac Severe NAUSEA & Verified 02/21/23 15:39 [Erythromycin Base] VOMITING Erythromycin Allergy Severe CRAMPS Uncoded 02/21/23 15:39 Review of Systems Review of Systems: Yes all other systems are reviewed and are negative Constitutional: Constitutional: Reports no additional constitutional complaints, Denies body ache(s), Denies chills, Denies fever(s), Denies headache(s) and Denies weakness Eyes: Eyes: Reports no additional eye complaints and Denies change in vision ENT: Reports system reviewed and no additional complaints, except as documented, Denies dizziness, Denies headache(s), Denies nasal congestion, Denies nasal discharge and Denies neck pain Cardiovascular: Cardiovascular: Reports no additional cardiovascular complaints, Denies chest pain, Denies leg edema and Denies dyspnea Respiratory: Respiratory: Reports no additional respiratory complaints, Denies cough and Denies dyspnea Gastrointestinal: Gastrointestinal: Reports no additional gastrointestinal complaints, Denies abdominal pain, Denies diarrhea, Denies nausea and Denies vomiting Genitourinary: Genitourinary: Reports no additional female genitourinary complaints and Denies urinary incontinence Musculoskeletal: Musculoskeletal: Reports no additional musculoskeletal complaints, Denies back pain, Reports arthralgias, Denies joint swelling, Denies limited range of motion, Denies neck pain, Denies numbness and Denies tingling Integumentary/Breasts: Skin/Breast: Reports system reviewed and no additional complaints, except as docu and Denies rash Neurologic: Reports system reviewed and no additional complaints, except as documented, Denies Abnormal speech present, Denies dizziness, Denies headache(s), Denies numbness, Denies tingling and Denies weakness [facility] Past Medical History Attestation statement: The following information was validated with the patient. Source: old records reviewed and nursing notes reviewed Medical History Vulva cancer History of COVID-19 Diabetes mellitus Arthritis Eczema Rosacea Hypothyroid HTN (hypertension) Asthma Surgical History History of cystoscopy Hx of hysterectomy History of lithotripsy History of right oophorectomy Hx of cholecystectomy Hx of dilation and curettage Social History Social History Household Members: Family Household Members Other:: Brother Housing: House Are you a primary child care education coordinator to a significant other at home: No Do you presently have visiting nurse or other home services: No Alcohol intake: never Patient Tobacco Use Status: Never used Tobacco Advance Directives: No Advance Directives Information Provided: Yes service: No Current occupational status: retired Physical Exam Vital Signs: Vital Signs: Last Vital Signs Temp 98 F 12/24/23 12:11 Pulse 93 12/24/23 12:11 Resp 16 12/24/23 12:11 BP 164/77 H 12/24/23 12:11 Pulse Ox 98 12/24/23 12:11 O2 Del Method Room Air 12/24/23 12:11 BMI result Body Mass Index 50.9 Const: General: cooperative, healthy appearing, comfortable and no acute distress Orientation/consciousness: patient oriented x3 Limitations: no limitations HEENT: Head: Yes normal to inspection Ears: hearing grossly normal bilaterally and TM's normal bilaterally General nose exam: Normal external nose present Face and sinus: Yes normal facial exam Mouth: Normal oral and palatal mucosa present Throat: Yes posterior oropharynx normal, Yes tonsils normal and Yes uvula midline Eyes: General: appearance normal, both eyes and all related structures Pupils: Equal, round and reactive pupils present Neck: Neck: Yes normal visual inspection, Yes full ROM, Yes no lymphadenopathy and Yes no meningeal signs Chest: Chest palpation & inspection: normal inspection of the chest Resp: Effort & Inspection: normal respiratory effort Auscultation: clear to auscultation bilaterally Cardio: Rate: regular rate Rhythm: regular rhythm Peripheral pulses: Peripheral pulses 2+ throughout GI: Inspection: Yes normal to inspection Palpation (GI): Soft to palpation and nontender Auscultation: normal bowel sounds Back/Spine/Pelvis: Thoracic/Lumbar Spine: thoracic and lumbar spine normal to inspection Skin: General skin exam: no rashes or lesions noted Neuro: General: patient oriented x3, no meningeal signs, no focal motor deficits and normal sensation to monofilament Cranial nerves: Yes Equal, round and reactive pupils present Cognition (Neuro): normal cognition Speech: No Abnormal speech present Gait exam (Neuro): Normal gait present Motor exam (neuro): 5/5 motor strength present throughout Extrem: Other: Pain on palpation over the right dorsal wrist. Full active/passive ROM although painful. Normal distal sensation. 2+radial/ulnar pulses. General: Yes normal to inspection Course Course Course Narrative: This is a rapid medical exam. Deferred additional HPI, ROS, PE to primary provider. 73 yo female with hand dominant here with right wrist pain after mechanical fall today. No head strike or loc. Will obtain x-rays. VSS Reevaluation(s) Reevaluation #1: x-ray shows nondisplaced fracture of distal radius. D/w with dr francois. patient placed in velcro splint, reviewed rice, ortho follow-up. Reviewed worrisome signs/symptoms with patient and when to seek additional care. Comfortable with plan for discharge home. Medical Decision Making Medical Decision Making MDM Narrative: 73 yo female with hand dominant here with right wrist pain after mechanical fall today. No head strike or loc. C/o right wrist pain. No radiation of pain. No associated weakness, numbness, tingling. No chest pain, abdominal pain, shortness of breath, headache, neck pain or back pain. No AC therapy use Pain on palpation over the right dorsal wrist. Full active/passive ROM although painful. Normal distal sensation. 2+radial/ulnar pulses. Will check x-rays Differential Diagnosis Differential Diagnoses: The differential diagnosis associated with the presentation includes fracture, sprain, strain low concern for dislocation, vascular injury, complex fracture Admission/Observation Consideration of admission/observation: Escalation of care including admission/observation considered low concern for dislocation, vascular injury, complex fracture-requiring urgent imaging or orthopedic consultation Independent Interpretation I performed an independent interpretation of an: Plain X-Ray Interpretation: I independently reviewed the x-ray and agree with the rad report Radiology Impression Discussion of test interpretation with radiology: I have reviewed the radiologist's reading. Radiologist Impression: Launch?Image [address] [address] XRay Report Signed Patient: Flores Agrawal MR#: [id number] : 1950 Acct:[id number] Age/Sex: 73 / F ADM Date: 12/24/23 Loc: HO.ED Attending Dr: Ordering Physician: Cady Bynum NP Date of Service: 12/24/23 Procedure(s): XR wrist RT 2V Accession Number(s): [id number] cc: Milton Webb MD; Misa,Cady SETTER OUT~ EXAMINATION: XR WRIST, RIGHT CLINICAL INFORMATION: Fall, pain COMPARISON: None available. TECHNIQUE: PA, lateral, and oblique views of the right wrist. FINDINGS: Soft tissue swelling is seen adjacent to the distal radius. There is question of a nondisplaced oblique fracture of the distal radius without extension to the articular surfaces. Alignment is anatomic with normal joint spaces. XR/XR wrist RT 2V IMPRESSION: Question of a nondisplaced oblique fracture of the distal radius without extension to the articular surfaces. Tests considered The following testing was considered but not selected: low concern for dislocation, vascular injury, complex fracture-requiring urgent imagin Prescription Management I considered prescription management with: Pain Medication Procedures Orthopedic Splinting/Casting Injury #1: Side: right Upper Extremity Injury Location: wrist Discharge Plan Discharge Clinical Impression: Distal radial fracture Patient Disposition: Home, Self-Care Instructions: Wrist Fracture in Adults (ED) Additional Instructions: Use the splint for comfort Elevate the extremity Ice 20 minutes on, 20 minutes off Follow-up with orthopedics as discussed Prescriptions: New oxycodone 5 mg tablet 5 mg PO Q8H PRN (Reason: pain) Qty: 9 0RF Rx Instructions: Partial Fill upon patient request. No Action pyridoxine (vitamin B6) [Vitamin B-6] 100 mg tablet 100 mg PO DAILY 90 Days Qty: 90 1RF allopurinol 100 mg tablet 100 mg PO DAILY 90 Days Qty: 90 3RF lisinopril 20 mg Tablet 20 mg PO DAILY levothyroxine 50 mcg Tablet 50 mcg PO DAILY cholecalciferol (vitamin D3) [Vitamin D3] 125 mcg (5,000 unit) Tablet 1,000 unit PO DAILY metformin 500 mg Tablet Extended Release 24 Hr 500 mg PO QPM ascorbic acid (vitamin C) [Vitamin C] 500 mg Tablet 500 mg PO DAILY fluticasone propion-salmeterol [Advair Diskus] 100-50 mcg/dose Blister With Device 1 inh INHALATION BID amoxicillin 500 mg capsule 500 mg PO BID mupirocin 2 % ointment topical BID metronidazole 0.75 % gel topical BID [place]: [facility] [Provider Group] - 1 week
[2023-12-24 12:11] VITALS: BP 164/77; PULSE 93; RESP 16; TEMP 36.6; O2SAT 98; BMI 50.9
== END 2023-12-24 14:53 | disposition home or self-care (01) ==
PROVIDERS: Emergency Provider Emergency Medicine; PCP Internal Medicine
DX: S52.501A Unspecified fracture of the lower end of right radius, initial encounter for closed fracture (principal); M25.531 Pain in right wrist; W01.0XXA Fall on same level from slipping, tripping and stumbling without subsequent striking against object, initial encounter; Y93.9 Activity, unspecified; Y92.9 Unspecified place or not applicable; Y99.8 Other external cause status
CPT/HCPCS: 29125; 73100; 99282; 99284

== ENCOUNTER 2023-12-28 10:37 | Outpatient (REF) | payer OTHER, SELFPAY ==
--- NOTE | ~2023-12-28 | XR_ITS ---
EXAMINATION: XR WRIST, RIGHT CLINICAL INFORMATION: Pain in unspecified wrist. COMPARISON: 12/24/2023. TECHNIQUE: PA, lateral, and oblique views of the right wrist. FINDINGS: The bones are diffusely demineralized. Soft tissue swelling adjacent to the distal radius redemonstrated. Subtle oblique linear lucency along the distal radius is characteristic of a nondisplaced fracture with moderate impaction. XR/XR wrist RT min 3V IMPRESSION: Subtle oblique linear lucency along the distal radius is characteristic of a nondisplaced fracture with moderate impaction. This study was presented today December 29, 2023 at 4:50 PM for interpretation. PSA staff will provide results to referring provider at this time.
== END 2023-12-28 10:38 | disposition home or self-care (01) ==
LOC: HO.HOSX 10:37
PROVIDERS: Visit Provider Physician Assistant
DX: S52.501A Unspecified fracture of the lower end of right radius, initial encounter for closed fracture (principal)
CPT/HCPCS: 73110

== ENCOUNTER 2023-12-28 10:38 | Outpatient (AMB) | payer OTHER, SELFPAY ==
--- NOTE | 2023-12-28 10:49 | A.OFFVIS_ITS ---
Intake Vital Signs 12/28/23 10:59 Height 5 ft 4 in Weight 296 lb BMI 50.8 Intake Visit Reasons: FC- Distal radius fracture RT Intake Note: Flores is a 73 year old right hand dominant female who presents today for a evaluation of her right wrist fx, DOI 12/24/23. 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 States bruising on her right side. She presented to [facility] ED same day wher xrays were taken and placed in a wrist brace. Currently no pain at rest, her pain comes with any movement/use of right hand. Denies numbness or tingling. Allergies cephalexin [Keflex] Allergy (Severe, Verified 12/28/23 11:01) CRAMPS, N&V vancomycin Allergy (Verified 12/28/23 11:01) Anaphylaxis erythromycin base [Erythromycin Base] Adverse Reaction (Severe, Verified 12/28/23 11:01) NAUSEA & VOMITING Erythromycin Allergy (Severe, Uncoded 12/28/23 11:01) CRAMPS HPI FC- Distal radius fracture RT HPI Details 73-year-old female who presents in the [facility] today, as a new patient, for an evaluation of right wrist pain. The patient presented to the ED on 12/24/2023 status post a mechanical fall. X-rays were obtained. The patient was placed in a splint and referred to orthopedics. Patient reports falling when she lost her balance causing her to fall on to the vacuum and stairs. She reports no pain at rest but pain with movement. She denies numbness or tingling. Patient is scheduled for further evaluation with her Gynecological Oncologist and needed to know if she needed surgery on the wrist before they move forward with oncology evaluation. [facility] Medical History Vulva cancer History of COVID-19 Diabetes mellitus Arthritis Eczema Rosacea Hypothyroid HTN (hypertension) Asthma Surgical History History of cystoscopy Hx of hysterectomy History of lithotripsy History of right oophorectomy Hx of cholecystectomy Hx of dilation and curettage Social History Household Members: Family Household Members Other:: Brother Housing: House Are you a primary pet caretaker to a significant other at home: No Do you presently have visiting nurse or other home services: No Alcohol intake: never Patient Tobacco Use Status: Never used Tobacco service: No Current occupational status: retired Current occupation: right hand dominant Review of Systems Const All systems reviewed & are unremarkable except as noted in HPI and below Physical Exam Vital Signs: BMI result Body Mass Index 50.8 Const General: cooperative and no acute distress Orientation/consciousness: patient oriented x3 Resp Effort & Inspection: normal respiratory effort and able to speak in complete sentences Cardio Peripheral pulses: Peripheral pulses 2+ throughout Skin General skin exam: no rashes or lesions noted Neuro General: patient oriented x3 Extrem Other: Right wrist: Ecchymosis over the volar aspect accompanied by mild to moderate edema on the dorsal aspect of the distal radius. Able to slightly flex and extend at the wrist. Able to fully extend all digits and make a full fist. Sensation intact. Radial pulse intact. Capillary refill is brisk. Office Procedures Fracture Care Fracture Billing Code: Fracture Billing Code Assessment & Plan Assessment & Plan (1) Distal radial fracture: Onset Date: ~12/24/23 Comment: Right Code(s): S52.509A - Unspecified fracture of the lower end of unspecified radius, initial encounter for closed fracture Qualifiers: Encounter type: initial encounter Fracture morphology: unspecified fracture morphology Fracture type: closed Laterality: right Qualified Code(s): S52.501A - Unspecified fracture of the lower end of right radius, initial encounter for closed fracture Plan Ms. Agrawal is a 73-year-old female who presents in the office today, as a new patient, for an evaluation of right wrist pain. The patient presented to the ED on 12/24/2023 status post a mechanical fall. X-rays were obtained. The patient was placed in a splint and referred to orthopedics. Patient reports falling when she lost her balance causing her to fall on to the vacuum and stairs. She reports no pain at rest but pain with movement. She denies numbness or tingling. Patient is scheduled for further evaluation with her Gynecological Oncologist and needed to know if she needed surgery on the wrist before they move forward with oncology evaluation. The patient will be placed in a geothermal installer splint, off the shelf. She was instructed she is able to removed the brace for hygiene, but should remain in the brace at all other times and to treat it like a cast. She was educated that at this time she is not cleared to drive due to not have full control of the right wrist. We discussed that she does not require surgical intervention at this time therefore she is able to proceed with further evaluation for her cancer treatment. I encourage the patient to work on gentle hand ROM with fingers to palm, which was demonstrated in the office today. Follow up will be in 4 weeks with repeat x-rays, or sooner if needed. X-rays of the right wrist which were obtained while in the office today and were reviewed by me, Anne Kinney PA-C, redemonstrates a non-displaced distal radius fracture. X-rays of the right wrist, obtained on 12/24/2023, revealed: Question of a nondisplaced oblique fracture of the distal radius without extension to the articular surfaces. Orders: Orders XR wrist RT min 3V Today M25.539 - Pain in unspecified wrist Patient Instructions: Scribed by Alejandrina Murillo medical imaging tech, for Anne Kinney PA-C on 12/22/2023 at 10:41 am, EST. Coding Level of Care Code New Pt Level 4 (48112) Diagnoses Closed fracture of distal end of right radius, unspecified fracture morphology, initial encounter S52.501A Encounter type: initial encounter Fracture morphology: unspecified fracture morphology Fracture type: closed Laterality: right CPT Codes Fracture Care - Fracture Billing Code: Fracture Billing Code ([id number])
[2023-12-28 10:59] VITALS: BMI 50.8
== END 2023-12-28 11:37 | disposition home or self-care (01) ==
PROVIDERS: PCP Internal Medicine; Visit Provider Physician Assistant
DX: S52.501A Unspecified fracture of the lower end of right radius, initial encounter for closed fracture (principal)
CPT/HCPCS: 99203

== ENCOUNTER 2024-01-08 09:36 | Outpatient (REF) | payer OTHER, SELFPAY ==
--- NOTE | ~2024-01-08 | XR_ITS ---
EXAMINATION: XR WRIST, RIGHT CLINICAL INFORMATION: Pain in unspecified wrist COMPARISON: None available. TECHNIQUE: PA, lateral, and oblique views of the right wrist. FINDINGS: The bones and soft tissues are normal. No fracture. Positive ulnar variant. There is mild narrowing of the triscaphe joint. No erosions or abnormal soft tissue calcifications. XR/XR wrist RT min 3V IMPRESSION: 1. No acute bony abnormality. 2. Positive ulnar variant.
== END 2024-01-08 09:37 | disposition home or self-care (01) ==
LOC: HO.HOSX 09:36
PROVIDERS: Visit Provider Physician Assistant
DX: M25.531 Pain in right wrist (principal)
CPT/HCPCS: 73110

== ENCOUNTER 2024-01-08 10:32 | Outpatient (AMB) | payer OTHER, SELFPAY ==
--- NOTE | 2024-01-08 10:53 | MHC.OFFVIS ---
Intake Intake Visit Reasons: OV - right distal radial fx, DOI 12/24/23 Intake Note: Flores is a 73 year old right hand dominant female who presents today for a follow up of her right distal radial fx, DOI 12/24/23. Patient reports she didn't take off her thermal molded short arm brace since her last visit. She states that on the ulnar side of the palm of the hand is a bit sore and a burning sensation. Allergies cephalexin [Keflex] Allergy (Severe, Verified 01/08/24 10:57) CRAMPS, N&V vancomycin Allergy (Verified 01/08/24 10:57) Anaphylaxis erythromycin base [Erythromycin Base] Adverse Reaction (Severe, Verified 01/08/24 10:57) NAUSEA & VOMITING Erythromycin Allergy (Severe, Uncoded 12/28/23 11:01) CRAMPS HPI OV - right distal radial fx, DOI 12/24/23 HPI Details 73-year-old right hand dominant female who presents in the office today for a follow up of a right distal radius fracture, which occurred on 12/24/2023 status post a mechanical fall. I last saw the patient on 12/28/2023 at which time she was placed in a thermal molded splint and was told she should remain in the brace at all times. She was encouraged to work on gentle ROM with finger to palm. While in the office today the patient reports she did not take her thermal molded short arm brace off since her last visit. She states the palm of her hand is a bit sore and she has a burning sensation. [facility] Medical History Vulva cancer History of COVID-19 Diabetes mellitus Arthritis Eczema Rosacea Hypothyroid HTN (hypertension) Asthma Surgical History History of cystoscopy Hx of hysterectomy History of lithotripsy History of right oophorectomy Hx of cholecystectomy Hx of dilation and curettage Social History Household Members: Family Household Members Other:: Brother Housing: House Are you a primary career consultant to a significant other at home: No Do you presently have visiting nurse or other home services: No Alcohol intake: never Patient Tobacco Use Status: Never used Tobacco service: No Current occupational status: retired Current occupation: right hand dominant Review of Systems Const All systems reviewed & are unremarkable except as noted in HPI and below Physical Exam Const General: cooperative, healthy appearing and no acute distress Resp Effort & Inspection: normal respiratory effort and able to speak in complete sentences Cardio Rate: regular rate Peripheral pulses: Peripheral pulses 2+ throughout GI Palpation (GI): Soft to palpation Skin Lesions: no lesions Rashes: no rashes Extrem Other: Right wrist: Distal radius is slightly tender to palpation. She has some areas of skin irritation along the thenar and as well as the lateral aspect of the hand, and dorsal aspect of the second metacarpal. There are not open wounds or areas of infection at this time. Assessment & Plan Assessment & Plan (1) Distal radial fracture: Onset Date: ~12/24/23 Comment: Right Code(s): S52.509A - Unspecified fracture of the lower end of unspecified radius, initial encounter for closed fracture Qualifiers: Encounter type: initial encounter Fracture morphology: unspecified fracture morphology Fracture type: closed Laterality: right Qualified Code(s): S52.501A - Unspecified fracture of the lower end of right radius, initial encounter for closed fracture Plan Ms. Agrawal is a 73-year-old right hand dominant female who presents in the office today for a follow up of a right distal radius fracture, which occurred on 12/24/2023 status post a mechanical fall. I last saw the patient on 12/28/2023 at which time she was placed in a thermal molded splint and was told she should remain in the brace at all times. She was encouraged to work on gentle ROM with finger to palm. While in the office today the patient reports she did not take her thermal molded short arm brace off since her last visit. She states the palm of her hand is a bit sore and she has a burning sensation. The patient was placed into an off the shelf volar wrist splint with a stockinette. Follow up will be at her regularly scheduled appointment, or sooner if needed. X-rays of the right wrist which were obtained while in the office today and were reviewed by me, Anne Kinney PA-C, revealed routine healing distal radius fracture Orders: Orders XR wrist RT min 3V Today M25.539 - Pain in unspecified wrist Patient Instructions: Scribed by Alejandrina Murillo, biomedical equipment support specialist, for Anneerrol Kinney PA-C on 01/08/2024 at 10:35 am, EST. Coding Level of Care Code Global (97064) Diagnoses Closed fracture of distal end of right radius, unspecified fracture morphology, initial encounter S52.501A Encounter type: initial encounter Fracture morphology: unspecified fracture morphology Fracture type: closed Laterality: right
== END 2024-01-08 11:08 | disposition home or self-care (01) ==
PROVIDERS: PCP Internal Medicine; Visit Provider Physician Assistant
DX: S52.501D Unspecified fracture of the lower end of right radius, subsequent encounter for closed fracture with routine healing (principal)
CPT/HCPCS: 99213

== ENCOUNTER 2024-01-26 11:21 | Outpatient (REF) | payer OTHER, SELFPAY ==
--- NOTE | ~2024-01-26 | XR_ITS ---
EXAMINATION: XR WRIST, RIGHT CLINICAL INFORMATION: Pain in unspecified wrist. COMPARISON: 01/08/2024, 12/28/2023, 12/24/2023. TECHNIQUE: PA, lateral, and oblique views of the right wrist. FINDINGS: Moderate degenerative changes in the first carpometacarpal joint with joint space narrowing and hypertrophic change. Redemonstration of oblique fracture of the distal radius with mild impaction and increased sclerosis characteristic of some interval bridging callus formation. XR/XR wrist RT min 3V IMPRESSION: Redemonstration of oblique fracture of the distal radius with mild impaction and increased sclerosis characteristic of some interval bridging callus formation.
== END 2024-01-26 11:22 | disposition home or self-care (01) ==
LOC: HO.HOSX 11:21
PROVIDERS: Visit Provider Physician Assistant
DX: S52.501D Unspecified fracture of the lower end of right radius, subsequent encounter for closed fracture with routine healing (principal)
CPT/HCPCS: 73110

== ENCOUNTER 2024-01-26 14:55 | Outpatient (AMB) | payer OTHER, SELFPAY ==
--- NOTE | 2024-01-26 15:14 | A.OFFVIS_ITS ---
Intake Intake Visit Reasons: OV-Distal radius fracture RT-w/xray Intake Note: Flores is a 73 year old right hand dominant female who presents today for a follow up of her right distal radial fx, DOI 12/24/23. Patient reports having concerns on how her arm looks, she states that she is noticing pain on the top of her arm. Patient reports seeing some lines in her arm that she thinks that are tendons coming up which are causing her pain. Allergies cephalexin [Keflex] Allergy (Severe, Verified 01/26/24 15:16) CRAMPS, N&V vancomycin Allergy (Verified 01/26/24 15:16) Anaphylaxis erythromycin base [Erythromycin Base] Adverse Reaction (Severe, Verified 01/26/24 15:16) NAUSEA & VOMITING Erythromycin Allergy (Severe, Uncoded 12/28/23 11:01) CRAMPS HPI OV-Distal radius fracture RT-w/xray HPI Details 73-year-old right hand dominant female marty sahu presents in the office today for a follow up of a right distal radius fracture, which occurred on 12/28/2023 status post a mechanical fall. I last saw the patient in the office on 12/28/2023 at which time she was placed in a thermal molded splint. She was given the restriction of no driving until she had full control of the right wrist. I encourage the patient to work on gentle hand ROM with fingers to palm, which was demonstrated in the office. While in the office today the patient reports having a concern of how her arm looks. She reports seeing some lines on her arm that she thinks are the tendons coming up and causing her pain. She reports pain on the top of her right upper extremity. Patient states she is not doing well. She also reports edema and pain that increase with writing. She states her arm no longer look the same. Patient reports having biopsies scheduled for tomorrow. She is concerned they will hurt her wrist while doing the biopsy. REPLACED BY [facility] Medical History Vulva cancer History of COVID-19 Diabetes mellitus Arthritis Eczema Rosacea Hypothyroid HTN (hypertension) Asthma Surgical History History of cystoscopy Hx of hysterectomy History of lithotripsy History of right oophorectomy Hx of cholecystectomy Hx of dilation and curettage Social History Household Members: Family Household Members Other:: Brother Housing: House Are you a primary day care center director to a significant other at home: No Do you presently have visiting nurse or other home services: No Alcohol intake: never Patient Tobacco Use Status: Never used Tobacco service: No Current occupational status: retired Current occupation: right hand dominant Review of Systems Const All systems reviewed & are unremarkable except as noted in HPI and below Physical Exam Const General: cooperative, healthy appearing and no acute distress Resp Effort & Inspection: normal respiratory effort and able to speak in complete sentences Cardio Rate: regular rate Peripheral pulses: Peripheral pulses 2+ throughout GI Palpation (GI): Soft to palpation Skin Lesions: no lesions Rashes: no rashes Extrem Other: Right wrist: Distal radius is slightly tender to palpation. Able to make a full fist and able to perform full flexion. Skin intact. Able to slightly flex and extend at the wrist. Pain with ulnar and radial deviation. Tenderness to palpation over the first dorsal compartment. Sensation intact. Capillary refill is brisk. Assessment & Plan Assessment & Plan (1) Distal radial fracture: Onset Date: ~12/24/23 Comment: Right Code(s): S52.509A - Unspecified fracture of the lower end of unspecified radius, initial encounter for closed fracture Qualifiers: Encounter type: initial encounter Fracture morphology: unspecified fracture morphology Fracture type: closed Laterality: right Qualified Code(s): S52.501A - Unspecified fracture of the lower end of right radius, initial encounter for closed fracture Plan Ms. Agrawal is a 73-year-old right hand dominant female who presents in the office today for a follow up of a right distal radius fracture, which occurred on 12/28/2023 status post a mechanical fall. I last saw the patient in the office on 12/28/2023 at which time she was placed in a thermal molded splint. She was given the restriction of no driving until she had full control of the right wrist. I encourage the patient to work on gentle hand ROM with fingers to palm, which was demonstrated in the office. She continues to report pain and stiffness at the wrist. She has been wearing the velcro wrist brace as directed. Patient reports having biopsies scheduled for tomorrow. She is concerned about protecting her wrist while doing the biopsy for vulvar cancer. Patient may begin to come out of the brace at this time. A referral for occupational therapy was placed while in the office today. I recommend for the patient to wear the brace to her biopsy procedure tomorrow so it can be documented she has a fracture in the right wrist. Follow up will be in 4 weeks for a ROM check, or sooner if needed. X-rays of the right wrist which were obtained while in the office today and were reviewed by me, Anne Kinney PA-C, revealed routine healing of a right distal radius fracture. Orders: Orders XR wrist RT min 3V Today M25.539 - Pain in unspecified wrist Patient Instructions: Scribed by Alejandrina Murillo medical imaging technologist, for Anne Kinney PA-C on 01/26/2024 at 3:09 pm, EST. Coding Level of Care Code Global (62975) Diagnoses Closed fracture of distal end of right radius, unspecified fracture morphology, initial encounter S52.501A Encounter type: initial encounter Fracture morphology: unspecified fracture morphology Fracture type: closed Laterality: right
== END 2024-01-26 17:00 ==
PROVIDERS: PCP Internal Medicine; Visit Provider Physician Assistant
DX: S52.501A Unspecified fracture of the lower end of right radius, initial encounter for closed fracture (principal)
CPT/HCPCS: 99213

== ENCOUNTER 2024-02-02 13:48 | Outpatient (REF) | payer OTHER, SELFPAY ==
--- NOTE | ~2024-02-02 | US_ITS ---
EXAMINATION: US RETROPERITONEAL LIMITED (RENAL ONLY) CLINICAL INFORMATION: Calculus of kidney. COMPARISON: Renal ultrasound 01/15/2023 and 02/13/2022. CT abdomen and pelvis 11/30/2020. TECHNIQUE: Real-time imaging of the kidneys. FINDINGS: RIGHT KIDNEY: 11.4 x 5.7 x 5.0 cm (SAG x AP x TRV). The kidney is normal in size and echogenicity. There are persistent lobulations. Renal cortical thickness is normal. No renal calculi or hydronephrosis. At the upper pole, a 1.0 cm benign, simple cyst is seen, for which no imaging follow-up is recommended. At the interpolar aspect, a 1.0 cm benign, hyperechoic, circumscribed angiomyolipoma is redemonstrated, consistent with prior CT findings (5:69). LEFT KIDNEY: 11.7 x 5.8 x 5.2 cm (SAG x AP x TRV). The kidney is normal in size and echogenicity. There are persistent lobulations. Renal cortical thickness is normal. No hydronephrosis. At the lower pole, a 9 mm benign, simple cyst is seen. There are further smaller benign, simple cysts. These require no imaging follow-up. At the upper pole medially, a 1.9 cm benign, hyperechoic, circumscribed angiomyolipomas redemonstrated, consistent with prior CT findings (5:72). US/US renal BI IMPRESSION: 1. There are bilateral benign angiomyolipomas again noted, with dimensions as detailed. 2. No calculus or hydronephrosis is seen bilaterally.
== END 2024-02-02 13:49 | disposition home or self-care (01) ==
LOC: HO.US 13:48
PROVIDERS: PCP Internal Medicine; Visit Provider Nurse Practitioner Family
DX: N20.0 Calculus of kidney (principal); D17.9 Benign lipomatous neoplasm, unspecified; N28.1 Cyst of kidney, acquired
CPT/HCPCS: 76775

== ENCOUNTER 2024-02-23 08:16 | Outpatient (AMB) | payer OTHER, SELFPAY ==
--- NOTE | 2024-02-23 08:37 | A.OFFVIS_ITS ---
Intake Visit Reasons: 1Y US(set)Confirmed Intake Note: Patient is Present for Follow Up Urology Medication: Vitamin B6 Antibiotic Allergies: Keflex, Vancomycin, Erythromycin Blood Thinners: None Allergies cephalexin [Keflex] Allergy (Severe, Verified 01/26/24 15:16) CRAMPS, N&V vancomycin Allergy (Verified 01/26/24 15:16) Anaphylaxis erythromycin base [Erythromycin Base] Adverse Reaction (Severe, Verified 01/26/24 15:16) NAUSEA & VOMITING Erythromycin Allergy (Severe, Uncoded 12/28/23 11:01) CRAMPS Medication List - Last Reconciled 02/23/24 by Elia Handley MD allopurinol 100 mg PO DAILY 90 days ascorbic acid (vitamin C) (Vitamin C) 500 mg PO DAILY budesonide-formoterol 80-4.5 mcg/actuation (Symbicort) inhalation cholecalciferol (vitamin D3) (Vitamin D3) 1,000 units PO DAILY fluticasone propion-salmeterol 100-50 mcg/dose (Wixela Inhub) 1 inh inhalation BID halobetasol propionate 0.05% topical levothyroxine 50 mcg PO DAILY lisinopril 20 mg PO DAILY metformin ER 500 mg PO QPM oxycodone 5 mg PO Q8H PRN pyridoxine (vitamin B6) 50 mg PO DAILY 90 days HPI Comments Details: Flores Marx is a pleasant female. She is a patient of Dr. Webb. 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 No evidence of stones Has undergone 2 vulvar resections with plastic reconstruction From a stone point of view is stable with minimal burden Will continue with allopurinol 100 mg daily Review in 12 months Has upcoming repeat vulvar operation Nephrolithiasis They are here for - further evaluation of nephrolithiasis They present for evaluation of - back pain none - flank pain none - abdominal pain none Associated symptoms include Fever No Nausea No Chills No Hematuria No Urolithiasis was diagnosed - December since 2020 The patient previously had kidney stones whose composition w - 12/23 calcium oxalate monohydrate, uric acid mix Laboratory investigations include - no recent labs 24 Hour urine evaluation - none on file Prior treatment(s) include - December 2020 right ureteroscopy, laser lithotripsy Prior imaging includes - December [address] - stone protocol 2 - 1 cm stones right renal pelvis - 08/22 renal ultrasound 4 mm stone bilateral, small cyts and AML - 11/23 CT scan no reported stones - 02/21 renal ultrasound, bilateral small cysts, bilateral AML, small stone left side UA today shows - NAD Current therapeutic plan will be - 12 month follow-up [facility] Medical History Vulva cancer History of COVID-19 Diabetes mellitus Arthritis Eczema Rosacea Hypothyroid HTN (hypertension) Asthma Surgical History History of cystoscopy Hx of hysterectomy History of lithotripsy History of right oophorectomy Hx of cholecystectomy Hx of dilation and curettage Social History Household Members: Family Household Members Other:: Brother Housing: House Are you a primary career and transition teacher to a significant other at home: No Do you presently have visiting nurse or other home services: No Alcohol intake: never Patient Tobacco Use Status: Never used Tobacco service: No Current occupational status: retired Current occupation: right hand dominant Review of Systems Const Denies chills and Denies fever(s) Card Reports no additional complaints and Denies syncope Resp Denies cough GI Denies abdominal pain and Denies heartburn Reports as per HPI and Denies change in libido Neuro Denies syncope Psych Denies change in libido Endo Denies change in libido Physical Exam Const General: cooperative, healthy appearing, comfortable and no acute distress Orientation/consciousness: patient oriented x3 HEENT Face and sinus: Yes normal facial exam Mouth: moist mucous membranes Neck Neck: Yes normal visual inspection, Yes full ROM and Yes trachea midline Chest Chest palpation & inspection: normal inspection of the chest Resp Effort & Inspection: normal respiratory effort, able to speak in complete sentences and no respiratory distress GI Inspection: Yes normal to inspection Back/Spine/Pelvis Cervical Spine: normal cervical lordosis Thoracic/Lumbar Spine: thoracic and lumbar spine normal to inspection Skin General skin exam: no rashes or lesions noted Neuro General: patient oriented x3, gait normal, tone normal and moves all extremities Extrem General: Yes normal to inspection and Yes capillary refill normal Assessment & Plan Assessment & Plan (1) Angiolipoma: Code(s): D17.9 - Benign lipomatous neoplasm, unspecified Category: Medical (2) Renal and ureteric calculus: Comment: Uric acid with calcium Code(s): N20.2 - Calculus of kidney with calculus of ureter Category: Medical Plan Twelve month follow-up renal ultrasound with nurse practitioner Orders: Orders US renal BI 12 Months D17.9 - Benign lipomatous neoplasm, unspecified Patient Instructions: Imaging studies, laboratory and physical exam results were discussed and reviewed in detail. No major barriers to patient understanding were identified. An opportunity to ask questions regarding the treatment plan was provided. All questions were answered. The patient expressed understanding and agreement with the above treatment plan. The patient is aware they should contact our office by phone for worsening of their current condition or the appearance of new urologic symptoms. Compliance is encouraged with any medications and followup testing that is ordered. It is a privilege to participate in the urologic care of your patient. If you have any questions or concerns regarding treatment for the above conditions, or other urologic issues, please do not hesitate to contact me. The office telephone contact is [phone]. This note is constructed using voice recognition software. While every effort has been made to ensure accuracy metal drilling machine operator errors may have been included. Yours sincerely, Dr Elia Handley MD, [facility] - Urology Providers of Expert, Compassionate Care for the Genitourinary System
== END 2024-02-23 08:57 | disposition home or self-care (01) ==
PROVIDERS: Visit Provider Urology
DX: D17.9 Benign lipomatous neoplasm, unspecified (principal); N20.2 Calculus of kidney with calculus of ureter
CPT/HCPCS: 99213

== ENCOUNTER → 2024-02-23 08:16 | Outpatient (BNVA) | payer OTHER, SELFPAY | PROVIDERS: Visit Provider Urology ==

== ENCOUNTER 2024-02-25 09:12 | Outpatient (REF) | payer OTHER, SELFPAY ==
--- NOTE | ~2024-02-25 | XR_ITS ---
EXAMINATION: XR WRIST, RIGHT CLINICAL INFORMATION: Pain in unspecified wrist, Velcro splint. COMPARISON: 01/26/2024, 01/08/2024, 12/28/2023, 12/24/2023. TECHNIQUE: PA, lateral, and oblique views of the right wrist. FINDINGS: Redemonstration of an oblique fracture of the distal radius with mild impaction and increased bridging callus formation. Alignment is stable. Fracture line is still faintly visible. Moderate degenerative changes in the first carpometacarpal and metacarpophalangeal joints. XR/XR wrist RT min 3V IMPRESSION: Healing fracture of the distal radius.
== END 2024-02-25 09:13 | disposition home or self-care (01) ==
LOC: HO.HOSX 09:12
PROVIDERS: Visit Provider Physician Assistant
DX: S52.501D Unspecified fracture of the lower end of right radius, subsequent encounter for closed fracture with routine healing (principal)
CPT/HCPCS: 73110

== ENCOUNTER 2024-02-25 09:47 | Outpatient (AMB) | payer OTHER, SELFPAY ==
[2024-02-25 10:05] VITALS: BMI 50.8
--- NOTE | 2024-02-25 10:05 | A.OFFVIS_ITS ---
Vital Signs 02/25/24 10:05 Height 5 ft 4 in Weight 296 lb BMI 50.8 Intake Visit Reasons: OV - right distal radial fx, DOI 12/24/23 Intake Note: Flores is a 73 year old right hand dominant female who presents today for a ROM check s/p her right distal radial fx, DOI 12/24/23. Patient reports she is doing a lot better. She expresses working with O.T. and it is going well, she is doing her exercises at home as well. Allergies cephalexin [Keflex] Allergy (Severe, Verified 02/25/24 10:17) CRAMPS, N&V vancomycin Allergy (Verified 02/25/24 10:17) Anaphylaxis erythromycin base [Erythromycin Base] Adverse Reaction (Severe, Verified 02/25/24 10:17) NAUSEA & VOMITING Erythromycin Allergy (Severe, Uncoded 12/28/23 11:01) CRAMPS HPI HPI OV - right distal radial fx, DOI 12/24/23: Details: 73-year-old female who presents in the office today for a ROM check and follow up of a right distal radius fracture, which occurred on 12/28/2023 status post a mechanical fall. I last saw the patient in the office on 01/26/2024 when she was instructed to begin to come out of the brace and she was referred to OT. While in the office the patient reports she is doing a lot better. Confirms participation in OT and states it is going well. She is also doing the exercises at home. [facility] Medical History Vulva cancer History of COVID-19 Diabetes mellitus Arthritis Eczema Rosacea Hypothyroid HTN (hypertension) Asthma Surgical History History of cystoscopy Hx of hysterectomy History of lithotripsy History of right oophorectomy Hx of cholecystectomy Hx of dilation and curettage Social History Household Members: Family Household Members Other:: Brother Housing: House Are you a primary director of career resources to a significant other at home: No Do you presently have visiting nurse or other home services: No Alcohol intake: never Patient Tobacco Use Status: Never used Tobacco service: No Current occupational status: retired Current occupation: right hand dominant Review of Systems Const All systems reviewed & are unremarkable except as noted in HPI and below Physical Exam Vital Signs: BMI result Body Mass Index 50.8 Const General: cooperative, healthy appearing and no acute distress Resp Effort & Inspection: normal respiratory effort and able to speak in complete sentences Cardio Rate: regular rate Peripheral pulses: Peripheral pulses 2+ throughout GI Palpation (GI): Soft to palpation Skin Lesions: no lesions Rashes: no rashes Extrem Other: Right wrist: Full ROM in all planes. 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 Able to perform full finger flexion, extension, abduction, adduction, finger cross, okay sign, and thumbs up without deficit. Able to make a closed fist. Sensation intact. Capillary refill is brisk. Radial pulse intact. Assessment & Plan Assessment & Plan (1) Distal radial fracture: Onset Date: ~12/28/23 Comment: Right Code(s): S52.509A - Unspecified fracture of the lower end of unspecified radius, initial encounter for closed fracture Category: Medical Qualifiers: Encounter type: initial encounter Fracture morphology: unspecified fracture morphology Fracture type: closed Laterality: right Qualified Code(s): S52.501A - Unspecified fracture of the lower end of right radius, initial encounter for closed fracture Plan Ms. Collado is a 73-year-old female who presents in the office today for a ROM check and follow up of a right distal radius fracture, which occurred on 12/28/2023 status post a mechanical fall. I last saw the patient in the office on 01/26/2024 when she was instructed to begin to come out of the brace and she was referred to OT. While in the office the patient reports she is doing a lot better. Confirms participation in OT and states it is going well. She is also doing the exercises at home. Patient has 3 more sessions left for OT that she will attend. After that it is anticipated she will be discharged with a home exercise program. 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 Of note: She did have multiple biopsies for suspicion of vulvar cancer, which did come back precancerous. She is pending surgical intervention. Follow up will be PRN, or sooner if needed. X-rays of the right wrist which were obtained while in the office today and were reviewed by me, Anne Kinney PA-C, revealed a healed distal radius fracture. Orders: Orders XR wrist RT min 3V Today M25.539 - Pain in unspecified wrist Patient Instructions: Scribed by Alejandrina Murillo medical accounts receivable specialist, for Anne Kinney PA-C on 02/25/2024 at 9:49 am, EST. Coding Level of Care Code Global (26949) Diagnoses Closed fracture of distal end of right radius, unspecified fracture morphology, initial encounter S52.501A Encounter type: initial encounter Fracture morphology: unspecified fracture morphology Fracture type: closed Laterality: right
== END 2024-02-25 10:30 | disposition home or self-care (01) ==
PROVIDERS: PCP Internal Medicine; Visit Provider Physician Assistant
DX: S52.501A Unspecified fracture of the lower end of right radius, initial encounter for closed fracture (principal)
CPT/HCPCS: 99213

== ENCOUNTER 2024-03-02 09:00 | Outpatient (RCR) | payer OTHER, SELFPAY ==
--- NOTE | 2024-02-11 12:44 | MHC.OT.OP ---
[address] [phone] F: [phone] Occupational Therapy Progress Note Patient Name: Flores Hinkle Diagnosis: Distal radius fx Date of Surgery: Date of Evaluation: 02/11/24 Treatments to Date: 1 Cancellations to Date: No Shows to Date: Subjective: I can't lift a case of water. 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
--- NOTE | 2024-03-02 09:34 | MHC.OT.DC ---
[address] [phone] F: [phone] Occupational Therapy Discharge Note Patient Name: Flores Marx Atul Provider: Anne Kinney PA-C Diagnosis: Distal radius fx Date of Evaluation: 02/11/24 Date of Discharge: 03/02/24 Treatments to Date: 6 Discharge Status: Achieved Goals Improved Function Independent with HEP Discharge Summary: Flores Marx is about 9 weeks s/p right distal radius fx w/ conservative management. She has good follow through w/ HEP and has made excellent gains since initial eval. She is very motivated and has progressed well in all areas w/ range and strength WFL. She is still slightly limited w/ personal hygiene and some discomfort in ulnar wrist w/ forceful twisting (opening doorknobs), but has good understanding of joint protection and healing process of DRUJ injuries. She has met all therapy goals met and pt Ind w/ self management. Electronically Signed By: Eun Elizalde, OTR/L CHT Please Sign and return to therapist, thank you for your referral.
== END 2024-03-02 09:35 | disposition home or self-care (01) ==
LOC: HO.OT 09:00
PROVIDERS: PCP Internal Medicine; Visit Provider Physician Assistant
DX: S52.501D Unspecified fracture of the lower end of right radius, subsequent encounter for closed fracture with routine healing (principal)
CPT/HCPCS: 97110; 97165

== ENCOUNTER 2024-08-10 09:25 | Outpatient (REF) | payer OTHER, SELFPAY ==
[2024-08-10 09:54] LABS: MANUAL DIFF FLAG NO
[2024-08-10 10:10] LABS: Basophils Absolute Auto 0.1 X10*3/uL (0.0-0.2); Basophils Percent Auto 0.7 % (0-2); Eosinophils Absolute Auto 0.2 X10*3/uL (0.0-0.4); Eosinophils Percent Auto 2.5 % (0-4); Hematocrit 37.9 % (37.0-47.0); Hemoglobin 11.9 g/dl (12.0-16.0); Imm Gran Abs Auto 0.06 X10*3/uL (0.00-0.03); Imm Gran Pct Auto 0.7 % (0.0-0.4); Lymphocytes Absolute Auto 2.1 X10*3/uL (1.2-4.9); Lymphocytes Percent Auto 24.5 % (20-40); Mean Corpuscular HGB Conc 31.4 g/dl (31.0-35.0); Mean Corpuscular Hemoglobin 29.4 pg (27.0-33.0); Mean Corpuscular Volume 93.6 fL (80.0-98.0); Mean Platelet Volume 8.9 fL (9.4-12.3); Monocytes Absolute Auto 0.3 X10*3/uL (0.1-1.2); Monocytes Percent Auto 4.1 % (2-11); Neutrophils Absolute Auto 5.6 x10*3/uL (2.0-8.3); Neutrophils Percent Auto 67.5 % (45-73); Platelet Count 371 X10*3/uL (160-400); Red Blood Count 4.05 X10*6/uL (4.20-5.50); Red Cell Distribution Width 14.8 % (11.0-16.0); White Blood Count 8.4 X10*3/uL (4.8-10.8)
[2024-08-10 10:14] LABS: Estimated Average Glucose 140 mg/dL; Hemoglobin A1C 141.4013 umol/L; Hemoglobin A1c % 6.5 % (<6.0); Total Hemoglobin (HGBA1C) 2976.0685 umol/L
[2024-08-10 10:37] LABS: Alanine Aminotransferase 22 U/L (0-31); Albumin Level 4.1 g/dL (3.5-5.0); Alkaline Phosphatase 83 U/L (39-117); Anion Gap 13 (12-20); Aspartate Amino Transferase 21 U/L (5-31); Bilirubin Total 0.4 mg/dL (0.0-1.0); Blood Urea Nitrogen 23 mg/dL (9-16); Carbon Dioxide 26 mmol/L (22-29); Chloride 107 mmol/L (96-108); Estimated Glomerular Filt Rate > 60; Glucose Random 168 mg/dL (60-115); Potassium 4.4 mmol/L (3.3-5.1); Sodium 142 mmol/L (135-145); Total Protein 7.2 g/dL (6.5-8.0)
[2024-08-10 11:00] LABS: Free T4 (Free Thyroxine) 0.91 ng/dL (0.71-1.85); Thyroid Stimulating Hormone 4.17 uIU/mL (0.32-4.0)
== END 2024-08-10 09:26 | disposition home or self-care (01) ==
LOC: HO.LAB 09:25
PROVIDERS: PCP Internal Medicine; Visit Provider Internal Medicine
DX: I12.9 Hypertensive chronic kidney disease with stage 1 through stage 4 chronic kidney disease, or unspecified chronic kidney disease (principal); E03.9 Hypothyroidism, unspecified; E11.22 Type 2 diabetes mellitus with diabetic chronic kidney disease; N18.9 Chronic kidney disease, unspecified; M81.0 Age-related osteoporosis without current pathological fracture
CPT/HCPCS: 36415; 80053; 83036; 84439; 84443; 85025

== ENCOUNTER 2024-08-24 14:17 | Outpatient (REF) | payer OTHER, SELFPAY ==
--- NOTE | ~2024-08-24 | US_ITS ---
EXAMINATION: US EXTRACRANIAL CAROTID DUPLEX, BILATERAL CLINICAL INFORMATION: Right carotid bruit COMPARISON: None available. TECHNIQUE: Real-time ultrasound and Doppler techniques (integrating B-mode 2-D vascular images, Doppler spectral analysis and color-flow Doppler imaging) were utilized to interrogate the extracranial carotid arteries, the vertebral arteries and proximal subclavian arteries bilaterally. The degree of stenosis is determined by criteria similar to NASCET. FINDINGS: Right Side: 1. There is no atherosclerotic plaque seen in the bifurcation/proximal ICA region. 2. The common carotid artery PSV proximally is 104 cm/s and distally 78 cm/s. 3. The proximal internal carotid artery velocities are 79 cm/s systolic and 15 cm/s diastolic. 4. The proximal external carotid artery PSV is 119 cm/s. 5. The vertebral artery shows antegrade flow. 6. The subclavian artery waveforms are normal. Left Side: 1. There is minimal atherosclerotic plaque seen in the bifurcation/proximal ICA region. 2. The common carotid artery PSV proximally is 82 cm/s and distally 76 cm/s. 3. The proximal internal carotid artery velocities are 79 cm/s systolic and 26 cm/s diastolic. 4. The proximal external carotid artery PSV is 101 cm/s. 5. The vertebral artery shows antegrade flow. 6. The subclavian artery waveforms are normal. US/US carotid duplex BI IMPRESSION: 1. RIGHT: Normal right internal carotid artery without atherosclerotic plaque or hemodynamically significant stenosis. 2. LEFT: Minimal, non-hemodynamically significant stenosis of the proximal left internal carotid artery corresponding to a 0-49% stenosis by velocity criteria. Electronically signed by: Myrna Vega MD 09/01/2024 02:22 PM EDT
== END 2024-08-24 14:18 | disposition home or self-care (01) ==
LOC: HO.US 14:17
PROVIDERS: PCP Internal Medicine; Visit Provider Internal Medicine
DX: R09.89 Other specified symptoms and signs involving the circulatory and respiratory systems (principal)
CPT/HCPCS: 93880

== ENCOUNTER 2024-08-28 17:27 | Emergency (ER) | payer OTHER, SELFPAY ==
--- NOTE | ~2024-08-28 | CT_ITS ---
EXAMINATION: CT ABDOMEN AND PELVIS WITHOUT CONTRAST CLINICAL INFORMATION: Right flank pain. COMPARISON: CT abdomen pelvis dated November 30, 2020. TECHNIQUE: Multidetector volumetric imaging was performed from the superior aspect of the liver through the pubic symphysis. Sagittal and coronal reformatted images were obtained on the technologist's workstation. This CT examination was performed using dose optimization techniques as appropriate, variously including the following: *Automated exposure control *Adjustment of mA and/or kV according to patient size (this includes techniques or standardized protocols for targeted exams where dose is matched to indication/reason for exam; i.e. extremities or head) *Use of iterative reconstruction technique DLP: 1202 mGy-cm FINDINGS: LUNG BASES: The visualized lung bases are unremarkable. LIVER, GALLBLADDER, AND BILIARY TREE: The liver is enlarged. No focal hepatic lesion or biliary ductal dilatation is present. The gallbladder is surgically absent. PANCREAS: Unremarkable. SPLEEN: Unremarkable. ADRENAL GLANDS: Unremarkable. KIDNEYS AND URETERS: Right side: The right kidney is normal in size. There is a punctate calculus within the interpolar region. No hydronephrosis or hydroureter. No perinephric stranding. There is a stable 1.5 cm hyperdense lesion within the upper pole. There is a 1.6 cm low-attenuation lesion within the interpolar region. Left side: The left kidney is normal in size. There are 2 small calculi within the lower pole measuring 4 mm and 3 mm, respectively. No hydronephrosis or hydroureter. No perinephric stranding. 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 BLADDER: Unremarkable. GASTROINTESTINAL TRACT: The small and large bowel are normal in caliber. There is no pericolonic inflammatory stranding. The appendix is unremarkable. ABDOMINAL WALL: Stable, omental fat-containing left paraumbilical/infraumbilical hernia without inflammation. LYMPH NODES: No lymphadenopathy. VASCULAR: No abdominal aortic aneurysm. PELVIC VISCERA: Status post hysterectomy. No adnexal mass. OSSEOUS STRUCTURES: No acute osseous abnormality. CT/CT abdomen pelvis wo IV con IMPRESSION: No acute intra-abdominal/intrapelvic abnormality. Bilateral nonobstructive renal calculi. There is a stable 1.5 cm hyperdense lesion within the upper pole of the right kidney. Although this may represent a hyperdense cyst, it remains indeterminate in etiology based on its attenuation value of 37 Hounsfield units. The liver is enlarged. Fleischner guidelines were followed. Electronically signed by: Issac Anderson DO 08/28/2024 10:24 PM EDT RP
--- NOTE | ~2024-08-28 | XR_ITS ---
EXAMINATION: XR CHEST CLINICAL INFORMATION: CP/AP COMPARISON: Chest radiograph 08/28/2021 TECHNIQUE: 2 views of the chest were obtained. FINDINGS: The lungs are adequately expanded. No focal consolidation. Linear atelectasis in the lingula. No pleural effusions or pneumothorax. The cardiac mediastinal silhouette is unchanged. Degenerative changes of the thoracic spine. No acute osseous abnormality. XR/XR chest 2V IMPRESSION: Minimal lingular atelectasis. No acute pulmonary disease. Electronically signed by: Kevin Maria MD 08/28/2024 06:15 PM EDT
[2024-08-28 17:30] VITALS: BP 160/95; PULSE 100; RESP 20; TEMP 36.8; O2SAT 98; BMI 49.3
--- NOTE | 2024-08-28 17:31 | ED_ITS ---
HPI - Chest Pain General Chief Complaint: General Medical Stated Complaint: pain in the rt side wrapping around front Time Seen by Provider: 08/28/24 19:38 Source: patient Limitations: no limitations History of Present Illness ED Provider: Argentina Guzman PA-C HPI narrative: Patient is a 73 year old female with a history of cholecystectomy and hysterectomy, endometrial/vulvar cancer, DM, kidney stones, and HTN who presents with RLQ pain that radiates around to the back then up to the R shoulder. This has been progressively worsening x4d. At rest, the pain is a 4/10 ache. On inspiration, the pain is a 9/10 stabbing sensation. Pain is also worsened with rotation of the torso. There are no /GI symptoms, recent trauma, or systemic symptoms. She has found no alleviating factors. Patient states this pain is different than the pain she experiences with kidney stones. Related Data Home Medications ?Medication ?Instructions ?Recorded ?Confirmed cholecalciferol (vitamin D3) 125 1,000 unit PO DAILY 11/18/20 02/23/24 mcg (5,000 unit) tablet (Vitamin D3) levothyroxine 50 mcg tablet 50 mcg PO DAILY 11/18/20 02/23/24 lisinopril 20 mg tablet 20 mg PO DAILY 11/18/20 02/23/24 metformin 500 mg tablet,extended 500 mg PO QPM 12/25/20 02/23/24 release 24 hr ascorbic acid (vitamin C) 500 mg 500 mg PO DAILY 08/29/21 02/23/24 tablet (Vitamin C) budesonide-formoterol HFA 80 inhalation 12/28/23 02/23/24 mcg-4.5 mcg/actuation aerosol inhaler (Symbicort) halobetasol propionate 0.05 % topical 12/28/23 02/23/24 topical ointment fluticasone 100 mcg-salmeterol 50 1 inh inhalation BID 01/26/24 02/23/24 mcg/dose blistr powdr for inhalation (Andrea Inhub) Previous Rx's ?Medication ?Instructions ?Recorded oxycodone 5 mg tablet 5 mg PO Q8H PRN pain #9 tabs 12/24/23 allopurinol 100 mg tablet 100 mg PO DAILY 90 days #90 tabs 02/23/24 pyridoxine (vitamin B6) 50 mg 50 mg PO DAILY 90 days #90 tabs 02/23/24 tablet ciprofloxacin HCl 500 mg tablet 500 mg PO Q12H 7 days #14 tabs 09/02/24 Allergies Allergy/AdvReac Type Severity Reaction Status Date / Time cephalexin [Keflex] Allergy Severe CRAMPS, N&V Verified 08/28/24 17:33 vancomycin Allergy Anaphylaxis Verified 08/28/24 17:33 erythromycin base AdvReac Severe NAUSEA & Verified 08/28/24 17:33 [Erythromycin Base] VOMITING Erythromycin Allergy Severe CRAMPS Uncoded 12/28/23 11:01 Review of Systems 2 Review of Systems: Yes all other systems are reviewed and are negative Constitutional: Constitutional: Denies fatigue, Denies fever(s), Denies headache(s) and Denies weakness Eyes: Eyes: Denies change in vision ENT: Denies dizziness and Denies headache(s) Cardiovascular: Cardiovascular: Denies chest pain, Denies syncope, Denies leg edema, Denies palpitations and Denies dyspnea Respiratory: Respiratory: Denies chest congestion, Denies cough and Denies dyspnea Gastrointestinal: Gastrointestinal: Reports abdominal pain, Denies change in bowel habits, Denies constipation, Denies diarrhea and Denies nausea Genitourinary: Genitourinary: Denies hematuria, Denies dysuria, Denies urinary urgency and Denies vaginal discharge Musculoskeletal: Musculoskeletal: Reports back pain, Denies arthralgias and Denies joint swelling Neurologic: Denies dizziness, Denies syncope, Denies headache(s) and Denies weakness Psychiatric: Psychiatric: Denies homicidal ideation and Denies suicidal ideation Endocrine: Endocrine: Denies fatigue and Denies palpitations [facility] Past Medical History Medical History Vulva cancer History of COVID-19 Diabetes mellitus Arthritis Eczema Rosacea Hypothyroid HTN (hypertension) Asthma Surgical History History of cystoscopy Hx of hysterectomy History of lithotripsy History of right oophorectomy Hx of cholecystectomy Hx of dilation and curettage Social History Social History Household Members: Family Household Members Other:: Brother Housing: House Are you a primary professional healthcare representative to a significant other at home: No Do you presently have visiting nurse or other home services: No Alcohol intake: never Patient Tobacco Use Status: Never used Tobacco Smoked in Last 30 Days: No Use of substances other than those prescribed or required for medical reasons: No Advance Directives: Yes Advance Directives on File: Yes Advance Directives Date on File: 08/29/21 Do you have a plan to hurt others: No Plan service: No Current occupational status: retired Current occupation: right hand dominant Physical Exam 2 Vital Signs: Vital Signs: Last Vital Signs Temp 98.2 F 08/28/24 23:24 Pulse 90 08/28/24 23:24 Resp 18 08/28/24 23:24 BP 150/73 H 08/28/24 23:24 Pulse Ox 95 08/28/24 23:24 O2 Del Method Room Air 08/28/24 23:24 BMI result Body Mass Index 49.3 Const: General: cooperative, healthy appearing, comfortable and no acute distress Nutritional Appearance: obese Orientation/consciousness: patient oriented x3 Limitations: no limitations HEENT: Head: Yes normal to inspection, Yes normocephalic and Yes atraumatic Eyes: General: appearance normal, both eyes and all related structures C onjunctivae: conjunctivae normal Sclerae: sclerae normal Neck: Neck: Yes no meningeal signs Resp: Effort & Inspection: normal respiratory effort, able to speak in complete sentences, no cough and no respiratory distress Auscultation: clear to auscultation bilaterally Cardio: Jugular venous distension: no JVD Rate: regular rate Rhythm: r egular rhythm Heart sounds: S1 normal heart sound present and S2 normal heart sound present GI: Inspection: Yes normal to inspection, No distended and No visible herniation Palpation (GI): not firm, Tenderness to palpation present (GI), no guarding and no masses Skin: Other: warm and dry, no rash Neuro: General: patient oriented x3, moves all extremities, no meningeal signs, no focal motor deficits and CN's II-XI intact bilaterally Cranial nerves: Yes CN's II-XII intact bilaterally and Yes Bilaterally intact EOM present Cognition (Neuro): normal cognition Extrem: General: Yes normal to inspection and Yes full ROM Psych: Other: calm and cooperative Appearance: grossly normal Mental Status: mental status grossly normal Speech and movement: Normal speech and movement present and Clear speech present Affect: normal affect Attitude: cooperative Thought process: N ormal thought process present Course Course Course Narrative: This is a rapid medical exam. Deferred additional HPI, ROS, PE to primary provider. 73 yo female with PMH of arthritis, asthma, DM, endometrial/vulvar cancer, eczema, HTN, hypothyroidism here with complaints of right upper abdominal pain which radiates to the shoulder/back since . Worsened with deep breathing. Has had cholecystectomy, hysterectomy. Will obtain CXR, EKG, labs, UA OUSMANES -Samia Whitfield APRN Reevaluation(s) Reevaluation #1: patient called and informed of positive UTI. informed cipro was sent to pharmacy. patient was explained risk of tendon rupture with medication and informed to not do any strenous exercises or activities while on medication. Time: 19:32 Medications Administered Discontinued Medications Generic Name Dose Route Start Last Admin Trade Name Freq PRN Reason Stop Dose Admin Ketorolac Tromethamine 30 mg 08/28/24 20:04 08/28/24 20:35 Ketorolac Tromethamine 30 Mg/Ml Vial IM 08/28/24 20:05 30 mg ONCE ONE Administration Medical Decision Making Medical Decision Making [facility] Narrative: Estela Guzman PA-C have personally assessed and manage the patient, Amanda SHARMA observed and helped to formulate the documentation Patient is a 73 year old female with a history of cholecystectomy and hysterectomy, endometrial/vulvar cancer, DM, kidney stones, and HTN who presents with RLQ pain that radiates around to the back then up to the R shoulder. This has been progressively worsening x4d. At rest, the pain is a 4/10 ache. On inspiration, the pain is a 9/10 stabbing sensation. Pain is also worsened with rotation of the torso. There are no /GI symptoms, recent trauma, or systemic symptoms. She has found no alleviating factors. Patient states this pain is different than the pain she experiences with kidney stones. Patient has a history of cholecystectomy and hysterectomy, endometrial/vulvar cancer, DM, kidney stones, and HTN. DDx: neoplasm, pancreatitis, kidney stones, UTI, pyelonephritis, nephrolithiasis, muscle strain/injury, spondylolithesis Plan: Given that the pain is reproducible on exam, it is possible this could be a muscle strain/injury. Will rule out other causes. As pain is worse with movement, it could be referred pain by spondylolithesis, however given that it began in the RLQ as opposed to the back and there was no preceding trauma, I think this is unlikely. Considered nephrolithiasis, however as the patient denies sx and is familiar with those sx, I think it is unlikely. Will check UA to rule out. Though it would be an atypical presentation due to the lack of and systemic sx, it is possible that patient could have UTI/pyelo, as the pain could be referred and there is pain upon palpation of the right side and the back. Will assess with UA and CBC. Pancreatitis is unlikely as there is no steatorrhea, loss of appetite, or excess fat in diet. Given the patients history with multiple cancers, it is possible that she has a neoplasm elsewhere. Will rule out other possible causes first. per Argentina Guzman PA-C Given distribution of discomfort, I do believe she is probably passing a kidney stone, although she states it is an atypical presentation for her. Screening labs and urinalysis already obtained. She is passing hematuria. Given Toradol for pain and obtaining a CT scan. She has no obstructive symptoms to suggest an obstructing mass. She does have CVA tenderness, could be pyelonephritis, although she does not complain of dysuria and is afebrile. Urine has no nitrite, some white cells primarily a large amount Of hematuria. I have independently reviewed the following tests: Labs: Slight leukocytosis, not anemic, no electrolyte abnormality, urine not infected, passing a moderate amount of hematuria CT abdomen and pelvis: CT/CT abdomen pelvis wo IV con IMPRESSION: No acute intra-abdominal/intrapelvic abnormality. Bilateral nonobstructive renal calculi. There is a stable 1.5 cm hyperdense lesion within the upper pole of the right kidney. Although this may represent a hyperdense cyst, it remains indeterminate in etiology based on its attenuation value of 37 Hounsfield units. The liver is enlarged. Fleischner guidelines were followed. Electronically signed by: Issac Anderson DO 08/28/2024 10:24 PM EDT Lab Data 08/28/24 17:47 08/28/24 17:47 Labs: Lab Results 08/28/24 08/28/24 Range/Units 17:47 19:33 WBC 11.0 H (4.8-10.8) X10*3/uL RBC 4.09 L (4.20-5.50) X10*6/uL Hgb 12.2 (12.0-16.0) g/dl Hct 38.6 (37.0-47.0) % MCV 94.4 (80.0-98.0) fL MCH 29.8 (27.0-33.0) pg MCHC 31.6 (31.0-35.0) g/dl RDW 15.0 (11.0-16.0) % Plt Count 381 (160-400) X10*3/uL MPV 8.9 L (9.4-12.3) fL Immature Gran % (Auto) 1.8 H (0.0-0.4) % Neut % (Auto) 73.3 H (45-73) % Lymph % (Auto) 18.1 L (20-40) % [place] % (Auto) 4.0 (2-11) % Eos % (Auto) 2.1 (0-4) % Baso % (Auto) 0.7 (0-2) % Lymph # (Auto) 2.0 (1.2-4.9) X10*3/uL [place] # (Auto) 0.4 (0.1-1.2) X10*3/uL Eos # (Auto) 0.2 (0.0-0.4) X10*3/uL Baso # (Auto) 0.1 (0.0-0.2) X10*3/uL Abs Immat Gran (auto) 0.20 H (0.00-0.03) X10*3/uL Absolute Neuts (auto) 8.0 (2.0-8.3) x10*3/uL Absolute Nucleated RBC 0.000 (0.0-0.012) X10*3/uL Nucleated RBC % (auto) 0.0 (0.0-0.2) /100WBC PT 11.1 (10.9-12.4) SEC INR 1.0 (0.9-1.1) Sodium 144 (135-145) mmol/L Potassium 4.0 (3.3-5.1) mmol/L Chloride 112 H (96-108) mmol/L Carbon Dioxide 21 L (22-29) mmol/L Anion Gap 15 (12-20) BUN 16 (9-16) mg/dL Creatinine 0.90 (0.5-1.4) mg/dL Estim Creat Clear Calc 77.5 Estimated GFR > 60 Random Glucose 139 H (60-115) mg/dL Calcium 9.7 (8.4-10.2) mg/dL Magnesium 1.9 (1.6-2.6) mg/dL Total Bilirubin 0.2 (0.0-1.0) mg/dL Direct Bilirubin < 0.2 (0.0-0.5) mg/dL AST 27 (5-31) U/L ALT 28 (0-31) U/L Alkaline Phosphatase 80 (39-117) U/L Troponin I High Sens < 2.7 (<3.5-17.0) ng/L Total Protein 7.4 (6.5-8.0) g/dL Albumin 4.1 (3.5-5.0) g/dL Lipase 35 (8-78) U/L Urine Color Yellow Urine Appearance Clear Urine pH 5.0 (5.0-9.0) Ur Specific [place] 1.020 (1.005-1.025) Urine Protein 30 (1+) H (Neg-Trace) mg/dL Urine Glucose (UA) Negative (Negative) mg/dL Urine Ketones Negative (Negative) mg/dL Urine Blood Large (3+) H (Negative) Urine Nitrite Negative (Negative) Ur Leukocyte Esterase Moderate (2+) H (Negative) Urine RBC >20 H (0-2) /HPF Urine WBC 21-50 H (0-5) /HPF Ur Squamous Epith Cells 3-5 (0-2) /HPF Urine Bacteria None Seen (None Seen) Hyaline Casts 0-2 (0-2) /LPF Discharge Plan Discharge Clinical Impression: Acute right flank pain, Hematuria Patient Disposition: Home, Self-Care Instructions: Hematuria (ED), Flank Pain (ED) Additional Instructions: There were no acute findings on the CT scan. You were found to have a kidney stone in each kidney. Given your passing blood in your urine, with right flank pain, it is suspicious that you could have passed a stone. There is no evidence of a urinary tract infection. Return precautions for the onset of worsening/severe abdominal pain, intractable vomiting, fever, or inability to urinate. Follow up with your primary care provider as needed. Prescriptions: New ciprofloxacin HCl 500 mg tablet 500 mg PO Q12H 7 Days Qty: 14 0RF No Action pyridoxine (vitamin B6) 50 mg tablet 50 mg PO DAILY 90 Days Qty: 90 3RF allopurinol 100 mg tablet 100 mg PO DAILY 90 Days Qty: 90 3RF lisinopril 20 mg Tablet 20 mg PO DAILY levothyroxine 50 mcg Tablet 50 mcg PO DAILY cholecalciferol (vitamin D3) [Vitamin D3] 125 mcg (5,000 unit) Tablet 1,000 unit PO DAILY metformin 500 mg Tablet Extended Release 24 Hr 500 mg PO QPM ascorbic acid (vitamin C) [Vitamin C] 500 mg Tablet 500 mg PO DAILY oxycodone 5 mg tablet 5 mg PO Q8H PRN (Reason: pain) Qty: 9 0RF Rx Instructions: Partial Fill upon patient request. budesonide-formoterol [Symbicort] 80-4.5 mcg/actuation HFA aerosol inhaler inhalation halobetasol propionate 0.05 % ointment topical fluticasone propion-salmeterol [Wixela Inhub] 100-50 mcg/dose blister with device 1 inh inhalation BID Interventions: ED Discharge Assessment Last Done: 08/28/24 23:24 Discharge Date/Time: 08/28/24 23:25 Print Language: Khmer
--- NOTE | 2024-08-28 17:33 | ECG_ITS ---
Test Reason : CP Blood Pressure : / mmHG Vent. Rate : 087 BPM Atrial Rate : 087 BPM P-R Int : 166 ms QRS Dur : 090 ms QT Int : 340 ms P-R-T Axes : 032 010 031 degrees QTc Int : 409 ms Normal sinus rhythm Normal ECG When compared with ECG of 28-AUG-2021 22:50, No significant change was found Referred By: Cady Whitfield Electronically Signed By:MARI FERNANDEZ
[2024-08-28 17:53] LABS: MANUAL DIFF FLAG NO
[2024-08-28 17:57] LABS: Basophils Absolute Auto 0.1 X10*3/uL (0.0-0.2); Basophils Percent Auto 0.7 % (0-2); Eosinophils Absolute Auto 0.2 X10*3/uL (0.0-0.4); Eosinophils Percent Auto 2.1 % (0-4); Hematocrit 38.6 % (37.0-47.0); Hemoglobin 12.2 g/dl (12.0-16.0); Imm Gran Pct Auto 1.8 % (0.0-0.4); Lymphocytes Percent Auto 18.1 % (20-40); Mean Corpuscular HGB Conc 31.6 g/dl (31.0-35.0); Mean Corpuscular Hemoglobin 29.8 pg (27.0-33.0); Mean Corpuscular Volume 94.4 fL (80.0-98.0); Mean Platelet Volume 8.9 fL (9.4-12.3); Monocytes Absolute Auto 0.4 X10*3/uL (0.1-1.2); Neutrophils Percent Auto 73.3 % (45-73); Platelet Count 381 X10*3/uL (160-400); Red Blood Count 4.09 X10*6/uL (4.20-5.50)
[2024-08-28 18:01] LABS: Prothrombin Time 11.1 SEC (10.9-12.4)
[2024-08-28 18:08] LABS: Alanine Aminotransferase 28 U/L (0-31); Albumin Level 4.1 g/dL (3.5-5.0); Alkaline Phosphatase 80 U/L (39-117); Anion Gap 15 (12-20); Aspartate Amino Transferase 27 U/L (5-31); Bilirubin Direct < 0.2 mg/dL (0.0-0.5); Bilirubin Total 0.2 mg/dL (0.0-1.0); Blood Urea Nitrogen 16 mg/dL (9-16); Calcium 9.7 mg/dL (8.4-10.2); Carbon Dioxide 21 mmol/L (22-29); Chloride 112 mmol/L (96-108); Creatinine Clr Calc Pharmacy 77.5; Estimated Glomerular Filt Rate > 60; Glucose Random 139 mg/dL (60-115); Lipase 35 U/L (8-78); Magnesium 1.9 mg/dL (1.6-2.6); Sodium 144 mmol/L (135-145); Total Protein 7.4 g/dL (6.5-8.0)
[2024-08-28 18:19] LABS: Troponin-I High Sensitivity < 2.7 ng/L (<3.5-17.0)
[2024-08-28 19:42] LABS: Appearance Urine Clear; Color Urine Yellow; Glucose Urine UA Negative (Negative); Leukocyte Esterase Urine Moderate (2+) (Negative); Nitrite Urine Negative (Negative); UMIC TRIGGER UACC YES; Urine Blood Large (3+) (Negative); Urine Ketones Negative (Negative); Urine Protein 30 (1+) mg/dL (Neg-Trace)
[2024-08-28 19:46] LABS: Bacteria Urine None Seen (None Seen); Hyaline Casts Urine 0-2 /LPF (0-2); RBC Urine >20 /HPF (0-2); UACC Culture Trigger YES; WBC Urine 21-50 /HPF (0-5)
[2024-08-28] MEDS: Ketorolac Tromethamine 30 MG/ML VIAL IM (20:35)
[2024-08-28 22:14] VITALS: BP 144/65; PULSE 82; RESP 20; TEMP 37.1; O2SAT 96
[2024-08-28 23:16] VITALS: BP 155/73; PULSE 90; RESP 18; TEMP 36.8; O2SAT 95
[2024-08-28 23:24] VITALS: BP 150/73; PULSE 90; RESP 18; TEMP 36.8; O2SAT 95
== END 2024-08-28 23:25 | disposition home or self-care (01) ==
PROVIDERS: Nurse Practitioner Family; Emergency Provider Internal Medicine; PCP Internal Medicine
DX: R31.9 Hematuria, unspecified (principal); R07.89 Other chest pain; I10 Essential (primary) hypertension; R10.31 Right lower quadrant pain; Z79.899 Other long term (current) drug therapy
CPT/HCPCS: 36415; 71046; 74176; 80048; 80076; 81001; 83690; 83735; 84484; 85025; 85610; 87086; 87088; 87147; 87186; 93005; 96372; 99284; J1885

== ENCOUNTER → 2024-08-28 17:33 | Outpatient (BNV) | payer OTHER, SELFPAY | PROVIDERS: Emergency Provider Internal Medicine; PCP Internal Medicine; Visit Provider Internal Medicine | DX: R07.9 Chest pain, unspecified (principal) | CPT/HCPCS: 93010 ==

== ENCOUNTER 2024-12-09 16:05 | Outpatient (REF) | payer OTHER, SELFPAY ==
--- NOTE | ~2024-12-09 | XR_ITS ---
EXAMINATION: XR CHEST CLINICAL INFORMATION: COUGH, WHEEZE, BRONCHI COMPARISON: 05/28/2024. TECHNIQUE: 2 views of the chest were obtained. FINDINGS: The cardiac, hilar, and mediastinal contours are normal. The lungs are clear bilaterally. There is no pneumothorax or pleural effusion. There is no focal osseous or soft tissue abnormality. There are spinal degenerative changes. XR/XR chest 2V IMPRESSION: No active pulmonary disease. Electronically signed by: Lukas Garcia MD 12/09/2024 04:38 PM EST
--- OUTSIDE RECORDS SUMMARY | 2024-12-09 16:07 | XMS_ITS | Clinical Summary ---
Author Organization [facility] Address [address] [place] [phone] Phone Care Team Providers Care Surgery Nurse Name Role Phone Unavailable Primary Care Provider Unavailabl e Social History Tobacco Use Types Packs/Day Years Used Date Smoking Tobacco: Never Assessed Sex and Gender Information Value Date Recorded Sex Assigned at Not on file Gender Identity Not on file Sexual Orientation Not on file Plan of Treatment Health Maintenance Due Date Last Done Comments Breast Cancer Screening 1950 Diabetes: Annual GFR (Glomerular Filtration Rate) 1950 Diabetes: Annual Foot Exam 1962 Diabetes: Annual Retina Eye Exam 1962 RSV Immunization Patients 60+ Years Old (1 - Risk 60-74 years 1-dose series) 2012 Zoster Vaccines (1 of 2) 11/08/2015 09/13/2015 Pneumococcal Vaccine: 65+ Years (3 of 3 - PPSV23 or PCV20) 08/06/2020 08/22/2019, 08/06/2015 COVID-19 Vaccine ( - season) 2024 11/12/2022, 08/27/2021, 02/04/2021, Additional history exists Influenza Vaccine (#1) 2024 , 07/25/2020, 08/06/2015 Cholesterol Screening (Lipid Panel) 08/24/2024 Colorectal Cancer Screening: Colonoscopy 08/24/2024 Depression Screening 08/24/2024 Falls Risk Assessment 08/24/2024 Hepatitis C Screening 08/24/2024 Osteoporosis Screening (Bone Density Screening) 08/24/2024 Social Influencers of Health Screening 08/24/2024 Diabetes: Annual Urine Albumin-Creatinine Ratio (uACR) 09/06/2024 Diabetes: Blood Sugar Control Test (HGBA1C) 09/06/2024 Hypertension/CHF/CAD Annual BMP Blood Test 09/06/2024 DTaP,Tdap,and Td Vaccines (3 - Td or Tdap) 09/13/2025 09/13/2015, 07/03/2014 HIB Vaccines Aged Out No longer eligi ble based on patient's age to complete this topic HPV Vaccines Aged Out No longer eligi ble based on patient's age to complete this topic Hepatitis A Vaccines Aged Out No long er eligible based on patient's age to complete this topic Hepatitis B Vaccines Aged Out No long er eligible based on patient's age to complete this topic IPV Vaccines Aged Out No longer eligi ble based on patient's age to complete this topic MMR Vaccines Aged Out No longer eligi ble based on patient's age to complete this topic Meningococcal ACWY Vaccine Aged Out N o longer eligible based on patient's age to complete this topic RSV Immunization Patients Under 20 months Aged Out No longer eligible based on patient's age to complete this topic Varicella Vaccines Aged Out No longer eligible based on patient's age to complete this topic [phone] (Home) [place] [address]
[2024-12-09 17:15] LABS: Influenza A PCR POSITIVE (Negative); Influenza B PCR NEGATIVE (Negative); Resp Syncy Virus RNA Qual PCR NEGATIVE (Negative); SARS COV2 PCR INHOUSE NEGATIVE (Negative)
== END 2024-12-09 16:06 | disposition home or self-care (01) ==
LOC: HO.XRAY 16:05
PROVIDERS: PCP Internal Medicine; Visit Provider Internal Medicine
DX: R05.9 Cough, unspecified (principal); R06.2 Wheezing; Z11.52 Encounter for screening for COVID-19; Z13.83 Encounter for screening for respiratory disorder NEC
CPT/HCPCS: 0241U; 71046

== ENCOUNTER → 2024-12-09 16:12 | Outpatient (BNV) | payer OTHER, SELFPAY | PROVIDERS: PCP Internal Medicine; Visit Provider Radiology Diagnostic Radiology | DX: R06.2 Wheezing (principal); R05.9 Cough, unspecified | CPT/HCPCS: 71046 ==

== ENCOUNTER 2025-01-05 08:19 | Outpatient (REF) | payer OTHER, SELFPAY ==
--- OUTSIDE RECORDS SUMMARY | 2025-01-05 08:41 | XMS_ITS | Clinical Summary ---
Author Organization [facility] Address [address] [place] [phone] Phone Care Team Providers Care Vocational Rehabilitation Counselor Name Role Phone Unavailable Primary Care Provider Unavailabl e Social History Tobacco Use Types Packs/Day Years Used Date Smoking Tobacco: Never Assessed Comments Unknown Sex and Gender Information Value Date Recorded Sex Assigned at Not on file Legal Sex Female 3:45 PM EDT Gender Identity Not on file Sexual Orientation [...] (1 of 2) 11/08/2015 09/13/2015 Pneumococcal Vaccine: 50+ Years (3 of 3 - PPSV23, PCV20 or PCV21) 08/06/2020 08/22/2019, 08/06/2015 COVID-19 Vaccine ( season) 2024 11/12/2022, 08/27/2021, 02/04/2021, Additional history [...] patient's age to complete this topic Meningococcal B Vacine Aged Out No lo nger eligible based on patient's age to complete this topic RSV Immunization Patients Under 20 months Aged Out No longer eligible based on patient's age to complete this topic Varicella Vaccines Aged Out No longer eligible based on patient's age to complete this topic Insurance * Guarantor: Flores Agrawal Account Type Relation to Patient Date of Phone Billing Address Personal/Family Self 1950 [phone] (Home) [address] [place] [address] [place] [address] [facility]
--- OUTSIDE RECORDS SUMMARY | 2025-01-05 08:41 | XMS_ITS | Continuity of Care Document ---
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 Name Role Phone Milton Webb MD Primary Care Physician [phone] [place] [facility] [place]05[place]24 - 01/04/25 [facility] On[facility] [address] [place] [id number] Encounter Type: Triage Allergies, Adverse Reactions, Alerts Substance Criticality Severity Reaction Reaction Severity Status sulfADIAZINE rash Active vancomycin 1 anaphylaxis Activ e erythromycin 2 Unable to assess criticality Persistent Severe Muscle cramps Active Keflex 3 Muscle cramps Active Bactrim pruritus Active Nickel rash, hives Active 1Pt could not breathe after only 5ml vancomycin 1 mg pt becoame hypotensive pt desaturated to 82% onroom air 2Pt is notallergic, she gets cramps and not an allergic reaction to drug 3Pt is not allergic to drug, she has a sideffect, cramps. Immunizations Given and Recorded Vaccine Date Status Refusal Reason [id number] bivalent booster vax 11/12/22 Recorded SARS-CoV-2 (COVID-19) mRNA-1273 vaccine 08/27/21 R ecorded SARS-CoV-2 (COVID-19) mRNA-1273 vaccine 02/04/21 R ecorded SARS-CoV-2 (COVID-19) mRNA-1273 vaccine 01/07/21 R ecorded influenza virus vaccine, inactivated 07/09/21 Yony rded influenza virus vaccine, inactivated 07/25/20 Yony rded influenza virus vaccine, inactivated 08/06/15 Yony rded pneumococcal 13-valent vaccine 08/22/19 Recorded Zoster Vaccine Live 09/13/15 Recorded tetanus/diphtheria/pertussis, acel(Tdap) 09/13/15 Recorded pneumococcal 23-valent vaccine 08/06/15 Recorded tetanus-diphtheria toxoids (Td) 07/03/14 Recorded Medications allopurinol 100 mg oral tablet 100 mg, By Mouth, Daily in AM, Refills 0, Maintenance, 07/19/21 3:36:00 PM EDT, Partial fill upon patient request if the prescription is for a schedule II opioid drug. Start Date: 07/19/21 Status: Ordered Repeat number: 1 fluconazole 150 mg oral tablet 1 tablet = 150 mg, By Mouth, Every week, Take 1 tablet/week for 4 weeks., # 4 tablet, 0 Refills, Maintenance, 05/16/24 3:40:00 PM EDT, Tablet, [facility]/pharmacy #[id number], Partial fill upon patient request if the prescription is for a schedule II opioid drug., 162.5, cm, 05/16/24 10:04:00 EDT, Height, 130.7,kg, 05/16/24 10:04:00 EDT, Dry Weight Start Date: 05/16/24 Status: Ordered Quantity: 4.0 Unit: tablet Repeat number: 1 halobetasol 0.05% topical ointment 1 application, Topically, 2 times a day, apply in a thin film to the affected skin and rub in gently and completely. Twice daily, Two times per week., # 50 Gm, 11 Refills, Acute 07/05/26 12:00:00 AM EDT, 07/05/24 12:00:00 AM EDT, Ointment, [facility]/pharmacy #[id number], Partial fill upon patient request if the prescription is for a schedule II opioid drug., 1 application Topically 2 times a day,Instr:apply in athin film to the affected skin and rub in gently and completely. Twice daily, Two times per week., 163.5, cm, 07/05/24 14:21:00 EDT, Height, 131.3, kg, 07/05/24 14:21:00 EDT, Dry Weight Start Date: 07/05/24 Stop Date: 07/05/26 Status: Ordered Quantity: 50.0 Unit: g Repeat number: 12 halobetasol 0.05% topical ointment 1 application, Topically, Daily, apply in a thin film to the affected skin and rub in gently and completely. Daily x 4 wks then taper to 3x weekly to continue., # 50 Gm, 11 Refills, Acute 11/23/27 12:00:00 AM EST, 11/23/23 9:08:00 AM EST, Ointment, [facility]/pharmacy #[id number], Partial fill upon patient request if the prescription is for a schedule II opioid drug., 1 application Topically Daily,Instr:apply in a thin film to the affected skin and rub in gently and completely. Daily x 4 wks then taper to 3x weekly to continue., 163, cm, 08/24/23 8:38:00 EDT, Height, 137.2, kg, 11/23/23 8:53:00 EST, Dry Weight Start Date: 11/23/23 Stop Date: 11/23/27 Status: Ordered Quantity: 50.0 Unit: g Repeat number: 12 ibuprofen 800 mg oral tablet 800 mg, 1, tablet, By Mouth, Every 8 hours, # 30 tablet, Refills 0, Tot. Refills 0, Maintenance, 05/16/24 3:42:00 PM EDT, Route to Pharmacy Electronically, [facility]/pharmacy #[id number], Partial fill upon patient request if the prescription is for a schedule II opioid drug., 162.5, cm, 05/16/24 10:04:00 EDT, Height, 130.7, kg, 05/16/24 10:04:00 EDT, Dry Weight Start Date: 05/16/24 Status: Ordered Quantity: 30.0 Unit: tablet Repeat number: 1 levothyroxine 0.05 mg oral tablet 1 tablet = 50 mcg, By Mouth, Daily in AM, 0 Refills, Maintenance, 03/25/18 10:35:36 AM EDT Start Date: 03/25/18 Status: Ordered Repeat number: 1 lisinopril 20 mg oral tablet 20 mg, 1, tablet, By Mouth, Daily in AM, # 30 tablet, Refills 0, Maintenance, 03/25/18 10:35:18 AM EDT Start Date: 03/25/18 Status: Ordered Quantity: 30.0 Unit: tablet Repeat number: 1 Lutein = 10 mg, By Mouth, Daily in AM, 10mg daily, 0 Refills, Maintenance, 04/29/22 5:36:00 PM EDT, Partialfill upon patient request if the prescription is for a schedule II opioid drug. Start Date: 04/29/22 Status: Ordered Repeat number: 1 metFORMIN 500 mg oral tablet 1 tablet = 500 mg, By Mouth, Daily at supper, # 180 tablet, 0 Refills, Maintenance, 09/17/21 2:26:00 PM EST, Tablet, Partial fill upon patient request if the prescription is for a schedule II opioid drug. Start Date: 09/17/21 Status: Ordered Quantity: 180.0 Unit: tablet Repeat number: 1 Tylenol 325 mg oral tablet 975 mg, 3, tablet, By Mouth, Every 8 hours, PRN, # 30 tablet, Refills 0, Tot. Refills 0, Maintenance, for pain, 05/16/24 3:42:00 PM EDT, Route to Pharmacy Electronically, [facility]/pharmacy #[id number], Partial fill upon patient request if the prescription is for a schedule II opioid drug., 162.5, cm, 05/16/24 10:04:00 EDT, Height, 130.7, kg, 05/16/24 10:04:00 EDT, Dry Weight Start Date: 05/16/24 Status: Ordered Quantity: 30.0 Unit: tablet Repeat number: 1 Vitamin B6 = 100 mg, By Mouth, Daily in AM, 0 Refills, Maintenance, 07/19/21 3:37:00 PM EDT, Partial fill upon patient request if the prescription is for a schedule II opioid drug. Start Date: 07/19/21 Status: Ordered Repeat number: 1 Vitamin C = 500 mg, By Mouth, Daily in AM, 0 Refills, Maintenance, 07/19/21 3:37:00 PM EDT, Partial fill upon patient request if the prescription is for a schedule II opioid drug. Start Date: 07/19/21 Status: Ordered Repeat number: 1 Vitamin D3 = 1,000 International_Units, By Mouth, Daily in AM, mon-fri, 0 Refills, Maintenance, 02/22/18 9:04:49 AM EDT Start Date: 02/22/18 Status: Ordered Repeat number: 1 Wixela Inhub 100 mcg-50 mcg inhalation powder 1 inhalation, Inhalation, 2 times a day, 0 Refills, Maintenance, 01/25/24 10:49:00 AM EDT, Partial fill upon patient request if the prescription is for a schedule II opioid drug. 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 Follow-up examination after gynecological surgery Confirmed Active Non-insulin dependent type 2 diabetes mellitus Confirmed Active 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 Social History Social History Type Response Smoking Status Never smoker; Tobacc o user in household: No entered on: 03/19/18 Sex Sex Representation Female (finding) Patient Care team information Care Team Personnel Name: Lyn Flowers RN Position: S RN Member Role: Primary Care Nurse Name: Milton Webb MD Position: [facility] Outreach Member Role: PCP Address: [address] [place] [address] [address] JUN[address] Telecom: Name: Tamiko Resendiz RN Position: S RN Member Role: Primary Care Nurse Name: Alejandrina Ngo RN Position: S RN Member Role: Primary Care Nurse Name: Fiona James RN Position: S RN Member Role: Primary Care Nurse Care Team Related Persons Name: JESUS MANUEL RUSSELL Name: ARUN GREENE Insurance Providers Guarantor name: SAI JUSTICE [facility] Health Plan Information #: 1 Payer: [facility] Member Number: NA Policy Number: NA Group Number: NA
--- OUTSIDE RECORDS SUMMARY | 2025-01-05 08:41 | XMS_ITS | Continuity of Care Document ---
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 Joiners Supervisor Name Role Phone Milton Webb MD Primary Care Physician [place] [facility] [place] 12/16/24 [facility] [address] [place] [id number] Attending Physician: Zuleima Turner MD Admitting Physician: Zuleima Turner MD Referring Physician: Milton Webb MD Encounter Type: Pre-OutPatient One Time Allergies, Adverse Reactions, Alerts Substance Criticality Severity Reaction Reaction Severity Status erythromycin 1 Unable to assess criticality Persistent Severe Muscle cramps Active sulfADIAZINE rash Active vancomycin 2 anaphylaxis Activ e Keflex 3 Muscle cramps Active Bactrim pruritus Active Nickel rash, hives Active 1Pt is notallergic, she gets cramps and not an allergic reaction to drug 2Pt could not breathe after only 5ml vancomycin 1 mg pt becoame hypotensive pt desaturated to 82% onroom air 3Pt is not allergic to drug, she has a sideffect, cramps. Immunizations Given and Recorded Vaccine Date Status Refusal Reason [id number] bivalent booster vax 11/12/22 Recorded SARS-CoV-2 (COVID-19) [...] Refills, Maintenance, 05/16/24 3:40:00 PM EDT, Tablet, [facility]/pharmacy #[id number], Partial fill upon patient request if [...] AM EDT, 07/05/24 12:00:00 AM EDT, Ointment, [facility]/pharmacy #[id number], Partial fill upon patient request if [...] AM EST, 11/23/23 9:08:00 AM EST, Ointment, [facility]/pharmacy #[id number], Partial fill upon patient request if [...] 3:42:00 PM EDT, Route to Pharmacy Electronically, [facility]/pharmacy #[id number], Partial fill upon patient request if [...] 3:42:00 PM EDT, Route to Pharmacy Electronically, [facility]/pharmacy #[id number], Partial fill upon patient request if the [...] Team Personnel Name: Lyn Flowers RN Position: [facility] RN Member Role: Primary Care Nurse Name: Milton Webb MD Position: [facility] Outreach Member Role: PCP Address: [address] [place] [address] Milton Jon JUNIOR [address] Telecom: Name: Tamiko Resendiz RN Position: S RN Member Role: Primary Care Nurse Name: Alejandrina Ngo RN Position: [facility] RN Member Role: Primary Care Nurse Name: Fiona James RN Position: S RN Member Role: Primary Care Nurse Care Team Related Persons Name: JESUS MANUEL RUSSELL Name: ARUN GREENE Insurance Providers Guarantor name: SAI [employer]ICE [facility] Health Plan Information #: 1 Payer: [facility] Member Number: [id number] Policy Number: NA Group Number: [id number] Health Plan Information #: 2 Payer: [facility] Member Number: [id number] Policy Number: NA Group Number: NA
--- OUTSIDE RECORDS SUMMARY | 2025-01-05 08:41 | XMS_ITS | Continuity of Care Document ---
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 Name Role Phone Milton Webb MD Primary Care Physician [place] [facility] [place] [facility]CH[facility]ING ANALYST Oncology [address] [place] [address] Encounter Type: Triage Allergies, Adverse Reactions, [...] and Recorded Vaccine Date Status Refusal Reason [id number] bivalent booster vax 11/12/22 Recorded SARS-CoV-2 (COVID-19) [...] Refills, Maintenance, 05/16/24 3:40:00 PM EDT, Tablet, [facility]/pharmacy #[id number], Partial fill upon patient request [...] AM EDT, 07/05/24 12:00:00 AM EDT, Ointment, [facility]/pharmacy #[id number], Partial fill upon patient request [...] AM EST, 11/23/23 9:08:00 AM EST, Ointment, [facility]/pharmacy #[id number], Partial fill upon patient request [...] 3:42:00 PM EDT, Route to Pharmacy Electronically, [facility]/pharmacy #[id number], Partial fill upon patient request [...] 3:42:00 PM EDT, Route to Pharmacy Electronically, [facility]/pharmacy #[id number], Partial fill upon patient request if the [...] Care Nurse Name: Milton Webb MD Position: S Outreach Member Role: PCP Address: [address] [place] [address] Jon JUNIOR [address] Telecom: Name: Tamiko Resendiz RN Position: S RN Member Role: Primary Care Nurse Name: Alejandrina Ngo RN Position: S RN Member Role: Primary Care Nurse Name: Fiona James RN Position: S RN Member Role: Primary Care Nurse Care Team Related Persons Name: JESUS MANUEL RUSSELL Name: ARUN GREENE Insurance Providers Guarantor name: [facility] Health Plan Information #: 1 Payer: [facility] Member Number: NA Policy Number: NA Group Number: NA
--- OUTSIDE RECORDS SUMMARY | 2025-01-05 08:41 | XMS_ITS | Continuity of Care Document ---
Author Organization [facility] Hiren kenzie Address [address] [place], [place] [address]i ve [address] [place] [address]- Care Team Providers Care Elastic Attacher Coverstitch Name Role Phone Milton Webb MD Primary [id number]): [facility]12[facility] - 12/19/24 [facility] [address] [place] [address]- Attending Physician: Dariusz Hernandez MD Referring Physician: Milton Webb MD Encounter Type: Office Visit Allergies, Adverse Reactions, Alerts Substance Criticality Severity [...] and Recorded Vaccine Date Status Refusal Reason [id number] bivalent booster vax 11/12/22 Recorded SARS-CoV-2 (COVID-19) [...] Refills, Maintenance, 05/16/24 3:40:00 PM EDT, Tablet, [facility]/pharmacy #[id number], Partial fill upon patient request [...] AM EDT, 07/05/24 12:00:00 AM EDT, Ointment, [facility]/pharmacy #[id number], Partial fill upon patient request if [...] AM EST, 11/23/23 9:08:00 AM EST, Ointment, [facility]/pharmacy #[id number], Partial fill upon patient request [...] 3:42:00 PM EDT, Route to Pharmacy Electronically, [facility]/pharmacy #[id number], Partial fill upon patient request [...] 3:42:00 PM EDT, Route to Pharmacy Electronically, [facility]/pharmacy #[id number], Partial fill upon patient request if the [...] Team Personnel Name: Lyn Flowers RN Position: [facility] RN Member Role: Primary Care Nurse Name: Milton Webb MD Position: [facility] Outreach Member Role: PCP Address: [address] [place] [address] Milton Jon JUN[place], [place] [address] Telecom: Name: Tamiko Resendiz RN Position: S RN Member Role: Primary Care Nurse Name: Alejandrina Ngo RN Position: S RN Member Role: Primary Care Nurse Name: Fiona James RN Position: S RN Member Role: Primary Care Nurse Care Team Related Persons Name: JESUS MANUEL RUSSELL Name: ARUN GREENE Insurance Providers Guarantor name: SAI JUSTICE [facility] Health Plan Information #: 1 Payer: [facility] Member Number: [id number] Policy Number: NA Group Number: [id number] Health Plan Information #: 2 Payer: [facility] Member Number: [id number] Policy Number: NA Group Number: NA
== END 2025-01-05 08:20 | disposition home or self-care (01) ==
LOC: HO.MAMMO 08:19
PROVIDERS: PCP Internal Medicine; Visit Provider Internal Medicine
DX: Z12.31 Encounter for screening mammogram for malignant neoplasm of breast (principal)
CPT/HCPCS: 77063; 77067

== ENCOUNTER → 2025-01-05 08:30 | Outpatient (BNV) | payer OTHER, SELFPAY | PROVIDERS: PCP Internal Medicine; Visit Provider Internal Medicine | DX: Z12.31 Encounter for screening mammogram for malignant neoplasm of breast (principal) | CPT/HCPCS: 77063; 77067 ==

== ENCOUNTER 2025-01-18 10:41 | Outpatient (REF) | payer OTHER, SELFPAY ==
--- NOTE | ~2025-01-18 | MM_ITS ---
EXAMINATION: MM DIAGNOSTIC DIGITAL BREAST TOMOSYNTHESIS, RIGHT CLINICAL INFORMATION: Technical repeat for overlap versus asymmetry in the superior posterior right breast on MLO view. COMPARISON: Mammography: [facility] on PACS. TECHNIQUE: Right breast MLO 2-D and tomosynthesis images performed. FINDINGS: There are scattered areas of fibroglandular density (ACR BI-RADS breast composition Category b). There are no significant masses, abnormal calcifications, or other abnormalities. MM/MM tomosynthesis added views R IMPRESSION: There are no significant changes from prior study. ASSESSMENT: BI-RADS BI-RADS 1 - Negative RECOMMENDATION: 1 year F/U Results were provided to the patient at time of visit by the technologist. This patient's information was entered into a reminder system with a target due date for their next mammogram. Electronically signed by: Gillian Lewis DO 01/18/2025 11:31 AM EDT Workstation: [id number]
== END 2025-01-18 10:42 | disposition home or self-care (01) ==
LOC: HO.MAMMO 10:41
PROVIDERS: PCP Internal Medicine; Visit Provider Internal Medicine
DX: N64.89 Other specified disorders of breast (principal)
CPT/HCPCS: 77061; 77065

== ENCOUNTER → 2025-01-18 11:00 | Outpatient (BNV) | payer OTHER, SELFPAY | PROVIDERS: PCP Internal Medicine; Visit Provider Internal Medicine | DX: R92.8 Other abnormal and inconclusive findings on diagnostic imaging of breast (principal) | CPT/HCPCS: 77061; 77065 ==

== ENCOUNTER 2025-02-28 15:52 | Outpatient (AMB) | payer OTHER, SELFPAY ==
[2025-02-28 16:04] VITALS: BP 154/80; PULSE 114; TEMP 36.6; O2SAT 98; BMI 48.3
--- NOTE | 2025-02-28 16:04 | MHC.PC.OV ---
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: No Accompanied by: Self / Same As Patient Allergies cephalexin [Keflex] Allergy (Severe, Verified 02/28/25 16:04) CRAMPS, N&V vancomycin Allergy (Verified 02/28/25 16:04) Anaphylaxis erythromycin base [Erythromycin Base] Adverse Reaction (Severe, Verified 02/28/25 16:04) NAUSEA & VOMITING Erythromycin Allergy (Severe, Uncoded 12/28/23 11:01) CRAMPS Medication List - Last Reconciled 02/28/25 by JANET Lin allopurinol 100 mg PO DAILY 90 days ascorbic acid (vitamin C) (Vitamin C) 500 mg PO DAILY cholecalciferol (vitamin D3) (Vitamin D3) 1,000 units PO DAILY fluticasone propion-salmeterol 100-50 mcg/dose (Wixela Inhub) 1 inh inhalation BID levothyroxine 50 mcg PO DAILY lisinopril 20 mg PO DAILY lisinopril 30 mg PO DAILY metformin ER 500 mg PO QPM pyridoxine (vitamin B6) 50 mg PO DAILY 90 days Tobacco use date assessed: 02/28/25 Fall risk assessment: 1 Fall in past year Last assessed Fall Risk: 02/28/25 Dental Screening Dental Screen Date: 02/28/25 Did you have a dental visit in the last 12 months?: Yes Did you have a dental problem in the last 6 months where you did not have access to dental care?: No HPI HPI Comments History of Present Illness Details History of Present Illness The patient is a 74-year-old female presenting for evaluation of elevated blood pressure and follow-up to postoperative care after recent vulvar surgery. For the past two weeks, the patient has noted an increase in blood pressure readings ranging from 150 to 154 systolic and 62 to 80 diastolic, higher than her usual readings. She is currently taking 20 mg of lisinopril and has historically maintained good pressure control with this dosage. Postoperatively, she has experienced discomfort where she had sutures after January 26 surgery for the removal of precancerous vulvar tissue. She reports some improvement in comfort and no longer requires oxycodone, opting to use Tylenol instead. Her history includes type 2 diabetes, well-managed with metformin, hypothyroidism controlled on levothyroxine, and a previous history of endometrial cancer. Her asthma is stable with Wixela. She also recognizes the requirement for screening tests, noting that she has not had a bone density scan for over ten years. Review of Systems - Cardiovascular: Reports elevated blood pressure. Denies chest pain. - Neurological: Denies persistent headaches; occasional sinus-related head discomfort. - Respiratory: Denies dyspnea. - Musculoskeletal: Denies current physical activity; discomfort with walking due to postoperative sutures. - Endocrine: Denies changes in blood sugar levels when last checked at hospital - Dermatological: Denies any issues apart from postoperative sutures. Vital Signs - Blood Pressure: 154/80 mmHg (clinic), 150/62 mmHg (home with visiting nurse) - HR initially 114, recheck 90 -Temp 98.2 Health Maintenance - Due for Bone Density Scan, hasn't been completed in over ten years. - Eye exams up to date; has new prescription glasses. - Diabetes managed with good blood sugar control historically. - Blood work including renal function, A1c, and thyroid levels are to be updated. Physical Exam Constitutional: Awake and alert, no apparent distress Heart: RRR, S1S2, no murmurs, no edema Lungs: CTA bilaterally, no wheezing Extremities: No calf tenderness Skin: Warm and dry Neuro: Alert and oriented x 3 Assessment and Plan 1. Essential Hypertension Plan to increase lisinopril to 30 mg daily for improved blood pressure control, especially given its renal protective benefits in diabetes. The patient is advised to monitor her readings and will have a follow-up appointment on Thursday to reassess the efficacy and need for further intervention. 2. Vulvar Precancerous Lesions Postoperative Care The patient is progressing in her postoperative recovery. Continued use of Tylenol as needed (rarely) for discomfort with ongoing monitoring of healing progress is advised. Follow-up at her plastic surgeon confirmed satisfactory healing progress. 3. Type 2 Diabetes Mellitus The current diabetes management with metformin remains effective. Blood work, including A1c and renal function, is planned to ensure continued management and to catch any developing complications. 4. Hypothyroidism Continue levothyroxine with planned lab tests to reassess thyroid function. 5. Asthma The condition is under control with Wixela, discontinuation of short-term albuterol since it's not needed now. 6. Osteoporosis Risk To address the potential risk of osteoporosis due to age, a bone density scan is recommended and will be arranged. 7. Class III obesity Continue with diabetic diet. Increase activity level as able as her healing progresses [facility] Medical History (Updated 02/28/25 @ 16:48 by JANET Lin) Endometrial cancer Vulva cancer History of COVID-19 Diabetes mellitus Arthritis Eczema Rosacea Hypothyroid HTN (hypertension) Asthma Surgical History History of cystoscopy Hx of hysterectomy History of lithotripsy History of right oophorectomy Hx of cholecystectomy Hx of dilation and curettage Family History Mother No problems noted. Father Diabetes Social History Household Members: Family Household Members Other:: Brother Housing: House Are you a primary customer care assistant to a significant other at home: No Do you presently have visiting nurse or other home services: No Alcohol intake: never Patient Tobacco Use Status: Never used Tobacco e-Cigarette/Vaping Use: Never Used Advance Directives Date on File: 08/29/21 service: No Current occupational status: retired Current occupation: right hand dominant Cognitive needs: No Hearing needs: No Vision needs: Yes (rx classes) Questionnaire PHQ-9 Over the last 2 weeks, how often have you been bothered by any of the following problems? 1. Little interest or pleasure in doing things: not at all 2. Feeling down, depressed, or hopeless: not at all 3. Trouble falling or staying asleep, or sleeping too much: not at all 4. Feeling tired or having little energy: not at all 5. Poor appetite or overeating: not at all 6. Feeling bad about yourself - or that you are a failure or have let yourself or your family down: not at all 7. Trouble concentrating on things, such as reading the newspaper or watching television: not at all 8. Moving or speaking so slowly that other people could have noticed. Or the opposite - being so fidgety or restless that you have been moving around a lot more than usual: not at all 9. Thoughts that you would be better off or of hurting yourself in some way: not at all Total score: 0 Source: Developed by Drs. Franklin Leal, Matt Manzo and colleagues, with an educational emma from [employer]. Thrive Questionnaire Date Thrive assessed: 02/28/25 I am a: Patient Within the past 12 months, did the food you bought not last and you didn't have the money to get more?: Never true Within the past 12 months, did you worry whether your food would run out before you got money to buy more?: Never true Do you have trouble paying for medicines?: No Do you have trouble getting transportation to medical appointments?: No Do you have trouble paying your heating and electricity bill?: No Do you have trouble taking care of your child, family member or friend?: No Do you have trouble with day-to-day activities such as bathing, preparing meals, shopping, managing finances, etc.?: No Are you currently unemployed and looking for a job?: No Are you interested in more education?: No THRIVE Score: 0 AUDIT C Alcohol Use Questionnaire (AUDIT-C) 1. How often do you have a drink containing alcohol?: Never 3. How often do you have six or more drinks on one occasion?: Never Total Score: 0 PETER-7 AMB Questionnaire PETER-7 Date PETER - 7 assessed: 02/28/25 Feeling nervous, anxious, or on edge: 0 = Not at all Not being able to stop or control worryin = Not at all Worrying too much about different things: 0 = Not at all Trouble relaxin = Not at all Being so restless that it is hard to sit still: 0 = Not at all Becoming easily annoyed or irritable: 0 = Not at all Feeling afraid as if something awful might happen: 0 = Not at all Total PETER-7 score (0-4 normal; 5-9 mild; 10-14 moderate; 15-21 severe): 0 Source: Developed by Drs. Franklin Leal, Matt Manzo and colleagues, with an educational emma from [employer]. Physical exam (Primary Care) Vital Signs: Last Vital Signs Temp 97.8 F 02/28/25 16:04 Pulse 114 H 02/28/25 16:04 Pulse Ox 98 02/28/25 16:04 Oxygen Delivery Method Room Air 02/28/25 16:04 BMI result Body Mass Index 48.3 Tobacco/Smoking Status: Tobacco use Status Tobacco use date assessed 02/28/25 02/28/25 16:06 Patient Tobacco Use Status Never used Tobacco 02/28/25 16:06 e-Cigarette/Vaping Use Never Used 02/28/25 16:06 PHQ-9: PHQ-9 Score PHQ-9: Total score 0 02/28/25 16:06 Thrive Assessment: Date of Thrive Assessment Date Thrive assessed 02/28/25 02/28/25 16:06 Coding Level of Care Code New Pt Level 4 (95905) Complex EM visit Add On G2211 Diagnoses Type 2 diabetes mellitus E11.9 Asthma J45.909 HTN (hypertension) I10 Hypothyroid E03.9 Class 3 obesity E66.813 Assessment & Plan Assessment & Plan (1) Type 2 diabetes mellitus: Code(s): E11.9 - Type 2 diabetes mellitus without complications Category: Medical Plan: Previously well controlled with A1c 6.5%. Updated A1c ordered along with microalbumin urine and lipid panel. Continue metformin and diabetic diet (2) Asthma: Code(s): J45.909 - Unspecified asthma, uncomplicated Category: Medical Plan: Well-controlled. Continue Wixela (3) HTN (hypertension): Code(s): I10 - Essential (primary) hypertension Category: Medical Plan: Uncontrolled with blood pressure of 154/80. Increase lisinopril to 30 mg daily. Follow low-sodium diet. Follow-up in 1 week for blood pressure recheck (4) Hypothyroid: Code(s): E03.9 - Hypothyroidism, unspecified Category: Medical Plan: TSH ordered. Continue levothyroxine at current dose (5) Class 3 obesity: Code(s): E66.813 - Obesity, class 3 Category: Medical Plan: Continue with healthy diet. Increase activity as able as healing progresses related to vulvar cancer Orders: Orders Hemoglobin A1c Today E03.9 - Hypothyroidism, unspecified, E11.9 - Type 2 diabetes mellitus without complications, I10 - Essential (primary) hypertension Lipid Panel Today E11.9 - Type 2 diabetes mellitus without complications Complete Blood Count Auto Diff Today E11.9 - Type 2 diabetes mellitus without complications XR DEXA axial skeleton Today Z13.820 - Encounter for screening for osteoporosis Microalbumin, Random (w Creat) Today E11.9 - Type 2 diabetes mellitus without complications TSH reflex Free T4 Today E03.9 - Hypothyroidism, unspecified, E11.9 - Type 2 diabetes mellitus without complications, I10 - Essential (primary) hypertension Medications: New lisinopril 30 mg PO DAILY 90 tabs 1RF
== END 2025-02-28 16:39 | disposition home or self-care (01) ==
LOC: HO.HMCHD 15:53
PROVIDERS: PCP Internal Medicine; Visit Provider Physician Assistant
DX: E11.9 Type 2 diabetes mellitus without complications (principal); J45.909 Unspecified asthma, uncomplicated; I10 Essential (primary) hypertension; E03.9 Hypothyroidism, unspecified; E66.813 Obesity, class 3

== ENCOUNTER 2025-03-06 09:50 | Outpatient (AMB) | payer OTHER, SELFPAY ==
--- NOTE | 2025-03-06 09:53 | A.OFFPC_ITS ---
Vital Signs 03/06/25 09:57 Height 5 ft 4.5 in Weight 125.645 kg BMI 46.8 BP 150/68 H Respiration 18 Pulse 98 Pulse Source Pulse Oximeter Temp 97.8 F Temp Source Temporal Artery Scan Pulse Oximetry (%) 98 Oxygen Delivery Method Room Air Intake Visit Reasons: BP Check - see comments Special Education Director Required: No Accompanied by: Self / Same As Patient Allergies cephalexin [Keflex] Allergy (Severe, Verified 03/06/25 10:01) CRAMPS, N&V vancomycin Allergy (Verified 03/06/25 10:01) Anaphylaxis erythromycin base [Erythromycin Base] Adverse Reaction (Severe, Verified 03/06/25 10:01) NAUSEA & VOMITING Erythromycin Allergy (Severe, Uncoded 03/06/25 10:01) CRAMPS Medication List - Last Reconciled 03/06/25 by JANET Lin allopurinol 100 mg PO DAILY 90 days amlodipine 5 mg PO DAILY ascorbic acid (vitamin C) (Vitamin C) 500 mg PO DAILY cholecalciferol (vitamin D3) (Vitamin D3) 1,000 units PO DAILY fluticasone propion-salmeterol 100-50 mcg/dose (Wixela Inhub) 1 inh inhalation BID levothyroxine 50 mcg PO DAILY lisinopril 20 mg PO DAILY lisinopril 30 mg PO DAILY metformin ER 500 mg PO QPM pyridoxine (vitamin B6) 50 mg PO DAILY 90 days Tobacco use date assessed: 03/06/25 Fall risk assessment: No Falls in past year Last assessed Fall Risk: 03/06/25 Dental Screening Dental Screen Date: 03/06/25 Did you have a dental visit in the last 12 months?: Yes Did you have a dental problem in the last 6 months where you did not have access to dental care?: No Was dental information given to patient?: Patient has dentist HPI HPI Comments History of Present Illness Details 74-year-old female presents to the [facility] for follow-up on her hypertension. At her last visit 1 week ago, blood pressure was 154/80. Lisinopril was increased to 30 mg daily. She denies any side effects. No shortness a breath, cough, palpitations, chest pain. No edema. [facility] Medical History Endometrial cancer Vulva cancer History of COVID-19 Diabetes mellitus Arthritis Eczema Rosacea Hypothyroid HTN (hypertension) Asthma Surgical History History of cystoscopy Hx of hysterectomy History of lithotripsy History of right oophorectomy Hx of cholecystectomy Hx of dilation and curettage Family History Mother No problems noted. Father Diabetes Social History Household Members: Family Household Members Other:: Brother Housing: House Are you a primary child care team lead to a significant other at home: No Do you presently have visiting nurse or other home services: No Alcohol intake: never Patient Tobacco Use Status: Never used Tobacco e-Cigarette/Vaping Use: Never Used Advance Directives Date on File: 08/29/21 service: No Current occupational status: retired Current occupation: right hand dominant Cognitive needs: No Hearing needs: No Vision needs: Yes (rx classes) Questionnaire PHQ-9 Over the last 2 weeks, how often have you been bothered by any of the following problems? 1. Little interest or pleasure in doing things: not at all 2. Feeling down, depressed, or hopeless: not at all 3. Trouble falling or staying asleep, or sleeping too much: not at all 4. Feeling tired or having little energy: not at all 5. Poor appetite or overeating: not at all 6. Feeling bad about yourself - or that you are a failure or have let yourself or your family down: not at all 7. Trouble concentrating on things, such as reading the newspaper or watching television: not at all 8. Moving or speaking so slowly that other people could have noticed. Or the opposite - being so fidgety or restless that you have been moving around a lot more than usual: not at all 9. Thoughts that you would be better off or of hurting yourself in some way: not at all Total score: 0 Source: Developed by Drs. Franklin Leal, Lucinda Moore, Matt Lo and colleagues, with an educational emma from [employer]. Thrive Questionnaire Date Thrive assessed: 03/06/25 I am a: Patient What is your living situation today?: I have a steady place to live Within the past 12 months, did the food you bought not last and you didn't have the money to get more?: Never true Within the past 12 months, did you worry whether your food would run out before you got money to buy more?: Never true Do you have trouble paying for medicines?: No Do you have trouble getting transportation to medical appointments?: No Do you have trouble paying your heating and electricity bill?: No Do you have trouble taking care of your child, family member or friend?: No Do you have trouble with day-to-day activities such as bathing, preparing meals, shopping, managing finances, etc.?: No Are you currently unemployed and looking for a job?: No Are you interested in more education?: No Please select the resources that you would like help with: None THRIVE Score: 0 AUDIT C Alcohol Use Questionnaire (AUDIT-C) 1. How often do you have a drink containing alcohol?: Never Total Score: 0 PETER-7 AMB Questionnaire PETER-7 Date PETER - 7 assessed: 03/06/25 Feeling nervous, anxious, or on edge: 0 = Not at all Not being able to stop or control worryin = Not at all Worrying too much about different things: 0 = Not at all Trouble relaxin = Not at all Being so restless that it is hard to sit still: 0 = Not at all Becoming easily annoyed or irritable: 0 = Not at all Feeling afraid as if something awful might happen: 0 = Not at all Total PETER-7 score (0-4 normal; 5-9 mild; 10-14 moderate; 15-21 severe): 0 Source: Developed by Drs. Franklin Leal, Lucinda Moore, Matt Lo and colleagues, with an educational emma from [employer]. Review of Systems Const All systems reviewed & are unremarkable except as noted in HPI and below Physical exam (Primary Care) Vital Signs: Last Vital Signs Temp 97.8 F 03/06/25 09:57 Pulse 98 03/06/25 09:57 Resp 18 03/06/25 09:57 BP 150/68 H 03/06/25 09:57 Pulse Ox 98 03/06/25 09:57 Oxygen Delivery Method Room Air 03/06/25 09:57 BMI result Body Mass Index 46.8 Tobacco/Smoking Status: Tobacco use Status Tobacco use date assessed 03/06/25 03/06/25 10:06 Patient Tobacco Use Status Never used Tobacco 03/06/25 10:06 e-Cigarette/Vaping Use Never Used 03/06/25 10:06 PHQ-9: PHQ-9 Score PHQ-9: Total score 0 03/06/25 10:11 Thrive Assessment: Date of Thrive Assessment Date Thrive assessed 03/06/25 03/06/25 10:06 Const General: comfortable, no acute distress, alert and awake Orientation/consciousness: patient oriented x3 Resp Effort & Inspection: normal respiratory effort Auscultation: clear to auscultation bilaterally Cardio Rate: regular rate Rhythm: regular rhythm Heart sounds: S1 normal heart sound present, S2 normal heart sound present and no murmurs Neuro General: patient oriented x3 Extrem General: Yes normal to inspection Coding Level of Care Code Est Pt Level 3 (69323) Diagnoses HTN (hypertension) I10 Assessment & Plan Assessment & Plan (1) HTN (hypertension): Code(s): I10 - Essential (primary) hypertension Category: Medical Plan: Remains uncontrolled at 150/68. Continue lisinopril 30 mg daily. Add amlodipine 5 mg daily. Educated on side effects. Continue low-sodium diet and exercise. VNA to recheck blood pressure while in the home on and contact the office with result. Will follow-up in 1 month. Labs to be completed today as previously ordered Plan Add amlodipine 5 mg to lisinopril 30 mg daily. Follow up in 1 month Medications: New amlodipine 5 mg PO DAILY 90 tabs 1RF
[2025-03-06 09:57] VITALS: BP 150/68; PULSE 98; RESP 18; TEMP 36.6; O2SAT 98; BMI 46.8
--- OUTSIDE RECORDS SUMMARY | 2025-03-06 10:57 | XMS_ITS | Clinical Summary ---
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 Role Phone Unavailable Primary Care Provider [...] Annual Retina Eye Exam 1962 RSV Immunization Adult Patients (1 - Risk 60-74 years 1-dose series) 2012 Zoster Vaccines (1 of 2) 11/08/2015 09/13/2015 Pneumococcal Vaccine: 50+ Years (3 of 3 - PPSV23, PCV20 or PCV21) 08/06/2020 08/22/2019, 08/06/2015 COVID-19 Vaccine ( season) 2024 11/12/2022, 08/27/2021, 02/04/2021, Additional history exists Cholesterol Screening (Lipid Panel) 08/24/2024 Colorectal Cancer Screening: Colonoscopy 08/24/2024 Depression Screening 08/24/2024 Falls Risk Assessment 08/24/2024 Hepatitis C Screening 08/24/2024 Osteoporosis Screening (Bone Density Screening) 08/24/2024 Social Influencers of Health Screening 08/24/2024 Diabetes: Annual Urine Albumin-Creatinine Ratio (uACR) 09/06/2024 Diabetes: Blood Sugar Control Test (HGBA1C) 09/06/2024 Hypertension/CHF/CAD Annual BMP Blood Test 09/06/2024 Influenza Vaccine (Season Ended) 2025 07/09/2021, 07/25/2020, 08/06/2015 DTaP,Tdap,and Td Vaccines (3 - Td or [...] age to complete this topic Meningococcal B Vaccine Aged Out No l onger eligible based on patient's age to complete this topic RSV Immunization Patients Under 20 months Aged Out No longer eligible based on patient's age to complete this topic Varicella Vaccines Aged Out No longer eligible based on patient's age to complete [place] [address] [facility] [place] [id number]
== END 2025-03-06 10:25 | disposition home or self-care (01) ==
LOC: HO.HMCHD 09:51
PROVIDERS: PCP Physician Assistant; Visit Provider Physician Assistant
DX: I10 Essential (primary) hypertension (principal)

== ENCOUNTER 2025-03-07 08:09 | Outpatient (REF) | payer OTHER, SELFPAY ==
--- OUTSIDE RECORDS SUMMARY | 2025-03-07 08:17 | XMS_ITS | Clinical Summary ---
Author Organization [facility] Address [address] [place] [phone] Phone Care Team Providers Care Chainer Name Role Phone Unavailable Primary Care Provider [...] complete [place] [address] [facility] [place] [id number]
[2025-03-07 09:52] LABS: MANUAL DIFF FLAG NO
[2025-03-07 10:39] LABS: Basophils Absolute Auto 0.1 X10*3/uL (0.0-0.2); Basophils Percent Auto 0.7 % (0-2); Eosinophils Absolute Auto 0.3 X10*3/uL (0.0-0.4); Eosinophils Percent Auto 3.2 % (0-4); Hematocrit 37.3 % (37.0-47.0); Hemoglobin 11.8 g/dl (12.0-16.0); Imm Gran Abs Auto 0.02 X10*3/uL (0.00-0.03); Imm Gran Pct Auto 0.2 % (0.0-0.4); Lymphocytes Percent Auto 23.9 % (20-40); Mean Corpuscular HGB Conc 31.6 g/dl (31.0-35.0); Mean Corpuscular Hemoglobin 29.5 pg (27.0-33.0); Mean Corpuscular Volume 93.3 fL (80.0-98.0); Mean Platelet Volume 9.3 fL (9.4-12.3); Monocytes Absolute Auto 0.4 X10*3/uL (0.1-1.2); Monocytes Percent Auto 5.1 % (2-11); Neutrophils Absolute Auto 5.7 x10*3/uL (2.0-8.3); Neutrophils Percent Auto 66.9 % (45-73); Platelet Count 445 X10*3/uL (160-400); Red Cell Distribution Width 14.4 % (11.0-16.0); White Blood Count 8.5 X10*3/uL (4.8-10.8)
[2025-03-07 10:42] LABS: Creatinine Urine 76.54 mg/dL; Microalbum/Creatinine Ratio Ur 90.1 ug/mg cr (<30)
[2025-03-07 10:51] LABS: Estimated Average Glucose 126 mg/dL; Total Hemoglobin (HGBA1C) 3068.4627 umol/L
[2025-03-07 11:15] LABS: Cholesterol 219 mg/dL (<200); HDL Cholesterol 47 mg/dL (>40); LDL Cholesterol Calculated 121 mg/dL (<100); Triglycerides 256 mg/dL (<150)
[2025-03-07 11:33] LABS: TSH reflex Free T4 3.07 uIU/mL (0.32-4.0)
== END 2025-03-07 08:10 | disposition home or self-care (01) ==
LOC: HO.10HDL 08:09
PROVIDERS: Visit Provider Physician Assistant
DX: E11.9 Type 2 diabetes mellitus without complications (principal); I10 Essential (primary) hypertension; E03.9 Hypothyroidism, unspecified
CPT/HCPCS: 36415; 80061; 82043; 82570; 83036; 84443; 85025

== ENCOUNTER 2025-03-13 14:14 | Outpatient (REF) | payer OTHER, SELFPAY ==
--- NOTE | ~2025-03-13 | US_ITS ---
EXAMINATION: Ultrasound renal bilaterally. CLINICAL INFORMATION: Calculus of kidneys. COMPARISON: February 02, 2024. TECHNIQUE: Real-time ultrasound of the kidneys using grayscale and color Doppler technique. FINDINGS: Right kidney: 11 x 6 x 6 cm. Normal echotexture. Normal renal cortical thickness. No hydronephrosis. There is a focal 1 mm hyperechoic exophytic lesion in the anterior midportion without flow on color Doppler interrogation. There is probable 7 mm hyperechoic lesion in the renal pelvis. Left kidney: 11 x 6 x 4 cm. Normal echotexture. Normal renal cortical thickness. No hydronephrosis. There is a 3 cm hyperechoic lesion at the corticomedullary junction of the upper pole without flow on color Doppler interrogation. There are diffuse scattered less than 0.8 cm anechoic lesions at the corticomedullary junction of the kidney. There is a 6 mm hyperechoic lesion in the lower pole. US/US renal BI IMPRESSION: No hydronephrosis. Nonobstructing nephrolithiasis, bilaterally. 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 Simple cyst, left kidney. Electronically signed by: Roberto Nguyen MD 03/13/2025 03:22 PM EDT
--- OUTSIDE RECORDS SUMMARY | 2025-03-13 14:27 | XMS_ITS | Clinical Summary ---
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
== END 2025-03-13 14:15 | disposition home or self-care (01) ==
LOC: HO.US 14:14
PROVIDERS: PCP Internal Medicine; Visit Provider Urology
DX: N20.2 Calculus of kidney with calculus of ureter (principal); D17.9 Benign lipomatous neoplasm, unspecified
CPT/HCPCS: 76775

== ENCOUNTER → 2025-03-13 14:16 | Outpatient (BNV) | payer OTHER, SELFPAY | PROVIDERS: PCP Internal Medicine; Visit Provider Radiology Diagnostic Radiology | DX: N20.0 Calculus of kidney (principal); N28.1 Cyst of kidney, acquired | CPT/HCPCS: 76775 ==

== ENCOUNTER 2025-03-24 13:46 | Outpatient (AMB) | payer OTHER, SELFPAY ==
--- NOTE | 2025-03-24 13:49 | MHC.OFFVIS ---
Intake Visit Reasons: 1y/US Intake Note: Patient is Present for 1Y Follow Up/US Urology Medication: Vitamin B6,VITAMIN C,ALLOPURINOL Antibiotic Allergies: Keflex, Vancomycin, Erythromycin Blood Thinners: None Swimming Pool Installer And Servicer Required: No Allergies cephalexin (Keflex) Allergy (Severe, Verified 04/10/25 08:51) CRAMPS, N&V vancomycin Allergy (Verified 04/10/25 08:51) Anaphylaxis erythromycin base (Erythromycin Base) Adverse Reaction (Severe, Verified 04/10/25 08:51) NAUSEA & VOMITING Erythromycin Allergy (Severe, Uncoded 04/10/25 08:51) CRAMPS HPI Comments Details: Flores Marx is a pleasant female. She is a patient of Dr. Webb. 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 Small stones. Continue with allopurinol and B6 12 month surveillance Nephrolithiasis They are here for - further evaluation of nephrolithiasis They present for evaluation of - back pain none - flank pain none - abdominal pain none Associated symptoms include Fever No Nausea No Chills No Hematuria No Urolithiasis was diagnosed - December since 2020 The patient previously had kidney stones whose composition w - 12/23 calcium oxalate monohydrate, uric acid mix Laboratory investigations include - no recent labs 24 Hour urine evaluation - none on file Prior treatment(s) include - December 2020 right ureteroscopy, laser lithotripsy Prior imaging includes - December [address] - stone protocol 2 - 1 cm stones right renal pelvis - 08/22 renal ultrasound 4 mm stone bilateral, small cyts and AML - 11/23 CT scan no reported stones - 02/21 renal ultrasound, bilateral small cysts, bilateral AML, small stone left side - 03/26 renal ultrasound, bilateral small cysts, bilateral AML is noted, small stones UA today shows - NAD Current therapeutic plan will be - 12 month follow-up [facility] Medical History Endometrial cancer Vulva cancer History of COVID-19 Diabetes mellitus Arthritis Eczema Rosacea Hypothyroid HTN (hypertension) Asthma Surgical History History of cystoscopy Hx of hysterectomy History of lithotripsy History of right oophorectomy Hx of cholecystectomy Hx of dilation and curettage Family History Mother No problems noted. Father Diabetes Social History Household Members: Family Household Members Other:: Brother Housing: House Are you a primary pet care associate to a significant other at home: No Do you presently have visiting nurse or other home services: No Alcohol intake: never Patient Tobacco Use Status: Never used Tobacco e-Cigarette/Vaping Use: Never Used Advance Directives Date on File: 08/29/21 service: No Current occupational status: retired Current occupation: right hand dominant Cognitive needs: No Hearing needs: No Vision needs: Yes (rx classes) Review of Systems Const Denies chills and Denies fever(s) Card Reports no additional complaints and Denies syncope Resp Denies cough GI Denies abdominal pain and Denies heartburn Reports as per HPI and Denies change in libido Neuro Denies syncope Psych Denies change in libido Endo Denies change in libido Physical Exam Const General: cooperative, healthy appearing, comfortable and no acute distress Orientation/consciousness: patient oriented x3 HEENT Face and sinus: Yes normal facial exam Mouth: moist mucous membranes Neck Neck: Yes normal visual inspection, Yes full ROM and Yes trachea midline Chest Chest palpation & inspection: normal inspection of the chest Resp Effort & Inspection: normal respiratory effort, able to speak in complete sentences and no respiratory distress GI Inspection: Yes normal to inspection Back/Spine/Pelvis Cervical Spine: normal cervical lordosis Thoracic/Lumbar Spine: thoracic and lumbar spine normal to inspection Skin General skin exam: no rashes or lesions noted Neuro General: patient oriented x3, gait normal, tone normal and moves all extremities Extrem General: Yes normal to inspection and Yes capillary refill normal Assessment & Plan Assessment & Plan (1) Kidney stone: Code(s): N20.0 - Calculus of kidney Category: Medical Plan 12m f/u imaging Orders: Orders US renal BI 12 Months N20.0 - Calculus of kidney Medications: Refilled allopurinol 100 mg PO DAILY 90 tabs 3RF 90 days D17.9 - Benign lipomatous neoplasm, unspecified pyridoxine (vitamin B6) 50 mg PO DAILY 90 tabs 3RF 90 days D17.9 - Benign lipomatous neoplasm, unspecified Patient Instructions: This note is constructed using voice recognition software. While every effort has been made to ensure accuracy net technical architect errors may have been included. Imaging studies, laboratory and physical exam results were discussed and reviewed in detail. No major barriers to patient understanding were identified. An opportunity to ask questions regarding the treatment plan was provided. All questions were answered. The patient expressed understanding and agreement with the above treatment plan. The patient is aware they should contact our office by phone for worsening of their current condition or the appearance of new urologic symptoms. Compliance is encouraged with any medications and followup testing that is ordered. It is a privilege to participate in the urologic care of your patient. If you have any questions or concerns regarding treatment for the above conditions, or other urologic issues, please do not hesitate to contact me. The office telephone contact is [phone]. Sincerely, Dr Elia Handley MD, [facility] - Urology Compassionate Specialist Care for the Genitourinary System Coding Level of Care Code Est Pt Level 4 (46021) Diagnoses Kidney stone N20.0
--- OUTSIDE RECORDS SUMMARY | 2025-03-24 13:50 | XMS_ITS | Clinical Summary ---
Author Organization [facility] Address [address] [place] [phone] Phone Care Team Providers Care Skin Former Name Role Phone Unavailable Primary Care Provider [...] complete this [place] [address] [facility] [place] [phone]
== END 2025-03-24 14:20 | disposition home or self-care (01) ==
LOC: HO.HUSH 13:47
PROVIDERS: PCP Internal Medicine; Visit Provider Urology
DX: N20.0 Calculus of kidney (principal)
CPT/HCPCS: 99214

== ENCOUNTER 2025-03-30 09:47 | Outpatient (AMB) | payer OTHER, SELFPAY ==
--- NOTE | 2025-03-30 09:43 | A.OFFPC_ITS ---
Vital Signs 03/30/25 09:50 Height 5 ft 5.4 in Weight 286 lb BMI 47.0 BP 146/80 H Blood Pressure Location Lt brachial Position Sitting Pulse 96 Pulse Source Pulse Oximeter Temp 98.4 F Temp Source Axillary Pulse Oximetry (%) 98 Oxygen Delivery Method Room Air Intake Visit Reasons: Routine Hot Kettle Tender Required: No Accompanied by: Self / Same As Patient Allergies cephalexin [Keflex] Allergy (Severe, Verified 03/30/25 09:50) CRAMPS, N&V vancomycin Allergy (Verified 03/30/25 09:50) Anaphylaxis erythromycin base [Erythromycin Base] Adverse Reaction (Severe, Verified 03/30/25 09:50) NAUSEA & VOMITING Erythromycin Allergy (Severe, Uncoded 03/24/25 13:50) CRAMPS Tobacco use date assessed: 03/30/25 Fall risk assessment: 1 Fall in past year Last assessed Fall Risk: 03/30/25 Dental Screening Dental Screen Date: 03/30/25 Did you have a dental visit in the last 12 months?: Yes Did you have a dental problem in the last 6 months where you did not have access to dental care?: No HPI HPI Comments History of Present Illness Details 74 year old female with a past medical h istory of hypertension, hypothyroid, DM, asthma, uterine/vulvar cancer presenting for follow up. DM-on metformin 500mg daily. last a1c 6.0% CV: On lisinopril 30mg daily, amlodipine 5mg daily. BP is improved in office to 146/80. Home readings are 110s over 70s. Cuff was checked with [facility] cuff Urology: Follows with Dr Ender Mae/onc: Follows with Dr Turner at [facility]. Has had multiple operations/biopsies. Hypothyroid-on levothyroxine Asthma is stable on current medications Colonoscopy 2021 Mammo 12/2024 ROS CONSTITUTIONAL: Denies weight loss, fever and chills. HEENT: Denies changes in vision and hearing. RESPIRATORY: Denies SOB and cough. CV: Denies palpitations and CP GI: Denies abdominal pain, nausea, vomiting and diarrhea. : Denies dysuria and urinary frequency. MSK: right plantar fasciitis SKIN: Denies rash and pruritus. NEUROLOGICAL: Denies headache PSYCHIATRIC: Denies recent changes in mood. PHYSICAL EXAM: GENERAL: Alert and oriented x 3. NAD EYES: EOMI. Anicteric. HENT: Moist mucous membranes. No scleral icterus. No cervical lymphadenopathy. LUNGS: Clear to auscultation bilaterally. CARDIOVASCULAR: Regular rate and rhythm. systolic murmur ABDOMEN: Soft, non-tender +bs EXTREMITIES: No edema. Non-tender. SKIN: Chronic venous stasis changes NEUROLOGIC: No focal neurological deficits. CN II-XII grossly intact PSYCHIATRIC: Cooperative. Appropriate mood and affect [facility] Medical History Endometrial cancer Vulva cancer History of COVID-19 Diabetes mellitus Arthritis Eczema Rosacea Hypothyroid HTN (hypertension) Asthma Surgical History History of cystoscopy Hx of hysterectomy History of lithotripsy History of right oophorectomy Hx of cholecystectomy Hx of dilation and curettage Family History Mother No problems noted. Father Diabetes Social History Household Members: Family Household Members Other:: Brother Housing: House Are you a primary healthcare network pricing consultant to a significant other at home: No Do you presently have visiting nurse or other home services: No Alcohol intake: never Patient Tobacco Use Status: Never used Tobacco e-Cigarette/Vaping Use: Never Used Advance Directives Date on File: 08/29/21 service: No Current occupational status: retired Current occupation: right hand dominant Cognitive needs: No Hearing needs: No Vision needs: Yes (rx classes) Questionnaire PHQ-9 Over the last 2 weeks, how often have you been bothered by any of the following problems? 1. Little interest or pleasure in doing things: not at all 2. Feeling down, depressed, or hopeless: not at all 3. Trouble falling or staying asleep, or sleeping too much: not at all 4. Feeling tired or having little energy: not at all 5. Poor appetite or overeating: not at all 6. Feeling bad about yourself - or that you are a failure or have let yourself or your family down: not at all 7. Trouble concentrating on things, such as reading the newspaper or watching television: not at all 8. Moving or speaking so slowly that other people could have noticed. Or the opp osite - being so fidgety or restless that you have been moving around a lot more than usual: not at all 9. Thoughts that you would be better off or of hurting yourself in some way: not at all Total score: 0 Depression Screening Interpretation: Negative Depression Screening Done: Yes [id number] - PHQ-9 Billing: Yes Source: Developed by Drs. Franklin Leal, Lucinda Moore, Matt Lo and colleagues, with an educational emma from [email or web address]. Thrive Questionnaire Date Thrive assessed: 03/30/25 I am a: Patient Within the past 12 months, did the food you bought not last and you didn't have the money to get more?: Never true Within the past 12 months, did you worry whether your food would run out before you got money to buy more?: Never true Do you have trouble paying for medicines?: No Do you have trouble getting transportation to medical appointments?: No Do you have trouble paying your heating and electricity bill?: No Do you have trouble taking care of your child, family member or friend?: No Do you have trouble with day-to-day activities such as bathing, preparing meals, shopping, managing finances, etc.?: No Are you currently unemployed and looking for a job?: No Are you interested in more education?: No THRIVE Score: 0 AUDIT C Alcohol Use Questionnaire (AUDIT-C) 1. How often do you have a drink containing alcohol?: Never 3. How often do you have six or more drinks on one occasion?: Never Total Score: 0 PETER-7 AMB Questionnaire PETER-7 Date PETER - 7 assessed: 03/30/25 Feeling nervous, anxious, or on edge: 0 = Not at all Not being able to stop or control worryin = Not at all Worrying too much about different things: 0 = Not at all Trouble relaxin = Not at all Being so restless that it is hard to sit still: 0 = Not at all Becoming easily annoyed or irritable: 0 = Not at all Feeling afraid as if something awful might happen: 0 = Not at all Total PETER-7 score (0-4 normal; 5-9 mild; 10-14 moderate; 15-21 severe): 0 Source: Developed by Drs. Franklin Leal, Lucinda Moore, Matt Lo and colleagues, with an educational emma from [email or web address]. Physical exam (Primary Care) Vital Signs: Last Vital Signs Temp 98.4 F 03/30/25 09:50 Pulse 96 03/30/25 09:50 BP 146/80 H 03/30/25 09:50 Pulse Ox 98 03/30/25 09:50 Oxygen Delivery Method Room Air 03/30/25 09:50 BMI result Body Mass Index 47.0 Tobacco/Smoking Status: Tobacco use Status Tobacco use date assessed 03/30/25 03/30/25 09:51 Patient Tobacco Use Status Never used Tobacco 03/30/25 09:44 e-Cigarette/Vaping Use Never Used 03/30/25 09:44 PHQ-9: PHQ-9 Score PHQ-9: Total score 0 03/30/25 10:03 Depression Screening Interpretation: Negative Thrive Assessment: Date of Thrive Assessment Date Thrive assessed 03/30/25 03/30/25 09:51 Coding Level of Care Code Est Pt Level 4 (63629) Complex EM visit Add On G2211 Diagnoses Type 2 diabetes mellitus without complication, without long-term current use of insulin E11.9 Diabetes mellitus manager chinese insulin use: without manager chinese use Diabetes mellitus complication status: without complication Heart murmur R01.1 Vulva cancer C51.9 Primary hypertension I10 Hypertension type: primary hypertension Hypothyroidism, unspecified type E03.9 Hypothyroidism type: unspecified Additional Codes PHQ-9 - 55853 - PHQ-9 Billing: Yes ([id number]) Assessment & Plan Assessment & Plan (1) Type 2 diabetes mellitus: Code(s): E11.9 - Type 2 diabetes mellitus without complications Category: Medical Qualifiers: Diabetes mellitus manager chinese insulin use: without fpc use Diabetes mellitus complication status: without complication Qualified Code(s): E11.9 - Type 2 diabetes mellitus without complications (2) Heart murmur: Code(s): R01.1 - Cardiac murmur, unspecified Category: Medical (3) Vulva cancer: Comment: 09/22- Code(s): C51.9 - Malignant neoplasm of vulva, unspecified Category: Medical (4) HTN (hypertension): Code(s): I10 - Essential (primary) hypertension Category: Medical Qualifiers: Hypertension type: primary hypertension Qualified Code(s): I10 - Essential (primary) hypertension (5) Hypothyroid: Code(s): E03.9 - Hypothyroidism, unspecified Category: Medical Qualifiers: Hypothyroidism type: unspecified Qualified Code(s): E03.9 - Hypothyroidism, unspecified Plan 74 year old for BP follow up Improving bp control. Very well controlled at home Heart murmu-echo ordered DM at goal on current medications Continue follow up with heme/onc Orders: Orders Lipid Panel 3 Months E03.9 - Hypothyroidism, unspecified, E11.9 - Type 2 diabetes mellitus without complications, I10 - Essential (primary) hypertension Complete Blood Count Auto Diff 3 Months E03.9 - Hypothyroidism, unspecified, E11.9 - Type 2 diabetes mellitus without complications, I10 - Essential (primary) hypertension Comprehensive Met. Panel 3 Months E03.9 - Hypothyroidism, unspecified, E11.9 - Type 2 diabetes mellitus without complications, I10 - Essential (primary) hypertension Hemoglobin A1c 3 Months E03.9 - Hypothyroidism, unspecified, E11.9 - Type 2 diabetes mellitus without complications, I10 - Essential (primary) hypertension CA echo transthoracic complete Today R01.1 - Cardiac murmur, unspecified Medications: New diclofenac sodium 1% (Voltaren Arthritis Pain) apply to single knee, ankle, foot; for foot includes sole/toes/top of foot 4 grams topical QID 100 grams 3RF
[2025-03-30 09:50] VITALS: BP 146/80; PULSE 96; TEMP 36.9; O2SAT 98; BMI 47.0
--- OUTSIDE RECORDS SUMMARY | 2025-03-30 10:09 | XMS_ITS | Clinical Summary ---
Author Organization [facility] Address [address] [place] [phone] Phone Care Team Providers Care Transfer Coordinator Name Role Phone Unavailable Primary Care Provider [...] complete [place] [address] [facility] [place] [phone]
== END 2025-03-30 10:18 | disposition home or self-care (01) ==
LOC: HO.HMCHD 09:48
PROVIDERS: PCP Internal Medicine; Visit Provider Internal Medicine
DX: E11.9 Type 2 diabetes mellitus without complications (principal); R01.1 Cardiac murmur, unspecified; C51.9 Malignant neoplasm of vulva, unspecified; I10 Essential (primary) hypertension; E03.9 Hypothyroidism, unspecified

== ENCOUNTER → 2025-03-30 09:47 | Outpatient (BNVA) | payer OTHER, SELFPAY | PROVIDERS: PCP Internal Medicine; Visit Provider Internal Medicine | DX: E11.9 Type 2 diabetes mellitus without complications (principal); R01.1 Cardiac murmur, unspecified; C51.9 Malignant neoplasm of vulva, unspecified; I10 Essential (primary) hypertension; E03.9 Hypothyroidism, unspecified; J45.909 Unspecified asthma, uncomplicated; Z79.84 Long term (current) use of oral hypoglycemic drugs; Z79.899 Other long term (current) drug therapy; Z13.30 Encounter for screening examination for mental health and behavioral disorders, unspecified; Z13.31 Encounter for screening for depression | CPT/HCPCS: 96127 ==

== ENCOUNTER 2025-04-10 08:47 | Outpatient (AMB) | payer OTHER, SELFPAY ==
--- NOTE | 2025-04-10 08:50 | A.OFFPC_ITS ---
Vital Signs 04/10/25 08:53 04/10/25 09:16 Height 5 ft 4.5 in Weight 130.635 kg BMI 48.7 BP 156/74 H 132/82 Respiration 18 Pulse 90 Pulse Source Pulse Oximeter Temp 98.0 F Temp Source Temporal Artery Scan Pulse Oximetry (%) 95 Oxygen Delivery Method Room Air Intake Visit Reasons: 1 Month F/U Check Embosser Required: No Accompanied by: Self / Same As Patient Allergies cephalexin [Keflex] Allergy (Severe, Verified 04/10/25 08:51) CRAMPS, N&V vancomycin Allergy (Verified 04/10/25 08:51) Anaphylaxis erythromycin base [Erythromycin Base] Adverse Reaction (Severe, Verified 04/10/25 08:51) NAUSEA & VOMITING Erythromycin Allergy (Severe, Uncoded 04/10/25 08:51) CRAMPS Tobacco use date assessed: 03/30/25 Dental Screening Dental Screen Date: 03/30/25 HPI HPI Comments History of Present Illness Details 74-year-old female presents to the offic e today for blood pressure check. The patient has had several visits previously with antihypertensive adjustments. She is now taking lisinopril 30 mg daily and amlodipine 5 mg daily. She has been checking her blood pressures at home which have been very well-controlled. Average systolic blood pressure in the 1 teens. Diastolic blood pressures in the 60s. She denies any lightheadedness, shortness of breath, chest pains. No adverse side effects. She has had [facility] in the house following her last surgery who have been checking her blood pressures which have been well-controlled. They were able to compare results on their end as well as the patient's blood pressure cuff which were nearly identical. No concerns today. ROS: General: No fevers, malaise, unintentional weight loss HEENT: No blurred vision, diplopia Cardiovascular: No chest pain, palpitations, or leg edema Respiratory: No shortness of breath, wheezing, cough Neuro: No headaches, weakness, paresthesias Skin: No rashes or lesions EXAM: Constitutional - Awake and Alert, No apparent distress Eyes - PERRLA, EOMI Cardiovascular - S1S2, RRR, No edema. III. systolic murmur Respiratory - Normal lung expansion, Normal respiratory effort, No respiratory distress, CTA bilaterally Extremities - no calf tenderness bilaterally, no swelling Skin - Warm/Dry Neurological - Alert & oriented x3 Psychological - Appropriate affect PFSH Medical History Endometrial cancer Vulva cancer History of COVID-19 Diabetes mellitus Arthritis Eczema Rosacea Hypothyroid HTN (hypertension) Asthma Surgical History History of cystoscopy Hx of hysterectomy History of lithotripsy History of right oophorectomy Hx of cholecystectomy Hx of dilation and curettage Family History Mother No problems noted. Father Diabetes Social History Household Members: Family Household Members Other:: Brother Housing: House Are you a primary child caregiver to a significant other at home: No Do you presently have visiting nurse or other home services: No Alcohol intake: never Patient Tobacco Use Status: Never used Tobacco e-Cigarette/Vaping Use: Never Used Advance Directives Date on File: 08/29/21 service: No Current occupational status: retired Current occupation: right hand dominant Cognitive needs: No Hearing needs: No Vision needs: Yes (rx classes) Questionnaire Thrive Questionnaire Date Thrive assessed: 03/30/25 PETER-7 AMB Questionnaire PETER-7 Date PETER - 7 assessed: 03/30/25 Source: Developed by Drs. Franklin Leal, Lucinda Moore, Matt Lo and colleagues, with an educational emma from [employer]. Physical exam (Primary Care) Vital Signs: Last Vital Signs Temp 98.0 F 04/10/25 08:53 Pulse 90 04/10/25 08:53 Resp 18 04/10/25 08:53 BP 156/74 H 04/10/25 08:53 Pulse Ox 95 04/10/25 08:53 Oxygen Delivery Method Room Air 04/10/25 08:53 BMI result Body Mass Index 48.7 Tobacco/Smoking Status: Tobacco use Status Tobacco use date assessed 03/30/25 04/10/25 08:57 Patient Tobacco Use Status Never used Tobacco 04/10/25 08:57 e-Cigarette/Vaping Use Never Used 04/10/25 08:57 Thrive Assessment: Date of Thrive Assessment Date Thrive assessed 03/30/25 04/10/25 08:57 Coding Level of Care Code Est Pt Level 3 (37328) Complex EM visit Add On G2211 Diagnoses Primary hypertension I10 Hypertension type: primary hypertension Assessment & Plan Assessment & Plan (1) HTN (hypertension): Code(s): I10 - Essential (primary) hypertension Category: Medical Qualifiers: Hypertension type: primary hypertension Qualified Code(s): I10 - Essential (primary) hypertension Plan: Controlled. Continue checking BP at home. Continue lisinopril 30mg and amlodipine 5mg daily. Reviewed last renal function and electrolyte levels which are satisfactory. Plan Return to the office in 3 months with labs to be completed prior to visit as ordered. Continue current medications
[2025-04-10 08:53] VITALS: BP 156/74; PULSE 90; RESP 18; TEMP 36.7; O2SAT 95; BMI 48.7
--- OUTSIDE RECORDS SUMMARY | 2025-04-10 08:55 | XMS_ITS | Clinical Summary ---
Author Organization [facility] Address [address] [place] [phone] Phone Care Team Providers Care Patient Registration Supervisor Name Role Phone Unavailable Primary Care Provider [...] complete this [place] [address] [facility] [place] [phone]
[2025-04-10 09:16] VITALS: BP 132/82
== END 2025-04-10 09:21 | disposition home or self-care (01) ==
LOC: HO.HMCHD 08:48
PROVIDERS: PCP Physician Assistant; Visit Provider Physician Assistant
DX: I10 Essential (primary) hypertension (principal)

== ENCOUNTER → 2025-04-10 08:47 | Outpatient (BNVA) | payer OTHER, SELFPAY | PROVIDERS: PCP Physician Assistant; Visit Provider Physician Assistant ==

== ENCOUNTER 2025-06-10 11:32 | Emergency (ER) | payer OTHER, SELFPAY ==
--- NOTE | ~2025-06-10 | CT_ITS ---
CLINICAL HISTORY: abd pain --- Additional Notes or Special Instructions: US GUIDED IV FAILEDMD MADE AWARE CT abdomen and pelvis without contrast Comparison: CT/SR - CT ABDOMEN PELVIS WITHOUT IV CONTRAST - 08/28/24 20:46 EDT Findings: Study limited by lack of intravenous contrast. Specifically, evaluation of the vascular tree, solid abdominal organs, and gastrointestinal tract be limited without IV contrast administration. IV contrast is utilized as there was inability to obtain intravenous access per the technologist's notes. CT abdomen: Lung bases are clear. Multilevel degenerative disc disease and degenerative facet disease throughout the thoracolumbar spine without acute bony abnormality. Calcification of the coronary arteries. Gallbladder is surgically absent. Liver is enlarged measuring 20 cm in long axis. Low attenuation throughout the liver is indicative of fatty infiltration. No focal hepatic lesions. Unenhanced spleen, pancreas, and adrenal glands are unremarkable for acute findings. Unchanged exophytic fatty mass off the upper pole of the left kidney measuring 1.9 cm in size. Unchanged stone burden within the lower pole of the left kidney measuring up to 9 mm in size without hydronephrosis or perinephric stranding. No left ureteral calculi. Several stones are again seen within the right kidney measuring up to 6 mm in size. No hydronephrosis or perinephric stranding. Unchanged hyperdense lesion off the posterior aspect of the right kidney measuring 1.6 cm in size. Exophytic cyst off the anterior right kidney measures 1.5 cm in size. No right ureteral calculi. Small hiatal hernia. Fluid-filled loops of nondilated small bowel with mild induration throughout the central mesenteric fat. CT pelvis: Uterus is surgically absent. No colonic wall thickening is identified. Fatty hypertrophy of the ileocecal valve. No findings of appendicitis. Urinary bladder is minimally distended. No bladder calculi. There is a fat containing ventral hernia as seen previously with a 4.4 cm fascial defect inferior to the umbilicus into the left of midline. IMPRESSION: 1. Nonobstructing bilateral renal calculi. 2. Unchanged hyperdense lesion off the right kidney. Although this could represent a hemorrhagic cyst, this is not adequately evaluated on a noncontrast study. Renal ultrasound suggested for further evaluation on a nonemergent basis if not previously performed. 3. 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 4. Hepatomegaly with diffuse fatty infiltration of the liver. 5. CT findings suggestive of mild enteritis without findings of bowel obstruction. This document has been electronically signed by: Romeo Callaway MD on 06/10/2025 17:52:33
[2025-06-10 11:44] VITALS: BP 160/60; PULSE 85; O2SAT 96
--- NOTE | 2025-06-10 11:49 | ED.NAVMDI ---
HPI - Nausea/Vomiting/Diarrhea General Chief complaint: General Medical Stated complaint: ABD PAIN X1W,VOMITING/DIARRHEA,NO MEDS TODAY Time Seen by Provider: 06/10/25 15:17 Source: patient Mode of arrival: ambulatory History of Present Illness ED Provider: Jay IBARRA Narrative: 74-year-old female with longstanding history of vulvar cancer, has had multiple surgeries regarding this, reports that she had nausea and vomiting that started Thursday into Thursday without associated fever, chills also reports nonbloody diarrhea that occurred with this. Patient states it then resolved but on Thursday afternoon began to recur again, she has had multiple intra-abdominal surgeries previously but reports she continues to pass flatus and if course continues to have nonbloody diarrhea. Related Data Home Medications ?Medication ?Instructions ?Recorded ?Confirmed cholecalciferol (vitamin D3) 125 1,000 unit PO DAILY 11/18/20 04/10/25 mcg (5,000 unit) tablet (Vitamin D3) levothyroxine 50 mcg tablet 50 mcg PO DAILY 11/18/20 04/10/25 metformin 500 mg tablet,extended 500 mg PO QPM 12/25/20 04/10/25 release 24 hr ascorbic acid (vitamin C) 500 mg 500 mg PO DAILY 08/29/21 04/10/25 tablet (Vitamin C) fluticasone 100 mcg-salmeterol 50 1 inh inhalation BID 01/26/24 04/10/25 mcg/dose blistr powdr for inhalation (Wixela Inhub) lutein 10 mg tablet 10 mg PO DAILY 03/30/25 04/10/25 Previous Rx's ?Medication ?Instructions ?Recorded lisinopril 30 mg tablet 30 mg PO DAILY #90 tabs 02/28/25 amlodipine 5 mg tablet 5 mg PO DAILY #90 tabs 03/06/25 allopurinol 100 mg tablet 100 mg PO DAILY 90 days #90 tabs 03/24/25 pyridoxine (vitamin B6) 50 mg 50 mg PO DAILY 90 days #90 tabs 03/24/25 tablet diclofenac sodium 1 % topical gel 4 g topical QID #100 grams 03/30/25 (Voltaren Arthritis Pain) cefdinir 300 mg capsule 300 mg PO BID 7 days #14 caps 06/10/25 Allergies Allergy/AdvReac Type Severity Reaction Status Date / Time cephalexin (Keflex) Allergy Severe CRAMPS, N&V Verified 06/10/25 11:52 vancomycin Allergy Anaphylaxis Verified 06/10/25 11:52 erythromycin base AdvReac Severe NAUSEA & Verified 06/10/25 11:52 (Erythromycin Base) VOMITING Erythromycin Allergy Severe CRAMPS Uncoded 06/10/25 11:52 Review of Systems Review of Systems: Pertinent positives and negatives as stated in HPI [facility] Past Medical History Source: nursing notes reviewed Medical History Endometrial cancer Vulva cancer History of COVID-19 Diabetes mellitus Arthritis Eczema Rosacea Hypothyroid HTN (hypertension) Asthma Surgical History History of cystoscopy Hx of hysterectomy History of lithotripsy History of right oophorectomy Hx of cholecystectomy Hx of dilation and curettage Family History Family History Mother No problems noted. Father Diabetes Social History Social History Household Members: Family Household Members Other:: Brother Housing: House Are you a primary dialysis patient care technician to a significant other at home: No Do you presently have visiting nurse or other home services: No Alcohol intake: never Patient Tobacco Use Status: Never used Tobacco Smoked in Last 30 Days: No e-Cigarette/Vaping Use: Never Used Advance Directives: Yes Advance Directives on File: Yes Advance Directives Date on File: 08/29/21 service: No Current occupational status: retired Current occupation: right hand dominant Cognitive needs: No Hearing needs: No Vision needs: Yes (rx classes) Physical Exam Exam: Exam: VITAL SIGNS: Reviewed. GENERAL: Elevated BMI, Well developed, well nourished, in no acute distress. HEAD: Normocephalic/atraumatic EYES: PERRLA, EOMI EARS: Ext canals without abnormality NOSE: Nares patent bilateral OROPHARYNX: no oral lesions noted, posterior pharynx clear NECK: Supple, no adenopathy LUNGS: Normal breath sounds. No adventitious sounds or accessory muscle use. CARDIOVASCULAR: Regular rate and rhythm without noted murmurs, no JVD or lower extremity edema. ABDOMEN: Soft, non-tender, non-distended with bowel sounds. MUSCULOSKELETAL: No tenderness, deformities, or effusions noted on gross inspection. EXTREMITIES: No cyanosis, clubbing or edema. SKIN: Inspection of the skin reveals no rashes NEUROLOGIC: Alert and oriented x 4. Strength and sensation to light touch were grossly intact x 4. Vital Signs: Vital Signs: Last Vital Signs Temp 97.2 F 06/10/25 16:28 Pulse 95 06/10/25 16:28 Resp 18 06/10/25 16:28 BP 127/63 06/10/25 16:28 Pulse Ox 98 06/10/25 16:28 O2 Del Method Room Air 06/10/25 16:28 BMI result Body Mass Index 49.1 Course Course Course Narrative: This is an RME: Additional HPI, ROS, PE not included below will be deferred to primary provider. RME assessment and note performed by: Shelby Allen PA-C This is a [id number]-female, cholecystectomy and hysterectomy, endometrial/vulvar cancer, DM, kidney stones, and HTN, who presents to the ER with complaints of nausea, vomiting and diarrhea since thursday. Reporting diffuse abdominal pain throughout her abdomen. Reporting that the she is also having stabbing pain in her left hip. Reports that she has had diarrhea 6x today. Reporting SOB just due to the pain. No bloody or black stool, no hemoptysis. No sick contacts. No recent travel. No known food exposures. Reporting urinary frequency. Has not taken any of her daily medications this morning. Plan: Labs, UA, EKG, further ER eval needed. Medications Administered Discontinued Medications Generic Name Dose Route Start Last Admin Trade Name Michelle PRN Reason Stop Dose Admin Ondansetron HCl 4 mg 06/10/25 11:52 06/10/25 11:54 Ondansetron Odt 4 Mg Tab.Rapdis TRANSLINGU 06/10/25 11:53 4 mg ONCE ONE Administration Medical Decision Making Medical Decision Making MDM Narrative: 74-year-old female with history and clinical presentation, DD DX: Possible obstruction though felt to be less likely as she continues to pass flatus and have multiple episodes of diarrhea, possibility of gastroenteritis, she denies any urinary symptoms, abdominal exam was otherwise fairly benign, no findings to otherwise suggest a diverticulitis, no clinical suspicion for gallbladder disease. Possibility of UTI. EKG is interpreted by me: Sinus rhythm, HR-84, no STEMI, MN/QRS/QTC/QTC is otherwise within normal limits. 1736: I reviewed and interpreted all investigations and there is a leukocytosis without anemia or thrombocytopenia. There is no BAKARI or electrolyte derangement, there is a mild bump in AST but suspect that this may be secondary to fatty liver, lipase is also noted to be elevated and given patient's nausea and vomiting and epigastric discomfort raises the possibility of gallbladder involvement though the diarrhea is inconsistent and on my interpretation of the CT scan patient is status post cholecystectomy. High sensitivity troponin is undetectable. Urinalysis is significant for blood/nitrite positivity/leukocyte esterase, after completion of lactic acid and blood cultures, patient was treated with 2 g of Rocephin. She has had no episodes of nausea or vomiting since arrival here in the emergency room and no presence of diarrhea. Viral testing is negative for flu/RSV/COVID. After review of the abdomen and pelvis CT scan which was noncontrast given to infiltration of the ultrasound-guided IV placement, there is no evidence of ureterolithiasis, no evidence to suggest diverticulitis and I do suspect that the lipase is associated with patient's underlying gynecologic cancer. Patient received initial antibiotics here and as mentioned above has had no further episodes of diarrhea/nausea/vomiting so at this time it is felt that patient was likely suffering from a pyelonephritis and will be discharged on a 1 week course of antibiotics as well as medication to help control the nausea and vomiting 1804: Official read of CT scan is in agreement that this looks like a in enteritis, otherwise chronically stable findings. Workup is otherwise reassuring, patient continues to appear well/nontoxic and hemodynamically stable without any further episodes of nausea, vomiting, diarrhea. She will receive antibiotics prior to discharge but will be presumptively treated for a pyelonephritis/gastroenteritis. Does not meet inpatient level of care. Differential Diagnosis Differential Diagnoses: The differential diagnosis associated with the presentation includes See above Admission/Observation Consideration of admission/observation: Escalation of care including admission/observation considered See above Lab Data MDM Lab Attestation statement: I reviewed the patient's lab results. See above 06/10/25 12:53 06/10/25 12:53 Labs: Lab Results 06/10/25 06/10/25 06/10/25 Range/Units 12:53 16:32 17:26 WBC 14.6 H (4.8-10.8) X10*3/uL RBC 5.12 D (4.20-5.50) X10*6/uL Hgb 15.0 D (12.0-16.0) g/dl Hct 47.5 H D (37.0-47.0) % MCV 92.8 (80.0-98.0) fL MCH 29.3 (27.0-33.0) pg MCHC 31.6 (31.0-35.0) g/dl RDW 14.9 (11.0-16.0) % Plt Count 180 D (160-400) X10*3/uL MPV 8.9 L (9.4-12.3) fL Immature Gran % (Auto) Cancelled Neut % (Auto) Cancelled Lymph % (Auto) Cancelled Bucks % (Auto) Cancelled Eos % (Auto) Cancelled Baso % (Auto) Cancelled Lymph # (Auto) Cancelled Bucks # (Auto) Cancelled Eos # (Auto) Cancelled Baso # (Auto) Cancelled Abs Immat Gran (auto) Cancelled Absolute Neuts (auto) Cancelled Absolute Nucleated RBC 0.000 (0.0-0.012) X10*3/uL Nucleated RBC % (auto) 0.0 (0.0-0.2) /100WBC Neutrophils % (Manual) 77 H (45-73) % Band Neutrophils % 8 H (3-5) % Lymphocytes % (Manual) 8 L (20-40) % Monocytes % (Manual) 3 (2-11) % Eosinophils % (Manual) 3 (0-4) % Metamyelocytes % 1 % Abs Neuts (Manual) 12.4 H (2.0-8.3) X10*3/uL Lymphocytes # (Manual) 1.2 (1.2-4.9) X10*3/uL Monocytes # (Manual) 0.4 (0.1-1.2) X10*3/uL Eosinophils # (Manual) 0.4 (0.0-0.4) X10*3/uL Metamyelocytes # 0.1 X10*3/uL Platelet Estimate NORMAL (NORMAL) Plt Morphology Comment NORMAL RBC Morphology NORMAL Smear Tech's Comments MANUAL DIFF Sodium 141 (135-145) mmol/L Potassium 4.3 (3.3-5.1) mmol/L Chloride 110 H (96-108) mmol/L Carbon Dioxide 20 L (22-29) mmol/L Anion Gap 15 (12-20) BUN 19 H (9-16) mg/dL Creatinine 0.92 (0.5-1.4) mg/dL Estim Creat Clear Calc 73.9 Estimated GFR > 60 Random Glucose 153 H (60-115) mg/dL Lactic Acid 1.5 (0.5-2.0) mmol/L Calcium 9.6 (8.4-10.2) mg/dL Magnesium 1.9 (1.6-2.6) mg/dL Total Bilirubin 0.5 (0.0-1.0) mg/dL Direct Bilirubin 0.2 (0.0-0.5) mg/dL AST 47 H (5-31) U/L ALT 30 (0-31) U/L Alkaline Phosphatase 118 H (39-117) U/L Troponin I High Sens < 2.7 (<3.5-17.0) ng/L Total Protein 7.4 (6.5-8.0) g/dL Albumin 4.3 (3.5-5.0) g/dL Lipase 241 H (8-78) U/L Urine Color Yellow Urine Appearance Cloudy Urine pH 5.5 (5.0-9.0) Ur Specific [place] 1.020 (1.005-1.025) Urine Protein 100 (2+) H (Neg-Trace) mg/dL Urine Glucose (UA) Negative (Negative) mg/dL Urine Ketones Trace (Negative) mg/dL Urine Blood Large (3+) H (Negative) Urine Nitrite Positive H (Negative) Ur Leukocyte Esterase Moderate (2+) H (Negative) Urine RBC 3-5 H (0-2) /HPF Urine WBC >50 H (0-5) /HPF Ur Squamous Epith Cells 6-10 (0-2) /HPF Urine Bacteria 4+ (None Seen) Hyaline Casts 6-10 (0-2) /LPF Influenza Type A (PCR) NEGATIVE (Negative) Influenza Type B (PCR) NEGATIVE (Negative) RSV RNA Qual (PCR) NEGATIVE (Negative) SARS-CoV-2 RNA (RT-PCR) NEGATIVE (Negative) Independent Interpretation I performed an independent interpretation of an: EKG and CT Scan Interpretation: See above Radiology Impression Discussion of test interpretation with radiology: I have reviewed the radiologist's reading. Radiologist Impression: See above External Record Review External record reviewed: Prior outpatient labs and Prior outpatient radiology Discharge Plan Discharge Clinical Impression: Pyelonephritis, Gastroenteritis Patient Disposition: Home, Self-Care Instructions: Gastroenteritis (ED), Kidney Infection (ED), Nutrition Tips for Relief of Diarrhea (ED) Additional Instructions: Resume all home medications as prescribed, continue to drink plenty of fluids, complete the entire course of antibiotics as prescribed. Please follow-up with your primary care doctor on Thursday morning and do not hesitate to return to the emergency room for any acute worsening of symptoms. Prescriptions: New cefdinir 300 mg capsule 300 mg PO BID 7 Days Qty: 14 0RF No Action levothyroxine 50 mcg Tablet 50 mcg PO DAILY cholecalciferol (vitamin D3) [Vitamin D3] 125 mcg (5,000 unit) Tablet 1,000 unit PO DAILY metformin 500 mg Tablet Extended Release 24 Hr 500 mg PO QPM ascorbic acid (vitamin C) [Vitamin C] 500 mg Tablet 500 mg PO DAILY allopurinol 100 mg tablet 100 mg PO DAILY 90 Days Qty: 90 3RF pyridoxine (vitamin B6) 50 mg tablet 50 mg PO DAILY 90 Days Qty: 90 3RF lisinopril 30 mg tablet 30 mg PO DAILY Qty: 90 1RF fluticasone propion-salmeterol [Wixela Inhub] 100-50 mcg/dose blister with device 1 inh inhalation BID lutein 10 mg tablet 10 mg PO DAILY Rx Instructions: give with meal/snack diclofenac sodium [Voltaren Arthritis Pain] 1 % gel 4 g topical QID Qty: 100 3RF Rx Instructions: apply to single knee, ankle, foot; for foot includes sole/toes/top of foot amlodipine 5 mg tablet 5 mg PO DAILY Qty: 90 1RF Referrals: Lora Mccullough MD [Primary Care Provider, Internal Medicine] Print Language: Citizen Of [place]
[2025-06-10 11:51] VITALS: BP 116/58; PULSE 72; RESP 18; TEMP 37.2; O2SAT 100; BMI 49.1
--- NOTE | 2025-06-10 11:54 | ECG_ITS ---
Test Reason : HTN Blood Pressure : */* mmHG Vent. Rate : 84 BPM Atrial Rate : 84 BPM P-R Int : 146 ms QRS Dur : 84 ms QT Int : 368 ms P-R-T Axes : -2 -4 21 degrees QTcB Int : 434 ms Normal sinus rhythm Anterior infarct , age undetermined Abnormal ECG When compared with ECG of 28-Aug-2024 17:32, No significant change was found Referred By: Shelby Allen Electronically Signed By: MARI FERNANDEZ
[2025-06-10 13:15] LABS: Alanine Aminotransferase 30 U/L (0-31); Albumin Level 4.3 g/dL (3.5-5.0); Alkaline Phosphatase 118 U/L (39-117); Anion Gap 15 (12-20); Aspartate Amino Transferase 47 U/L (5-31); Blood Urea Nitrogen 19 mg/dL (9-16); Calcium 9.6 mg/dL (8.4-10.2); Carbon Dioxide 20 mmol/L (22-29); Chloride 110 mmol/L (96-108); Creatinine Clr Calc Pharmacy 73.9; Estimated Glomerular Filt Rate > 60; Lipase 241 U/L (8-78); Magnesium 1.9 mg/dL (1.6-2.6); Potassium 4.3 mmol/L (3.3-5.1); Sodium 141 mmol/L (135-145); Total Protein 7.4 g/dL (6.5-8.0)
[2025-06-10 13:20] LABS: Hematocrit 47.5 % (37.0-47.0); Hemoglobin 15.0 g/dl (12.0-16.0); Mean Corpuscular HGB Conc 31.6 g/dl (31.0-35.0); Mean Corpuscular Hemoglobin 29.3 pg (27.0-33.0); Mean Corpuscular Volume 92.8 fL (80.0-98.0); NRBC Abs Auto 0.000 X10*3/uL (0.0-0.012); NRBC Pct Auto 0.0 /100WBC (0.0-0.2); PLT CLUMP 1; Red Blood Count 5.12 X10*6/uL (4.20-5.50)
[2025-06-10 13:22] LABS: White Blood Count 14.6 X10*3/uL (4.8-10.8)
[2025-06-10 13:25] LABS: Troponin-I High Sensitivity < 2.7 ng/L (<3.5-17.0)
[2025-06-10 13:41] LABS: Resp Syncy Virus RNA Qual PCR NEGATIVE (Negative); SARS COV2 PCR INHOUSE NEGATIVE (Negative)
[2025-06-10 13:44] LABS: Band Neutrophils Percent 8 % (3-5); Eosinophils Absolute Manual 0.4 X10*3/uL (0.0-0.4); Eosinophils Percent Manual 3 % (0-4); Lymphocytes Absolute Manual 1.2 X10*3/uL (1.2-4.9); Lymphocytes Percent Manual 8 % (20-40); Metamyelocytes Absolute 0.1 X10*3/uL; Metamyelocytes Percent 1 %; Monocytes Absolute Manual 0.4 X10*3/uL (0.1-1.2); Monocytes Percent Manual 3 % (2-11); Neutrophils Absolute Manual 12.4 X10*3/uL (2.0-8.3); Neutrophils Percent Manual 77 % (45-73)
[2025-06-10 13:45] LABS: RBC Morphology NORMAL
[2025-06-10 13:46] LABS: Platelet Count 180 X10*3/uL (160-400)
--- NOTE | 2025-06-10 16:23 | PC.NURSE ---
Attempted to obtain IV access x 2 RN's. Pt samira jaquez MD notified and u/s guided IV placed in R AC
[2025-06-10 16:28] VITALS: BP 127/63; PULSE 95; RESP 18; TEMP 36.2; O2SAT 98
[2025-06-10 16:42] LABS: Appearance Urine Cloudy; Glucose Urine UA Negative (Negative); PH 5.5 (5.0-9.0); Specific Gravity - Urine 1.020 (1.005-1.025); UMIC TRIGGER UACC YES
[2025-06-10 16:53] LABS: UACC Culture Trigger YES
--- NOTE | 2025-06-10 18:11 | PC.NURSE ---
pt very difficult stick, unable to obtain IV for abx and tech unable to draw with cultures. MD aware.
--- NOTE | 2025-06-10 18:12 | MHC.EDTECH ---
attempted to draw repeat labs and blod culture x4 unsuccessful Md notified as well as Rn. Pt is known to be a difficult Draw.
[2025-06-10 18:56] VITALS: BP 118/55; PULSE 89; RESP 18; TEMP 36.2; O2SAT 98
== END 2025-06-10 18:57 | disposition home or self-care (01) ==
PROVIDERS: Physician Assistant Medical; Emergency Provider Student in an Organized Health Care Education/Training Program; PCP Pediatrics
DX: N12 Tubulo-interstitial nephritis, not specified as acute or chronic (principal); K52.9 Noninfective gastroenteritis and colitis, unspecified; C51.9 Malignant neoplasm of vulva, unspecified; E11.9 Type 2 diabetes mellitus without complications; I10 Essential (primary) hypertension; E03.9 Hypothyroidism, unspecified; J45.909 Unspecified asthma, uncomplicated; E66.9 Obesity, unspecified; Z68.42 Body mass index [BMI] 45.0-49.9, adult; Z79.84 Long term (current) use of oral hypoglycemic drugs; Z79.899 Other long term (current) drug therapy; Z03.818 Encounter for observation for suspected exposure to other biological agents ruled out
CPT/HCPCS: 36415; 74176; 80048; 80076; 81001; 83605; 83690; 83735; 84484; 85007; 85025; 85027; 87086; 87637; 93005; 99284

== ENCOUNTER → 2025-06-10 11:54 | Outpatient (BNV) | payer OTHER, SELFPAY | PROVIDERS: Emergency Provider Student in an Organized Health Care Education/Training Program; PCP Pediatrics; Visit Provider Internal Medicine | DX: I10 Essential (primary) hypertension (principal); R94.31 Abnormal electrocardiogram [ECG] [EKG] | CPT/HCPCS: 93010 ==

== ENCOUNTER → 2025-06-10 15:17 | Outpatient (BNV) | payer OTHER, SELFPAY | PROVIDERS: Emergency Provider Student in an Organized Health Care Education/Training Program; PCP Pediatrics; Visit Provider Radiology Diagnostic Radiology | DX: N20.0 Calculus of kidney (principal); N28.89 Other specified disorders of kidney and ureter; K76.0 Fatty (change of) liver, not elsewhere classified; R16.0 Hepatomegaly, not elsewhere classified | CPT/HCPCS: 74176 ==

== ENCOUNTER 2025-08-14 09:36 | Emergency (ER) | payer OTHER, SELFPAY ==
--- NOTE | ~2025-08-14 | CT_ITS ---
CLINICAL HISTORY: L flank pain hx renal stones CT abdomen and pelvis without contrast Comparison: CT/REG/SR - CT ABDOMEN PELVIS WO IV CON - 06/10/25 16:43 EDT Findings: The lung bases are clear. Enlarged, hypodense liver without change. Normal spleen size. Unremarkable pancreas and adrenal glands. 2 cm angiomyolipoma arising from the upper pole of the left kidney without change. 17 mm mildly hyperdense nodule arising from the upper pole of the right kidney without change. 6 mm calculus within the left proximal ureter causing mild hydronephrosis. Multiple nonobstructive calculi within the bilateral kidneys. Prior cholecystectomy. Large ventral hernia containing fat. No bowel herniation. No bowel edema or dilatation. Status post hysterectomy. Unremarkable urinary bladder. Normal appendix. No acute fracture. IMPRESSION: 1. 6 mm calculus within the left proximal ureter causing mild hydronephrosis. 2. Multiple nonobstructive calculi within the bilateral kidneys. 3. 17 mm hyperdense nodule within the upper pole of the right kidney without change. Recommend further evaluation with ultrasound when clinically appropriate. 4. 2 cm angiomyolipoma arising from the upper pole of the left kidney without change. 5. Hepatomegaly with fatty infiltration of the liver. This document has been electronically signed by: Francheska Major MD on 08/14/2025 12:54:43
[2025-08-14 09:40] VITALS: BP 178/74; PULSE 87; RESP 16; TEMP 36.3; O2SAT 99; BMI 48.6
--- NOTE | 2025-08-14 09:52 | ECG_ITS ---
Test Reason : SOB Blood Pressure : */* mmHG Vent. Rate : 72 BPM Atrial Rate : 72 BPM P-R Int : 166 ms QRS Dur : 84 ms QT Int : 364 ms P-R-T Axes : 7 23 36 degrees QTcB Int : 398 ms Normal sinus rhythm Normal ECG When compared with ECG of 10-Jun-2025 13:02, No significant change was found Referred By: Kush Dixon Electronically Signed By: Chase Alexander
--- OUTSIDE RECORDS SUMMARY | 2025-08-14 10:32 | XMS_ITS | Clinical Summary ---
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 Name Role Phone Unavailable Primary Care Provider [...] Last Done Comments Breast Cancer Screening 1950 Colorectal Cancer Screening: Colonoscopy 1952 Diabetes: Annual GFR (Glomerular Filtration Rate) 1952 Diabetes: Annual Foot Exam 1962 Diabetes: Annual Retina Eye Exam 1962 RSV Immunization Adult Patients (1 - Risk 60-74 years 1-dose series) 2012 Zoster Vaccines (2 of 3) 11/08/2015 09/13/2015 Pneumococcal Vaccine: 50+ Years (3 of 3 - PCV20 or PCV21) 08/22/2024 08/22/2019, 08/06/2015 Cholesterol Screening (Lipid Panel) 08/24/2024 Falls Risk Assessment 08/24/2024 Hepatitis C Screening 08/24/2024 Osteoporosis Screening (Bone Density Screening) 08/24/2024 Social Influencers of Health Screening 08/24/2024 Diabetes: Annual Urine Albumin-Creatinine Ratio (uACR) 09/06/2024 Diabetes: Blood Sugar Control Test (HGBA1C) 09/06/2024 Hypertension/CHF/CAD Annual BMP Blood Test 09/06/2024 Depression Screening 11/02/2024 COVID-19 Vaccine ( season) 2025 11/12/2022, 08/27/2021, 02/04/2021, Additional history exists Influenza Vaccine (#1) 2025 1, 07/25/2020, 08/06/2015 DTaP,Tdap,and Td Vaccines (3 - [...] patient's age to complete this topic Insurance [phone] (Home) [place] [address] [facility] [place] [phone]
--- NOTE | 2025-08-14 10:44 | ED_ITS ---
HPI - Abdominal Pain General Chief Complaint: Abdominal Pain Stated Complaint: pain on lt side rad to abd and back, vomiting Time Seen by Provider: 08/14/25 10:39 Source: patient Mode of arrival: ambulatory Limitations: no limitations History of Present Illness ED Provider: MARY WILSON PA-C HPI narrative: 74 year old female with pmhx significant for nephrolithiasis, HTN, hypothyroid, T2DM, asthma, morbid obesity presents to the ED today for evaluation of acute onset left flank pain beginning around 2100 last night. Reports taking 2 Tylenol at that time, was able to fall asleep. She was then awoken with pain at 0200. Pain radiates from left flank to left abdomen. Admits to nausea with 2 episodes of vomiting nonbloody emesis around 0400 and 0500 today. Denies taking any OTC pain meds today. Denies fever, chills, dysuria, hematuria. Admits she was unable to tolerate her morning medications today. Reports history of renal stones requiring lithotripsy. Follows with Dr. Quintana yearly for routine renal ultrasounds, last appointment in 03/2025. States ultrasound at that time showed stones within bilateral kidneys. Related Data Home Medications ?Medication ?Instructions ?Recorded ?Confirmed cholecalciferol (vitamin D3) 125 1,000 unit PO DAILY 0 11/18/20 04/10/25 mcg (5,000 unit) tablet (Vitamin D3) metformin 500 mg tablet,extended 500 mg PO QPM 04/10/25 release 24 hr ascorbic acid (vitamin C) 500 mg 500 mg PO DAILY 08/2904/10/25 tablet (Vitamin C) fluticasone 100 mcg-salmeterol 50 1 inh inhalation BID 01/26/24 04/10/25 mcg/dose blistr powdr for inhalation (Wixela Inhub) lutein 10 mg tablet 10 mg PO DAILY 03/30/2507/27 Previous Rx's ?Medication ?Instructions ?Recorded lisinopril 30 mg tablet 30 mg PO DAILY #90 tabs 02/01 07/27 amlodipine 5 mg tablet 5 mg PO DAILY #90 tabs 03/06 allopurinol 100 mg tablet 100 mg PO DAILY 90 days #90 tabs 03/24/25 pyridoxine (vitamin B6) 50 mg 50 mg PO DAILY 90 days # 90 tabs 03/24/25 tablet diclofenac sodium 1 % topical gel 4 g topical QID #100 grams 03/30/25 (Voltaren Arthritis Pain) cefdinir 300 mg capsule 300 mg PO BID 7 days #14 cap s 06/10/25 levothyroxine 50 mcg tablet 50 mcg PO DAILY #90 tabs 0 06/26/25 ketorolac 10 mg tablet 10 mg PO Q8H PRN pain (scale score 08/14/25 4-6) 5 days #15 tabs ondansetron 4 mg disintegrating 4 mg PO Q8H PRN nausea and 08/14/25 tablet vomiting #10 tabs tamsulosin 0.4 mg capsule (Flomax) 0.4 mg PO BEDTIME 1 4 days #14 caps 08/14/25 Allergies Allergy/AdvReac Type Severity Reaction Status Date / Time cephalexin (Keflex) Allergy Severe CRAMPS, N&V Verified 08/14/25 09:42 vancomycin Allergy Anaphylaxis Verified 08/14/25 09:42 erythromycin base AdvReac Severe NAUSEA & Verified 08/14/25 09:42 (Erythromycin Base) VOMITING Erythromycin Allergy Severe CRAMPS Uncoded 08/14/25 09:42 Review of Systems Review of Systems Yes all other systems are reviewed and are negative [facility] Past Medical History Attestation statement: The following information was validated with the patient. Source: old records reviewed and nursing notes reviewed Medical History Endometrial cancer Vulva cancer History of COVID-19 Diabetes mellitus Arthritis Eczema Rosacea Hypothyroid HTN (hypertension) Asthma Surgical History History of cystoscopy Hx of hysterectomy History of lithotripsy History of right oophorectomy Hx of cholecystectomy Hx of dilation and curettage Family History Family History Mother No problems noted. Father Diabetes Social History Social History Household Members: Family Household Members Other:: Brother Housing: House Are you a primary clinical care manager to a significant other at home: No Do you presently have visiting nurse or other home services: No Alcohol intake: never Patient Tobacco Use Status: Never used Tobacco e-Cigarette/Vaping Use: Never Used Advance Directives: Yes Advance Directives on File: Yes Advance Directives Date on File: 08/29/21 Do you have a plan to hurt others: No Plan service: No Current occupational status: retired Current occupation: right hand dominant Cognitive needs: No Hearing needs: No Vision needs: Yes (rx classes) Physical Exam ED Vital Signs: Vital Signs - 24 hr 08/14/25 09:40 08/14/25 11:52 08/14/25 13:28 Temperature 97.3 F 98.0 F Pulse Rate 87 70 Respiratory Rate 16 Blood Pressure 178/74 H 168/73 H 168/73 H Pulse Oximetry 99 96 Oxygen Delivery Method Room Air Room Air 08/14/25 14:00 Temperature 98.3 F Pulse Rate 77 Respiratory Rate Blood Pressure 154/63 H Pulse Oximetry 98 Oxygen Delivery Method Room Air BMI result Body Mass Index 48.6 hypertensive, vitals otherwise wnl General: Well appearing, in no acute distress. Skin: Warm, dry, intact. No rashes or lesions. Head: Normocephalic, atraumatic. EENT: Hearing is intact b/l. Conjunctiva clear. PERRLA. EOM intact. Moist mucous membranes.? Neck: Supple without LAD Cardiac: Chest wall symmetric. RRR Lungs: Normal respiratory effort without accessory muscle use. CTA bilaterally? Abdomen: no overlying rashes/ skin changes. obese abdomen, soft, non-tender, non-distended. No rebound tenderness or guarding. Positive BS x4. no CVAT. Back: No midline spinous or paraspinal tenderness. No step off deformity. Ext: Upper and lower extremities atraumatic, without tenderness, deformity, swelling or erythema Neuro: AOx3. Normal speech. Ambulating with steady gait Course Course Course Narrative: CBC with leukocytosis to 13 with left shift. Normocytic anemia, H and H appears to be around patient's baseline. Above transfusion threshold. Chemistry without acute electrolyte abnormality requiring intervention. BUN 19, creatinine 1.17. Random glucose 171, no anion gap. Liver function at baseline. Urine showing large amount of blood, over 20 RBCs. No nitrites, no urine bacteria. Will await urine culture to treat for UTI. > CT abdomen/pelvis shows a 6 mm calculus within the left proximal ureter causing mild hydronephrosis. Multiple nonobstructing calculi within bilateral kidneys. 17 mm hypodense nodule within the upper pole of the right kidney without change. 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 Hepatomegaly. > discuss results with patient. She reports significant improvement in pain from 07/12 to 210 after receiving Toradol and fluids. Resolution of nausea after receiving Zofran. Tolerating PO. > I spoke with urologist on-call, Dr. Quintana, recommends discharge home on Flomax and pain control with outpatient follow up. States his office will contact her tomorrow to schedule an appointment. Patient has remained stable throughout ED visit today. Discussed worrisome signs and symptoms and when to return to the ED. All questions answered at this time. Patient is agreeable with disposition and stable for discharge. Medical Decision Making Medical Decision Making [facility] Narrative: 74 year old female with pmhx significant for nephrolithiasis, HTN, hypothyroid, T2DM, asthma, morbid obesity presents to the ED today for evaluation of acute onset left flank pain beginning around 2100 last night. Hypertensive. Did not take her home medications. Will administer amlodipine and lisinopril. Vitals are otherwise WNL. Her abdomen is obese, soft ND/NT, no rebound or guarding. Active bowel sounds throughout. No CVAT bilaterally. No overlying skin changes to suggest herpes zoster. Differential diagnosis includes renal colic, nephrolithiasis, hydronephrosis, pyelonephritis, colitis, diverticulitis, diverticulosis, UTI, gastroenteritis Less likely SBO, pancreatitis, AAA. Status post hysterectomy/oophorectomy, unlikely ovarian torsion/cyst. Unlikely acute abdomen. Plan for labs, UA, CT, pain/nausea control, IVF, re-evaluation. Differential Diagnosis Differential Diagnoses: The differential diagnosis associated with the presentation includes As above Admission/Observation Not indicated Consult Healthcare Provider Management of the patient was discussed with: Quilting Supervisor (dr. quintana - urology ) Lab Data [facility] Lab Attestation statement: I reviewed the patient's lab results. as above. 08/14/25 11:29 08/14/25 11:29 Labs: Lab Results 08/14/25 08/14/25 Range/Units 11:29 14:09 WBC 13.0 H (4.8-10.8) X10*3/uL RBC 3.94 L D (4.20-5.50) X10*6/uL Hgb 11.5 L D (12.0-16.0) g/dl Hct 36.2 L D (37.0-47.0) % MCV 91.9 (80.0-98.0) fL MCH 29.2 (27.0-33.0) pg MCHC 31.8 (31.0-35.0) g/dl RDW 14.5 (11.0-16.0) % Plt Count 351 D (160-400) X10*3/uL MPV 9.0 L (9.4-12.3) fL Immature Gran % (Auto) 1.7 H (0.0-0.4) % Neut % (Auto) 86.2 H (45-73) % Lymph % (Auto) 8.8 L (20-40) % [place] % (Auto) 2.8 (2-11) % Eos % (Auto) 0.1 (0-4) % Baso % (Auto) 0.4 (0-2) % Lymph # (Auto) 1.1 L (1.2-4.9) X10*3/uL [place] # (Auto) 0.4 (0.1-1.2) X10*3/uL Eos # (Auto) 0.0 (0.0-0.4) X10*3/uL Baso # (Auto) 0.1 (0.0-0.2) X10*3/uL Abs Immat Gran (auto) 0.22 H (0.00-0.03) X10*3/uL Absolute Neuts (auto) 11.2 H (2.0-8.3) x10*3/uL Absolute Nucleated RBC 0.000 (0.0-0.012) X10*3/uL Nucleated RBC % (auto) 0.0 (0.0-0.2) /100WBC Sodium 144 (135-145) mmol/L Potassium 4.1 (3.3-5.1) mmol/L Chloride 112 H (96-108) mmol/L Carbon Dioxide 24 (22-29) mmol/L Anion Gap 12 (12-20) BUN 19 H (9-16) mg/dL Creatinine 1.17 (0.5-1.4) mg/dL Estim Creat Clear Calc 57.7 Estimated GFR 45 Random Glucose 171 H (60-115) mg/dL Calcium 9.3 (8.4-10.2) mg/dL Magnesium 1.9 (1.6-2.6) mg/dL Total Bilirubin 0.3 (0.0-1.0) mg/dL AST 21 (5-31) U/L ALT 19 (0-31) U/L Alkaline Phosphatase 86 (39-117) U/L Total Protein 7.1 (6.5-8.0) g/dL Albumin 4.4 (3.5-5.0) g/dL Urine Color Yellow Urine Appearance Clear Urine pH 5.5 (5.0-9.0) Ur Specific [place] 1.020 (1.005-1.025) Urine Protein 300 (3+) H (Neg-Trace) mg/dL Urine Glucose (UA) Negative (Negative) mg/dL Urine Ketones Negative (Negative) mg/dL Urine Blood Large (3+) H (Negative) Urine Nitrite Negative (Negative) Ur Leukocyte Esterase Small (1+) H (Negative) Urine RBC >20 H (0-2) /HPF Urine WBC 11-20 H (0-5) /HPF Ur Squamous Epith Cells 3-5 (0-2) /HPF Urine Bacteria None Seen (None Seen) Hyaline Casts 0-2 (0-2) /LPF Independent Interpretation I performed an independent interpretation of an: CT Scan Interpretation: CT abdomen/pelvis showing stone to left proximal ureter Radiology Impression Discussion of test interpretation with radiology: I have reviewed the radiologist's reading. Radiologist Impression: Procedure(s): CT abdomen pelvis wo IV con Accession Number(s): [id number] cc: Lora Mccullough MD; Mary Wilson~ Report Number: [id number]: Total DLP = 1072.00 mGy-cm Reason for Exam: L flank pain hx renal stones CLINICAL HISTORY: L flank pain hx renal stones CT abdomen and pelvis without contrast Comparison: CT/REG/SR - CT ABDOMEN PELVIS WO IV CON - 06/10/25 16:43 EDT Findings: The lung bases are clear. Enlarged, hypodense liver without change. Normal spleen size. Unremarkable pancreas and adrenal glands. 2 cm angiomyolipoma arising from the upper pole of the left kidney without change. 17 mm mildly hyperdense nodule arising from the upper pole of the right kidney without change. 6 mm calculus within the left proximal ureter causing mild hydronephrosis. Multiple nonobstructive calculi within the bilateral kidneys. Prior cholecystectomy. Large ventral hernia containing fat. No bowel herniation. No bowel edema or dilatation. Status post hysterectomy. Unremarkable urinary bladder. Normal appendix. No acute fracture. IMPRESSION: 1. 6 mm calculus within the left proximal ureter causing mild hydronephrosis. 2. Multiple nonobstructive calculi within the bilateral kidneys. 3. 17 mm hyperdense nodule within the upper pole of the right kidney without change. Recommend further evaluation with ultrasound when clinically appropriate. 4. 2 cm angiomyolipoma arising from the upper pole of the left kidney without change. 5. Hepatomegaly with fatty infiltration of the liver. This document has been electronically signed by: Francheska Major MD on 08/14/2025 12:54:43 External Record Review External record reviewed: Inpatient record, Office record, Outpatient record and Prior outpatient labs Prescription Management I considered prescription management with: Pain Medication and Other (flomax, zofran) Chronic Conditions Patient?s care impacted by: Other (Renal stones) Social Determinants Patient?s care significantly limited by Social Determinants of Health including: Other Social Determinant of Health Medications Administered Discontinued Medications Generic Name Dose Route Start Last Admin Trade Name Freq PRN Reason Stop Dose Admin Amlodipine Besylate 5 mg 08/14/25 11:40 08/14/25 13:28 Amlodipine Besylate 5 Mg Tablet PO 08/14/25 11:41 5 mg ONCE ONE Administration Protocol Sodium Chloride 1,000 mls @ 999 mls/hr 08/14/25 11:15 08/14/25 13:00 Ns IV 08/14/25 12:15 Infused .Q1H1M ROLANDO Infusion Ketorolac Tromethamine 15 mg 08/14/25 11:02 08/14/25 11:40 Ketorolac Tromethamine 15 Mg/Ml Vial IVPUSH 08/14/25 11:03 15 mg ONCE ONE Administration Lisinopril 30 mg 08/14/25 11:40 08/14/25 13:27 Lisinopril 10 Mg Tablet PO 08/14/25 11:41 30 mg ONCE ONE Administration Protocol Ondansetron HCl 4 mg 08/14/25 11:02 08/14/25 11:40 Ondansetron Hcl 4 Mg/2 Ml Vial IVPUSH 08/14/25 11:03 4 mg ONCE ONE Administration Critical Care Time Critical Care Time Critical Care Time: No Discharge Plan Discharge Clinical Impression: Calculus of proximal left ureter, Hydronephrosis Patient Disposition: Home, Self-Care Instructions: Ureteral Stones (ED) Additional Instructions: You were evaluated in the ED today for left flank/abdominal pain. Your blood work is reassuring. Your urine does not demonstrate infection. The CT scan of your abdomen shows a 6 mm stone within your proximal left ureter. This should pass on its own. For now, I am sending flomax to your pharmacy to aid in stone passage. Take this once daily at night. Change positions with caution so your blood pressure can normalize. Zofran has been sent to your pharmacy for nausea/vomiting. Toradol as an anti-inflammatory pain medication that has been sent to your pharmacy. Take this as needed for pain/discomfort. Do not take this with other NSAIDs such as Aleve or Motrin as this can cause increased risk of GI bleeding. As discussed, contact Dr. Quintana's office tomorrow for follow up. Return with any new or worsening symptoms. In the case of an emergency call 911. Prescriptions: New ketorolac 10 mg tablet 10 mg PO Q8H PRN (Reason: pain (scale score 4-6)) 5 Days Qty: 15 0RF Rx Instructions: maximum total duration of 5 days from all oral, intranasal, or parenteral formulations ondansetron 4 mg tablet,disintegrating 4 mg PO Q8H PRN (Reason: nausea and vomiting) Qty: 10 0RF tamsulosin [Flomax] 0.4 mg capsule 0.4 mg PO BEDTIME 14 Days Qty: 14 0RF No Action levothyroxine 50 mcg tablet 50 mcg PO DAILY Qty: 90 1RF cholecalciferol (vitamin D3) [Vitamin D3] 125 mcg (5,000 unit) Tablet 1,000 unit PO DAILY metformin 500 mg Tablet Extended Release 24 Hr 500 mg PO QPM ascorbic acid (vitamin C) [Vitamin C] 500 mg Tablet 500 mg PO DAILY cefdinir 300 mg capsule 300 mg PO BID 7 Days Qty: 14 0RF allopurinol 100 mg tablet 100 mg PO DAILY 90 Days Qty: 90 3RF pyridoxine (vitamin B6) 50 mg tablet 50 mg PO DAILY 90 Days Qty: 90 3RF lisinopril 30 mg tablet 30 mg PO DAILY Qty: 90 1RF fluticasone propion-salmeterol [Wixela Inhub] 100-50 mcg/dose blister with device 1 inh inhalation BID lutein 10 mg tablet 10 mg PO DAILY Rx Instructions: give with meal/snack diclofenac sodium [Voltaren Arthritis Pain] 1 % gel 4 g topical QID Qty: 100 3RF Rx Instructions: apply to single knee, ankle, foot; for foot includes sole/toes/top of foot amlodipine 5 mg tablet 5 mg PO DAILY Qty: 90 1RF Referrals: [facility] [Provider Group, Urology] Lora Mccullough MD [Primary Care Provider, Internal Medicine] Print Language: Yemeni
[2025-08-14 11:34] LABS: MANUAL DIFF FLAG NO
[2025-08-14 11:40] LABS: Hematocrit 36.2 % (37.0-47.0); Hemoglobin 11.5 g/dl (12.0-16.0); Imm Gran Abs Auto 0.22 X10*3/uL (0.00-0.03); Imm Gran Pct Auto 1.7 % (0.0-0.4); Lymphocytes Absolute Auto 1.1 X10*3/uL (1.2-4.9); Mean Corpuscular HGB Conc 31.8 g/dl (31.0-35.0); Mean Corpuscular Hemoglobin 29.2 pg (27.0-33.0); Mean Corpuscular Volume 91.9 fL (80.0-98.0); NRBC Abs Auto 0.000 X10*3/uL (0.0-0.012); NRBC Pct Auto 0.0 /100WBC (0.0-0.2); Platelet Count 351 X10*3/uL (160-400); Red Blood Count 3.94 X10*6/uL (4.20-5.50); White Blood Count 13.0 X10*3/uL (4.8-10.8)
[2025-08-14 11:52] VITALS: BP 168/73; PULSE 70; TEMP 36.7; O2SAT 96
[2025-08-14 12:01] LABS: Alanine Aminotransferase 19 U/L (0-31); Albumin Level 4.4 g/dL (3.5-5.0); Alkaline Phosphatase 86 U/L (39-117); Anion Gap 12 (12-20); Aspartate Amino Transferase 21 U/L (5-31); Blood Urea Nitrogen 19 mg/dL (9-16); Calcium 9.3 mg/dL (8.4-10.2); Carbon Dioxide 24 mmol/L (22-29); Chloride 112 mmol/L (96-108); Creatinine Clr Calc Pharmacy 57.7; Estimated Glomerular Filt Rate 45; Magnesium 1.9 mg/dL (1.6-2.6); Potassium 4.1 mmol/L (3.3-5.1); Sodium 144 mmol/L (135-145); Total Protein 7.1 g/dL (6.5-8.0)
[2025-08-14 13:28] VITALS: BP 168/73
[2025-08-14 14:00] VITALS: BP 154/63; PULSE 77; TEMP 36.8; O2SAT 98
[2025-08-14 14:16] LABS: Appearance Urine Clear; Glucose Urine UA Negative (Negative); PH 5.5 (5.0-9.0); Specific Gravity - Urine 1.020 (1.005-1.025); UMIC TRIGGER UACC YES
[2025-08-14 14:18] LABS: UACC Culture Trigger YES
[2025-08-14 15:40] VITALS: BP 152/65; PULSE 76; RESP 18; TEMP 36.8; O2SAT 98
[2025-08-14 16:01] VITALS: BP 152/65; PULSE 76; RESP 18; TEMP 36.8; O2SAT 98
== END 2025-08-14 16:08 | disposition home or self-care (01) ==
PROVIDERS: Physician Assistant Medical; Emergency Provider Emergency Medicine; PCP Pediatrics
DX: N13.2 Hydronephrosis with renal and ureteral calculous obstruction (principal); D64.9 Anemia, unspecified; I10 Essential (primary) hypertension; E66.09 Other obesity due to excess calories; Z68.42 Body mass index [BMI] 45.0-49.9, adult; E11.9 Type 2 diabetes mellitus without complications; Z79.899 Other long term (current) drug therapy
CPT/HCPCS: 36415; 74176; 80053; 81001; 83735; 85025; 87086; 93005; 96361; 96374; 96375; 99284; 99285; J1885; J2405

== ENCOUNTER → 2025-08-14 09:52 | Outpatient (BNV) | payer OTHER, SELFPAY | PROVIDERS: Emergency Provider Emergency Medicine; PCP Pediatrics; Visit Provider Internal Medicine Cardiovascular Disease | DX: R06.02 Shortness of breath (principal) | CPT/HCPCS: 93010 ==

== ENCOUNTER → 2025-08-14 11:03 | Outpatient (BNV) | payer OTHER, SELFPAY | PROVIDERS: Emergency Provider Emergency Medicine; PCP Pediatrics; Visit Provider Radiology Diagnostic Radiology | DX: N13.2 Hydronephrosis with renal and ureteral calculous obstruction (principal); N28.89 Other specified disorders of kidney and ureter; D17.71 Benign lipomatous neoplasm of kidney; K76.0 Fatty (change of) liver, not elsewhere classified; R16.0 Hepatomegaly, not elsewhere classified | CPT/HCPCS: 74176 ==